=== PATIENT | male | born 1975 | race African-American/Black ===

== ENCOUNTER 2017-07-15 00:25 | Emergency (ER) | payer OTHER ==
[2017-07-15 00:31] VITALS: BP 171/94; PULSE 89; RESP 20; TEMP 97.9
--- NOTE | 2017-07-15 00:42 | ED ---
General Adult HPI - General Chief complaint: Extremity Injury, Lower Stated complaint: toe pain Time Seen by Provider: 07/15/17 00:34 Source: patient, RN notes reviewed Mode of arrival: ambulatory Limitations: no limitations - History of Present Illness Initial comments: Chief complaint history of present illness a 42-year-old male here with a complaint of pain to his right second toe. Patient reports that he had a jump over a railing help stop his [id number] from falling over in a wheelchair. He states he heard what sounded like a bone breaking. He has pain now to the proximal phalanx of his right second toe. No open wound noted. No other complaints. - Related Data Home Medications Medication Instructions Recorded Confirmed Insulin Glargine [Lantus] 60 units SQ HS 06/05/14 07/15/17 Insulin Glulisine [Apidra] 3 units SQ DIRECTED 06/05/14 07/15/17 Lisinopril [Zestril] 5 mg PO DAILY 06/05/14 07/15/17 amLODIPine BESYLATE [Norvasc] 5 mg PO DAILY 06/05/14 07/15/17 Gabapentin [Neurontin] 800 mg PO TID 07/22/14 07/15/17 Promethazine [Phenergan] 25 mg PO Q8HR 07/29/14 07/15/17 ALPRAZolam [Xanax] 0.5 mg PO TID PRN 01/12/15 07/15/17 DULoxetine HCL [Cymbalta] 30 mg PO DAILY 01/12/15 07/15/17 Previous Rx's Medication Instructions Recorded Ibuprofen [Motrin] 600 mg PO Q6HR PRN #20 tab 07/15/17 Allergies Allergy/AdvReac Type Severity Reaction Status Date / Time No Known Allergies Allergy Verified 07/15/17 00:31 Review of Systems ROS Statement: Those systems with pertinent positive or pertinent negative responses have been documented in the HPI. review of systems patient has no other complaints other than pain and swelling to his right second toe is noted in the chief complaint. Past medical problems significant for insulin-dependent diabetes mellitus, hypertension and CAD diabetic gastroparesis. Patient's surgeries include a pilonidal abscess 10 years ago. Family history noncontributory no known ALLERGIES. He does smoke and is encouraged to stop denies alcohol use. ROS Other: All systems not noted in ROS Statement are negative. Past Medical History Past Medical History: Diabetes Mellitus, Hypertension Additional Past Medical History / Comment(s): Diabetic gastroparesis,mid and lower herniated disc, mid and lower bulging disc, arthritis to mid and lower back.- History of Any Multi-Drug Resistant Organisms: None Reported Additional Past Surgical History / Comment(s): 2006 approx.cyst polynoidal removal. Past Anesthesia/Blood Transfusion Reactions: No Reported Reaction Additional Past Anesthesia/Blood Transfusion Reaction / Comment(s): no anesthesia difficulties. Never recieved blood product. Past Psychological History: Anxiety, Depression Smoking Status: Current every day smoker Past Alcohol Use History: Rare Past Drug Use History: Marijuana - Past Family History Father Family Medical History: Diabetes Mellitus, Hypertension Additional Family Medical History / Comment(s): father is still living Mother Family Medical History: Diabetes Mellitus Additional Family Medical History / Comment(s): mother is still living. Mothers immediate family has very strong cardiac hx. General Exam - General Exam Comments Initial Comments: physical examination finds temperature 97.9 pulse 89 respiratory rate 20 pulse ox 97% room air blood pressure 171/94. pertinent to the patient's chief complaint; The patient is here because of pain to his right foot specifically right second toe. Mildly black and blue mildly swollen decreased range of motion pain with motion. No open wounds noted. Limitations: no limitations Course Vital Signs 07/15/17 00:30 Temperature 97.9 F Pulse Rate 89 Respiratory 20 Rate Blood Pressure 171/94 O2 Sat by Pulse 97 Oximetry Medical Decision Making - Medical Decision Making X-ray of the foot was done 3 views. On the lateral view he can see an avulsion fracture off the proximal part of the middle phalanx. This is seen only one view.Dr. Casanova the patient will have the toe chon taped to his neighbor. Disposition Clinical Impression: Fracture of second toe, right, closed Disposition: HOME SELF-CARE Condition: Stable Instructions: Toe Fracture (ED) Additional Instructions: Ice elevate use ibuprofen for pain. Prescriptions: Ibuprofen [Motrin] 600 mg PO Q6HR PRN #20 tab PRN Reason: Pain Referrals: Eliazar Rubio MD [Primary Care Provider] - 1-2 days Time of Disposition: 01:08
[2017-07-15] MEDS ORDERED: HYDROcodone/APAP 5-325MG 1 EACH TAB PO STA (01:07)
--- NOTE | 2017-07-15 01:35 | XR ---
EXAM: XR Right Foot Complete, 3 or More Views CLINICAL HISTORY: Reason: pain right second toe TECHNIQUE: Frontal, lateral and oblique views of the right foot. COMPARISON: No relevant prior studies available. FINDINGS: Bones/joints: Unremarkable. No acute fracture. No dislocation. Soft tissues: Unremarkable. No radiopaque foreign body. IMPRESSION: Normal right foot x-rays.
== END 2017-07-15 01:25 | disposition home or self-care (01) ==
LOC: EC 00:25
DX: S92.511A Displaced fracture of proximal phalanx of right lesser toe(s), initial encounter for closed fracture (principal); I10 Essential (primary) hypertension; F41.9 Anxiety disorder, unspecified; E11.43 Type 2 diabetes mellitus with diabetic autonomic (poly)neuropathy; K31.84 Gastroparesis; F32.9 Major depressive disorder, single episode, unspecified; F17.200 Nicotine dependence, unspecified, uncomplicated; Z79.4 Long term (current) use of insulin; Z79.899 Other long term (current) drug therapy; X50.0XXA Overexertion from strenuous movement or load, initial encounter; Y93.89 Activity, other specified
CPT/HCPCS: 99283

== ENCOUNTER 2020-06-18 12:28 | Inpatient (IN) | payer OTHER ==
[2020-06-18 16:24] LABS: Basophils % (A) 0 %; Eosinophils # (A) 0.1 k/uL (0-0.7); Eosinophils % (A) 1 %; HCT 40.8 % (39.0-53.0); HGB 12.9 gm/dL (13.0-17.5); Lymphocytes # (A) 1.4 k/uL (1.0-4.8); Lymphocytes % (A) 14 %; MCH 28.8 pg (25.0-35.0); MCHC 31.7 g/dL (31.0-37.0); MCV 90.9 fL (80.0-100.0); Mean Platelet Volume 7.3; Monocytes # (A) 0.5 k/uL (0-1.0); Monocytes % (A) 5 %; Neutrophils % (A) 79 %; Platelet Count 141 k/uL (150-450); RBC 4.48 m/uL (4.30-5.90); RDW 13.4 % (11.5-15.5); WBC 10.2 k/uL (3.8-10.6)
[2020-06-18 16:29] LABS: African American GFR (CKD) >90 (>60 ml/min/1.73 sqM); Anion Gap 5 mmol/L; Blood Urea Nitrogen 17 mg/dL (9-20); Calcium 8.5 mg/dL (8.4-10.2); Carbon Dioxide 26 mmol/L (22-30); Chloride 105 mmol/L (98-107); Glucose 140 mg/dL (74-99); Non-African American GFR(CKD) >90 (>60 ml/min/1.73 sqM); Potassium 3.9 mmol/L (3.5-5.1); Sodium 136 mmol/L (137-145)
[2020-06-18 16:33] LABS: INR 0.9 (<1.2); Partial Thromboplastin Time 29.2 sec (22.0-30.0); Prothrombin Time 9.5 sec (9.0-12.0)
[2020-06-18] MEDS: HEPARIN SOD,PORK IN 0.45% NACL 25,000 UNIT in 0.45% NACL 1 250ML.BAG IV SCH (16:43)
[2020-06-18] MEDS: SODIUM CHLORIDE 0.9% 1,000 ML IV SCH (16:45)
[2020-06-18] MEDS ORDERED: MD COMMUNICATION TO PHARMACY 1 EACH MISC PO ONE ×4 (16:49→17:20)
[2020-06-18 16:51] LABS: Glucose,Whole Blood 137 mg/dL (75-99)
[2020-06-18] MEDS: INSULIN ASPART (NovoLOG) 100 UNIT/ML VIAL SQ SCH ×2 (17:51→20:39)
[2020-06-18 17:59] LABS: ALT 73 U/L (4-49); AST 57 U/L (17-59); African American GFR (CKD) >90 (>60 ml/min/1.73 sqM); Albumin 3.3 g/dL (3.5-5.0); Alkaline Phosphatase 68 U/L (38-126); Anion Gap 5 mmol/L; Blood Urea Nitrogen 17 mg/dL (9-20); Calcium 8.5 mg/dL (8.4-10.2); Carbon Dioxide 25 mmol/L (22-30); Chloride 106 mmol/L (98-107); Glucose 141 mg/dL (74-99); Magnesium 1.9 mg/dL (1.6-2.3); Non-African American GFR(CKD) >90 (>60 ml/min/1.73 sqM); Potassium 3.9 mmol/L (3.5-5.1); Sodium 136 mmol/L (137-145); Total Bilirubin 1.1 mg/dL (0.2-1.3); Total Protein 5.8 g/dL (6.3-8.2)
--- NOTE | 2020-06-18 18:15 | P.GSCN ---
History of Present Illness Consult date: 06/18/20 Reason for Consult: Triple-vessel coronary artery disease, non-STEMI this admission, evaluation for myocardial revascularization surgery. Requesting physician: Elisha Dooley History of present illness: This is a 45-year-old gentleman who is followed by Dr. Zechariah Kramer on an outpatient basis. He has a past medical history significant for insulin- dependent diabetes mellitus, gastroparesis, hypertension, hyperlipidemia, peripheral neuropathy, depression, anxiety, occasional marijuana use, current every day smoker, and family history of early onset coronary artery disease with his brother having 2 stents placed at age 45. The patient was admitted to [facility] and arrived via EMS after his girlfriend found him with altered mental status and unresponsive at home. According to the patient's girlfriend EMS did do a random blood sugar which was greater than 1100. The patient was subsequently transferred to [facility] and due to the patient's altered mental status and diabetic ketoacidosis he was intubated with mechanical ventilator support and was extubated according to the patient and his girlfriend on , 06/17/2020. The patient reports that he did have some episodes of emesis the night before which is not uncommon for him as he says he has episodes of emesis 2-3 times a week due to his gastroparesis. Laboratory results from [facility] showed a WBC count of 23.2, hemoglobin 11.9, hematocrit 40.6, platelets 274, BUN 66, creatinine 3.8, glucose 1153, proBNP 5060, TSH 0.536, free T4 1 0.08, and abnormal troponins as high as 12.150. The patient denies any complaints of fever, chills, dizziness, shortness of breath, chest pain, recent trauma, headache or peripheral edema. Due to the patient's altered mental status the computed tomography scan of his head without contrast was completed which demonstrated no acute intracranial hemorrhage/mass effect, or midline shift. A 12-lead EKG was also completed showed borderline interventricular conduction delay, nonspecific repolarization abnormality, diffuse leads ST elevation and borderline prolonged QT interval. Due to the patient's elevated troponins he was ruled in for a non-ST elevated myocardial infarction and Dr. CARINA Dooley was consulted from cardiology associates. He underwent a cardiac catheterization today which demonstrated severe triple- vessel coronary artery disease. He was transferred to [facility] for further evaluation and workup for myocardial revascularization surgery and Dr. Noe Crabtree from cardiothoracic surgery was consulted. Review of Systems A 14 point review of systems was completed and was negative except as mentioned in the HPI. Past Medical History Past Medical History: Diabetes Mellitus, Hyperlipidemia, Hypertension Additional Past Medical History / Comment(s): Diabetic gastroparesis,mid and lower herniated disc, mid and lower bulging disc, arthritis to mid and lower back., diabetic neuropathy hands and feet History of Any Multi-Drug Resistant Organisms: None Reported Additional Past Surgical History / Comment(s): 2006 approx.cyst polynoidal removal. Past Anesthesia/Blood Transfusion Reactions: No Reported Reaction Additional Past Anesthesia/Blood Transfusion Reaction / Comm: no anesthesia difficulties. Never recieved blood product. Past Psychological History: Anxiety, Depression Smoking Status: Current every day smoker (Smokes 2-1/2 packs of cigarettes per day) Past Alcohol Use History: Rare Past Drug Use History: Marijuana Additional Drug Use History / Comment(s): states he occasionally smokes marijuana - Past Family History Father Family Medical History: Diabetes Mellitus, Hypertension Mother Family Medical History: Diabetes Mellitus, Renal Disease Additional Family Medical History / Comment(s): mother is still living. Mental health disorders. Mothers immediate family has very strong cardiac hx. Brother(s) Family Medical History: Myocardial Infarction (MD) Additional Family Medical History / Comment(s): His brother had to heart stents placed at age 45. Medications and Allergies Home Medications Medication Instructions Recorded Confirmed Type amLODIPine BESYLATE [Norvasc] 5 mg PO DAILY 06/05/14 06/18/20 History Amitriptyline HCl [Elavil] 10 mg PO HS 06/18/20 06/18/20 History Atorvastatin Calcium [Lipitor] 40 mg PO HS 06/18/20 06/18/20 History Cariprazine HCl [Vraylar] 1.5 mg PO DAILY 06/18/20 06/18/20 History INSULIN LISPRO (HumaLOG) [humaLOG] 20 units SQ AC-TID 06/18/20 06/18/20 History Insulin Glargine,Hum.rec.anlog 60 unit SQ HS 06/18/20 06/18/20 History [Basaglar Kwikpen U-100] Losartan Potassium [Cozaar] 25 mg PO DAILY 06/18/20 06/18/20 History Omeprazole 20 mg PO DAILY 06/18/20 06/18/20 History Ondansetron [Zofran] 4 mg PO BID 06/18/20 06/18/20 History Allergies Allergy/AdvReac Type Severity Reaction Status Date / Time No Known Allergies Allergy Verified 07/15/17 00:31 Surgical - Exam Vital Signs Temp Resp BP Pulse Ox 99.0 F 18 131/84 92 L 06/18/20 15:23 06/18/20 15:23 06/18/20 15:23 06/18/20 15:23 - General well developed, well nourished, no distress, no pain - Eyes PERRL, normal ocular movement - ENT normal pinna, normal nares, normal mucosa, no hearing loss, no congestion, poor alf - Neck Neck is supple, no JVD. no masses, no bruits, trachea midline, no venous distension - Respiratory Lungs sounds essentially clear to his bilateral upper lobes, few scattered crackles to his bilateral bases. Respirations are symmetrical and nonlabored. - Cardiovascular Regular rhythm and rate. S1 and S2 present, negative for S3, gallop or murmur. Peripheral pulses palpable. No peripheral edema. - Abdomen Abdomen is soft, nontender and nondistended. Active bowel sounds present in all 4 abdominal quadrants. No guarding or rigidity. No organomegaly appreciated. - Genitourinary Deferred - Rectum Deferred - Integumentary Multiple tattoos no rash, no growths, no abnormal pigmentation - Neurologic Cranial nerves II through XII intact - Musculoskeletal Moves all 4 extremities appropriately. Equal strength bilaterally. - Psychiatric oriented to time, oriented to person, oriented to place, speech is normal, memory intact Results - Labs 06/18/20 16:08 06/18/20 15:54 Abnormal Lab Results - Last 24 Hours (Table) 06/18/20 06/18/20 Range/Units 15:54 16:08 Hgb 12.9 L (13.0-17.5) gm/dL Plt Count 141 L (150-450) k/uL Neutrophils # 8.0 H (1.3-7.7) k/uL Sodium 136 L (137-145) mmol/L Creatinine 0.57 L (0.66-1.25) mg/dL Glucose 140 H (74-99) mg/dL Diabetes panel 06/18/20 Range/Units 15:54 Sodium 136 L (137-145) mmol/L Potassium 3.9 (3.5-5.1) mmol/L Chloride 105 (98-107) mmol/L Carbon Dioxide 26 (22-30) mmol/L BUN 17 (9-20) mg/dL Creatinine 0.57 L (0.66-1.25) mg/dL Glucose 140 H (74-99) mg/dL Calcium 8.5 (8.4-10.2) mg/dL Calcium panel 06/18/20 Range/Units 15:54 Calcium 8.5 (8.4-10.2) mg/dL Pituitary panel 06/18/20 Range/Units 15:54 Sodium 136 L (137-145) mmol/L Potassium 3.9 (3.5-5.1) mmol/L Chloride 105 (98-107) mmol/L Carbon Dioxide 26 (22-30) mmol/L BUN 17 (9-20) mg/dL Creatinine 0.57 L (0.66-1.25) mg/dL Glucose 140 H (74-99) mg/dL Calcium 8.5 (8.4-10.2) mg/dL Adrenal panel 06/18/20 Range/Units 15:54 Sodium 136 L (137-145) mmol/L Potassium 3.9 (3.5-5.1) mmol/L Chloride 105 (98-107) mmol/L Carbon Dioxide 26 (22-30) mmol/L BUN 17 (9-20) mg/dL Creatinine 0.57 L (0.66-1.25) mg/dL Glucose 140 H (74-99) mg/dL Calcium 8.5 (8.4-10.2) mg/dL - Imaging Additional studies: Cardiac catheterization films reviewed by Dr. Noe Crabtree. Assessment and Plan Assessment: 1. Multi vessel coronary artery disease 2. Non-ST elevated myocardial infarction this admission, with troponins as high as 12.150 3. Diabetic ketoacidosis, resolving blood sugar today 137 4. Uncontrolled insulin-dependent diabetes mellitus, admission blood sugar was 1153 5. Acute kidney injury, resolving BUN and creatinine today 17/0.58 6. Leukocytosis, resolving WBC count 10.2 today 7. Gastroparesis 8. Hypertension 9. Hyperlipidemia 10. Peripheral neuropathy 11. Chronic tobacco dependence 12. Occasional marijuana use 13. History of depression 14. History of anxiety Plan: The patient was seen and examined at his bedside on the cardiac stepdown unit. His chart and diagnostics were reviewed. The patient was seen and examined by Dr. Noe Crabtree. His cardiac catheterization films were reviewed with the patient, treatment options discussed with the patient including by [place] revascularization surgery. The usual perioperative course of open heart surgery with discussed in detail with the patient and his girlfriend at his bedside. Risks and benefits were reviewed, and all questions were answered by Dr. Noe Crabtree. Preoperative testing and preoperative teaching was initiated. Knowing the risks and benefits of myocardial revascularization surgery the patient wishes to proceed and will be scheduled for off-pump myocardial revasculariza tion surgery on 06/22/2020 to be performed by Dr. Noe Crabtree. Once his preoperative testing has been obtained a STS risk or will be calculated in discussed with the patient. A 5 m walk test will be completed with the patient. The importance of smoking cessation was discussed with the patient. 2-D echocardiogram results pending. Recommend continuing aspirin, statin and beta dixon. Cardiology management recommendations per Dr. CARINA Dooley. Medical management/diabetic management recommendations per primary care service. More recommendations to follow based on his preoperative testing and clinical course. Thank you Dr. Dooley for this consult and we will look for to working with you in the care of this patient. Time with Patient: Greater than 30
--- NOTE | 2020-06-18 18:36 | ECHOF ---
Referral Reason: MEASUREMENTS -------- HEIGHT: 182.9 cm WEIGHT: 70.3 kg BP: IVSd: 0.8 cm (0.6 - 1.1) LVIDd: 5.2 cm (3.9 - 5.3) LVPWd: 1.0 cm (0.6 - 1.1) IVSs: 0.9 cm LVIDs: 4.8 cm LVPWs: 1.1 cm LAESV Index (A-L): 29.32 ml/m IVSd: 3.3 cm (0.6 - 1.1) LVIDd: 0.0 cm (3.9 - 5.3) EDV(Teich): 0 ml Ao Diam: 3.2 cm (2.0 - 3.7) AV Cusp: 2.2 cm (1.5 - 2.6) LA Diam: 2.3 cm (2.7 - 3.8) MV EXCURSION: 17.874 mm (> 18.000) MV EF SLOPE: 239 mm/s (70 - 150) EPSS: 3.2 cm MV E Reyes: 0.63 m/s MV DecT: 259 ms MV A Reyes: 0.58 m/s MV E/A Ratio: 1.09 RAP: 5.00 mmHg RVSP: 8.57 mmHg TAPSE: 19.60 mm FINDINGS -------- Sinus rhythm. This was a technically good study. The left ventricular size is normal. Left ventricular wall thickness is normal. Overall left vent ricular systolic function is severely impaired with, an EF between 25 - 30 %. Normal LAP Grade 1 Di astolic Dysfunction Mid anterior LV wall motion is hypokinetic. Mid lateral LV wall motion is hy pokinetic. Mid anteroseptal LV wall motion is hypokinetic. Apical anterior LV wall motion is hy pokinetic. Apical lateral LV wall motion is hypokinetic. Apical inferior LV wall motion is hypo kinetic. Apical septum LV wall motion is hypokinetic. The right ventricle is normal in size. LA is midly dilated 29-33ml/m2. The right atrial size is normal. Interatrial and interventricular septum intact. The aortic valve is trileaflet, and appears structurally normal. No aortic stenosis or regurgitation. The mitral valve is normal. Mild mitral regurgitation is present. The tricuspid valve appears structurally normal. Mild tricuspid regurgitation present. Right vent ricular systolic pressure is normal at < 35 mmHg. There is no pulmonic regurgitation present. The aortic root size is normal. Normal inferior vena cava with normal inspiratory collapse consistent with estimated right atrial pre ssure of 5 mmHg. There is no pericardial effusion. CONCLUSIONS -------- 1. Left ventricular wall thickness is normal. 2. Overall left ventricular systolic function is severely impaired with, an EF between 25 - 30 %. 3. Normal LAP Grade 1 Diastolic Dysfunction 4. Mid anterior LV wall motion is hypokinetic. 5. Mid lateral LV wall motion is hypokinetic. 6. Mid anteroseptal LV wall motion is hypokinetic. 7. Apical anterior LV wall motion is hypokinetic. 8. Apical lateral LV wall motion is hypokinetic. 9. Apical inferior LV wall motion is hypokinetic. 10. Apical septum LV wall motion is hypokinetic. 11. LA is midly dilated 29-33ml/m2. 12. The aortic valve is trileaflet, and appears structurally normal. No aortic stenosis or regurgitat ion. 13. Mild mitral regurgitation is present. 14. Mild tricuspid regurgitation present. 15. There is no pericardial effusion. [employer]: Sofia Bryant RDCS
[2020-06-18 18:37] LABS: Appearance,Urine Clear (Clear); Bilirubin,Urine Negative (Negative); Blood,Urine Moderate (Negative); Color,Urine Light Yellow; Glucose,Urine (UA) Negative (Negative); Ketones,Urine Trace (Negative); Leukocyte Esterase,Urine Negative (Negative); Mucus,Urine Rare /hpf; Nitrite,Urine Negative (Negative); Protein,Urine Trace (Negative); RBC,Urine 40 /hpf (0-5); Specific Gravity,Urine 1.017 (1.001-1.035); Urobilinogen,Urine <2.0 mg/dL (<2.0); WBC,Urine 1 /hpf (0-5)
[2020-06-18 20:11] LABS: Glucose,Whole Blood 76 mg/dL (75-99)
--- NOTE | 2020-06-18 20:41 | US ---
EXAMINATION TYPE: US carotid duplex BILAT DATE OF EXAM: 06/18/2020 COMPARISON: NONE CLINICAL HISTORY: Pre-Op Cardiac Surgery,Ankle Brachial Index (YOSVANY) . pre open heart, no stroke histo ry EXAM MEASUREMENTS: RIGHT: Peak Systolic Velocity (PSV) cm/sec ----- Right CCA: 44.8 ----- Right ICA: 62.8 ----- Right ECA: 58.6 ICA/CCA ratio: 1.4 RIGHT: End Diastole cm/sec ----- Right CCA: 11.5 ----- Right ICA: 25.8 ----- Right ECA: 10.9 LEFT: Peak Systolic Velocity (PSV) cm/sec ----- Left CCA: 54.6 ----- Left ICA: 53.5 ----- Left ECA: 60.0 ICA/CCA ratio: 1.0 LEFT: End Diastole cm/sec ----- Left CCA: 15.7 ----- Left ICA: 26.7 ----- Left ECA: 8.0 VERTEBRALS (direction of flow): Right Vertebral: Antegrade Left Vertebral: Antegrade Rhythm: Normal Mild heterogeneous plaque seen at right bulb/bif, otherwise mild homogeneous plaque with no significa nt stenosis seen, IMPRESSION: There is antegrade flow in the vertebral arteries. The images and measurements suggest less than 25% stenosis in the right internal carotid artery and close to 0% stenosis in the left internal carotid a rtery. Criteria for Assigning % of Stenosis / Diameter reduction (Estimation based on the indirect measurements of the internal carotid artery velocities (ICA PSV). 1. Normal (no stenosis)=ICA PSV < 125 cm/s: ratio < 2.0: ICA EDV<40 cm/s. 2. Less than 50% stenosis=ICA PSV < 125 cm/s: ratio < 2.0: ICA EDV<40 cm/s. 3. 50 to 69% stenosis=ICA PSV of 125 to 230 cm/s: ration 2.0 ? 4.0: ICA EDV 40-100 cm/s. 4. Greater than 70% stenosis to near occlusion= ICA PSV > 230 cm/s: ratio > 4.0: ICA EDV > 100 cm/s. 5. Near occlusion= ICA PSV velocities may be low or undetectable: variable ratio and ICA EDV. 6. Total occlusion=unable to detect flow.
[2020-06-18] MEDS: METOPROLOL TARTRATE 25 MG TAB PO SCH (20:57)
[2020-06-18] MEDS ORDERED: INSULIN DETEMIR (LEVEMIR) 100 UNIT/ML SYR SQ SCH (21:00)
[2020-06-19] MEDS: MUPIROCIN 2% OINT 22 GM TUBE NASAL SCH ×3 (00:02→20:48)
[2020-06-19] MEDS: HEPARIN SODIUM,PORCINE 5,000 UNIT/ML 1 ML VIAL IV PRN (00:34)
[2020-06-19 01:08] LABS: Hepatitis A Antibody IgM Non-Reactive (Non-Reactive); Hepatitis B Core IgM Non-Reactive (Non-Reactive); Hepatitis B Surface Antigen Non-Reactive (Non-Reactive); Hepatitis C IgG Antibody Non-Reactive (Non-Reactive)
[2020-06-19 04:24] LABS: Glucose,Whole Blood 25 mg/dL (75-99)
[2020-06-19 04:29] LABS: Glucose,Whole Blood 22 mg/dL (75-99)
[2020-06-19] MEDS ORDERED: DEXTROSE 50% SYRINGE 50 ML IVP ONE (04:32)
[2020-06-19 04:41] LABS: Glucose,Whole Blood 60 mg/dL (75-99)
[2020-06-19 04:57] LABS: Hemoglobin A1C 10.5 % (4.0-6.0)
[2020-06-19 04:59] LABS: Glucose,Whole Blood 67 mg/dL (75-99)
[2020-06-19 05:14] LABS: Glucose,Whole Blood 82 mg/dL (75-99)
[2020-06-19] MEDS: SODIUM CHLORIDE 0.9% 1,000 ML IV SCH (05:14)
[2020-06-19 06:25] LABS: Glucose,Whole Blood 156 mg/dL (75-99)
[2020-06-19 07:04] LABS: Basophils % (A) 0 %; Eosinophils # (A) 0.1 k/uL (0-0.7); Eosinophils % (A) 1 %; HCT 40.3 % (39.0-53.0); HGB 12.8 gm/dL (13.0-17.5); Lymphocytes % (A) 11 %; MCH 28.8 pg (25.0-35.0); MCHC 31.7 g/dL (31.0-37.0); MCV 90.8 fL (80.0-100.0); Mean Platelet Volume 7.2; Monocytes # (A) 0.4 k/uL (0-1.0); Monocytes % (A) 4 %; Neutrophils # (A) 7.4 k/uL (1.3-7.7); Neutrophils % (A) 83 %; Platelet Count 108 k/uL (150-450); RBC 4.44 m/uL (4.30-5.90); RDW 13.4 % (11.5-15.5)
[2020-06-19] MEDS: METOPROLOL TARTRATE 25 MG TAB PO SCH ×2 (08:06→20:48)
[2020-06-19] MEDS ORDERED: LOSARTAN 25 MG TAB PO SCH (09:00)
[2020-06-19] MEDS: INSULIN ASPART (NovoLOG) 100 UNIT/ML VIAL SQ SCH ×4 (09:17→20:39)
--- NOTE | 2020-06-19 09:22 | XR ---
EXAMINATION TYPE: XR chest 2V DATE OF EXAM: 06/19/2020 COMPARISON: NONE HISTORY: Preopen cardiac surgery. TECHNIQUE: Frontal and lateral views of the chest are obtained. FINDINGS: Overlying EKG leads are present. There is no focal air space opacity, pleural effusion, or pneumothorax seen. The cardiac silhouette size is within normal limits. The osseous structures ar e intact. IMPRESSION: No acute cardiopulmonary process.
[2020-06-19 11:51] LABS: Glucose,Whole Blood 174 mg/dL (75-99)
[2020-06-19] MEDS: ASPIRIN 81 MG PO SCH (12:31)
[2020-06-19] MEDS: ATORVASTATIN 40 MG TAB PO SCH (12:31)
[2020-06-19] MEDS: PANTOPRAZOLE 40 MG TABLET PO SCH (12:32)
--- NOTE | 2020-06-19 12:54 | P.PN ---
Subjective Progress Note Date: 06/19/20 Principal diagnosis: This is a 45-year-old gentleman who is followed by Dr. Zechariah Kramer on an outpatient basis. He has a past medical history significant for insulin-depende nt diabetes mellitus, gastroparesis, hypertension, hyperlipidemia, peripheral neuropathy, depression, anxiety, occasional marijuana use, current every day smoker, and family history of early onset coronary artery disease with his brother having 2 stents placed at age 45. The patient was admitted to [facility] and arrived via EMS after his girlfriend found him with altered mental status and unresponsive at home. According to the patient's girlfriend EMS did do a random blood sugar which was greater than 1100. The patient was subsequently transferred to [facility] and due to the patient's altered mental status and diabetic ketoacidosis he was intubated with mechanical ventilator support and was extubated according to the patient and his girlfriend on , 06/17/2020. The patient reports that he did have some episodes of emesis the night before which is not uncommon for him as he says he has episodes of emesis 2-3 times a week due to his gastroparesis. Laboratory results from [facility] showed a WBC count of 23.2, hemoglobin 11.9, hematocrit 40.6, platelets 274, BUN 66, creatinine 3.8, glucose 1153, proBNP 5060, TSH 0.536, free T4 1 0.08, and abnormal troponins as high as 12.150. The patient denies any complaints of fever, chills, dizziness, shortness of breath, chest pain, recent trauma, headache or peripheral edema. Due to the patient's altered mental status the computed tomography scan of his head without contrast was completed which demonstrated no acute intracranial hemorrhage/mass effect, or midline shift. A 12-lead EKG was also completed showed borderline interventricular conduction delay, nonspecific repolarization abnormality, diffuse leads ST elevation and borderline prolonged QT interval. Due to the patient's elevated troponins he was ruled in for a non-ST elevated myocardial infarction and Dr. CARINA Dooley was consulted from cardiology associates. He underwent a cardiac catheterization today which demonstrated severe triple- vessel coronary artery disease. He was transferred to [facility] for further evaluation and workup for myocardial revascularization surgery and Dr. Noe Crabtree from cardiothoracic surgery was consulted. The patient was seen in follow-up today on 06/19/2020 at his bedside on the cardiac stepdown unit. He is awake, alert and oriented 3 and is in no acute apparent distress. The patient denies any complaints of chest pain or shortness of breath, and he reports he is feeling much better today. A 2-D echocardiogram was completed yesterday 06/18/2020 which demonstrated an overall left ventricular systolic function to be severely impaired with an ejection fraction between 25 and 30%, mild mitral valve regurgitation, and mild tricuspid valve regurgitation. Oxygen saturation are 96% on room air and he is achieving 2250 mL on his incentive spirometry with encouragement. The patient was ambulating in his room this morning with minimal assistance from nursing staff and is currently sitting up to the bedside chair. Preoperative teaching for myocardial revascularization surgery was reinforced with the patient and his questions were answered to the best of my ability. Objective - Vital Signs Vital signs: Vital Signs Temp 96.9 F L 06/19/20 04:00 Pulse 64 06/19/20 04:00 Resp 18 06/19/20 04:00 BP 129/78 06/19/20 04:00 Pulse Ox 96 06/19/20 04:00 Intake & Output 06/18/20 06/19/20 06/19/20 18:59 06:59 18:59 Intake Total 66.882 Output Total 250 1600 200 Balance -250 -1533.118 -200 Weight 70.7 kg 70.4 kg Intake: Intake, IV Titration 66.882 Amount Heparin Sod,Pork in 0.45% 66.882 NaCl 25,000 unit In 0.45 % NaCl 1 250ml.bag @ 12 UNITS/KG/HR 8.484 mls/hr IV .Q24H [facility] Rx#: [id number] Output: Urine 250 1600 200 Other: Voiding Method Indwelling Catheter Indwelling Catheter - Constitutional General appearance: Present: cooperative, no acute distress, thin - EENT Eyes: Present: PERRLA, poor dentition, normal appearance. Absent: scleral icterus ENT: Present: hearing grossly normal - Neck Details: Neck is supple, no JVD. - Respiratory Details: Lung sounds are essentially clear to his bilateral upper lobes, few scattered crackles to his bilateral bases. Respirations are symmetrical and nonlabored. Oxygen saturation is 96% on room air. Achieving 2250 mL on his incentive spirometry. - Cardiovascular Details: Regular rhythm and rate. S1 and S2 present, negative for S3, gallop or murmur. Remote telemetry is showing normal sinus rhythm heart rate 87 BPM. No edema present. - Gastrointestinal Gastrointestinal Comment(s): Abdomen is soft, nontender and nondistended. Active bowel sounds present in all 4 abdominal quadrants. No guarding or rigidity. No organomegaly appreciated. - Genitourinary Genitourinary Comment(s): Mcmillan catheter for accurate I&O. Draining clear [place] urine. - Integumentary Integumentary Comment(s): Skin is warm and dry. No clubbing or cyanosis is present. No rash or abnormal pigmentation is present. Multiple tattoos. - Neurologic Neurologic: Present: CNII-XII intact - Musculoskeletal Musculoskeletal: Present: gait normal, generalized weakness, strength equal bilaterally - Psychiatric Psychiatric: Present: A&O x's 3, appropriate affect, intact judgment & insight - Allied health notes Allied health notes reviewed: nursing - Labs CBC & Chem 7: 06/19/20 06:42 06/18/20 15:54 Labs: Abnormal Lab Results - Last 24 Hours (Table) 06/18/20 06/18/20 06/18/20 Range/Units 15:54 15:54 16:08 Hgb 12.9 L (13.0-17.5) gm/dL Plt Count 141 L (150-450) k/uL Neutrophils # 8.0 H (1.3-7.7) k/uL APTT (22.0-30.0) sec Sodium 136 L 136 L (137-145) mmol/L Creatinine 0.57 L 0.58 L (0.66-1.25) mg/dL Glucose 140 H 141 H (74-99) mg/dL POC Glucose (mg/dL) (75-99) mg/dL Hemoglobin A1c (4.0-6.0) % ALT 73 H (4-49) U/L Troponin I (0.000-0.034) ng/mL Total Protein 5.8 L (6.3-8.2) g/dL Albumin 3.3 L (3.5-5.0) g/dL Urine Protein (Negative) Urine Ketones (Negative) Urine Blood (Negative) Urine RBC (0-5) /hpf Urine Mucus (None) /hpf 06/18/20 06/18/20 06/18/20 Range/Units 16:08 16:49 17:59 Hgb (13.0-17.5) gm/dL Plt Count (150-450) k/uL Neutrophils # (1.3-7.7) k/uL APTT (22.0-30.0) sec Sodium (137-145) mmol/L Creatinine (0.66-1.25) mg/dL Glucose (74-99) mg/dL POC Glucose (mg/dL) 137 H (75-99) mg/dL Hemoglobin A1c 10.5 H (4.0-6.0) % ALT (4-49) U/L Troponin I (0.000-0.034) ng/mL Total Protein (6.3-8.2) g/dL Albumin (3.5-5.0) g/dL Urine Protein Trace H (Negative) Urine Ketones Trace H (Negative) Urine Blood Moderate H (Negative) Urine RBC 40 H (0-5) /hpf Urine Mucus Rare H (None) /hpf 06/18/20 06/19/20 06/19/20 Range/Units 23:00 04:18 04:28 Hgb (13.0-17.5) gm/dL Plt Count (150-450) k/uL Neutrophils # (1.3-7.7) k/uL APTT 30.9 H (22.0-30.0) sec Sodium (137-145) mmol/L Creatinine (0.66-1.25) mg/dL Glucose (74-99) mg/dL POC Glucose (mg/dL) 25 L 22 L (75-99) mg/dL Hemoglobin A1c (4.0-6.0) % ALT (4-49) U/L Troponin I (0.000-0.034) ng/mL Total Protein (6.3-8.2) g/dL Albumin (3.5-5.0) g/dL Urine Protein (Negative) Urine Ketones (Negative) Urine Blood (Negative) Urine RBC (0-5) /hpf Urine Mucus (None) /hpf 06/19/20 06/19/20 06/19/20 Range/Units 04:40 04:58 06:24 Hgb (13.0-17.5) gm/dL Plt Count (150-450) k/uL Neutrophils # (1.3-7.7) k/uL APTT (22.0-30.0) sec Sodium (137-145) mmol/L Creatinine (0.66-1.25) mg/dL Glucose (74-99) mg/dL POC Glucose (mg/dL) 60 L 67 L 156 H (75-99) mg/dL Hemoglobin A1c (4.0-6.0) % ALT (4-49) U/L Troponin I (0.000-0.034) ng/mL Total Protein (6.3-8.2) g/dL Albumin (3.5-5.0) g/dL Urine Protein (Negative) Urine Ketones (Negative) Urine Blood (Negative) Urine RBC (0-5) /hpf Urine Mucus (None) /hpf 06/19/20 06/19/20 06/19/20 Range/Units 06:42 06:42 06:42 Hgb 12.8 L (13.0-17.5) gm/dL Plt Count 108 L (150-450) k/uL Neutrophils # (1.3-7.7) k/uL APTT 57.8 H (22.0-30.0) sec Sodium (137-145) mmol/L Creatinine (0.66-1.25) mg/dL Glucose (74-99) mg/dL POC Glucose (mg/dL) (75-99) mg/dL Hemoglobin A1c (4.0-6.0) % ALT (4-49) U/L Troponin I 0.729 H* (0.000-0.034) ng/mL Total Protein (6.3-8.2) g/dL Albumin (3.5-5.0) g/dL Urine Protein (Negative) Urine Ketones (Negative) Urine Blood (Negative) Urine RBC (0-5) /hpf Urine Mucus (None) /hpf 06/19/20 Range/Units 11:49 Hgb (13.0-17.5) gm/dL Plt Count (150-450) k/uL Neutrophils # (1.3-7.7) k/uL APTT (22.0-30.0) sec Sodium (137-145) mmol/L Creatinine (0.66-1.25) mg/dL Glucose (74-99) mg/dL POC Glucose (mg/dL) 174 H (75-99) mg/dL Hemoglobin A1c (4.0-6.0) % ALT (4-49) U/L Troponin I (0.000-0.034) ng/mL Total Protein (6.3-8.2) g/dL Albumin (3.5-5.0) g/dL Urine Protein (Negative) Urine Ketones (Negative) Urine Blood (Negative) Urine RBC (0-5) /hpf Urine Mucus (None) /hpf Microbiology - Last 24 Hours (Table) 06/18/20 19:00 Nasal Screen MRSA/MSSA - Preliminary Nasal Swab - Imaging and Cardiology Chest x-ray: report reviewed, image reviewed Assessment and Plan Assessment: 1. Multi vessel coronary artery disease 2. Non-ST elevated myocardial infarction this admission, with troponins as high as 12.150 3. Diabetic ketoacidosis, resolving blood sugar today 137 4. Uncontrolled insulin-dependent diabetes mellitus, admission blood sugar was 1153 5. Acute kidney injury, resolving BUN and creatinine today 17/0.58 6. Leukocytosis, resolving WBC count 10.2 today 7. Gastroparesis 8. Hypertension 9. Hyperlipidemia 10. Peripheral neuropathy 11. Chronic tobacco dependence 12. Occasional marijuana use 13. History of depression 14. History of anxiety Plan: 1. Continue optimize medically with aspirin, statin, ARB and beta dixon. 2. Continue to obtain preoperative testing results and continue preoperative teaching. 3. Importance of smoking cessation was encouraged with the patient and discussed. 4. A 5 m walk test was completed this morning with time 1: 3.91 seconds, time 2: 4.23 seconds, time 3: 3.33 seconds. 5. The patient is tentatively scheduled for myocardial revascularization surgery on 06/22/2020 to be performed by Dr. Noe Crabtree with left internal mammary artery, right internal mammary artery, and endoscopic radial artery harvest. 6. Once his preoperative testing has been all obtained a STS risk for will be calculated in discussed with the patient by Dr. Crabtree. 7. More recommendations to follow based on patient's clinical course. Time with Patient: Greater than 30
--- NOTE | 2020-06-19 14:31 | P.CNPUL ---
History of Present Illness Consult date: 06/19/20 Requesting physician: Noe Crabtree Reason for consult: other (Postop ventilator/critical care management) Chief complaint: Coronary artery disease, non-ST segment elevation myocardial infarction History of present illness: This a very pleasant 45-year-old gentleman who follows with Dr. Fam as his primary care provider. He has a history of diabetes mellitus, gastroparesis, diabetic peripheral neuropathy, hypertension, hyperlipidemia, marijuana use, chronic tobacco dependence. He was recently admitted to [facility] after being found to have altered mental status with unresponsiveness at home. At that time his blood glucose was greater than 1100. He was treated for diabetic ketoacidosis. He had developed impending respiratory failure requiring intubation mechanical ventilatory support subsequently extubated on 06/17/2020. He was found to be a non STEMI and had undergone cardiac catheterization which revealed significant triple-vessel coronary artery disease. He was transferred here for revascularization. The plan is for surgery on 06/22/2020. He is seen today in consultation on the selective care unit. He is currently sitting up in bed. Awake and alert in no acute distress. Alert and oriented 3. No chest pain or palpitations. No worsening shortness of breath, cough or congestion. Chest x-ray reveals no acute pulmonary process. He is working well with his incentive spirometer pulling approximately 2500 ML's. FEV1 value pending. White count 9.0. Hemoglobin 12.8. Troponin 0.7-9. He remains on heparin drip. Review of Systems REVIEW OF SYSTEMS: CONSTITUTIONAL: Denies any recent significant weight loss or weight gain. EYES: Denies change in vision. EARS, NOSE, MOUTH, THROAT: Denies headaches, denies sore throat. CARDIOVASCULAR: Denies chest pain, palpitations or syncopal episodes. RESPIRATORY: Denies shortness of breath, cough, congestion or hemoptysis. GASTROINTESTINAL: Denies change in appetite, denies abdominal pain GENITOURINARY: Denies hematuria, denies infections. MUSKULOSKELETAL: Denies pain, denies swelling. INTEGUMENTARY: Denies rash, denies eczema. NEUROLOGICAL: Currently no altered mental status, no recent seizure activity. PSYCHIATRIC: Denies anxiety, denies depression. HEMATOLOGIC/LYMPHATIC: Denies anemia, denies enlarged lymph nodes. Past Medical History Past Medical History: Diabetes Mellitus, Hyperlipidemia, Hypertension Additional Past Medical History / Comment(s): Diabetic gastroparesis,mid and l ower herniated disc, mid and lower bulging disc, arthritis to mid and lower back., diabetic neuropathy hands and feet History of Any Multi-Drug Resistant Organisms: None Reported Additional Past Surgical History / Comment(s): 2006 approx.cyst polynoidal removal. Past Anesthesia/Blood Transfusion Reactions: No Reported Reaction Additional Past Anesthesia/Blood Transfusion Reaction / Comment(s): no anesthesia difficulties. Never recieved blood product. Past Psychological History: Anxiety, Depression Smoking Status: Current every day smoker (Smokes 2-1/2 packs of cigarettes per day) Past Alcohol Use History: Rare Past Drug Use History: Marijuana Additional Drug Use History / Comment(s): states he occasionally smokes marijuana - Past Family History Father Family Medical History: Diabetes Mellitus, Hypertension Additional Family Medical History / Comment(s): father is still living Mother Family Medical History: Diabetes Mellitus, Renal Disease Additional Family Medical History / Comment(s): mother is still living. Mental health disorders. Mothers immediate family has very strong cardiac hx. Brother(s) Family Medical History: Myocardial Infarction ([place]) Additional Family Medical History / Comment(s): His brother had to heart stents placed at age 45. Medications and Allergies Home Medications Medication Instructions Recorded Confirmed Type amLODIPine BESYLATE [Norvasc] 5 mg PO DAILY 06/05/14 06/18/20 History Amitriptyline HCl [Elavil] 10 mg PO HS 06/18/20 06/18/20 History Atorvastatin Calcium [Lipitor] 40 mg PO HS 06/18/20 06/18/20 History Cariprazine HCl [Vraylar] 1.5 mg PO DAILY 06/18/20 06/18/20 History INSULIN LISPRO (HumaLOG) [humaLOG] 20 units SQ AC-TID 06/18/20 06/18/20 History Insulin Glargine,Hum.rec.anlog 60 unit SQ HS 06/18/20 06/18/20 History [Basaglar Kwikpen U-100] Losartan Potassium [Cozaar] 25 mg PO DAILY 06/18/20 06/18/20 History Omeprazole 20 mg PO DAILY 06/18/20 06/18/20 History Ondansetron [Zofran] 4 mg PO BID 06/18/20 06/18/20 History Allergies Allergy/AdvReac Type Severity Reaction Status Date / Time No Known Allergies Allergy Verified 07/15/17 00:31 Physical Exam Vitals: Vital Signs Temp Pulse Resp BP Pulse Ox 06/19/20 12:00 82 18 136/85 100 06/19/20 08:00 98.2 F 87 18 102/73 06/19/20 04:00 96.9 F L 64 18 129/78 96 06/18/20 23:55 96.9 F L 80 18 111/70 100 06/18/20 20:00 98.2 F 81 18 121/82 98 06/18/20 16:00 99.0 F 91 18 131/84 92 L 06/18/20 15:23 99.0 F 18 131/84 92 L Intake and Output 06/18/20 06/19/20 06/19/20 22:59 06:59 14:59 Intake Total 66.882 236 Output Total 7502 979 6978 Balance -1450 -333.118 -764 Intake: Intake, IV Titration 66.882 Amount Heparin Sod,Pork in 0.45% 66.882 NaCl 25,000 unit In 0.45 % NaCl 1 250ml.bag @ 12 UNITS/KG/HR 8.484 mls/hr IV .Q24H [facility] Rx#: [id number] Oral 236 Output: Urine 7987 087 7688 Uretheral ([place]) 200 Other: Voiding Method Indwelling Catheter Indwelling Catheter Indwelling Catheter Weight 70.7 kg 70.4 kg 70.4 kg GENERAL EXAM: Alert, pleasant 45-year-old gentleman, on room air, thin comfortable in no apparent distress. HEAD: Normocephalic. EYES: Normal reaction of pupils, equal size. NOSE: Clear with pink turbinates. THROAT: No erythema or exudates. NECK: No masses, no JVD. CHEST: No chest wall deformity. LUNGS: Equal air entry with no crackles, wheeze, rhonchi or dullness. Diminished. CVS: S1 and S2 normal with no audible murmur, regular rhythm. ABDOMEN: No hepatosplenomegaly, normal bowel sounds, no guarding or rigidity. SPINE: No scoliosis or deformity SKIN: No rashes CENTRAL NERVOUS SYSTEM: No focal deficits, tone is normal in all 4 extremities. EXTREMITIES: There is no peripheral edema. No clubbing, no cyanosis. Peripheral pulses are intact. Results - Laboratory Findings CBC and BMP: 06/19/20 06:42 06/18/20 15:54 PT/INR, D-dimer PT 9.5 sec (9.0-12.0) 06/18/20 16:08 INR 0.9 (<1.2) 06/18/20 16:08 Abnormal lab findings: Abnormal Labs 06/18/20 06/18/20 06/18/20 15:54 15:54 16:08 Hgb 12.9 L Plt Count 141 L Neutrophils # 8.0 H APTT Sodium 136 L 136 L Creatinine 0.57 L 0.58 L Glucose 140 H 141 H POC Glucose (mg/dL) Hemoglobin A1c ALT 73 H Troponin I Total Protein 5.8 L Albumin 3.3 L Urine Protein Urine Ketones Urine Blood Urine RBC Urine Mucus 06/18/20 06/18/20 06/18/20 16:08 16:49 17:59 Hgb Plt Count Neutrophils # APTT Sodium Creatinine Glucose POC Glucose (mg/dL) 137 H Hemoglobin A1c 10.5 H ALT Troponin I Total Protein Albumin Urine Protein Trace H Urine Ketones Trace H Urine Blood Moderate H Urine RBC 40 H Urine Mucus Rare H 06/18/20 06/19/20 06/19/20 23:00 04:18 04:28 Hgb Plt Count Neutrophils # APTT 30.9 H Sodium Creatinine Glucose POC Glucose (mg/dL) 25 L 22 L Hemoglobin A1c ALT Troponin I Total Protein Albumin Urine Protein Urine Ketones Urine Blood Urine RBC Urine Mucus 06/19/20 06/19/20 06/19/20 04:40 04:58 06:24 Hgb Plt Count Neutrophils # APTT Sodium Creatinine Glucose POC Glucose (mg/dL) 60 L 67 L 156 H Hemoglobin A1c ALT Troponin I Total Protein Albumin Urine Protein Urine Ketones Urine Blood Urine RBC Urine Mucus 06/19/20 06/19/20 06/19/20 06:42 06:42 06:42 Hgb 12.8 L Plt Count 108 L Neutrophils # APTT 57.8 H Sodium Creatinine Glucose POC Glucose (mg/dL) Hemoglobin A1c ALT Troponin I 0.729 H* Total Protein Albumin Urine Protein Urine Ketones Urine Blood Urine RBC Urine Mucus 06/19/20 11:49 Hgb Plt Count Neutrophils # APTT Sodium Creatinine Glucose POC Glucose (mg/dL) 174 H Hemoglobin A1c ALT Troponin I Total Protein Albumin Urine Protein Urine Ketones Urine Blood Urine RBC Urine Mucus - Diagnostic Findings Chest x-ray: image reviewed Assessment and Plan Assessment: Non-ST segment elevation myocardial infarction in a patient found to have severe triple-vessel disease. Coronary revascularization pending for 06/22/2020. Ischemic cardiomyopathy with impaired ejection fraction between 25 and 30% Recent admission for altered mental status, DKA and respiratory failure requiring intubation mechanical ventilatory support, extubated on 06/17/2020 at [facility] Chronic and ongoing tobacco dependence Insulin-dependent diabetes mellitus History of gastroparesis History of peripheral neuropathy Hypertension Hyperlipidemia Anxiety/depression Occasional marijuana use Family history of coronary artery disease Plan: The patient was seen and evaluated by Dr. Ramesh Chest x-ray and labs reviewed Continued on heparin drip Obtain FEV1 value Educated regarding the importance of complete smoking cessation Educated regarding the importance of the use of the incentive spirometer We will continue to follow and make further recommendations based on his clinical status I, the cosigning physician, performed a history & physical examination of the patient. Lungs sounds are clear. Maintaining good O2 saturations in the 90s on room air. I discussed the assessment and plan of care with my nurse practitioner, Courtney Manuel. I attest to the above consultation as dictated by her. Time with Patient: Greater than 30
--- NOTE | 2020-06-19 15:13 | HP ---
HISTORY AND PHYSICAL CHIEF COMPLAINT: Myocardial infarction. HISTORY OF PRESENT ILLNESS: This 45-year-old -[place] male was admitted to [facility] with DKA. He was semicomatose when he was brought in. He was found to have elevated troponins. As his blood sugars were brought down and his acid base balance corrected and his gap closed, he was taken for cardiac cath and found to have triple-vessel coronary artery disease. At that point he was transferred to [facility] for definitive cardiac procedure. REVIEW OF SYSTEMS: He is not having any chest pain, shortness of breath, neurologic problems, etc. Past medical history, family history, and personal and social histories are all detailed in his documents from [facility]. PHYSICAL EXAMINATION: Blood pressure is 131/74 with a pulse of 90, respirations 30, and he is afebrile. In general he appeared to be slender, well developed, well nourished, no acute distress. Skin color is normal. He had multiple tattoos. Head, ears, eyes, nose, mouth, and throat were normal. Neck veins are not distended. Carotids are normal. Chest is clear. Cardiac exam is normal sinus rhythm and there are no murmurs or extra sounds. The abdomen is flat, soft and nontender. Extremities normal. Neurologically he is intact. He is admitted to the hospital with diagnoses: 1. Acute myocardial infarction. 2. Coronary artery disease. 3. Uncontrolled insulin-dependent diabetes mellitus. PLAN: Proceed with the cardiac procedure as outlined by Cardiology. MMODL / IJN: [id number] /
--- NOTE | 2020-06-19 15:19 | PN ---
PROGRESS NOTE DATE OF SERVICE: 06/19/2020 CHIEF COMPLAINT: Coronary artery disease and diabetes mellitus. HISTORY OF PRESENT ILLNESS: This gentleman is stable. He is having no arrhythmias, chest pain, shortness of breath, etc. PHYSICAL EXAMINATION: He is awake and alert. Chest is clear. Cardiac exam is normal. Abdomen is soft, nontender. IMPRESSION: 1. Acute myocardial infarction. 2. Triple-vessel coronary artery disease. 3. Poorly-controlled, insulin-dependent diabetes mellitus. PLAN: No change in program. He is being prepared for procedure on Sunday. MMODL / IJN: [id number] /
--- NOTE | 2020-06-19 15:25 | PN ---
PROGRESS NOTE Mr. Ridley is a 45-year-old male with known history of diabetes mellitus, who presented to [facility] with a change in mental status and unresponsiveness requiring mechanical ventilation. He had severe diabetic ketoacidosis. He subsequently was found to have troponin elevation, ST-segment changes. After extubation he underwent cardiac catheterization by Dr. Mily Dooley yesterday and was found to have severe triple-vessel coronary artery disease. He was transferred to [facility] for further evaluation for revascularization. He was evaluated by Dr. Crabtree and scheduled to undergo coronary bypass grafting on Sunday. He is doing well this morning. His breathing is stable. He denies any chest pain. No dizziness. No palpitation. He denies any nausea. He has been ambulating. He is feeling stronger. He continued on aspirin once a day, Lopressor 25 mg twice a day and losartan 25 mg daily. PHYSICAL EXAMINATION: Blood pressure running in the 120s with a heart rate in the 80s. LUNGS: Clear. HEART: Regular rate and rhythm. S1, S2. No S3. No rub appreciated. ABDOMEN: Soft and nontender. EXTREMITIES: No edema. Right radial pulse intact. LAB DATA: Revealed a BUN and creatinine of 17 and 0.58, potassium 3.9, hemoglobin of 12.9. His echocardiogram revealed severe cardiomyopathy. The patient continues to be on IV heparin. IMPRESSION: 1. Non ST-segment elevation myocardial infarction with severe ischemic cardiomyopathy. 2. Severe triple-vessel coronary disease. 3. Diabetes mellitus. 4. Hyperlipidemia. 5. History of smoking. 6. Acute kidney failure, resolved. 7. Diabetic ketoacidosis, improved. RECOMMENDATION: I will add to his regimen spironolactone 25 mg daily, continue his medical regimen. Continue IV heparin. Increase his level of activity. If he remains stable, we will proceed with surgical intervention as planned on Sunday. We will follow his renal function. MMODL / IJN: [id number] /
[2020-06-19] MEDS: SPIRONOLACTONE 25 MG TAB PO SCH (16:52)
[2020-06-19 17:03] LABS: Glucose,Whole Blood 120 mg/dL (75-99)
[2020-06-19] MEDS: HEPARIN SOD,PORK IN 0.45% NACL 25,000 UNIT in 0.45% NACL 1 250ML.BAG IV SCH (17:07)
[2020-06-19 20:09] LABS: Glucose,Whole Blood 118 mg/dL (75-99)
[2020-06-19] MEDS ORDERED: INSULIN DETEMIR (LEVEMIR) 100 UNIT/ML SYR SQ SCH (21:00)
[2020-06-20 02:28] LABS: Glucose,Whole Blood 33 mg/dL (75-99)
[2020-06-20 02:48] LABS: Glucose,Whole Blood 31 mg/dL (75-99)
[2020-06-20] MEDS ORDERED: DEXTROSE 50% SYRINGE 50 ML IVP ONE (02:49)
[2020-06-20 03:02] LABS: Glucose,Whole Blood 94 mg/dL (75-99)
[2020-06-20 05:54] LABS: Glucose,Whole Blood 74 mg/dL (75-99)
[2020-06-20] MEDS: INSULIN ASPART (NovoLOG) 100 UNIT/ML VIAL SQ SCH ×4 (06:00→20:46)
[2020-06-20] MEDS: PANTOPRAZOLE 40 MG TABLET PO SCH (06:10)
[2020-06-20 06:44] LABS: Basophils % (A) 0 %; Eosinophils # (A) 0.1 k/uL (0-0.7); Eosinophils % (A) 1 %; HCT 40.1 % (39.0-53.0); HGB 12.5 gm/dL (13.0-17.5); Lymphocytes # (A) 1.9 k/uL (1.0-4.8); Lymphocytes % (A) 24 %; MCH 28.1 pg (25.0-35.0); MCHC 31.1 g/dL (31.0-37.0); MCV 90.6 fL (80.0-100.0); Monocytes # (A) 0.5 k/uL (0-1.0); Monocytes % (A) 6 %; Neutrophils # (A) 4.9 k/uL (1.3-7.7); Neutrophils % (A) 64 %; Platelet Count 113 k/uL (150-450); RBC 4.43 m/uL (4.30-5.90); RDW 13.3 % (11.5-15.5); WBC 7.7 k/uL (3.8-10.6)
[2020-06-20 06:59] LABS: ALT 56 U/L (4-49); AST 39 U/L (17-59); African American GFR (CKD) >90 (>60 ml/min/1.73 sqM); Alkaline Phosphatase 67 U/L (38-126); Anion Gap 2 mmol/L; Blood Urea Nitrogen 19 mg/dL (9-20); Calcium 8.6 mg/dL (8.4-10.2); Carbon Dioxide 26 mmol/L (22-30); Chloride 109 mmol/L (98-107); Glucose 73 mg/dL (74-99); Non-African American GFR(CKD) >90 (>60 ml/min/1.73 sqM); Potassium 3.5 mmol/L (3.5-5.1); Sodium 137 mmol/L (137-145); Total Bilirubin 0.7 mg/dL (0.2-1.3); Total Protein 5.4 g/dL (6.3-8.2)
[2020-06-20] MEDS: HEPARIN SODIUM,PORCINE 5,000 UNIT/ML 1 ML VIAL IV PRN (07:21)
[2020-06-20] MEDS: SPIRONOLACTONE 25 MG TAB PO SCH (09:15)
[2020-06-20] MEDS: MUPIROCIN 2% OINT 22 GM TUBE NASAL SCH ×2 (09:15→20:46)
[2020-06-20] MEDS: ATORVASTATIN 40 MG TAB PO SCH ×2 (09:15→20:45)
[2020-06-20] MEDS: ASPIRIN 81 MG PO SCH (09:15)
[2020-06-20] MEDS: METOPROLOL TARTRATE 25 MG TAB PO SCH ×2 (09:15→20:45)
--- NOTE | 2020-06-20 11:35 | PN ---
PROGRESS NOTE Mr. Elder 45-year-old male with a history of diabetes, who presented with diabetic ketoacidosis and respiratory failure requiring mechanical ventilation. Subsequently, had troponin elevation, severe cardiomyopathy, underwent cardiac catheterization was found to have severe triple-vessel coronary artery disease. He is scheduled to undergo coronary bypass grafting. He is feeling better today. His breathing is stable. He denies any chest pain. He denies any dizziness. He denies any nausea or vomiting. He has been ambulating in the room without any difficulty. Continues to be on IV heparin, Lipitor 40 mg daily, metoprolol tartrate 25 mg twice a day, spironolactone 25 mg daily in addition to insulin. PHYSICAL EXAMINATION: Blood pressure 106/60 with a heart rate in the 80s. LUNGS: Clear. HEART exam S1, S2. No S3. No rub. ABDOMEN: Soft, nontender. EXTREMITIES: No edema. LAB DATA: BUN and creatinine 19 and 0.68, potassium 3.5, hemoglobin 12.5. IMPRESSION: 1. Severe triple-vessel coronary artery disease. 2. Severe nonischemic cardiomyopathy. 3. Diabetes mellitus. 4. Recent diabetic ketoacidosis. 5. History of chronic tobacco use. RECOMMENDATION: We will continue on the present therapy. I will add low-dose GLENN inhibitor. Continue to increase his level of activity. We will continue IV heparin. Continue incentive spirometry and he will undergo surgical intervention in the next few days. MMODL / IJN: [id number] /
[2020-06-20 11:57] LABS: Glucose,Whole Blood 74 mg/dL (75-99)
--- NOTE | 2020-06-20 13:01 | P.PN ---
Subjective Progress Note Date: 06/20/20 Principal diagnosis: Coronary artery disease, non-ST segment elevation myocardial infarction This a very pleasant 45-year-old gentleman who follows with Dr. Fam as his primary care provider. He has a history of diabetes mellitus, gastroparesis, diabetic peripheral neuropathy, hypertension, hyperlipidemia, marijuana use, chronic tobacco dependence. He was recently admitted to [facility] after being found to have altered mental status with unresponsiveness at home. At that time his blood glucose was greater than 1100. He was treated for diabetic ketoacidosis. He had developed impending respiratory failure requiring intubation mechanical ventilatory support subsequently extubated on 06/17/2020. He was found to be a non STEMI and had undergone cardiac catheterization which revealed significant triple-vessel coronary artery disease. He was transferred here for revascularization. The plan is for surgery on 06/22/2020. He is seen today in consultation on the selective care unit. He is currently sitting up in bed. Awake and alert in no acute distress. Alert and oriented 3. No chest pain or palpitations. No worsening shortness of breath, cough or congestion. Chest x-ray reveals no acute pulmonary process. He is working well with his incentive spirometer pulling approximately 2500 ML's. FEV1 value pending. White count 9.0. Hemoglobin 12.8. Troponin 0.7-9. He remains on heparin drip. The patient is seen today 06/20/2020 in follow-up on the selective care unit. He is currently sitting up in bed. Awake and alert in no acute distress. No shortness of breath, cough or congestion. No chest pain or palpitations. Maintaining good O2 saturation up to 100% on room air. Afebrile. Hemodynamically stable. White count 7.7. Hemoglobin 12.5. Sodium 137. Potassium 3.5. Creatinine 0.68. He remains on heparin drip. Practicing well with the incentive spirometer. Objective - Vital Signs Vital signs: Vital Signs Temp 98.4 F 06/20/20 11:23 Pulse 71 06/20/20 11:23 Resp 16 06/20/20 11:23 BP 112/73 06/20/20 11:23 Pulse Ox 100 06/20/20 11:23 Intake & Output 06/19/20 06/20/20 06/20/20 18:59 06:59 18:59 Intake Total 419.118 300 402.825 Output Total 1000 750 200 Balance -580.882 -450 202.825 Weight 70.4 kg 70 kg Intake: Intake, IV Titration 183.118 162.825 Amount Heparin Sod,Pork in 0.45% 183.118 162.825 NaCl 25,000 unit In 0.45 % NaCl 1 250ml.bag @ 12 UNITS/KG/HR 8.484 mls/hr IV .Q24H [facility] Rx#: [id number] Oral 236 300 240 Output: Urine 1000 750 200 Uretheral ([place]illan) 200 Other: Voiding Method Urinal Toilet Toilet Urinal Urinal - Exam GENERAL EXAM: Alert, pleasant 45-year-old gentleman, on room air, thin comfortable in no apparent distress. HEAD: Normocephalic. EYES: Normal reaction of pupils, equal size. NOSE: Clear with pink turbinates. THROAT: No erythema or exudates. NECK: No masses, no JVD. CHEST: No chest wall deformity. LUNGS: Equal air entry with no crackles, wheeze, rhonchi or dullness. Diminished. CVS: S1 and S2 normal with no audible murmur, regular rhythm. ABDOMEN: No hepatosplenomegaly, normal bowel sounds, no guarding or rigidity. SPINE: No scoliosis or deformity SKIN: No rashes CENTRAL NERVOUS SYSTEM: No focal deficits, tone is normal in all 4 extremities. EXTREMITIES: There is no peripheral edema. No clubbing, no cyanosis. Peripheral pulses are intact. - Labs CBC & Chem 7: 06/20/20 06:12 06/20/20 06:12 Labs: Abnormal Lab Results - Last 24 Hours (Table) 06/19/20 06/19/20 06/20/20 Range/Units 17:02 20:08 02:26 Hgb (13.0-17.5) gm/dL Plt Count (150-450) k/uL APTT (22.0-30.0) sec Chloride (98-107) mmol/L Glucose (74-99) mg/dL POC Glucose (mg/dL) 120 H 118 H 33 L (75-99) mg/dL ALT (4-49) U/L Total Protein (6.3-8.2) g/dL Albumin (3.5-5.0) g/dL 0806/20/20 06/20/20 Range/Units 02:47 05:53 06:12 Hgb 12.5 L (13.0-17.5) gm/dL Plt Count 113 L (150-450) k/uL APTT (22.0-30.0) sec Chloride (98-107) mmol/L Glucose (74-99) mg/dL POC Glucose (mg/dL) 31 L 74 L (75-99) mg/dL ALT (4-49) U/L Total Protein (6.3-8.2) g/dL Albumin (3.5-5.0) g/dL 06/20/20 06/20/20 06/20/20 Range/Units 06:12 06:12 11:55 Hgb (13.0-17.5) gm/dL Plt Count (150-450) k/uL APTT 31.9 H (22.0-30.0) sec Chloride 109 H (98-107) mmol/L Glucose 73 L (74-99) mg/dL POC Glucose (mg/dL) 74 L (75-99) mg/dL ALT 56 H (4-49) U/L Total Protein 5.4 L (6.3-8.2) g/dL Albumin 3.0 L (3.5-5.0) g/dL Microbiology - Last 24 Hours (Table) 06/18/20 19:00 Nasal Screen MRSA/MSSA - Final Nasal Swab Assessment and Plan Assessment: Non-ST segment elevation myocardial infarction in a patient found to have severe triple-vessel disease. Coronary revascularization pending for 06/22/2020. Ischemic cardiomyopathy with impaired ejection fraction between 25 and 30% Recent admission for altered mental status, DKA and respiratory failure requiring intubation mechanical ventilatory support, extubated on 06/17/2020 at [facility] Chronic and ongoing tobacco dependence Insulin-dependent diabetes mellitus History of gastroparesis History of peripheral neuropathy Hypertension Hyperlipidemia Anxiety/depression Occasional marijuana use Family history of coronary artery disease Plan: The patient was seen and evaluated by Dr. Ramesh Currently stable from the pulmonary standpoint Continued on heparin drip Obtain FEV1 value Educated regarding the importance of complete smoking cessation We will continue to follow and make further recommendations based on his clinical status I, the cosigning physician, performed a history & physical examination of the patient. Lungs sounds are clear. Maintaining good O2 saturations in the 90s on room air. I discussed the assessment and plan of care with my nurse practitioner, Courtney Manuel. I attest to the above note as dictated by her.
--- NOTE | 2020-06-20 13:17 | P.PN ---
Subjective Progress Note Date: 06/20/20 Principal diagnosis: This is a 45-year-old gentleman who is followed by Dr. Zechariah Kramer on an outpatient basis. He has a past medical history significant for insulin-depende nt diabetes mellitus, gastroparesis, hypertension, hyperlipidemia, peripheral neuropathy, depression, anxiety, occasional marijuana use, current every day smoker, and family history of early onset coronary artery disease with his brother having 2 stents placed at age 45. The patient was admitted to [facility] and arrived via EMS after his girlfriend found him with altered mental status and unresponsive at home. According to the patient's girlfriend EMS did do a random blood sugar which was greater than 1100. The patient was subsequently transferred to [facility] and due to the patient's altered mental status and diabetic ketoacidosis he was intubated with mechanical ventilator support and was extubated according to the patient and his girlfriend on , 06/17/2020. The patient reports that he did have some episodes of emesis the night before which is not uncommon for him as he says he has episodes of emesis 2-3 times a week due to his gastroparesis. Laboratory results from [facility] showed a WBC count of 23.2, hemoglobin 11.9, hematocrit 40.6, platelets 274, BUN 66, creatinine 3.8, glucose 1153, proBNP 5060, TSH 0.536, free T4 1 0.08, and abnormal troponins as high as 12.150. The patient denies any complaints of fever, chills, dizziness, shortness of breath, chest pain, recent trauma, headache or peripheral edema. Due to the patient's altered mental status the computed tomography scan of his head without contrast was completed which demonstrated no acute intracranial hemorrhage/mass effect, or midline shift. A 12-lead EKG was also completed showed borderline interventricular conduction delay, nonspecific repolarization abnormality, diffuse leads ST elevation and borderline prolonged QT interval. Due to the patient's elevated troponins he was ruled in for a non-ST elevated myocardial infarction and Dr. CARINA Dooley was consulted from cardiology associates. He underwent a cardiac catheterization today which demonstrated severe triple- vessel coronary artery disease. He was transferred to [facility] for further evaluation and workup for myocardial revascularization surgery and Dr. Noe Crabtree from cardiothoracic surgery was consulted. The patient was seen in follow-up today on 06/20/2020 at his bedside on the cardiac stepdown unit. He is awake, alert and oriented 3 and is in no acute apparent distress. The patient denies any complaints of chest pain or shortness of breath, and he reports he continues to feel much better on a daily basis. Oxygen saturation are 100% on room air and he is achieving 3000 mL on his incentive spirometry with encouragement. A bedside FEV1 was completed with the patient yesterday by respiratory therapist which showed a 53% of predicted value. Continue to discuss the importance of smoking cessation with the patient. The patient reports that he did some ambulating in his room yesterday with minimal assistance from his girlfriend. Preoperative teaching was reinforced for myocardial revascularization surgery and questions were answered to the best of my ability. Mcmillan catheter was removed yesterday, the patient denies any problems with urination. Objective - Vital Signs Vital signs: Vital Signs Temp 98.5 F 06/20/20 08:00 Pulse 81 06/20/20 08:00 Resp 16 06/20/20 08:00 BP 106/65 06/20/20 08:00 Pulse Ox 100 06/20/20 08:00 Intake & Output 06/19/20 06/20/20 06/20/20 18:59 06:59 18:59 Intake Total 419.118 300 402.825 Output Total 1000 750 200 Balance -580.882 -450 202.825 Weight 70.4 kg 70 kg Intake: Intake, IV Titration 183.118 162.825 Amount Heparin Sod,Pork in 0.45% 183.118 162.825 NaCl 25,000 unit In 0.45 % NaCl 1 250ml.bag @ 12 UNITS/KG/HR 8.484 mls/hr IV .Q24H [facility] Rx#: [id number] Oral 236 300 240 Output: Urine 1000 750 200 Uretheral ([place]ill[place]) 200 Other: Voiding Method Urinal Toilet Toilet Urinal Urinal - Constitutional General appearance: Present: cooperative, no acute distress, thin - EENT Eyes: Present: PERRLA, poor dentition, normal appearance. Absent: scleral icterus ENT: Present: hearing grossly normal - Neck Details: Neck is supple, no JVD. - Respiratory Details: Lung sounds are essentially clear throughout, few scattered crackles to his bilateral bases. Respirations are symmetrical and nonlabored. Oxygen saturation is 100% on room air. Achieving 3000 L on his incentive spirometry. Bedside FEV1 was completed yesterday by respiratory therapist which showed a predicted value of 53%. - Cardiovascular Details: Regular rhythm and rate. S1 and S2 present, negative for S3, gallop or murmur. No edema present. - Gastrointestinal Gastrointestinal Comment(s): abdomen is soft, nontender nondistended. Active bowel sounds present all 4 abdominal quadrants. No guarding or rigidity. No organomegaly appreciated. Tolerating oral intake. - Genitourinary Genitourinary Comment(s): Continues to void. - Integumentary Integumentary Comment(s): Skin is warm and dry. No clubbing or cyanosis is present. No rash or abnormal pigmentation is present. Multiple tattoos. - Neurologic Neurologic: Present: CNII-XII intact - Musculoskeletal Musculoskeletal: Present: gait normal, strength equal bilaterally - Psychiatric Psychiatric: Present: A&O x's 3, appropriate affect, intact judgment & insight - Allied health notes Allied health notes reviewed: nursing - Labs CBC & Chem 7: 06/20/20 06:12 06/20/20 06:12 Labs: Abnormal Lab Results - Last 24 Hours (Table) 06/19/20 06/19/20 06/19/20 Range/Units 11:49 17:02 20:08 Hgb (13.0-17.5) gm/dL Plt Count (150-450) k/uL APTT (22.0-30.0) sec Chloride (98-107) mmol/L Glucose (74-99) mg/dL POC Glucose (mg/dL) 174 H 120 H 118 H (75-99) mg/dL ALT (4-49) U/L Total Protein (6.3-8.2) g/dL Albumin (3.5-5.0) g/dL 06/20/20 06/20/20 06/20/20 Range/Units 02:26 02:47 05:53 Hgb (13.0-17.5) gm/dL Plt Count (150-450) k/uL APTT (22.0-30.0) sec Chloride (98-107) mmol/L Glucose (74-99) mg/dL POC Glucose (mg/dL) 33 L 31 L 74 L (75-99) mg/dL ALT (4-49) U/L Total Protein (6.3-8.2) g/dL Albumin (3.5-5.0) g/dL 06/20/20 06/20/20 06/20/20 Range/Units 06:12 06:12 06:12 Hgb 12.5 L (13.0-17.5) gm/dL Plt Count 113 L (150-450) k/uL APTT 31.9 H (22.0-30.0) sec Chloride 109 H (98-107) mmol/L Glucose 73 L (74-99) mg/dL POC Glucose (mg/dL) (75-99) mg/dL ALT 56 H (4-49) U/L Total Protein 5.4 L (6.3-8.2) g/dL Albumin 3.0 L (3.5-5.0) g/dL Microbiology - Last 24 Hours (Table) 06/18/20 19:00 Nasal Screen MRSA/MSSA - Final Nasal Swab Assessment and Plan Assessment: 1. Multi vessel coronary artery disease 2. Non-ST elevated myocardial infarction this admission, with troponins as high as 12.150 3. Diabetic ketoacidosis, resolving blood sugar today 137 4. Uncontrolled insulin-dependent diabetes mellitus, admission blood sugar was 1153 5. Acute kidney injury, resolving BUN and creatinine today 17/0.58 6. Leukocytosis, resolving WBC count 10.2 today 7. Gastroparesis 8. Hypertension 9. Hyperlipidemia 10. Peripheral neuropathy 11. Chronic tobacco dependence 12. Occasional marijuana use 13. History of depression 14. History of anxiety Plan: 1. Continue optimize medically with aspirin, statin, and beta dixon. 2. Continue preoperative teaching. 3. Importance of smoking cessation was encouraged with the patient and discussed. 4. STS risk score was calculated in discussed with the patient by Dr. Noe Crabtree. 5. The patient is tentatively scheduled for myocardial revascularization surgery on 06/22/2020 to be performed by Dr. Noe Crabtree with left internal ma mmary artery, right internal mammary artery, and endoscopic right radial artery harvest. 6. Continue to encourage use of his incentive spirometry 10 times every hour while awake. 7. Diabetes and other comorbidities management per primary care service. 8. More recommendations to follow based on patient's clinical course. Time with Patient: Greater than 30
[2020-06-20 13:22] LABS: Glucose,Whole Blood 97 mg/dL (75-99)
[2020-06-20] MEDS: HEPARIN SOD,PORK IN 0.45% NACL 25,000 UNIT in 0.45% NACL 1 250ML.BAG IV SCH (15:00)
[2020-06-20 17:17] LABS: Glucose,Whole Blood 272 mg/dL (75-99)
[2020-06-20 20:18] LABS: Glucose,Whole Blood 333 mg/dL (75-99)
[2020-06-20] MEDS: AMITRIPTYLINE HCL 10 MG TAB PO SCH (20:38)
[2020-06-20] MEDS: ONDANSETRON 4 MG TAB PO SCH (20:45)
[2020-06-20] MEDS: INSULIN DETEMIR (LEVEMIR) 100 UNIT/ML SYR SQ SCH (20:46)
[2020-06-21 01:55] LABS: Glucose,Whole Blood 155 mg/dL (75-99)
[2020-06-21 06:08] LABS: Glucose,Whole Blood 45 mg/dL (75-99)
[2020-06-21 06:08] LABS: Glucose,Whole Blood 48 mg/dL (75-99)
[2020-06-21 06:27] LABS: Glucose,Whole Blood 42 mg/dL (75-99)
[2020-06-21] MEDS ORDERED: DEXTROSE 50% SYRINGE 50 ML IVP ONE (06:27)
[2020-06-21] MEDS: INSULIN ASPART (NovoLOG) 100 UNIT/ML VIAL SQ SCH ×4 (06:32→21:13)
[2020-06-21] MEDS: PANTOPRAZOLE 40 MG TABLET PO SCH (06:40)
[2020-06-21 06:45] LABS: Glucose,Whole Blood 123 mg/dL (75-99)
[2020-06-21 06:55] LABS: African American GFR (CKD) >90 (>60 ml/min/1.73 sqM); Anion Gap 2 mmol/L; Blood Urea Nitrogen 17 mg/dL (9-20); Calcium 8.6 mg/dL (8.4-10.2); Carbon Dioxide 27 mmol/L (22-30); Chloride 107 mmol/L (98-107); Non-African American GFR(CKD) >90 (>60 ml/min/1.73 sqM); Potassium 3.5 mmol/L (3.5-5.1); Sodium 136 mmol/L (137-145)
[2020-06-21 07:05] LABS: Glucose 37 mg/dL (74-99)
[2020-06-21 07:07] LABS: HCT 36.6 % (39.0-53.0); HGB 11.9 gm/dL (13.0-17.5); MCH 29.2 pg (25.0-35.0); MCHC 32.6 g/dL (31.0-37.0); MCV 89.3 fL (80.0-100.0); Mean Platelet Volume 8.3; RDW 13.3 % (11.5-15.5); WBC 6.2 k/uL (3.8-10.6)
[2020-06-21 07:09] LABS: Platelet Count 172 k/uL (150-450)
[2020-06-21 08:01] LABS: Eosinophils # (M) 0.19 k/uL (0-0.7); Lymphocytes # (M) 2.11 k/uL (1.0-4.8); Monocytes # (M) 0.74 k/uL (0-1.0); Neutrophils # (M) 3.16 k/uL (1.3-7.7); Neutrophils % (M) 51 %; Nucleated Red Blood Cells 0 /100 WBC (0-0); Total Cells Counted 100
[2020-06-21 08:03] LABS: Anisocytosis (M) Present; Poikilocytosis (M) Present
--- NOTE | 2020-06-21 08:13 | P.PN ---
<Glenna Daniel - Last Filed: 06/21/20 08:07> Subjective Progress Note Date: 06/21/20 This is a pleasant 45-year-old gentleman with a history of diabetes who presented with diabetic ketoacidosis and respiratory failure requiring mechanical ventilation. Subsequently had troponin elevation, found to have severe cardiomyopathy and underwent cardiac catheterization. He was found have severe triple vessel coronary artery disease. He is scheduled to undergo coronary artery bypass grafting tomorrow. Overall he is feeling well today. His breathing is stable. He denies any chest discomfort but has been coughing that he attributes to his years of smoking 3 packs per day. He denies any dizziness, nausea or vomiting. He has been up ambulating in the hallways without difficulties. He was initiated on GLENN inhibitor yesterday but his cough is not different. Labs today showed a hemoglobin 11.9, sodium 136, potassium 3.5, BUN 17 and creatinine 0.67. This recent blood pressure 99/64 at 3:40 am. He is afebrile. Objective - Vital Signs Vital signs: Vital Signs Temp 98.5 F 06/21/20 03:40 Pulse 74 06/21/20 03:40 Resp 18 06/21/20 03:40 BP 99/64 06/21/20 03:40 Pulse Ox 97 06/21/20 03:40 Intake & Output 06/20/20 06/21/20 06/21/20 18:59 06:59 18:59 Intake Total 610.000 Output Total 400 740 Balance 210.000 -740 Weight 71 kg Intake: Intake, IV Titration 250.000 Amount Heparin Sod,Pork in 0.45% 250.000 NaCl 25,000 unit In 0.45 % NaCl 1 250ml.bag @ 12 UNITS/KG/HR 8.484 mls/hr IV .Q24H [facility] Rx#: [id number] Oral 360 Output: Urine 400 740 Other: Voiding Method Toilet Toilet Urinal Urinal # Voids 1 - Exam PHYSICAL EXAMINATION: HEENT: Head is atraumatic, normocephalic. Pupils equal, round. Neck is supple. There is no elevated jugular venous pressure. HEART EXAMINATION: Heart sounds regular, S1 and S2 normal. No murmur or gallop heard. CHEST EXAMINATION: Lungs are clear to auscultation and precussion. No chest wall tenderness is noted on palpation or with deep breathing. ABDOMEN: Soft, nontender. Bowel sounds are heard. No organomegaly noted. EXTREMITIES: 2+ peripheral pulses with no evidence of peripheral edema and no calf tenderness noted. NEUROLOGIC patient is awake, alert and oriented x3. . - Labs CBC & Chem 7: 06/21/20 05:55 06/21/20 05:55 Labs: Abnormal Lab Results - Last 24 Hours (Table) 06/20/20 06/20/20 06/20/20 Range/Units 11:55 14:13 17:16 RBC (4.30-5.90) m/uL Hgb (13.0-17.5) gm/dL Hct (39.0-53.0) % APTT 66.3 H (22.0-30.0) sec Sodium (137-145) mmol/L Glucose (74-99) mg/dL POC Glucose (mg/dL) 74 L 272 H (75-99) mg/dL Crossmatch 06/20/20 06/20/20 06/21/20 Range/Units 20:17 21:05 01:54 RBC (4.30-5.90) m/uL Hgb (13.0-17.5) gm/dL Hct (39.0-53.0) % APTT 45.3 H (22.0-30.0) sec Sodium (137-145) mmol/L Glucose (74-99) mg/dL POC Glucose (mg/dL) 333 H 155 H (75-99) mg/dL Crossmatch 06/21/20 06/21/20 06/21/20 Range/Units 05:55 05:55 05:55 RBC 4.10 L (4.30-5.90) m/uL Hgb 11.9 L (13.0-17.5) gm/dL Hct 36.6 L (39.0-53.0) % APTT (22.0-30.0) sec Sodium 136 L (137-145) mmol/L Glucose 37 L* (74-99) mg/dL POC Glucose (mg/dL) (75-99) mg/dL Crossmatch See Detail 06/21/20 06/21/20 06/21/20 Range/Units 05:55 06:06 06:07 RBC (4.30-5.90) m/uL Hgb (13.0-17.5) gm/dL Hct (39.0-53.0) % APTT 50.7 H (22.0-30.0) sec Sodium (137-145) mmol/L Glucose (74-99) mg/dL POC Glucose (mg/dL) 48 L 45 L (75-99) mg/dL Crossmatch 06/21/20 06/21/20 Range/Units 06:26 06:43 RBC (4.30-5.90) m/uL Hgb (13.0-17.5) gm/dL Hct (39.0-53.0) % APTT (22.0-30.0) sec Sodium (137-145) mmol/L Glucose (74-99) mg/dL POC Glucose (mg/dL) 42 L 123 H (75-99) mg/dL Crossmatch Assessment and Plan Assessment: #1 severe triple vessel coronary artery disease #2 severe nonischemic cardiomyopathy #3 diabetes mellitus #4 recent DKA #5 history of chronic tobacco use Plan: From cardiology's perspective we will continue current medications. We will continue to follow the patient perioperatively and provide further recommendations accordingly. [employer] note has been reviewed, I agree with a documented findings and plan of care. Patient was seen and examined. <Leroy Joel - Last Filed: 06/21/20 15:33> Objective - Vital Signs Vital signs: Vital Signs Temp 98.3 F 06/21/20 12:00 Pulse 86 06/21/20 12:00 Resp 16 06/21/20 12:00 BP 139/88 06/21/20 12:00 Pulse Ox 100 06/21/20 12:00 Intake & Output 06/20/20 06/21/20 06/21/20 18:59 06:59 18:59 Intake Total 610.000 Output Total 400 740 Balance 210.000 -740 Weight 71 kg Intake: Intake, IV Titration 250.000 Amount Heparin Sod,Pork in 0.45% 250.000 NaCl 25,000 unit In 0.45 % NaCl 1 250ml.bag @ 12 UNITS/KG/HR 8.484 mls/hr IV .Q24H [facility] Rx#: [id number] Oral 360 Output: Urine 400 740 Other: Voiding Method Toilet Toilet Toilet Urinal Urinal Urinal # Voids 1 - Labs CBC & Chem 7: 06/21/20 05:55 06/21/20 05:55 Labs: Abnormal Lab Results - Last 24 Hours (Table) 06/20/20 06/20/20 06/20/20 Range/Units 17:16 20:17 21:05 RBC (4.30-5.90) m/uL Hgb (13.0-17.5) gm/dL Hct (39.0-53.0) % APTT 45.3 H (22.0-30.0) sec Sodium (137-145) mmol/L Glucose (74-99) mg/dL POC Glucose (mg/dL) 272 H 333 H (75-99) mg/dL Crossmatch 06/21/20 06/21/20 06/21/20 Range/Units 01:54 05:55 05:55 RBC 4.10 L (4.30-5.90) m/uL Hgb 11.9 L (13.0-17.5) gm/dL Hct 36.6 L (39.0-53.0) % APTT (22.0-30.0) sec Sodium (137-145) mmol/L Glucose (74-99) mg/dL POC Glucose (mg/dL) 155 H (75-99) mg/dL Crossmatch See Detail 06/21/20 06/21/20 06/21/20 Range/Units 05:55 05:55 06:06 RBC (4.30-5.90) m/uL Hgb (13.0-17.5) gm/dL Hct (39.0-53.0) % APTT 50.7 H (22.0-30.0) sec Sodium 136 L (137-145) mmol/L Glucose 37 L* (74-99) mg/dL POC Glucose (mg/dL) 48 L (75-99) mg/dL Crossmatch 06/21/20 06/21/20 06/21/20 Range/Units 06:07 06:26 06:43 RBC (4.30-5.90) m/uL Hgb (13.0-17.5) gm/dL Hct (39.0-53.0) % APTT (22.0-30.0) sec Sodium (137-145) mmol/L Glucose (74-99) mg/dL POC Glucose (mg/dL) 45 L 42 L 123 H (75-99) mg/dL Crossmatch 06/21/20 Range/Units 12:18 RBC (4.30-5.90) m/uL Hgb (13.0-17.5) gm/dL Hct (39.0-53.0) % APTT (22.0-30.0) sec Sodium (137-145) mmol/L Glucose (74-99) mg/dL POC Glucose (mg/dL) 284 H (75-99) mg/dL Crossmatch Assessment and Plan Plan: Patient scheduled for CABG tomorrow morning. He did have episodes of gastroparesis with vomiting earlier today. No anginal type symptoms. Continue supportive care and monitor after CABG.
[2020-06-21] MEDS: METOPROLOL TARTRATE 25 MG TAB PO SCH ×2 (08:50→21:12)
[2020-06-21] MEDS: SPIRONOLACTONE 25 MG TAB PO SCH (08:50)
[2020-06-21] MEDS: ONDANSETRON 4 MG TAB PO SCH ×2 (08:50→21:12)
[2020-06-21] MEDS: ASPIRIN 81 MG PO SCH (08:50)
[2020-06-21] MEDS: MUPIROCIN 2% OINT 22 GM TUBE NASAL SCH ×2 (08:51→21:13)
[2020-06-21] MEDS: ATORVASTATIN 40 MG TAB PO SCH ×2 (08:51→21:13)
[2020-06-21] MEDS: Cariprazine Hcl [Vraylar] 1.5 MG PO SCH (08:55)
[2020-06-21] MEDS ORDERED: NON FORMULARY DRUG (Omeprazole [Omeprazole] 20 MG) PO SCH (09:00)
[2020-06-21] MEDS ORDERED: LOSARTAN 25 MG TAB PO SCH (09:00)
[2020-06-21] MEDS ORDERED: amLODIPine 5 MG TAB PO SCH (09:00)
--- NOTE | 2020-06-21 11:06 | P.PN ---
Subjective Progress Note Date: 06/21/20 Principal diagnosis: Multivessel coronary artery disease, NSTEMI this admission, ischemic cardiomyopathy with EF 25-30%, acute hypoxic respiratory failure requiring mechanical ventilation, diabetic ketoacidosis, acute kidney injury, leukocytosis, gastroparesis. Previous medical history of hypertension, hyperlipidemia, uncontrolled type 2 diabetes mellitus with hyperglycemia and Hgb A1c 10.5% , chronic ongoing tobacco dependance, moderate COPD with preoperative FEV1 53% of predicted, peripheral neumopathy, occsional marijuana use, depression/anxiety, and family history of premature coronary artery disease. The patient is currently sitting up in bed in no acute distress. Denies any chest pain or shortness of breath. Has been ambulatory without difficulty. Preoperative teaching continues, no new questions at this time. Objective - Vital Signs Vital signs: Vital Signs Temp 98.2 F 06/21/20 08:00 Pulse 69 06/21/20 08:00 Resp 16 06/21/20 08:00 BP 153/67 06/21/20 08:00 Pulse Ox 100 06/21/20 08:00 Intake & Output 06/20/20 06/21/20 06/21/20 18:59 06:59 18:59 Intake Total 610.000 Output Total 400 740 Balance 210.000 -740 Weight 71 kg Intake: Intake, IV Titration 250.000 Amount Heparin Sod,Pork in 0.45% 250.000 NaCl 25,000 unit In 0.45 % NaCl 1 250ml.bag @ 12 UNITS/KG/HR 8.484 mls/hr IV .Q24H MORE Rx#: [id number] Oral 360 Output: Urine 400 740 Other: Voiding Method Toilet Toilet Urinal Urinal # Voids 1 - Constitutional General appearance: Present: cooperative, no acute distress - Respiratory Details: Lung sounds clear but diminshed bilaterally. Respirations even, non-labored. Currently on room air with oxygen saturation 100%. Able to achieve 3500 mL on his incentive spirometry. - Cardiovascular Details: S1/S2 present. Regular rate and rhythm, normal sinus rhythm on telemetry. Palpable peripheral pulses bilaterally. No edema present. No calf pain or tenderness noted. - Gastrointestinal Gastrointestinal Comment(s): Abdomen soft, non-tender, non-distended. Active bowel sounds present x 4 quadrants. Tolerating diet - Genitourinary Genitourinary Comment(s): Continues to void - Integumentary Integumentary Comment(s): Skin is warm and dry with evidence of good perfusion - Neurologic Neurologic: Present: CNII-XII intact - Musculoskeletal Musculoskeletal: Present: gait normal, strength equal bilaterally - Psychiatric Psychiatric: Present: A&O x's 3, appropriate affect, intact judgment & insight - Allied health notes Allied health notes reviewed: nursing - Labs CBC & Chem 7: 06/21/20 05:55 06/21/20 05:55 Labs: Abnormal Lab Results - Last 24 Hours (Table) 06/20/20 06/20/20 06/20/20 Range/Units 11:55 14:13 17:16 RBC (4.30-5.90) m/uL Hgb (13.0-17.5) gm/dL Hct (39.0-53.0) % APTT 66.3 H (22.0-30.0) sec Sodium (137-145) mmol/L Glucose (74-99) mg/dL POC Glucose (mg/dL) 74 L 272 H (75-99) mg/dL Crossmatch 06/20/20 06/20/20 06/21/20 Range/Units 20:17 21:05 01:54 RBC (4.30-5.90) m/uL Hgb (13.0-17.5) gm/dL Hct (39.0-53.0) % APTT 45.3 H (22.0-30.0) sec Sodium (137-145) mmol/L Glucose (74-99) mg/dL POC Glucose (mg/dL) 333 H 155 H (75-99) mg/dL Crossmatch 06/21/20 06/21/20 06/21/20 Range/Units 05:55 05:55 05:55 RBC 4.10 L (4.30-5.90) m/uL Hgb 11.9 L (13.0-17.5) gm/dL Hct 36.6 L (39.0-53.0) % APTT (22.0-30.0) sec Sodium 136 L (137-145) mmol/L Glucose 37 L* (74-99) mg/dL POC Glucose (mg/dL) (75-99) mg/dL Crossmatch See Detail 0806/21/20 06/21/20 Range/Units 05:55 06:06 06:07 RBC (4.30-5.90) m/uL Hgb (13.0-17.5) gm/dL Hct (39.0-53.0) % APTT 50.7 H (22.0-30.0) sec Sodium (137-145) mmol/L Glucose (74-99) mg/dL POC Glucose (mg/dL) 48 L 45 L (75-99) mg/dL Crossmatch 06/21/20 06/21/20 Range/Units 06:26 06:43 RBC (4.30-5.90) m/uL Hgb (13.0-17.5) gm/dL Hct (39.0-53.0) % APTT (22.0-30.0) sec Sodium (137-145) mmol/L Glucose (74-99) mg/dL POC Glucose (mg/dL) 42 L 123 H (75-99) mg/dL Crossmatch Assessment and Plan Assessment: 1. Multivessel coronary artery disease, NSTEMI this admission 2. Ischemic cardiomyopathy with EF 25-30% 3. Acute hypoxic respiratory failure requiring mechanical ventilation 4. Diabetic ketoacidosis 5. Acute kidney injury 6. Leukocytosis 7. Gastroparesis 8. Hypertension 9. Hyperlipidemia 10. Uncontrolled type 2 diabetes mellitus with hyperglycemia and Hgb A1c 10.5% 11. Chronic ongoing tobacco dependance 12. Moderate COPD with preoperative FEV1 53% of predicted 13. Peripheral neuropathy 14. Occsional marijuana use 15. Depression/anxiety 14. Family history of premature coronary artery disease Plan: 1. Continue to optimize medically with aspirin, statin, and beta dixon. 2. Continue preoperative teaching. Plan is for myocardial revascularization, extracorporeal membrane oxygenation on stand-by, with left internal mammary artery, right internal mammary artery, and endoscopic right radial artery h arvest by Dr. Crabtree tomorrow. NPO after midnight 3. Importance of smoking cessation was encouraged. Encourage incentive spirometry use 4. Increase activity. Ambulate as tolerated. 5. Medical management of other comorbid conditions by primary care 6. More recommendations to follow based on patient's clinical course. Time with Patient: Greater than 30
[2020-06-21 12:29] LABS: Glucose,Whole Blood 284 mg/dL (75-99)
--- NOTE | 2020-06-21 13:31 | PN ---
PROGRESS NOTE DATE OF SERVICE: 06/20/2020 CHIEF COMPLAINT: Coronary artery disease and diabetes. HISTORY OF PRESENT ILLNESS: This gentleman's blood sugars have been dropping during the night down into the 30s. His insulin will be cutback. Other than that, he is doing well. PHYSICAL EXAMINATION: Vital signs are normal. Chest is clear. Cardiac exam is normal. Abdomen is soft, nontender. IMPRESSION: 1. Coronary artery disease. 2. Uncontrolled insulin-dependent diabetes mellitus. PLAN: Decrease Lantus and await his scheduled procedure on Sunday. MMODL / IJN: [id number] /
--- NOTE | 2020-06-21 14:07 | PN ---
PROGRESS NOTE PULMONARY/CRITICAL CARE PROGRESS NOTE: DATE OF SERVICE: 06/21/2020 This is a 45-year-old male who has a history of non ST-segment elevation myocardial infarction. He is going to have bypass grafting on June 22, 2020. Currently, he is resting comfortably in bed. He is not having any chest pain or chest discomfort. Denies any shortness of breath. There is no fever or chills. No nausea, vomiting, diarrhea, or abdominal pain. In addition, he has a history of ischemic cardiomyopathy with an ejection fraction between 25-30%, recent admission to the hospital for mental status changes, secondary to DKA, chronic and ongoing tobacco dependence, insulin- dependent diabetes mellitus, gastroparesis, peripheral neuropathy, hypertension, hyperlipidemia, anxiety/depression, occasional marijuana use, and a family history of CAD. Currently, the patient is doing well. PHYSICAL EXAMINATION: VITAL SIGNS: Current vital signs are reviewed. Temperature 98.3, heart rate 86, respiratory rate 16, blood pressure 139/88, mean 105, room air saturation is 100%. Appears in no acute distress HEENT: Examination is grossly unremarkable. NECK: Supple. Full range of motion. No adenopathy. Neck veins are flat. CARDIOVASCULAR: Examination reveals regular rhythm and rate. S1, S2 normal. No murmur. LUNGS: Clear. Breath sounds equal. No wheezes, rhonchi, or crackles. ABDOMEN: Soft. Bowel sounds are heard. EXTREMITIES: Intact. No cyanosis, clubbing, or edema. SKIN: Without rash. NEUROLOGIC: Examination is brief but nonfocal. LABS: Reviewed. White count 6.2, hemoglobin 11.9, hematocrit 36.6, platelet count 172,000, PTT is 50.7. Sodium 136, potassium 3.5, chloride 107, CO2 27, anion gap is 2. BUN and creatinine were 17 and 0.67. IMAGING: His most recent chest x-ray was done a couple days ago. It shows no acute disease. MEDICATIONS: Current medications are reviewed. Everything seems appropriate. ASSESSMENT: 1. Non ST-segment elevation myocardial infarction, in a patient who was found to have severe triple-vessel coronary disease, with current plans for anticipated bypass grafting on June 22. 2. Ischemic cardiomyopathy with an impaired ejection fraction of between 25-30%. 3. Recent admission for mental status changes, DKA, respiratory failure, requiring intubation and mechanical ventilation at [facility]. The patient was extubated on June 17. 4. Chronic and ongoing tobacco dependence. 5. Insulin-dependent diabetes mellitus. 6. History of gastroparesis. 7. History of peripheral neuropathy. 8. Essential hypertension. 9. Hyperlipidemia. 10.Anxiety/depression. 11.Occasional marijuana use. 12.Family history of coronary artery disease. PLAN: Currently, the patient is stable. The patient is preparing for surgery. We will continue to follow. We talked about the fact that we will try to get the patient extubated as soon as possible. Also, post extubation we will encourage deep breathing, coughing, clearing of secretions and of course, hourly use of the incentive spirometer. Additional recommendations and suggestions are forthcoming. MMODL / IJN: [id number] /
[2020-06-21] MEDS: HEPARIN SOD,PORK IN 0.45% NACL 25,000 UNIT in 0.45% NACL 1 250ML.BAG IV SCH (16:46)
[2020-06-21 17:09] LABS: Glucose,Whole Blood 313 mg/dL (75-99)
[2020-06-21 20:31] LABS: Glucose,Whole Blood 297 mg/dL (75-99)
[2020-06-21] MEDS: INSULIN DETEMIR (LEVEMIR) 100 UNIT/ML SYR SQ SCH (20:48)
[2020-06-21] MEDS: AMITRIPTYLINE HCL 10 MG TAB PO SCH (20:52)
[2020-06-22 01:58] LABS: Glucose,Whole Blood 278 mg/dL (75-99)
[2020-06-22] MEDS ORDERED: MANNITOL 25% 12.5 GM/50 ML VIAL IV ONE ×2 (05:00)
[2020-06-22] MEDS ORDERED: ALBUMIN HUMAN 25% 50 ML in EMPTY BAG 1 BAG IVPB ONE (05:00)
[2020-06-22] MEDS ORDERED: ceFAZolin 2,000 MG in SODIUM CHLORIDE 0.9% 30 ML IVPB ONE (05:00)
[2020-06-22] MEDS ORDERED: CARDIOPLEGIC SOLN (K+ 16 MEQ/L 1,000 ML with SOD BICARB SYR 8.4% (1 MEQ/ML) 20 ML, LIDO... PERFUSION NR ×3 (05:00)
[2020-06-22] MEDS ORDERED: PHENYLEPHRINE 40 MG in SODIUM CHLORIDE 0.9% 250 ML IV ONE (05:00)
[2020-06-22] MEDS ORDERED: CHLORHEXIDINE GLUCONATE 15 ML CUP MUCOUS MEM ONE (05:00)
[2020-06-22] MEDS ORDERED: PROTAMINE SULFATE 10 MG/ML 25 ML VIAL IV ONE ×2 (05:00→07:46)
[2020-06-22] MEDS ORDERED: DILTIAZEM 125 MG in SODIUM CHLORIDE 0.9% 100 ML IV SCH ×2 (05:00→15:00)
[2020-06-22] MEDS ORDERED: HEPARIN SODIUM 1,000 UN/ML (10ML VL) IV ONE (05:00)
[2020-06-22] MEDS ORDERED: NITROGLYCERIN-D5W PMX 50 MG in DEXTROSE/WATER 1 250ML.BAG IV SCH ×2 (05:00→14:14)
[2020-06-22] MEDS ORDERED: METOPROLOL TARTRATE 12.5 MG TAB PO ONE (05:00)
[2020-06-22] MEDS ORDERED: NOREPINEPHRINE 4 MG in SODIUM CHLORIDE 0.9% 250 ML IV SCH (05:00)
[2020-06-22] MEDS ORDERED: TRANEXAMIC ACID 2,000 MG in SODIUM CHLORIDE 0.9% 80 ML IV ONE (05:00)
[2020-06-22] MEDS ORDERED: ATORVASTATIN 10 MG TAB PO ONE (05:00)
[2020-06-22] MEDS ORDERED: HEPARIN SODIUM,PORCINE 5,000 UNIT in SODIUM CHLORIDE 0.9% 500 ML 500 ML IV ONE (05:00)
[2020-06-22] MEDS ORDERED: SODIUM BICARB 8.4% 50 ML SYR (1 MEQ/ML) IV ONE (05:00)
[2020-06-22] MEDS ORDERED: INSULIN REGULAR 100 UNIT in SODIUM CHLORIDE 0.9% 100 ML IV SCH (05:00)
[2020-06-22] MEDS ORDERED: ALBUMIN HUMAN 5% 500 ML in EMPTY BAG 1 BAG IVPB ONE ×6 (05:00)
[2020-06-22] MEDS ORDERED: NITROGLYCERIN-D5W PMX 25 MG/250 ML BTL IV ONE (05:00)
[2020-06-22] MEDS ORDERED: PROTAMINE SULFATE 250 MG in EMPTY BAG 1 BAG IV ONE (05:00)
[2020-06-22] MEDS ORDERED: ceFAZolin 1,000 MG in SODIUM CHLORIDE 0.9% IRRIGATIO 1,000 ML IRRIGATION ONE (05:00)
[2020-06-22] MEDS ORDERED: PAPAVERINE 360 MG in SODIUM CHLORIDE 0.9% 90 ML IV ONE (05:00)
[2020-06-22] MEDS ORDERED: MAGNESIUM SULFATE SYG 4.06 MEQ/ML SYRINGE IV ONE (05:00)
[2020-06-22] MEDS ORDERED: ceFAZolin 2 GM in SODIUM CHLORIDE 0.9% 30 ML IVPB ONE (05:00)
[2020-06-22] MEDS ORDERED: CALCIUM CHLORIDE 100 MG/ML 10 ML SYRINGE IVP ONE (05:00)
[2020-06-22] MEDS ORDERED: CLEVIDIPINE BUTYRATE 25 MG in EMPTY BAG 1 BAG IV SCH (05:00)
[2020-06-22] MEDS ORDERED: ASPIRIN 325 MG TAB PO ONE (05:00)
[2020-06-22] MEDS ORDERED: PHENYLEPHRINE 10 MG/ML VIAL IV ONE (05:00)
[2020-06-22] MEDS ORDERED: METOPROLOL TARTRATE 12.5 MG TAB PO STA (05:24)
[2020-06-22 05:55] LABS: Glucose,Whole Blood 407 mg/dL (75-99)
[2020-06-22] MEDS ORDERED: HEPARIN SODIUM,PORCINE 10,000 UNIT/ML 1 ML VIAL ONE (07:46)
[2020-06-22] MEDS ORDERED: fentaNYL (PF) 50 MCG/ML 2 ML AMP ONE (07:46)
[2020-06-22] MEDS ORDERED: POTASSIUM CHLORIDE OPEN HEART 20 MEQ/50 ML BAG IVPB ONE (07:46)
[2020-06-22] MEDS ORDERED: MIDAZOLAM 2 MG/2 ML VIAL ONE (07:46)
[2020-06-22] MEDS ORDERED: SODIUM CHLORIDE 0.9% 100 ML BAG ONE (07:46)
[2020-06-22] MEDS ORDERED: PROPOFOL 10 MG/ML 20 ML VIAL IV ONE (07:46)
[2020-06-22] MEDS ORDERED: fentaNYL (PF) 50 MCG/ML 50 ML VIAL ONE (07:46)
[2020-06-22] MEDS ORDERED: ceFAZolin 1,000 MG VIAL ONE (07:46)
[2020-06-22] MEDS ORDERED: NITROGLYCERIN-D5W PMX 50 MG/250 ML BOTTLE IV ONE (07:46)
[2020-06-22] MEDS ORDERED: VECURONIUM 10 MG VIAL IV ONE (07:46)
[2020-06-22] MEDS ORDERED: SODIUM CHLORIDE 0.9% IRRIG 1,000 ML BTL IRRIGATION ONE (07:46)
[2020-06-22] MEDS ORDERED: CALCIUM CHLORIDE 100 MG/ML 10 ML SYRINGE ONE (07:46)
[2020-06-22] MEDS ORDERED: ALBUMIN HUMAN 5% (25gm) 500 ML VIAL IVPB ONE (07:46)
[2020-06-22] MEDS ORDERED: INSULIN REGULAR 100 UNIT/ML VIAL ONE (07:46)
[2020-06-22] MEDS ORDERED: SODIUM BICARB 8.4% 50 ML SYR (1 MEQ/ML) ONE (07:46)
[2020-06-22] MEDS ORDERED: ELECTROLYTE-R (PH 7.4) 1,000 ML IV.SOLN IV ONE (07:46)
[2020-06-22] MEDS ORDERED: GLYCOPYRROLATE 0.2 MG/ML 2 ML VIAL ONE (07:46)
[2020-06-22 08:37] LABS: ABG Base Excess -14.1 mmol/L; ABG Glucose Whole Blood 446 mg/dL (75-99); ABG HCO3 13 mmol/L (21-25); ABG Hematocrit 38 % (34.0-46.0); ABG Lactic Acid Whole Blood 1.7 mmol/L (0.5-1.6); ABG Oxygen Saturation 99.3 % (94-97); ABG PCO2 35 mmHg (35-45); ABG Sodium Whole Blood 133 mmol/L (135-146); ABG TCO2 14 mmol/L (19-24)
[2020-06-22 08:42] LABS: ABG Base Excess -14.9 mmol/L; ABG Glucose Whole Blood 451 mg/dL (75-99); ABG HCO3 14 mmol/L (21-25); ABG Hematocrit 39 % (34.0-46.0); ABG Ionized Calcium 5.1 mg/dL (4.5-5.3); ABG Lactic Acid Whole Blood 1.6 mmol/L (0.5-1.6); ABG Oxygen Saturation 99.3 % (94-97); ABG PCO2 40 mmHg (35-45); ABG Potassium Whole Blood 5.2 mmol/L (3.4-4.5); ABG Sodium Whole Blood 134 mmol/L (135-146); ABG TCO2 15 mmol/L (19-24)
[2020-06-22 09:15] LABS: ABG Base Excess -9.3 mmol/L; ABG Glucose Whole Blood 405 mg/dL (75-99); ABG HCO3 19 mmol/L (21-25); ABG Hematocrit 37 % (34.0-46.0); ABG Ionized Calcium 4.9 mg/dL (4.5-5.3); ABG Oxygen Saturation 98.6 % (94-97); ABG PCO2 49 mmHg (35-45); ABG PO2 177 mmHg (83-108); ABG Potassium Whole Blood 4.3 mmol/L (3.4-4.5); ABG Sodium Whole Blood 138 mmol/L (135-146); ABG TCO2 20 mmol/L (19-24)
[2020-06-22 10:01] LABS: ABG Base Excess -7.6 mmol/L; ABG Glucose Whole Blood 364 mg/dL (75-99); ABG HCO3 20 mmol/L (21-25); ABG Hematocrit 31 % (34.0-46.0); ABG Ionized Calcium 4.8 mg/dL (4.5-5.3); ABG Oxygen Saturation 98.4 % (94-97); ABG PCO2 48 mmHg (35-45); ABG PH 7.23 (7.35-7.45); ABG PO2 161 mmHg (83-108); ABG Potassium Whole Blood 3.9 mmol/L (3.4-4.5); ABG Sodium Whole Blood 139 mmol/L (135-146); ABG TCO2 21 mmol/L (19-24)
[2020-06-22 10:40] LABS: ABG Base Excess -3.5 mmol/L; ABG Glucose Whole Blood 332 mg/dL (75-99); ABG HCO3 21 mmol/L (21-25); ABG Hematocrit 29 % (34.0-46.0); ABG Ionized Calcium 4.5 mg/dL (4.5-5.3); ABG Oxygen Saturation 98.8 % (94-97); ABG PCO2 35 mmHg (35-45); ABG PH 7.39 (7.35-7.45); ABG PO2 142 mmHg (83-108); ABG Sodium Whole Blood 139 mmol/L (135-146); ABG TCO2 22 mmol/L (19-24)
[2020-06-22 11:10] LABS: ABG Base Excess -3.9 mmol/L; ABG Glucose Whole Blood 312 mg/dL (75-99); ABG HCO3 20 mmol/L (21-25); ABG Hematocrit 27 % (34.0-46.0); ABG Ionized Calcium 4.4 mg/dL (4.5-5.3); ABG Oxygen Saturation 99.2 % (94-97); ABG PCO2 32 mmHg (35-45); ABG PH 7.41 (7.35-7.45); ABG PO2 166 mmHg (83-108); ABG Potassium Whole Blood 4.1 mmol/L (3.4-4.5); ABG Sodium Whole Blood 141 mmol/L (135-146); ABG TCO2 21 mmol/L (19-24)
[2020-06-22 11:50] LABS: ABG Base Excess -3.3 mmol/L; ABG Glucose Whole Blood 285 mg/dL (75-99); ABG HCO3 21 mmol/L (21-25); ABG Hematocrit 25 % (34.0-46.0); ABG Ionized Calcium 4.8 mg/dL (4.5-5.3); ABG Oxygen Saturation 99.2 % (94-97); ABG PCO2 33 mmHg (35-45); ABG PH 7.41 (7.35-7.45); ABG PO2 163 mmHg (83-108); ABG Potassium Whole Blood 4.3 mmol/L (3.4-4.5); ABG Sodium Whole Blood 141 mmol/L (135-146); ABG TCO2 22 mmol/L (19-24)
[2020-06-22 12:24] LABS: ABG Base Excess -3.6 mmol/L; ABG Glucose Whole Blood 267 mg/dL (75-99); ABG HCO3 20 mmol/L (21-25); ABG Ionized Calcium 4.7 mg/dL (4.5-5.3); ABG Oxygen Saturation 99.1 % (94-97); ABG PCO2 31 mmHg (35-45); ABG PH 7.42 (7.35-7.45); ABG PO2 167 mmHg (83-108); ABG Sodium Whole Blood 141 mmol/L (135-146); ABG TCO2 21 mmol/L (19-24)
--- NOTE | 2020-06-22 12:32 | PN ---
PROGRESS NOTE DATE OF SERVICE: 06/21/2020 CHIEF COMPLAINT: NSTEMI and coronary artery disease with insulin-dependent diabetes mellitus. HISTORY OF PRESENT ILLNESS: This gentleman is doing well and is fairly stable. Blood sugars have not been dropping. He is going to the operating room tomorrow. PHYSICAL EXAMINATION: Chest is clear. Cardiac exam is normal. Abdomen is soft, nontender. IMPRESSION: 1. Coronary artery disease. 2. Poorly-controlled type 1 insulin-dependent diabetes mellitus. PLAN: The procedure is to be carried out tomorrow. MMODL / IJN: [id number] /
[2020-06-22 12:41] LABS: ABG PH 7.18 (7.35-7.45); ABG PO2 >420 mmHg (83-108)
[2020-06-22 12:42] LABS: ABG PH 7.19 (7.35-7.45)
[2020-06-22 12:42] LABS: ABG PH 7.14 (7.35-7.45); ABG PO2 >420 mmHg (83-108)
[2020-06-22 12:43] LABS: ABG Lactic Acid Whole Blood 2.2 mmol/L (0.5-1.6)
[2020-06-22 12:43] LABS: ABG Lactic Acid Whole Blood 2.1 mmol/L (0.5-1.6)
[2020-06-22 12:44] LABS: ABG Lactic Acid Whole Blood 2.3 mmol/L (0.5-1.6)
[2020-06-22 12:45] LABS: ABG Lactic Acid Whole Blood 2.8 mmol/L (0.5-1.6)
[2020-06-22 12:46] LABS: ABG Hematocrit 24 % (34.0-46.0); ABG Lactic Acid Whole Blood 3.2 mmol/L (0.5-1.6)
[2020-06-22 13:11] LABS: ABG Glucose Whole Blood 236 mg/dL (75-99); ABG HCO3 22 mmol/L (21-25); ABG Hematocrit 25 % (34.0-46.0); ABG Ionized Calcium 4.7 mg/dL (4.5-5.3); ABG PCO2 34 mmHg (35-45); ABG PH 7.43 (7.35-7.45); ABG PO2 164 mmHg (83-108); ABG Potassium Whole Blood 3.8 mmol/L (3.4-4.5); ABG Sodium Whole Blood 141 mmol/L (135-146); ABG TCO2 23 mmol/L (19-24)
[2020-06-22 13:50] LABS: ABG Base Excess -0.8 mmol/L; ABG Glucose Whole Blood 206 mg/dL (75-99); ABG HCO3 23 mmol/L (21-25); ABG Hematocrit 25 % (34.0-46.0); ABG Ionized Calcium 4.7 mg/dL (4.5-5.3); ABG Oxygen Saturation 99.5 % (94-97); ABG PCO2 36 mmHg (35-45); ABG PH 7.42 (7.35-7.45); ABG PO2 214 mmHg (83-108); ABG Sodium Whole Blood 142 mmol/L (135-146); ABG TCO2 25 mmol/L (19-24)
[2020-06-22 14:01] LABS: ABG Lactic Acid Whole Blood 2.7 mmol/L (0.5-1.6)
[2020-06-22 14:01] LABS: ABG Lactic Acid Whole Blood 2.4 mmol/L (0.5-1.6)
[2020-06-22] MEDS ORDERED: IPRATROPIUM-ALBUTEROL 3 ML NEB INHALATION PRN (14:14)
[2020-06-22] MEDS ORDERED: METOCLOPRAMIDE 5 MG/ML 2 ML VIAL IVP PRN (14:14)
[2020-06-22] MEDS ORDERED: hydrALAZINE HCL 20 MG/ML 1 ML VIAL IVP PRN (14:14)
[2020-06-22] MEDS ORDERED: ALBUMIN HUMAN 5% 250 ML in EMPTY BAG 1 BAG IVPB PRN (14:14)
[2020-06-22] MEDS ORDERED: AMIODARONE 300 MG in DEXTROSE 5% IN WATER 250 ML IV PRN ×2 (14:14)
[2020-06-22] MEDS ORDERED: BENZOCAINE/MENTHOL LOZENG 1 EACH LOZENGE MUCOUS MEM PRN (14:14)
[2020-06-22] MEDS ORDERED: DEXMEDETOMIDINE/0.9% NACL(PMX) 400 MCG in EMPTY BAG 1 BAG IV SCH (14:14)
[2020-06-22] MEDS ORDERED: DEXTROSE 5% IN WATER 100 ML with AMIODARONE 150 MG IV PRN (14:14)
[2020-06-22] MEDS ORDERED: Magnesium Replacement Protocol 1 EACH MISC MISCELLANE PRN (14:14)
[2020-06-22] MEDS ORDERED: ONDANSETRON 4 MG/2 ML VIAL IVP PRN (14:14)
[2020-06-22] MEDS ORDERED: Potassium Replacement Protocol 1 EACH MISC MISCELLANE PRN (14:14)
[2020-06-22] MEDS ORDERED: AMIODARONE 360 MG in DEXTROSE 5% IN WATER 200 ML IV PRN ×2 (14:14)
[2020-06-22] MEDS ORDERED: Phosphorus Replacement Protoco 1 EACH MISC MISCELLANE PRN (14:14)
[2020-06-22] MEDS: INSULIN REGULAR 100 UNIT in SODIUM CHLORIDE 0.9% 100 ML IV SCH (14:30)
[2020-06-22 14:31] LABS: Glucose,Whole Blood 203 mg/dL (75-99)
[2020-06-22 14:46] LABS: Basophils % (A) 0 %; Eosinophils % (A) 0 %; HCT 25.2 % (39.0-53.0); Lymphocytes # (A) 2.1 k/uL (1.0-4.8); Lymphocytes % (A) 19 %; MCH 29.1 pg (25.0-35.0); MCHC 32.8 g/dL (31.0-37.0); MCV 88.7 fL (80.0-100.0); Mean Platelet Volume 7.8; Monocytes # (A) 0.5 k/uL (0-1.0); Monocytes % (A) 4 %; Neutrophils % (A) 75 %; Platelet Count 143 k/uL (150-450); RBC 2.84 m/uL (4.30-5.90); RDW 13.2 % (11.5-15.5); WBC 10.6 k/uL (3.8-10.6)
[2020-06-22 14:52] LABS: HGB 8.2 gm/dL (13.0-17.5)
[2020-06-22 14:55] LABS: ABG Base Excess 2.6 mmol/L; ABG HCO3 27 mmol/L (21-25); ABG Oxygen Saturation 99.6 % (94-97); ABG PCO2 43 mmHg (35-45); ABG PH 7.41 (7.35-7.45); ABG PO2 >400 mmHg (83-108); ABG TCO2 29 mmol/L (19-24); Allen Test Performed? Yes
[2020-06-22 14:55] LABS: INR 1.3 (<1.2); Partial Thromboplastin Time 26.3 sec (22.0-30.0); Prothrombin Time 13.5 sec (9.0-12.0)
[2020-06-22] MEDS ORDERED: CALCIUM GLUCONATE 2 GM in SODIUM CHLORIDE 0.9% 100 ML IVPB PRN (15:00)
[2020-06-22 15:03] LABS: ALT 53 U/L (4-49); AST 38 U/L (17-59); African American GFR (CKD) >90 (>60 ml/min/1.73 sqM); Albumin 3.2 g/dL (3.5-5.0); Alkaline Phosphatase 31 U/L (38-126); Anion Gap 8 mmol/L; Blood Urea Nitrogen 35 mg/dL (9-20); Calcium 8.2 mg/dL (8.4-10.2); Carbon Dioxide 26 mmol/L (22-30); Chloride 105 mmol/L (98-107); Glucose 173 mg/dL (74-99); Magnesium 1.7 mg/dL (1.6-2.3); Non-African American GFR(CKD) >90 (>60 ml/min/1.73 sqM); Sodium 139 mmol/L (137-145); Total Bilirubin 0.8 mg/dL (0.2-1.3); Total Protein 4.8 g/dL (6.3-8.2)
--- NOTE | 2020-06-22 15:08 | XR ---
EXAMINATION TYPE: XR chest 1V portable DATE OF EXAM: 06/22/2020 CLINICAL HISTORY: Postopen cardiac surgery. TECHNIQUE: Single AP portable supine view of the chest is obtained. COMPARISON: Chest x-ray from 3 days earlier FINDINGS: New endotracheal tube terminates at mid to inferior clavicular margin, approximately 5 to 6 cm above li. New orogastric tube projects below diaphragm. The right internal jugular [place]-Rex catheter terminates in the right pulmonary artery. New overlying sternal wires and mediastinal clips . New bilateral chest tubes and mediastinal drainage catheter. Cardiac silhouette size is more prominent but not suspiciously enlarged. Background chronic parenchym al change with new bilateral mid lung linear atelectasis. Subcutaneous emphysema in the right thorax noted. No pneumothorax identified bilaterally. IMPRESSION: 1. New tubes and lines are satisfactory in position. 2. Bilateral chest tubes without visualized pneumothorax. New central vascular congestion and mid melina g linear atelectatic change. New right-sided subcutaneous emphysema noted.
[2020-06-22 15:21] LABS: Glucose,Whole Blood 161 mg/dL (75-99)
[2020-06-22 15:38] LABS: Glucose,Whole Blood 138 mg/dL (75-99)
[2020-06-22] MEDS: Cariprazine Hcl [Vraylar] 1.5 MG PO SCH (15:45)
[2020-06-22] MEDS: CLEVIDIPINE BUTYRATE 25 MG in EMPTY BAG 1 BAG IV SCH ×2 (15:45→16:32)
[2020-06-22] MEDS: SODIUM CHLORIDE 0.9% 1,000 ML IV SCH (15:47)
[2020-06-22] MEDS ORDERED: IPRATROPIUM-ALBUTEROL 3 ML NEB INHALATION SCH (16:00)
[2020-06-22 16:31] LABS: Glucose,Whole Blood 96 mg/dL (75-99)
[2020-06-22 17:07] LABS: Glucose,Whole Blood 62 mg/dL (75-99)
[2020-06-22 17:27] LABS: Glucose,Whole Blood 57 mg/dL (75-99)
[2020-06-22] MEDS ORDERED: DEXTROSE 50% SYRINGE 50 ML IVP ONE (17:29)
[2020-06-22] MEDS: MAGNESIUM SULFATE-D5W PMX 1 GM in DEXTROSE/WATER 1 100ML.BAG IVPB SCH ×2 (17:32→19:52)
[2020-06-22] MEDS: ACETAMINOPHEN IV (For NPO) 1,000 MG in EMPTY BAG 1 BAG IVPB SCH (17:32)
[2020-06-22 17:34] LABS: Basophils % (A) 0 %; Eosinophils % (A) 0 %; HCT 27.1 % (39.0-53.0); HGB 8.9 gm/dL (13.0-17.5); Lymphocytes # (A) 1.6 k/uL (1.0-4.8); Lymphocytes % (A) 23 %; MCH 28.8 pg (25.0-35.0); MCHC 32.9 g/dL (31.0-37.0); MCV 87.5 fL (80.0-100.0); Monocytes # (A) 0.6 k/uL (0-1.0); Monocytes % (A) 9 %; Neutrophils # (A) 4.7 k/uL (1.3-7.7); Neutrophils % (A) 66 %; Platelet Count 174 k/uL (150-450); RDW 13.3 % (11.5-15.5); WBC 7.1 k/uL (3.8-10.6)
[2020-06-22 17:42] LABS: Glucose,Whole Blood 51 mg/dL (75-99)
[2020-06-22 18:07] LABS: Glucose,Whole Blood 101 mg/dL (75-99)
[2020-06-22 18:35] LABS: Glucose,Whole Blood 94 mg/dL (75-99)
[2020-06-22 19:04] LABS: Glucose,Whole Blood 102 mg/dL (75-99)
[2020-06-22 19:04] LABS: ABG Base Excess 3.6 mmol/L; ABG HCO3 28 mmol/L (21-25); ABG Oxygen Saturation 98.9 % (94-97); ABG PCO2 40 mmHg (35-45); ABG PH 7.45 (7.35-7.45); ABG PO2 169 mmHg (83-108); ABG TCO2 29 mmol/L (19-24); Allen Test Performed? Yes
[2020-06-22 19:41] LABS: Glucose,Whole Blood 118 mg/dL (75-99)
[2020-06-22] MEDS: KETOROLAC 15 MG/ML 1 ML VIAL IVP SCH (19:52)
--- NOTE | 2020-06-22 19:54 | PN ---
PROGRESS NOTE DATE OF SERVICE: 06/22/2020 CHIEF COMPLAINT: N-STEMI and coronary artery disease. HISTORY OF PRESENT ILLNESS: This gentleman is stable and is going for his procedure today. PHYSICAL EXAMINATION: Chest is clear. Cardiac exam is normal. Abdomen is soft, nontender. IMPRESSION: 1. Acute [id number] myocardial infarction. 2. Coronary artery disease. 3. Insulin-dependent diabetes mellitus, uncontrolled. PLAN: Vascular procedure today. MMODL / IJN: [id number] /
[2020-06-22] MEDS: IPRATROPIUM-ALBUTEROL 3 ML NEB INHALATION SCH ×2 (19:55→23:33)
[2020-06-22 20:06] LABS: Glucose,Whole Blood 137 mg/dL (75-99)
[2020-06-22 20:19] LABS: Basophils % (A) 0 %; Eosinophils % (A) 1 %; HCT 27.1 % (39.0-53.0); HGB 8.8 gm/dL (13.0-17.5); Lymphocytes # (A) 0.6 k/uL (1.0-4.8); Lymphocytes % (A) 8 %; MCH 28.9 pg (25.0-35.0); MCHC 32.5 g/dL (31.0-37.0); Mean Platelet Volume 7.6; Monocytes # (A) 0.6 k/uL (0-1.0); Monocytes % (A) 9 %; Neutrophils % (A) 82 %; Platelet Count 186 k/uL (150-450); RBC 3.05 m/uL (4.30-5.90); RDW 13.2 % (11.5-15.5); WBC 7.3 k/uL (3.8-10.6)
[2020-06-22 20:34] LABS: Glucose,Whole Blood 148 mg/dL (75-99)
[2020-06-22 20:35] LABS: African American GFR (CKD) >90 (>60 ml/min/1.73 sqM); Anion Gap 7 mmol/L; Blood Urea Nitrogen 27 mg/dL (9-20); Calcium 8.3 mg/dL (8.4-10.2); Carbon Dioxide 25 mmol/L (22-30); Chloride 106 mmol/L (98-107); Glucose 118 mg/dL (74-99); Non-African American GFR(CKD) >90 (>60 ml/min/1.73 sqM); Potassium 3.9 mmol/L (3.5-5.1); Sodium 138 mmol/L (137-145)
[2020-06-22] MEDS: POTASSIUM CHLORIDE 10 MEQ in WATER FOR INJECTION 1 100ML.BAG IVPB SCH ×2 (20:52→22:26)
[2020-06-22] MEDS: METOPROLOL TARTRATE 12.5 MG TAB PO SCH (20:53)
[2020-06-22 20:59] LABS: Glucose,Whole Blood 144 mg/dL (75-99)
[2020-06-22 21:45] LABS: Glucose,Whole Blood 123 mg/dL (75-99)
[2020-06-22 22:12] LABS: Glucose,Whole Blood 108 mg/dL (75-99)
--- NOTE | 2020-06-22 22:17 | PN ---
PROGRESS NOTE FOLLOW-UP NOTE: Jean is a 45-year-old gentleman with history of multivessel coronary artery disease who underwent bypass surgery today. At the time of my evaluation, patient just returned from surgery. He is intubated on vent and sedated. I do not have the surgical report on him at this time. PHYSICAL EXAMINATION: Patient is afebrile. Heart rate is 98 beats per minute. Blood pressure is 99/63. Oxygen saturation is 100% on room air. Chest exam reveals diminished air entry at the bases. Heart exam reveals first and second heart sounds. No gallop. No murmur. ABDOMEN: Soft. Examination of extremities did not reveal any edema. Peripheral pulses are felt. Patient is currently on aspirin, Lipitor, Plavix. ASSESSMENT: Multivessel coronary artery disease, status post coronary artery bypass grafting. PLAN: Patient will continue current medications. MMODL / IJN: [id number] /
[2020-06-22] MEDS: AMITRIPTYLINE HCL 10 MG TAB PO SCH (22:27)
[2020-06-22 22:33] LABS: Glucose,Whole Blood 93 mg/dL (75-99)
[2020-06-22] MEDS: HEPARIN SODIUM,PORCINE 5,000 UNIT/ML 1 ML VIAL SQ SCH (22:35)
[2020-06-22 23:01] LABS: Glucose,Whole Blood 78 mg/dL (75-99)
[2020-06-22 23:32] LABS: Glucose,Whole Blood 75 mg/dL (75-99)
[2020-06-23] LABS: Glucose,Whole Blood 75 mg/dL (75-99)
[2020-06-23] MEDS: KETOROLAC 15 MG/ML 1 ML VIAL IVP SCH ×4 (00:18→18:30)
[2020-06-23] MEDS: ACETAMINOPHEN IV (For NPO) 1,000 MG in EMPTY BAG 1 BAG IVPB SCH (00:19)
[2020-06-23 00:34] LABS: Glucose,Whole Blood 92 mg/dL (75-99)
[2020-06-23 01:06] LABS: Glucose,Whole Blood 107 mg/dL (75-99)
[2020-06-23] MEDS ORDERED: HYDROcodone/APAP 5-325MG 1 EACH TAB PO PRN ×2 (01:21)
[2020-06-23 01:34] LABS: Glucose,Whole Blood 132 mg/dL (75-99)
[2020-06-23 02:04] LABS: Glucose,Whole Blood 140 mg/dL (75-99)
[2020-06-23 02:33] LABS: Glucose,Whole Blood 126 mg/dL (75-99)
[2020-06-23 03:04] LABS: Glucose,Whole Blood 118 mg/dL (75-99)
[2020-06-23 03:38] LABS: Glucose,Whole Blood 97 mg/dL (75-99)
[2020-06-23 04:05] LABS: Glucose,Whole Blood 81 mg/dL (75-99)
[2020-06-23 04:15] LABS: Basophils % (A) 0 %; Eosinophils # (A) 0.1 k/uL (0-0.7); Eosinophils % (A) 1 %; HCT 27.1 % (39.0-53.0); HGB 9.1 gm/dL (13.0-17.5); Lymphocytes # (A) 0.5 k/uL (1.0-4.8); Lymphocytes % (A) 7 %; MCH 29.7 pg (25.0-35.0); MCHC 33.5 g/dL (31.0-37.0); MCV 88.4 fL (80.0-100.0); Mean Platelet Volume 8.1; Monocytes # (A) 0.7 k/uL (0-1.0); Monocytes % (A) 9 %; Neutrophils # (A) 6.3 k/uL (1.3-7.7); Neutrophils % (A) 82 %; Platelet Count 199 k/uL (150-450); RBC 3.07 m/uL (4.30-5.90); RDW 13.2 % (11.5-15.5); WBC 7.7 k/uL (3.8-10.6)
[2020-06-23 04:20] LABS: Ionized Calcium 4.9 mg/dL (4.5-5.3)
[2020-06-23 04:26] LABS: Sodium 135 mmol/L (137-145)
[2020-06-23 04:29] LABS: ALT 52 U/L (4-49); AST 52 U/L (17-59); African American GFR (CKD) >90 (>60 ml/min/1.73 sqM); Albumin 2.8 g/dL (3.5-5.0); Alkaline Phosphatase 34 U/L (38-126); Anion Gap 4 mmol/L; Blood Urea Nitrogen 23 mg/dL (9-20); Carbon Dioxide 27 mmol/L (22-30); Chloride 104 mmol/L (98-107); Glucose 73 mg/dL (74-99); Non-African American GFR(CKD) >90 (>60 ml/min/1.73 sqM); Potassium 3.9 mmol/L (3.5-5.1); Total Bilirubin 0.6 mg/dL (0.2-1.3); Total Protein 4.5 g/dL (6.3-8.2)
[2020-06-23 04:30] LABS: Glucose,Whole Blood 77 mg/dL (75-99)
[2020-06-23 05:05] LABS: Glucose,Whole Blood 73 mg/dL (75-99)
[2020-06-23 05:36] LABS: Glucose,Whole Blood 76 mg/dL (75-99)
[2020-06-23] MEDS ORDERED: POTASSIUM BICARBONATE/CIT AC 20 MEQ TABLET.EFF NG-TUBE SCH ×2 (06:00→07:00)
[2020-06-23 06:09] LABS: Glucose,Whole Blood 104 mg/dL (75-99)
[2020-06-23] MEDS ORDERED: POTASSIUM BICARBONATE/CIT AC 20 MEQ TABLET.EFF PO ONE (06:30)
[2020-06-23 06:32] LABS: Glucose,Whole Blood 118 mg/dL (75-99)
--- NOTE | 2020-06-23 06:53 | XR ---
EXAMINATION TYPE: XR chest 1V portable DATE OF EXAM: 06/23/2020 CLINICAL HISTORY: Postopen cardiac surgery progress study. TECHNIQUE: Single AP portable upright view of the chest is obtained. COMPARISON: Chest x-ray from one day earlier FINDINGS: Interval extubation with removal of endotracheal and orogastric tubes. Redemonstration of right internal jugular [place]-Rex catheter terminating in the right lower lobe pulmonary artery slight distal advancement of the tip in the interval. Persistent bilateral chest tubes and mediastinal drai nage catheter. Overlying Sternal wires and mediastinal clips redemonstrated. Cardiac silhouette size remains within normal limits. Improved central vascular congestion. Persisten t lateral left mid lung linear atelectasis. Developing patchy left basilar atelectasis and/or infiltr ate. No pneumothorax noted bilaterally. Improved right lateral subcutaneous emphysema noted. IMPRESSION: Interval extubation. Improving right-sided subcutaneous emphysema. Persistent bilateral c hest tubes without pneumothorax. Stable lateral left mid lung linear atelectasis. Developing left bas ilar acute atelectasis and/or infiltrate noted. Improved central vascular congestion is present.
[2020-06-23 07:08] LABS: Glucose,Whole Blood 153 mg/dL (75-99)
[2020-06-23] MEDS: IPRATROPIUM-ALBUTEROL 3 ML NEB INHALATION SCH ×4 (07:09→20:13)
[2020-06-23 07:36] LABS: Glucose,Whole Blood 144 mg/dL (75-99)
[2020-06-23 08:04] LABS: Glucose,Whole Blood 173 mg/dL (75-99)
[2020-06-23] MEDS: INSULIN REGULAR 100 UNIT in SODIUM CHLORIDE 0.9% 100 ML IV SCH ×2 (08:04→21:17)
[2020-06-23] MEDS: HEPARIN SODIUM,PORCINE 5,000 UNIT/ML 1 ML VIAL SQ SCH ×2 (08:18→16:30)
[2020-06-23] MEDS: ATORVASTATIN 40 MG TAB PO SCH (08:19)
[2020-06-23] MEDS: ASPIRIN 325 MG TAB PO SCH (08:19)
[2020-06-23] MEDS: CLOPIDOGREL 75 MG TAB PO SCH (08:20)
[2020-06-23] MEDS: Cariprazine Hcl [Vraylar] 1.5 MG PO SCH (08:20)
[2020-06-23] MEDS: METOPROLOL TARTRATE 12.5 MG TAB PO SCH ×2 (08:21→20:42)
[2020-06-23] MEDS: SODIUM CHLORIDE 0.9% 1,000 ML IV SCH (08:22)
[2020-06-23 08:37] LABS: Glucose,Whole Blood 180 mg/dL (75-99)
[2020-06-23] MEDS ORDERED: MAGNESIUM HYDROXIDE 2,400 MG/10 ML CUP PO PRN (09:00)
[2020-06-23] MEDS ORDERED: bisacodyL 10 MG SUPP RECTAL PRN (09:00)
[2020-06-23] MEDS ORDERED: METOPROLOL TARTRATE 12.5 MG TAB PO SCH (09:00)
[2020-06-23] MEDS ORDERED: PANTOPRAZOLE 40 MG/10 ML VIAL IVP SCH (09:00)
[2020-06-23 09:12] LABS: Glucose,Whole Blood 160 mg/dL (75-99)
--- NOTE | 2020-06-23 09:32 | P.PN ---
Subjective Progress Note Date: 06/23/20 Principal diagnosis: Coronary artery disease, non-ST segment elevation myocardial infarction This a very pleasant 45-year-old gentleman who follows with Dr. Fam as his primary care provider. He has a history of diabetes mellitus, gastroparesis, diabetic peripheral neuropathy, hypertension, hyperlipidemia, marijuana use, chronic tobacco dependence. He was recently admitted to [facility] after being found to have altered mental status with unresponsiveness at home. At that time his blood glucose was greater than 1100. He was treated for diabetic ketoacidosis. He had developed impending respiratory failure requiring intubation mechanical ventilatory support subsequently extubated on 06/17/2020. He was found to be a non STEMI and had undergone cardiac catheterization which revealed significant triple-vessel coronary artery disease. He was transferred here for revascularization. The plan is for surgery on 06/22/2020. He is seen today in consultation on the selective care unit. He is currently sitting up in bed. Awake and alert in no acute distress. Alert and oriented 3. No chest pain or palpitations. No worsening shortness of breath, cough or congestion. Chest x-ray reveals no acute pulmonary process. He is working well with his incentive spirometer pulling approximately 2500 ML's. FEV1 value pending. White count 9.0. Hemoglobin 12.8. Troponin 0.7-9. He remains on heparin drip. The patient is seen today 06/20/2020 in follow-up on the selective care unit. He is currently sitting up in bed. Awake and alert in no acute distress. No shortness of breath, cough or congestion. No chest pain or palpitations. Maintaining good O2 saturation up to 100% on room air. Afebrile. Hemodynamically stable. White count 7.7. Hemoglobin 12.5. Sodium 137. Potassium 3.5. Creatinine 0.68. He remains on heparin drip. Practicing well with the incentive spirometer. The patient is seen today 06/23/2020 in follow-up in the intensive care unit. He is now postoperative day #1 of a four-vessel coronary artery bypass surgery off pump by Dr. Crabtree. He was successfully extubated. He is currently awake and alert in no acute distress. He is maintaining O2 saturation in the 90s on 2 L/m per nasal cannula. At the 0.9 normal saline at 50 MLS per hour. Cardizem drip at 5 mg per hour. Insulin drip at 12 units per hour. Nitroglycerin drip is now off. Chest x-ray reveals improving right-sided subcutaneous emphysema. Persistent bilateral chest tubes without pneumothorax. Stable lateral left midlung linear atelectasis. Developing left basilar acute atelectasis/infiltrates noted. Improvement and central vascular congestion present. White count 7.7. Hemoglobin 9.1. Platelets 199. Sodium 135. Potassium 3.9. Creatinine 0.78. He is doing quite well. He's been up ambulating. He's been up in a chair. Plan is for [place]-Rex catheter be removed today. Objective - Vital Signs Vital signs: Vital Signs Temp 98.6 F 06/23/20 04:00 Pulse 87 06/23/20 07:19 Resp 14 06/23/20 07:00 BP 100/42 06/23/20 07:00 Pulse Ox 100 06/23/20 07:00 Intake & Output 06/22/20 06/23/20 06/23/20 18:59 06:59 18:59 Intake Total 561.346 9006.770 362.404 Output Total 1770 1420 70 Balance -1192.804 372.770 292.404 Weight 75.6 kg Intake: IV 533 1350.5 315.5 ACETAMINOPHEN IV (For NPO 100 100 ) 1,000 mg In Empty Bag 1 bag @ 400 mls/hr IVPB Q6HR MORE Rx#:[id number] Albumin Human 5% 250 ml 250 In Empty Bag 1 bag @ 250 mls/hr IVPB Q1HR PRN Rx#: [id number] CO/CI 80 Diltiazem 125 mg In 55 5 Sodium Chloride 0.9% 100 ml @ 5 MG/HR 5 mls/hr IV .Q24H MORE Rx#:[id number] Magnesium Sulfate-D5w Pmx 100 100 1 gm In Dextrose/Water 1 100ml.bag @ 100 mls/hr IVPB Q1H MORE Rx#: [id number] Nitroglycerin-D5w Pmx 50 16.5 1.5 mg In Dextrose/Water 1 250ml.bag @ 5 MCG/MIN 1.5 mls/hr IV .Q24H MORE Rx#: [id number] Potassium Chloride 10 meq 200 In Water For Injection 1 100ml.bag @ 100 mls/hr IVPB Q1H MORE Rx#: [id number] Pressure bags 99 9 Sodium Chloride 0.9% 1, 250 600 50 000 ml @ 50 mls/hr IV . Q20H MORE Rx#:[id number] ceFAZolin 2 gm In Sodium 50 100 Chloride 0.9% 50 ml @ 100 mls/hr IVPB Q8HR MORE Rx# :[id number] Intake, IV Titration 44.196 42.270 46.904 Amount Clevidipine Butyrate 25 4.333 mg In Empty Bag 1 bag @ 1 MG/HR 2 mls/hr IV .Q24H MORE Rx#:[id number] Insulin Regular 100 unit 27.321 42.270 46.904 In Sodium Chloride 0.9% 100 ml @ Per Protocol IV .Q0M MORE Rx#:[id number] propofoL 1,000 mg In 12.542 Empty Bag 1 bag @ Titrate IV .Q0M MORE Rx#: [id number] Oral 400 Output: Chest Tube Drainage 220 70 Chest Tube Bilateral 100 40 Chest Tube Mediastinal 120 30 Drainage 580 30 Bilateral Lateral Chest 368 10 Medial Chest 212 20 Urine 1350 770 40 Estimated Blood Loss 200 Other: Voiding Method Indwelling Catheter Indwelling Catheter ABP, PAP, CO, CI - Last Documented Arterial Blood Pressure 110/53 Pulmonary Artery Pressure 19/5 Cardiac Output 7.5 Cardiac Index 5 - Exam GENERAL EXAM: Alert, pleasant 45-year-old gentleman, on 2 L nasal cannula, thin comfortable in no apparent distress. HEAD: Normocephalic. EYES: Normal reaction of pupils, equal size. NOSE: Clear with pink turbinates. THROAT: No erythema or exudates. NECK: No masses, no JVD. CHEST: Heart hugger in place. Sternal dressing dry and intact. Sternum stable. LUNGS: Equal air entry with crackles in the bilateral posterior bases. Diminished. CVS: S1 and S2 normal with no audible murmur, regular rhythm. ABDOMEN: No hepatosplenomegaly, normal bowel sounds, no guarding or rigidity. SPINE: No scoliosis or deformity SKIN: No rashes CENTRAL NERVOUS SYSTEM: No focal deficits, tone is normal in all 4 extremities. EXTREMITIES: Right upper extremity ARLEEN in place. There is trace peripheral edema. No clubbing, no cyanosis. Peripheral pulses are intact. - Labs CBC & Chem 7: 06/23/20 04:00 06/23/20 04:00 Labs: Abnormal Lab Results - Last 24 Hours (Table) 06/21/20 06/22/20 06/22/20 Range/Units 05:55 08:40 08:41 RBC (4.30-5.90) m/uL Hgb (13.0-17.5) gm/dL Hct (39.0-53.0) % Plt Count (150-450) k/uL Neutrophils # (1.3-7.7) k/uL Lymphocytes # (1.0-4.8) k/uL PT (9.0-12.0) sec INR (<1.2) ABG pH 7.18 L* (7.35-7.45) ABG pCO2 34 L (35-45) mmHg ABG pO2 164 H >420 H (83-108) mmHg ABG HCO3 13 L (21-25) mmol/L ABG Total CO2 14 L (19-24) mmol/L ABG O2 Saturation 99.0 H 99.3 H (94-97) % ABG Hematocrit 25 L (34.0-46.0) % ABG Sodium 133 L (135-146) mmol/L ABG Potassium 5.0 H (3.4-4.5) mmol/L ABG Ionized Calcium (4.5-5.3) mg/dL ABG Glucose 236 H 446 H (75-99) mg/dL ABG Lactic Acid 2.7 H* 1.7 H (0.5-1.6) mmol/L Hemoglobin 8.0 L 12.5 L (13.0-17.5) gm/dL Sodium (137-145) mmol/L BUN (9-20) mg/dL Glucose (74-99) mg/dL POC Glucose (mg/dL) (75-99) mg/dL Calcium (8.4-10.2) mg/dL ALT (4-49) U/L Alkaline Phosphatase (38-126) U/L Total Protein (6.3-8.2) g/dL Albumin (3.5-5.0) g/dL Arterial Blood Potassium 5.0 H (3.4-4.5) mmol/L Arterial Blood Glucose 236 H 446 H (75-99) mg/dL Crossmatch See Detail 06/22/20 06/22/2006/22/20 Range/Units 08:46 09:19 10:05 RBC (4.30-5.90) m/uL Hgb (13.0-17.5) gm/dL Hct (39.0-53.0) % Plt Count (150-450) k/uL Neutrophils # (1.3-7.7) k/uL Lymphocytes # (1.0-4.8) k/uL PT (9.0-12.0) sec INR (<1.2) ABG pH 7.14 L* 7.19 L* 7.23 L (7.35-7.45) ABG pCO2 49 H 48 H (35-45) mmHg ABG pO2 >420 H 177 H 161 H (83-108) mmHg ABG HCO3 14 L 19 L 20 L (21-25) mmol/L ABG Total CO2 15 L (19-24) mmol/L ABG O2 Saturation 99.3 H 98.6 H 98.4 H (94-97) % ABG Hematocrit 31 L (34.0-46.0) % ABG Sodium 134 L (135-146) mmol/L ABG Potassium 5.2 H (3.4-4.5) mmol/L ABG Ionized Calcium (4.5-5.3) mg/dL ABG Glucose 451 H 405 H 364 H (75-99) mg/dL ABG Lactic Acid 2.1 H 2.2 H* (0.5-1.6) mmol/L Hemoglobin 12.6 L 12.0 L 10.2 L (13.0-17.5) gm/dL Sodium (137-145) mmol/L BUN (9-20) mg/dL Glucose (74-99) mg/dL POC Glucose (mg/dL) (75-99) mg/dL Calcium (8.4-10.2) mg/dL ALT (4-49) U/L Alkaline Phosphatase (38-126) U/L Total Protein (6.3-8.2) g/dL Albumin (3.5-5.0) g/dL Arterial Blood Potassium 5.2 H (3.4-4.5) mmol/L Arterial Blood Glucose 451 H 405 H 364 H (75-99) mg/dL Crossmatch 06/22/20 06/22/2020 Range/Units 10:44 11:14 11:54 RBC (4.30-5.90) m/uL Hgb (13.0-17.5) gm/dL Hct (39.0-53.0) % Plt Count (150-450) k/uL Neutrophils # (1.3-7.7) k/uL Lymphocytes # (1.0-4.8) k/uL PT (9.0-12.0) sec INR (<1.2) ABG pH (7.35-7.45) ABG pCO2 32 L 33 L (35-45) mmHg ABG pO2 142 H 166 H 163 H (83-108) mmHg ABG HCO3 20 L (21-25) mmol/L ABG Total CO2 (19-24) mmol/L ABG O2 Saturation 98.8 H 99.2 H 99.2 H (94-97) % ABG Hematocrit 29 L 27 L 25 L (34.0-46.0) % ABG Sodium (135-146) mmol/L ABG Potassium (3.4-4.5) mmol/L ABG Ionized Calcium 4.4 L (4.5-5.3) mg/dL ABG Glucose 332 H 312 H 285 H (75-99) mg/dL ABG Lactic Acid 2.0 H 2.3 H* 2.8 H* (0.5-1.6) mmol/L Hemoglobin 9.6 L 8.9 L 8.0 L (13.0-17.5) gm/dL Sodium (137-145) mmol/L BUN (9-20) mg/dL Glucose (74-99) mg/dL POC Glucose (mg/dL) (75-99) mg/dL Calcium (8.4-10.2) mg/dL ALT (4-49) U/L Alkaline Phosphatase (38-126) U/L Total Protein (6.3-8.2) g/dL Albumin (3.5-5.0) g/dL Arterial Blood Potassium (3.4-4.5) mmol/L Arterial Blood Glucose 332 H 312 H 285 H (75-99) mg/dL Crossmatch 06/22/20 06/22/20 06/22/20 Range/Units 12:27 13:54 14:28 RBC (4.30-5.90) m/uL Hgb (13.0-17.5) gm/dL Hct (39.0-53.0) % Plt Count (150-450) k/uL Neutrophils # (1.3-7.7) k/uL Lymphocytes # (1.0-4.8) k/uL PT (9.0-12.0) sec INR (<1.2) ABG pH (7.35-7.45) ABG pCO2 31 L (35-45) mmHg ABG pO2 167 H 214 H (83-108) mmHg ABG HCO3 20 L (21-25) mmol/L ABG Total CO2 25 H (19-24) mmol/L ABG O2 Saturation 99.1 H 99.5 H (94-97) % ABG Hematocrit 24 L 25 L (34.0-46.0) % ABG Sodium (135-146) mmol/L ABG Potassium (3.4-4.5) mmol/L ABG Ionized Calcium (4.5-5.3) mg/dL ABG Glucose 267 H 206 H (75-99) mg/dL ABG Lactic Acid 3.2 H* 2.4 H* (0.5-1.6) mmol/L Hemoglobin 7.9 L 8.1 L (13.0-17.5) gm/dL Sodium (137-145) mmol/L BUN (9-20) mg/dL Glucose (74-99) mg/dL POC Glucose (mg/dL) 203 H (75-99) mg/dL Calcium (8.4-10.2) mg/dL ALT (4-49) U/L Alkaline Phosphatase (38-126) U/L Total Protein (6.3-8.2) g/dL Albumin (3.5-5.0) g/dL Arterial Blood Potassium (3.4-4.5) mmol/L Arterial Blood Glucose 267 H 206 H (75-99) mg/dL Crossmatch 06/22/20 06/22/20 06/22/20 Range/Units 14:30 14:30 14:30 RBC 2.84 L (4.30-5.90) m/uL Hgb 8.2 L D (13.0-17.5) gm/dL Hct 25.2 L (39.0-53.0) % Plt Count 143 L (150-450) k/uL Neutrophils # 8.0 H (1.3-7.7) k/uL Lymphocytes # (1.0-4.8) k/uL PT 13.5 H (9.0-12.0) sec INR 1.3 H (<1.2) ABG pH (7.35-7.45) ABG pCO2 (35-45) mmHg ABG pO2 (83-108) mmHg ABG HCO3 (21-25) mmol/L ABG Total CO2 (19-24) mmol/L ABG O2 Saturation (94-97) % ABG Hematocrit (34.0-46.0) % ABG Sodium (135-146) mmol/L ABG Potassium (3.4-4.5) mmol/L ABG Ionized Calcium (4.5-5.3) mg/dL ABG Glucose (75-99) mg/dL ABG Lactic Acid (0.5-1.6) mmol/L Hemoglobin (13.0-17.5) gm/dL Sodium (137-145) mmol/L BUN 35 H (9-20) mg/dL Glucose 173 H (74-99) mg/dL POC Glucose (mg/dL) (75-99) mg/dL Calcium 8.2 L (8.4-10.2) mg/dL ALT 53 H (4-49) U/L Alkaline Phosphatase 31 L (38-126) U/L Total Protein 4.8 L (6.3-8.2) g/dL Albumin 3.2 L (3.5-5.0) g/dL Arterial Blood Potassium (3.4-4.5) mmol/L Arterial Blood Glucose (75-99) mg/dL Crossmatch 06/22/20 06/22/20 06/22/20 Range/Units 14:53 15:11 15:36 RBC (4.30-5.90) m/uL Hgb (13.0-17.5) gm/dL Hct (39.0-53.0) % Plt Count (150-450) k/uL Neutrophils # (1.3-7.7) k/uL Lymphocytes # (1.0-4.8) k/uL PT (9.0-12.0) sec INR (<1.2) ABG pH (7.35-7.45) ABG pCO2 (35-45) mmHg ABG pO2 >400 H (83-108) mmHg ABG HCO3 27 H (21-25) mmol/L ABG Total CO2 29 H (19-24) mmol/L ABG O2 Saturation 99.6 H (94-97) % ABG Hematocrit (34.0-46.0) % ABG Sodium (135-146) mmol/L ABG Potassium (3.4-4.5) mmol/L ABG Ionized Calcium (4.5-5.3) mg/dL ABG Glucose (75-99) mg/dL ABG Lactic Acid (0.5-1.6) mmol/L Hemoglobin (13.0-17.5) gm/dL Sodium (137-145) mmol/L BUN (9-20) mg/dL Glucose (74-99) mg/dL POC Glucose (mg/dL) 161 H 138 H (75-99) mg/dL Calcium (8.4-10.2) mg/dL ALT (4-49) U/L Alkaline Phosphatase (38-126) U/L Total Protein (6.3-8.2) g/dL Albumin (3.5-5.0) g/dL Arterial Blood Potassium (3.4-4.5) mmol/L Arterial Blood Glucose (75-99) mg/dL Crossmatch 06/22/20 06/22/20 06/22/20 Range/Units 17:05 17:24 17:26 RBC 3.10 L (4.30-5.90) m/uL Hgb 8.9 L (13.0-17.5) gm/dL Hct 27.1 L (39.0-53.0) % Plt Count (150-450) k/uL Neutrophils # (1.3-7.7) k/uL Lymphocytes # (1.0-4.8) k/uL PT (9.0-12.0) sec INR (<1.2) ABG pH (7.35-7.45) ABG pCO2 (35-45) mmHg ABG pO2 (83-108) mmHg ABG HCO3 (21-25) mmol/L ABG Total CO2 (19-24) mmol/L ABG O2 Saturation (94-97) % ABG Hematocrit (34.0-46.0) % ABG Sodium (135-146) mmol/L ABG Potassium (3.4-4.5) mmol/L ABG Ionized Calcium (4.5-5.3) mg/dL ABG Glucose (75-99) mg/dL ABG Lactic Acid (0.5-1.6) mmol/L Hemoglobin (13.0-17.5) gm/dL Sodium (137-145) mmol/L BUN (9-20) mg/dL Glucose (74-99) mg/dL POC Glucose (mg/dL) 62 L 57 L (75-99) mg/dL Calcium (8.4-10.2) mg/dL ALT (4-49) U/L Alkaline Phosphatase (38-126) U/L Total Protein (6.3-8.2) g/dL Albumin (3.5-5.0) g/dL Arterial Blood Potassium (3.4-4.5) mmol/L Arterial Blood Glucose (75-99) mg/dL Crossmatch 06/22/20 06/22/20 06/22/20 Range/Units 17:39 17:54 19:01 RBC (4.30-5.90) m/uL Hgb (13.0-17.5) gm/dL Hct (39.0-53.0) % Plt Count (150-450) k/uL Neutrophils # (1.3-7.7) k/uL Lymphocytes # (1.0-4.8) k/uL PT (9.0-12.0) sec INR (<1.2) ABG pH (7.35-7.45) ABG pCO2 (35-45) mmHg ABG pO2 169 H (83-108) mmHg ABG HCO3 28 H (21-25) mmol/L ABG Total CO2 29 H (19-24) mmol/L ABG O2 Saturation 98.9 H (94-97) % ABG Hematocrit (34.0-46.0) % ABG Sodium (135-146) mmol/L ABG Potassium (3.4-4.5) mmol/L ABG Ionized Calcium (4.5-5.3) mg/dL ABG Glucose (75-99) mg/dL ABG Lactic Acid (0.5-1.6) mmol/L Hemoglobin (13.0-17.5) gm/dL Sodium (137-145) mmol/L BUN (9-20) mg/dL Glucose (74-99) mg/dL POC Glucose (mg/dL) 51 L 101 H (75-99) mg/dL Calcium (8.4-10.2) mg/dL ALT (4-49) U/L Alkaline Phosphatase (38-126) U/L Total Protein (6.3-8.2) g/dL Albumin (3.5-5.0) g/dL Arterial Blood Potassium (3.4-4.5) mmol/L Arterial Blood Glucose (75-99) mg/dL Crossmatch 06/22/20 06/22/20 06/22/20 Range/Units 19:03 19:39 20:00 RBC 3.05 L (4.30-5.90) m/uL Hgb 8.8 L (13.0-17.5) gm/dL Hct 27.1 L (39.0-53.0) % Plt Count (150-450) k/uL Neutrophils # (1.3-7.7) k/uL Lymphocytes # 0.6 L (1.0-4.8) k/uL PT (9.0-12.0) sec INR (<1.2) ABG pH (7.35-7.45) ABG pCO2 (35-45) mmHg ABG pO2 (83-108) mmHg ABG HCO3 (21-25) mmol/L ABG Total CO2 (19-24) mmol/L ABG O2 Saturation (94-97) % ABG Hematocrit (34.0-46.0) % ABG Sodium (135-146) mmol/L ABG Potassium (3.4-4.5) mmol/L ABG Ionized Calcium (4.5-5.3) mg/dL ABG Glucose (75-99) mg/dL ABG Lactic Acid (0.5-1.6) mmol/L Hemoglobin (13.0-17.5) gm/dL Sodium (137-145) mmol/L BUN (9-20) mg/dL Glucose (74-99) mg/dL POC Glucose (mg/dL) 102 H 118 H (75-99) mg/dL Calcium (8.4-10.2) mg/dL ALT (4-49) U/L Alkaline Phosphatase (38-126) U/L Total Protein (6.3-8.2) g/dL Albumin (3.5-5.0) g/dL Arterial Blood Potassium (3.4-4.5) mmol/L Arterial Blood Glucose (75-99) mg/dL Crossmatch 06/22/20 06/22/20 06/22/20 Range/Units 20:00 20:04 20:33 RBC (4.30-5.90) m/uL Hgb (13.0-17.5) gm/dL Hct (39.0-53.0) % Plt Count (150-450) k/uL Neutrophils # (1.3-7.7) k/uL Lymphocytes # (1.0-4.8) k/uL PT (9.0-12.0) sec INR (<1.2) ABG pH (7.35-7.45) ABG pCO2 (35-45) mmHg ABG pO2 (83-108) mmHg ABG HCO3 (21-25) mmol/L ABG Total CO2 (19-24) mmol/L ABG O2 Saturation (94-97) % ABG Hematocrit (34.0-46.0) % ABG Sodium (135-146) mmol/L ABG Potassium (3.4-4.5) mmol/L ABG Ionized Calcium (4.5-5.3) mg/dL ABG Glucose (75-99) mg/dL ABG Lactic Acid (0.5-1.6) mmol/L Hemoglobin (13.0-17.5) gm/dL Sodium (137-145) mmol/L BUN 27 H (9-20) mg/dL Glucose 118 H (74-99) mg/dL POC Glucose (mg/dL) 137 H 148 H (75-99) mg/dL Calcium 8.3 L (8.4-10.2) mg/dL ALT (4-49) U/L Alkaline Phosphatase (38-126) U/L Total Protein (6.3-8.2) g/dL Albumin (3.5-5.0) g/dL Arterial Blood Potassium (3.4-4.5) mmol/L Arterial Blood Glucose (75-99) mg/dL Crossmatch 06/22/20 06/22/20 06/22/20 Range/Units 20:58 21:43 22:10 RBC (4.30-5.90) m/uL Hgb (13.0-17.5) gm/dL Hct (39.0-53.0) % Plt Count (150-450) k/uL Neutrophils # (1.3-7.7) k/uL Lymphocytes # (1.0-4.8) k/uL PT (9.0-12.0) sec INR (<1.2) ABG pH (7.35-7.45) ABG pCO2 (35-45) mmHg ABG pO2 (83-108) mmHg ABG HCO3 (21-25) mmol/L ABG Total CO2 (19-24) mmol/L ABG O2 Saturation (94-97) % ABG Hematocrit (34.0-46.0) % ABG Sodium (135-146) mmol/L ABG Potassium (3.4-4.5) mmol/L ABG Ionized Calcium (4.5-5.3) mg/dL ABG Glucose (75-99) mg/dL ABG Lactic Acid (0.5-1.6) mmol/L Hemoglobin (13.0-17.5) gm/dL Sodium (137-145) mmol/L BUN (9-20) mg/dL Glucose (74-99) mg/dL POC Glucose (mg/dL) 144 H 123 H 108 H (75-99) mg/dL Calcium (8.4-10.2) mg/dL ALT (4-49) U/L Alkaline Phosphatase (38-126) U/L Total Protein (6.3-8.2) g/dL Albumin (3.5-5.0) g/dL Arterial Blood Potassium (3.4-4.5) mmol/L Arterial Blood Glucose (75-99) mg/dL Crossmatch 06/23/20 06/23/20 06/23/20 Range/Units 01:04 01:32 02:02 RBC (4.30-5.90) m/uL Hgb (13.0-17.5) gm/dL Hct (39.0-53.0) % Plt Count (150-450) k/uL Neutrophils # (1.3-7.7) k/uL Lymphocytes # (1.0-4.8) k/uL PT (9.0-12.0) sec INR (<1.2) ABG pH (7.35-7.45) ABG pCO2 (35-45) mmHg ABG pO2 (83-108) mmHg ABG HCO3 (21-25) mmol/L ABG Total CO2 (19-24) mmol/L ABG O2 Saturation (94-97) % ABG Hematocrit (34.0-46.0) % ABG Sodium (135-146) mmol/L ABG Potassium (3.4-4.5) mmol/L ABG Ionized Calcium (4.5-5.3) mg/dL ABG Glucose (75-99) mg/dL ABG Lactic Acid (0.5-1.6) mmol/L Hemoglobin (13.0-17.5) gm/dL Sodium (137-145) mmol/L BUN (9-20) mg/dL Glucose (74-99) mg/dL POC Glucose (mg/dL) 107 H 132 H 140 H (75-99) mg/dL Calcium (8.4-10.2) mg/dL ALT (4-49) U/L Alkaline Phosphatase (38-126) U/L Total Protein (6.3-8.2) g/dL Albumin (3.5-5.0) g/dL Arterial Blood Potassium (3.4-4.5) mmol/L Arterial Blood Glucose (75-99) mg/dL Crossmatch 06/23/20 06/23/20 06/23/20 Range/Units 02:32 03:03 04:00 RBC 3.07 L (4.30-5.90) m/uL Hgb 9.1 L (13.0-17.5) gm/dL Hct 27.1 L (39.0-53.0) % Plt Count (150-450) k/uL Neutrophils # (1.3-7.7) k/uL Lymphocytes # 0.5 L (1.0-4.8) k/uL PT (9.0-12.0) sec INR (<1.2) ABG pH (7.35-7.45) ABG pCO2 (35-45) mmHg ABG pO2 (83-108) mmHg ABG HCO3 (21-25) mmol/L ABG Total CO2 (19-24) mmol/L ABG O2 Saturation (94-97) % ABG Hematocrit (34.0-46.0) % ABG Sodium (135-146) mmol/L ABG Potassium (3.4-4.5) mmol/L ABG Ionized Calcium (4.5-5.3) mg/dL ABG Glucose (75-99) mg/dL ABG Lactic Acid (0.5-1.6) mmol/L Hemoglobin (13.0-17.5) gm/dL Sodium (137-145) mmol/L BUN (9-20) mg/dL Glucose (74-99) mg/dL POC Glucose (mg/dL) 126 H 118 H (75-99) mg/dL Calcium (8.4-10.2) mg/dL ALT (4-49) U/L Alkaline Phosphatase (38-126) U/L Total Protein (6.3-8.2) g/dL Albumin (3.5-5.0) g/dL Arterial Blood Potassium (3.4-4.5) mmol/L Arterial Blood Glucose (75-99) mg/dL Crossmatch 06/23/20 06/23/20 06/23/20 Range/Units 04:00 05:04 06:07 RBC (4.30-5.90) m/uL Hgb (13.0-17.5) gm/dL Hct (39.0-53.0) % Plt Count (150-450) k/uL Neutrophils # (1.3-7.7) k/uL Lymphocytes # (1.0-4.8) k/uL PT (9.0-12.0) sec INR (<1.2) ABG pH (7.35-7.45) ABG pCO2 (35-45) mmHg ABG pO2 (83-108) mmHg ABG HCO3 (21-25) mmol/L ABG Total CO2 (19-24) mmol/L ABG O2 Saturation (94-97) % ABG Hematocrit (34.0-46.0) % ABG Sodium (135-146) mmol/L ABG Potassium (3.4-4.5) mmol/L ABG Ionized Calcium (4.5-5.3) mg/dL ABG Glucose (75-99) mg/dL ABG Lactic Acid (0.5-1.6) mmol/L Hemoglobin (13.0-17.5) gm/dL Sodium 135 L (137-145) mmol/L BUN 23 H (9-20) mg/dL Glucose 73 L (74-99) mg/dL POC Glucose (mg/dL) 73 L 104 H (75-99) mg/dL Calcium 8.0 L (8.4-10.2) mg/dL ALT 52 H (4-49) U/L Alkaline Phosphatase 34 L (38-126) U/L Total Protein 4.5 L (6.3-8.2) g/dL Albumin 2.8 L (3.5-5.0) g/dL Arterial Blood Potassium (3.4-4.5) mmol/L Arterial Blood Glucose (75-99) mg/dL Crossmatch 06/23/20 06/23/20 06/23/20 Range/Units 06:31 07:07 07:35 RBC (4.30-5.90) m/uL Hgb (13.0-17.5) gm/dL Hct (39.0-53.0) % Plt Count (150-450) k/uL Neutrophils # (1.3-7.7) k/uL Lymphocytes # (1.0-4.8) k/uL PT (9.0-12.0) sec INR (<1.2) ABG pH (7.35-7.45) ABG pCO2 (35-45) mmHg ABG pO2 (83-108) mmHg ABG HCO3 (21-25) mmol/L ABG Total CO2 (19-24) mmol/L ABG O2 Saturation (94-97) % ABG Hematocrit (34.0-46.0) % ABG Sodium (135-146) mmol/L ABG Potassium (3.4-4.5) mmol/L ABG Ionized Calcium (4.5-5.3) mg/dL ABG Glucose (75-99) mg/dL ABG Lactic Acid (0.5-1.6) mmol/L Hemoglobin (13.0-17.5) gm/dL Sodium (137-145) mmol/L BUN (9-20) mg/dL Glucose (74-99) mg/dL POC Glucose (mg/dL) 118 H 153 H 144 H (75-99) mg/dL Calcium (8.4-10.2) mg/dL ALT (4-49) U/L Alkaline Phosphatase (38-126) U/L Total Protein (6.3-8.2) g/dL Albumin (3.5-5.0) g/dL Arterial Blood Potassium (3.4-4.5) mmol/L Arterial Blood Glucose (75-99) mg/dL Crossmatch 06/23/20 06/23/20 06/23/20 Range/Units 08:02 08:35 09:11 RBC (4.30-5.90) m/uL Hgb (13.0-17.5) gm/dL Hct (39.0-53.0) % Plt Count (150-450) k/uL Neutrophils # (1.3-7.7) k/uL Lymphocytes # (1.0-4.8) k/uL PT (9.0-12.0) sec INR (<1.2) ABG pH (7.35-7.45) ABG pCO2 (35-45) mmHg ABG pO2 (83-108) mmHg ABG HCO3 (21-25) mmol/L ABG Total CO2 (19-24) mmol/L ABG O2 Saturation (94-97) % ABG Hematocrit (34.0-46.0) % ABG Sodium (135-146) mmol/L ABG Potassium (3.4-4.5) mmol/L ABG Ionized Calcium (4.5-5.3) mg/dL ABG Glucose (75-99) mg/dL ABG Lactic Acid (0.5-1.6) mmol/L Hemoglobin (13.0-17.5) gm/dL Sodium (137-145) mmol/L BUN (9-20) mg/dL Glucose (74-99) mg/dL POC Glucose (mg/dL) 173 H 180 H 160 H (75-99) mg/dL Calcium (8.4-10.2) mg/dL ALT (4-49) U/L Alkaline Phosphatase (38-126) U/L Total Protein (6.3-8.2) g/dL Albumin (3.5-5.0) g/dL Arterial Blood Potassium (3.4-4.5) mmol/L Arterial Blood Glucose (75-99) mg/dL Crossmatch Assessment and Plan Assessment: Non-ST segment elevation myocardial infarction in a patient found to have severe triple-vessel disease. Status post myocardial revascularization with a REILLY to the diagonal to LAD, ZAFAR to RCA, left radial artery to OM with patch angioplasty. Postoperative day #1. Mechanical ventilation required postoperatively, expected outcome of surgery, successfully extubated. Ischemic cardiomyopathy with impaired ejection fraction between 25 and 30% Recent admission for altered mental status, DKA and respiratory failure requiring intubation mechanical ventilatory support, extubated on 06/17/2020 at [facility] Chronic and ongoing tobacco dependence Insulin-dependent diabetes mellitus History of gastroparesis History of peripheral neuropathy Hypertension Hyperlipidemia Anxiety/depression Occasional marijuana use Family history of coronary artery disease Plan: The patient was seen and evaluated by Dr. Jason Postoperative day #1, successfully extubated Chest x-ray and labs reviewed Currently stable from the pulmonary standpoint Encourage increased use the incentive spirometer and cough and deep breathing exercises Increase activity as tolerated Educated regarding the importance of complete smoking cessation We will continue to follow and make further recommendations based on his clinical status I, the cosigning physician, performed a history & physical examination of the patient. Lungs sounds with crackles in the bilateral posterior bases. Maintaining good O2 saturations in the 90s on 2 L/m per nasal cannula. I discussed the assessment and plan of care with my nurse practitioner, Courtney Manuel. I attest to the above note as dictated by her.
[2020-06-23 09:37] LABS: Glucose,Whole Blood 127 mg/dL (75-99)
--- NOTE | 2020-06-23 10:10 | P.PN ---
Subjective Progress Note Date: 06/23/20 Principal diagnosis: Coronary artery disease status post CABG HISTORY OF PRESENTING ILLNESS This is a pleasant 45-year-old gentleman with a history of diabetes who presented with diabetic ketoacidosis and respiratory failure requiring mechanical ventilation. Subsequently had troponin elevation, found to have severe cardiomyopathy and underwent cardiac catheterization. He was found have severe triple vessel coronary artery disease. 06/23/2020 Patient underwent bypass yesterday and has been doing well. He admits to incision pain however denies any angina-type symptoms. He has been able to tolerate a clear diet this morning. Nitroglycerin drip was discontinued. He is on an insulin drip and a Cardizem drip. He does have a [place] catheter in place. His hemoglobin this morning is 9.1 and white blood cell count is 7.7. Cardiac index is 5. REVIEW OF SYSTEMS At the time of my exam: CONSTITUTIONAL: Denies fever or chills. CARDIOVASCULAR: + Reproducible chest pain from the sternotomy, some mild shortness breath RESPIRATORY: Denies cough. GASTROINTESTINAL: Denies abdominal pain, diarrhea, constipation, nausea or vomiting. MUSCULOSKELETAL: Denies myalgias. NEUROLOGIC: Denies numbness, tingling or weakness. ENDOCRINE: Denies fatigue, weight change, polydipsia or polyurina. GENITOURINARY: Denies burning, hematuria or urgency with micturation. HEMATOLOGIC: Denies history of anemia or bleeding. PHYSICAL EXAMINATION Blood pressure 100/42 heart rate 90 afebrile and maintaining oxygen saturation on nasal cannula. CONSTITUTIONAL: No apparent distress. HEENT: Head is normocephalic. Pupils are equal, round. Sclerae anicteric. Mucous membranes of the mouth are moist. No JVD. No carotid bruit. CHEST EXAMINATION: Lungs are clear to auscultation. No chest wall tenderness is noted on palpation or with deep breathing. HEART EXAMINATION: Regular rate and rhythm. S1, S2 heard. No murmurs, gallops or rub. ABDOMEN: Soft, nontender. Positive bowel sounds. EXTREMITIES: 2+ peripheral pulses, no lower extremity edema and no calf tenderness. NEUROLOGIC EXAMINATION: Patient is awake, alert and oriented x3. ASSESSMENT 1. Non-STEMI with triple-vessel disease, status post CABG on 06/22/2020 with REILLY to diagonal to LAD, ZAFAR to RCA and right radial artery to OM. 2. Ischemic cardiomyopathy with ejection fraction 25-30%. 3. Diabetes mellitus with recent DKA 4. Tobacco abuse 5. History of gastroparesis 6. Essential hypertension 7. hyperlipidemia PLAN Patient appears to be recovering well from his bypass. Continue with aspirin daily, Lipitor 40 mg daily, Plavix 75 mg daily given recent non-STEMI, Lopressor 12.5 mg twice a day. Patient was previously on lisinopril and he did have a cough which was felt to be his chronic cough from tobacco abuse. Blood pressure still borderline however would like to add losartan when he stabilizes given his cardiomyopathy. Objective - Vital Signs Vital signs: Vital Signs Temp 98.6 F 06/23/20 04:00 Pulse 87 06/23/20 07:19 Resp 14 06/23/20 07:00 BP 100/42 06/23/20 07:00 Pulse Ox 100 06/23/20 07:00 Intake & Output 06/22/20 06/23/20 06/23/20 18:59 06:59 18:59 Intake Total 440.693 7143.770 367.824 Output Total 1770 1420 70 Balance -1192.804 372.770 297.824 Weight 75.6 kg Intake: IV 533 1350.5 315.5 ACETAMINOPHEN IV (For NPO 100 100 ) 1,000 mg In Empty Bag 1 bag @ 400 mls/hr IVPB Q6HR MORE Rx#:[id number] Albumin Human 5% 250 ml 250 In Empty Bag 1 bag @ 250 mls/hr IVPB Q1HR PRN Rx#: [id number] CO/CI 80 Diltiazem 125 mg In 55 5 Sodium Chloride 0.9% 100 ml @ 5 MG/HR 5 mls/hr IV .Q24H MORE Rx#:[id number] Magnesium Sulfate-D5w Pmx 100 100 1 gm In Dextrose/Water 1 100ml.bag @ 100 mls/hr IVPB Q1H MORE Rx#: [id number] Nitroglycerin-D5w Pmx 50 16.5 1.5 mg In Dextrose/Water 1 250ml.bag @ 5 MCG/MIN 1.5 mls/hr IV .Q24H MORE Rx#: [id number] Potassium Chloride 10 meq 200 In Water For Injection 1 100ml.bag @ 100 mls/hr IVPB Q1H MORE Rx#: [id number] Pressure bags 99 9 Sodium Chloride 0.9% 1, 250 600 50 000 ml @ 50 mls/hr IV . Q20H MORE Rx#:[id number] ceFAZolin 2 gm In Sodium 50 100 Chloride 0.9% 50 ml @ 100 mls/hr IVPB Q8HR MORE Rx# :[id number] Intake, IV Titration 44.196 42.270 52.324 Amount Clevidipine Butyrate 25 4.333 mg In Empty Bag 1 bag @ 1 MG/HR 2 mls/hr IV .Q24H MORE Rx#:[id number] Insulin Regular 100 unit 27.321 42.270 52.324 In Sodium Chloride 0.9% 100 ml @ Per Protocol IV .Q0M MORE Rx#:[id number] propofoL 1,000 mg In 12.542 Empty Bag 1 bag @ Titrate IV .Q0M MORE Rx#: [id number] Oral 400 Output: Chest Tube Drainage 220 70 Chest Tube Bilateral 100 40 Chest Tube Mediastinal 120 30 Drainage 580 30 Bilateral Lateral Chest 368 10 Medial Chest 212 20 Urine 1350 770 40 Estimated Blood Loss 200 Other: Voiding Method Indwelling Catheter Indwelling Catheter ABP, PAP, CO, CI - Last Documented Arterial Blood Pressure 110/53 Pulmonary Artery Pressure 19/5 Cardiac Output 7.5 Cardiac Index 5 - Labs CBC & Chem 7: 06/23/20 04:00 06/23/20 04:00 Labs: Abnormal Lab Results - Last 24 Hours (Table) 06/21/20 06/22/20 06/22/20 Range/Units 05:55 08:40 08:41 RBC (4.30-5.90) m/uL Hgb (13.0-17.5) gm/dL Hct (39.0-53.0) % Plt Count (150-450) k/uL Neutrophils # (1.3-7.7) k/uL Lymphocytes # (1.0-4.8) k/uL PT (9.0-12.0) sec INR (<1.2) ABG pH 7.18 L* (7.35-7.45) ABG pCO2 34 L (35-45) mmHg ABG pO2 164 H >420 H (83-108) mmHg ABG HCO3 13 L (21-25) mmol/L ABG Total CO2 14 L (19-24) mmol/L ABG O2 Saturation 99.0 H 99.3 H (94-97) % ABG Hematocrit 25 L (34.0-46.0) % ABG Sodium 133 L (135-146) mmol/L ABG Potassium 5.0 H (3.4-4.5) mmol/L ABG Ionized Calcium (4.5-5.3) mg/dL ABG Glucose 236 H 446 H (75-99) mg/dL ABG Lactic Acid 2.7 H* 1.7 H (0.5-1.6) mmol/L Hemoglobin 8.0 L 12.5 L (13.0-17.5) gm/dL Sodium (137-145) mmol/L BUN (9-20) mg/dL Glucose (74-99) mg/dL POC Glucose (mg/dL) (75-99) mg/dL Calcium (8.4-10.2) mg/dL ALT (4-49) U/L Alkaline Phosphatase (38-126) U/L Total Protein (6.3-8.2) g/dL Albumin (3.5-5.0) g/dL Arterial Blood Potassium 5.0 H (3.4-4.5) mmol/L Arterial Blood Glucose 236 H 446 H (75-99) mg/dL Crossmatch See Detail 06/22/20 06/22/20 06/22/20 Range/Units 08:46 09:19 10:05 RBC (4.30-5.90) m/uL Hgb (13.0-17.5) gm/dL Hct (39.0-53.0) % Plt Count (150-450) k/uL Neutrophils # (1.3-7.7) k/uL Lymphocytes # (1.0-4.8) k/uL PT (9.0-12.0) sec INR (<1.2) ABG pH 7.14 L* 7.19 L* 7.23 L (7.35-7.45) ABG pCO2 49 H 48 H (35-45) mmHg ABG pO2 >420 H 177 H 161 H (83-108) mmHg ABG HCO3 14 L 19 L 20 L (21-25) mmol/L ABG Total CO2 15 L (19-24) mmol/L ABG O2 Saturation 99.3 H 98.6 H 98.4 H (94-97) % ABG Hematocrit 31 L (34.0-46.0) % ABG Sodium 134 L (135-146) mmol/L ABG Potassium 5.2 H (3.4-4.5) mmol/L ABG Ionized Calcium (4.5-5.3) mg/dL ABG Glucose 451 H 405 H 364 H (75-99) mg/dL ABG Lactic Acid 2.1 H 2.2 H* (0.5-1.6) mmol/L Hemoglobin 12.6 L 12.0 L 10.2 L (13.0-17.5) gm/dL Sodium (137-145) mmol/L BUN (9-20) mg/dL Glucose (74-99) mg/dL POC Glucose (mg/dL) (75-99) mg/dL Calcium (8.4-10.2) mg/dL ALT (4-49) U/L Alkaline Phosphatase (38-126) U/L Total Protein (6.3-8.2) g/dL Albumin (3.5-5.0) g/dL Arterial Blood Potassium 5.2 H (3.4-4.5) mmol/L Arterial Blood Glucose 451 H 405 H 364 H (75-99) mg/dL Crossmatch 06/22/20 06/22/20 06/22/20 Range/Units 10:44 11:14 11:54 RBC (4.30-5.90) m/uL Hgb (13.0-17.5) gm/dL Hct (39.0-53.0) % Plt Count (150-450) k/uL Neutrophils # (1.3-7.7) k/uL Lymphocytes # (1.0-4.8) k/uL PT (9.0-12.0) sec INR (<1.2) ABG pH (7.35-7.45) ABG pCO2 32 L 33 L (35-45) mmHg ABG pO2 142 H 166 H 163 H (83-108) mmHg ABG HCO3 20 L (21-25) mmol/L ABG Total CO2 (19-24) mmol/L ABG O2 Saturation 98.8 H 99.2 H 99.2 H (94-97) % ABG Hematocrit 29 L 27 L 25 L (34.0-46.0) % ABG Sodium (135-146) mmol/L ABG Potassium (3.4-4.5) mmol/L ABG Ionized Calcium 4.4 L (4.5-5.3) mg/dL ABG Glucose 332 H 312 H 285 H (75-99) mg/dL ABG Lactic Acid 2.0 H 2.3 H* 2.8 H* (0.5-1.6) mmol/L Hemoglobin 9.6 L 8.9 L 8.0 L (13.0-17.5) gm/dL Sodium (137-145) mmol/L BUN (9-20) mg/dL Glucose (74-99) mg/dL POC Glucose (mg/dL) (75-99) mg/dL Calcium (8.4-10.2) mg/dL ALT (4-49) U/L Alkaline Phosphatase (38-126) U/L Total Protein (6.3-8.2) g/dL Albumin (3.5-5.0) g/dL Arterial Blood Potassium (3.4-4.5) mmol/L Arterial Blood Glucose 332 H 312 H 285 H (75-99) mg/dL Crossmatch 06/22/20 06/22/20 06/22/20 Range/Units 12:27 13:54 14:28 RBC (4.30-5.90) m/uL Hgb (13.0-17.5) gm/dL Hct (39.0-53.0) % Plt Count (150-450) k/uL Neutrophils # (1.3-7.7) k/uL Lymphocytes # (1.0-4.8) k/uL PT (9.0-12.0) sec INR (<1.2) ABG pH (7.35-7.45) ABG pCO2 31 L (35-45) mmHg ABG pO2 167 H 214 H (83-108) mmHg ABG HCO3 20 L (21-25) mmol/L ABG Total CO2 25 H (19-24) mmol/L ABG O2 Saturation 99.1 H 99.5 H (94-97) % ABG Hematocrit 24 L 25 L (34.0-46.0) % ABG Sodium (135-146) mmol/L ABG Potassium (3.4-4.5) mmol/L ABG Ionized Calcium (4.5-5.3) mg/dL ABG Glucose 267 H 206 H (75-99) mg/dL ABG Lactic Acid 3.2 H* 2.4 H* (0.5-1.6) mmol/L Hemoglobin 7.9 L 8.1 L (13.0-17.5) gm/dL Sodium (137-145) mmol/L BUN (9-20) mg/dL Glucose (74-99) mg/dL POC Glucose (mg/dL) 203 H (75-99) mg/dL Calcium (8.4-10.2) mg/dL ALT (4-49) U/L Alkaline Phosphatase (38-126) U/L Total Protein (6.3-8.2) g/dL Albumin (3.5-5.0) g/dL Arterial Blood Potassium (3.4-4.5) mmol/L Arterial Blood Glucose 267 H 206 H (75-99) mg/dL Crossmatch 06/22/20 06/22/20 06/22/20 Range/Units 14:30 14:30 14:30 RBC 2.84 L (4.30-5.90) m/uL Hgb 8.2 L D (13.0-17.5) gm/dL Hct 25.2 L (39.0-53.0) % Plt Count 143 L (150-450) k/uL Neutrophils # 8.0 H (1.3-7.7) k/uL Lymphocytes # (1.0-4.8) k/uL PT 13.5 H (9.0-12.0) sec INR 1.3 H (<1.2) ABG pH (7.35-7.45) ABG pCO2 (35-45) mmHg ABG pO2 (83-108) mmHg ABG HCO3 (21-25) mmol/L ABG Total CO2 (19-24) mmol/L ABG O2 Saturation (94-97) % ABG Hematocrit (34.0-46.0) % ABG Sodium (135-146) mmol/L ABG Potassium (3.4-4.5) mmol/L ABG Ionized Calcium (4.5-5.3) mg/dL ABG Glucose (75-99) mg/dL ABG Lactic Acid (0.5-1.6) mmol/L Hemoglobin (13.0-17.5) gm/dL Sodium (137-145) mmol/L BUN 35 H (9-20) mg/dL Glucose 173 H (74-99) mg/dL POC Glucose (mg/dL) (75-99) mg/dL Calcium 8.2 L (8.4-10.2) mg/dL ALT 53 H (4-49) U/L Alkaline Phosphatase 31 L (38-126) U/L Total Protein 4.8 L (6.3-8.2) g/dL Albumin 3.2 L (3.5-5.0) g/dL Arterial Blood Potassium (3.4-4.5) mmol/L Arterial Blood Glucose (75-99) mg/dL Crossmatch 06/22/20 06/22/20 06/22/20 Range/Units 14:53 15:11 15:36 RBC (4.30-5.90) m/uL Hgb (13.0-17.5) gm/dL Hct (39.0-53.0) % Plt Count (150-450) k/uL Neutrophils # (1.3-7.7) k/uL Lymphocytes # (1.0-4.8) k/uL PT (9.0-12.0) sec INR (<1.2) ABG pH (7.35-7.45) ABG pCO2 (35-45) mmHg ABG pO2 >400 H (83-108) mmHg ABG HCO3 27 H (21-25) mmol/L ABG Total CO2 29 H (19-24) mmol/L ABG O2 Saturation 99.6 H (94-97) % ABG Hematocrit (34.0-46.0) % ABG Sodium (135-146) mmol/L ABG Potassium (3.4-4.5) mmol/L ABG Ionized Calcium (4.5-5.3) mg/dL ABG Glucose (75-99) mg/dL ABG Lactic Acid (0.5-1.6) mmol/L Hemoglobin (13.0-17.5) gm/dL Sodium (137-145) mmol/L BUN (9-20) mg/dL Glucose (74-99) mg/dL POC Glucose (mg/dL) 161 H 138 H (75-99) mg/dL Calcium (8.4-10.2) mg/dL ALT (4-49) U/L Alkaline Phosphatase (38-126) U/L Total Protein (6.3-8.2) g/dL Albumin (3.5-5.0) g/dL Arterial Blood Potassium (3.4-4.5) mmol/L Arterial Blood Glucose (75-99) mg/dL Crossmatch 06/22/20 06/22/20 06/22/20 Range/Units 17:05 17:24 17:26 RBC 3.10 L (4.30-5.90) m/uL Hgb 8.9 L (13.0-17.5) gm/dL Hct 27.1 L (39.0-53.0) % Plt Count (150-450) k/uL Neutrophils # (1.3-7.7) k/uL Lymphocytes # (1.0-4.8) k/uL PT (9.0-12.0) sec INR (<1.2) ABG pH (7.35-7.45) ABG pCO2 (35-45) mmHg ABG pO2 (83-108) mmHg ABG HCO3 (21-25) mmol/L ABG Total CO2 (19-24) mmol/L ABG O2 Saturation (94-97) % ABG Hematocrit (34.0-46.0) % ABG Sodium (135-146) mmol/L ABG Potassium (3.4-4.5) mmol/L ABG Ionized Calcium (4.5-5.3) mg/dL ABG Glucose (75-99) mg/dL ABG Lactic Acid (0.5-1.6) mmol/L Hemoglobin (13.0-17.5) gm/dL Sodium (137-145) mmol/L BUN (9-20) mg/dL Glucose (74-99) mg/dL POC Glucose (mg/dL) 62 L 57 L (75-99) mg/dL Calcium (8.4-10.2) mg/dL ALT (4-49) U/L Alkaline Phosphatase (38-126) U/L Total Protein (6.3-8.2) g/dL Albumin (3.5-5.0) g/dL Arterial Blood Potassium (3.4-4.5) mmol/L Arterial Blood Glucose (75-99) mg/dL Crossmatch 06/22/20 06/22/20 06/22/20 Range/Units 17:39 17:54 19:01 RBC (4.30-5.90) m/uL Hgb (13.0-17.5) gm/dL Hct (39.0-53.0) % Plt Count (150-450) k/uL Neutrophils # (1.3-7.7) k/uL Lymphocytes # (1.0-4.8) k/uL PT (9.0-12.0) sec INR (<1.2) ABG pH (7.35-7.45) ABG pCO2 (35-45) mmHg ABG pO2 169 H (83-108) mmHg ABG HCO3 28 H (21-25) mmol/L ABG Total CO2 29 H (19-24) mmol/L ABG O2 Saturation 98.9 H (94-97) % ABG Hematocrit (34.0-46.0) % ABG Sodium (135-146) mmol/L ABG Potassium (3.4-4.5) mmol/L ABG Ionized Calcium (4.5-5.3) mg/dL ABG Glucose (75-99) mg/dL ABG Lactic Acid (0.5-1.6) mmol/L Hemoglobin (13.0-17.5) gm/dL Sodium (137-145) mmol/L BUN (9-20) mg/dL Glucose (74-99) mg/dL POC Glucose (mg/dL) 51 L 101 H (75-99) mg/dL Calcium (8.4-10.2) mg/dL ALT (4-49) U/L Alkaline Phosphatase (38-126) U/L Total Protein (6.3-8.2) g/dL Albumin (3.5-5.0) g/dL Arterial Blood Potassium (3.4-4.5) mmol/L Arterial Blood Glucose (75-99) mg/dL Crossmatch 06/22/20 06/22/20 06/22/20 Range/Units 19:03 19:39 20:00 RBC 3.05 L (4.30-5.90) m/uL Hgb 8.8 L (13.0-17.5) gm/dL Hct 27.1 L (39.0-53.0) % Plt Count (150-450) k/uL Neutrophils # (1.3-7.7) k/uL Lymphocytes # 0.6 L (1.0-4.8) k/uL PT (9.0-12.0) sec INR (<1.2) ABG pH (7.35-7.45) ABG pCO2 (35-45) mmHg ABG pO2 (83-108) mmHg ABG HCO3 (21-25) mmol/L ABG Total CO2 (19-24) mmol/L ABG O2 Saturation (94-97) % ABG Hematocrit (34.0-46.0) % ABG Sodium (135-146) mmol/L ABG Potassium (3.4-4.5) mmol/L ABG Ionized Calcium (4.5-5.3) mg/dL ABG Glucose (75-99) mg/dL ABG Lactic Acid (0.5-1.6) mmol/L Hemoglobin (13.0-17.5) gm/dL Sodium (137-145) mmol/L BUN (9-20) mg/dL Glucose (74-99) mg/dL POC Glucose (mg/dL) 102 H 118 H (75-99) mg/dL Calcium (8.4-10.2) mg/dL ALT (4-49) U/L Alkaline Phosphatase (38-126) U/L Total Protein (6.3-8.2) g/dL Albumin (3.5-5.0) g/dL Arterial Blood Potassium (3.4-4.5) mmol/L Arterial Blood Glucose (75-99) mg/dL Crossmatch 06/22/20 06/22/20 06/22/20 Range/Units 20:00 20:04 20:33 RBC (4.30-5.90) m/uL Hgb (13.0-17.5) gm/dL Hct (39.0-53.0) % Plt Count (150-450) k/uL Neutrophils # (1.3-7.7) k/uL Lymphocytes # (1.0-4.8) k/uL PT (9.0-12.0) sec INR (<1.2) ABG pH (7.35-7.45) ABG pCO2 (35-45) mmHg ABG pO2 (83-108) mmHg ABG HCO3 (21-25) mmol/L ABG Total CO2 (19-24) mmol/L ABG O2 Saturation (94-97) % ABG Hematocrit (34.0-46.0) % ABG Sodium (135-146) mmol/L ABG Potassium (3.4-4.5) mmol/L ABG Ionized Calcium (4.5-5.3) mg/dL ABG Glucose (75-99) mg/dL ABG Lactic Acid (0.5-1.6) mmol/L Hemoglobin (13.0-17.5) gm/dL Sodium (137-145) mmol/L BUN 27 H (9-20) mg/dL Glucose 118 H (74-99) mg/dL POC Glucose (mg/dL) 137 H 148 H (75-99) mg/dL Calcium 8.3 L (8.4-10.2) mg/dL ALT (4-49) U/L Alkaline Phosphatase (38-126) U/L Total Protein (6.3-8.2) g/dL Albumin (3.5-5.0) g/dL Arterial Blood Potassium (3.4-4.5) mmol/L Arterial Blood Glucose (75-99) mg/dL Crossmatch 06/22/20 06/22/20 06/22/20 Range/Units 20:58 21:43 22:10 RBC (4.30-5.90) m/uL Hgb (13.0-17.5) gm/dL Hct (39.0-53.0) % Plt Count (150-450) k/uL Neutrophils # (1.3-7.7) k/uL Lymphocytes # (1.0-4.8) k/uL PT (9.0-12.0) sec INR (<1.2) ABG pH (7.35-7.45) ABG pCO2 (35-45) mmHg ABG pO2 (83-108) mmHg ABG HCO3 (21-25) mmol/L ABG Total CO2 (19-24) mmol/L ABG O2 Saturation (94-97) % ABG Hematocrit (34.0-46.0) % ABG Sodium (135-146) mmol/L ABG Potassium (3.4-4.5) mmol/L ABG Ionized Calcium (4.5-5.3) mg/dL ABG Glucose (75-99) mg/dL ABG Lactic Acid (0.5-1.6) mmol/L Hemoglobin (13.0-17.5) gm/dL Sodium (137-145) mmol/L BUN (9-20) mg/dL Glucose (74-99) mg/dL POC Glucose (mg/dL) 144 H 123 H 108 H (75-99) mg/dL Calcium (8.4-10.2) mg/dL ALT (4-49) U/L Alkaline Phosphatase (38-126) U/L Total Protein (6.3-8.2) g/dL Albumin (3.5-5.0) g/dL Arterial Blood Potassium (3.4-4.5) mmol/L Arterial Blood Glucose (75-99) mg/dL Crossmatch 06/23/20 06/23/20 06/23/20 Range/Units 01:04 01:32 02:02 RBC (4.30-5.90) m/uL Hgb (13.0-17.5) gm/dL Hct (39.0-53.0) % Plt Count (150-450) k/uL Neutrophils # (1.3-7.7) k/uL Lymphocytes # (1.0-4.8) k/uL PT (9.0-12.0) sec INR (<1.2) ABG pH (7.35-7.45) ABG pCO2 (35-45) mmHg ABG pO2 (83-108) mmHg ABG HCO3 (21-25) mmol/L ABG Total CO2 (19-24) mmol/L ABG O2 Saturation (94-97) % ABG Hematocrit (34.0-46.0) % ABG Sodium (135-146) mmol/L ABG Potassium (3.4-4.5) mmol/L ABG Ionized Calcium (4.5-5.3) mg/dL ABG Glucose (75-99) mg/dL ABG Lactic Acid (0.5-1.6) mmol/L Hemoglobin (13.0-17.5) gm/dL Sodium (137-145) mmol/L BUN (9-20) mg/dL Glucose (74-99) mg/dL POC Glucose (mg/dL) 107 H 132 H 140 H (75-99) mg/dL Calcium (8.4-10.2) mg/dL ALT (4-49) U/L Alkaline Phosphatase (38-126) U/L Total Protein (6.3-8.2) g/dL Albumin (3.5-5.0) g/dL Arterial Blood Potassium (3.4-4.5) mmol/L Arterial Blood Glucose (75-99) mg/dL Crossmatch 06/23/20 06/23/20 06/23/20 Range/Units 02:32 03:03 04:00 RBC 3.07 L (4.30-5.90) m/uL Hgb 9.1 L (13.0-17.5) gm/dL Hct 27.1 L (39.0-53.0) % Plt Count (150-450) k/uL Neutrophils # (1.3-7.7) k/uL Lymphocytes # 0.5 L (1.0-4.8) k/uL PT (9.0-12.0) sec INR (<1.2) ABG pH (7.35-7.45) ABG pCO2 (35-45) mmHg ABG pO2 (83-108) mmHg ABG HCO3 (21-25) mmol/L ABG Total CO2 (19-24) mmol/L ABG O2 Saturation (94-97) % ABG Hematocrit (34.0-46.0) % ABG Sodium (135-146) mmol/L ABG Potassium (3.4-4.5) mmol/L ABG Ionized Calcium (4.5-5.3) mg/dL ABG Glucose (75-99) mg/dL ABG Lactic Acid (0.5-1.6) mmol/L Hemoglobin (13.0-17.5) gm/dL Sodium (137-145) mmol/L BUN (9-20) mg/dL Glucose (74-99) mg/dL POC Glucose (mg/dL) 126 H 118 H (75-99) mg/dL Calcium (8.4-10.2) mg/dL ALT (4-49) U/L Alkaline Phosphatase (38-126) U/L Total Protein (6.3-8.2) g/dL Albumin (3.5-5.0) g/dL Arterial Blood Potassium (3.4-4.5) mmol/L Arterial Blood Glucose (75-99) mg/dL Crossmatch 06/23/20 06/23/20 06/23/20 Range/Units 04:00 05:04 06:07 RBC (4.30-5.90) m/uL Hgb (13.0-17.5) gm/dL Hct (39.0-53.0) % Plt Count (150-450) k/uL Neutrophils # (1.3-7.7) k/uL Lymphocytes # (1.0-4.8) k/uL PT (9.0-12.0) sec INR (<1.2) ABG pH (7.35-7.45) ABG pCO2 (35-45) mmHg ABG pO2 (83-108) mmHg ABG HCO3 (21-25) mmol/L ABG Total CO2 (19-24) mmol/L ABG O2 Saturation (94-97) % ABG Hematocrit (34.0-46.0) % ABG Sodium (135-146) mmol/L ABG Potassium (3.4-4.5) mmol/L ABG Ionized Calcium (4.5-5.3) mg/dL ABG Glucose (75-99) mg/dL ABG Lactic Acid (0.5-1.6) mmol/L Hemoglobin (13.0-17.5) gm/dL Sodium 135 L (137-145) mmol/L BUN 23 H (9-20) mg/dL Glucose 73 L (74-99) mg/dL POC Glucose (mg/dL) 73 L 104 H (75-99) mg/dL Calcium 8.0 L (8.4-10.2) mg/dL ALT 52 H (4-49) U/L Alkaline Phosphatase 34 L (38-126) U/L Total Protein 4.5 L (6.3-8.2) g/dL Albumin 2.8 L (3.5-5.0) g/dL Arterial Blood Potassium (3.4-4.5) mmol/L Arterial Blood Glucose (75-99) mg/dL Crossmatch 06/23/20 06/23/20 06/23/20 Range/Units 06:31 07:07 07:35 RBC (4.30-5.90) m/uL Hgb (13.0-17.5) gm/dL Hct (39.0-53.0) % Plt Count (150-450) k/uL Neutrophils # (1.3-7.7) k/uL Lymphocytes # (1.0-4.8) k/uL PT (9.0-12.0) sec INR (<1.2) ABG pH (7.35-7.45) ABG pCO2 (35-45) mmHg ABG pO2 (83-108) mmHg ABG HCO3 (21-25) mmol/L ABG Total CO2 (19-24) mmol/L ABG O2 Saturation (94-97) % ABG Hematocrit (34.0-46.0) % ABG Sodium (135-146) mmol/L ABG Potassium (3.4-4.5) mmol/L ABG Ionized Calcium (4.5-5.3) mg/dL ABG Glucose (75-99) mg/dL ABG Lactic Acid (0.5-1.6) mmol/L Hemoglobin (13.0-17.5) gm/dL Sodium (137-145) mmol/L BUN (9-20) mg/dL Glucose (74-99) mg/dL POC Glucose (mg/dL) 118 H 153 H 144 H (75-99) mg/dL Calcium (8.4-10.2) mg/dL ALT (4-49) U/L Alkaline Phosphatase (38-126) U/L Total Protein (6.3-8.2) g/dL Albumin (3.5-5.0) g/dL Arterial Blood Potassium (3.4-4.5) mmol/L Arterial Blood Glucose (75-99) mg/dL Crossmatch 06/23/20 06/23/20 06/23/20 Range/Units 08:02 08:35 09:11 RBC (4.30-5.90) m/uL Hgb (13.0-17.5) gm/dL Hct (39.0-53.0) % Plt Count (150-450) k/uL Neutrophils # (1.3-7.7) k/uL Lymphocytes # (1.0-4.8) k/uL PT (9.0-12.0) sec INR (<1.2) ABG pH (7.35-7.45) ABG pCO2 (35-45) mmHg ABG pO2 (83-108) mmHg ABG HCO3 (21-25) mmol/L ABG Total CO2 (19-24) mmol/L ABG O2 Saturation (94-97) % ABG Hematocrit (34.0-46.0) % ABG Sodium (135-146) mmol/L ABG Potassium (3.4-4.5) mmol/L ABG Ionized Calcium (4.5-5.3) mg/dL ABG Glucose (75-99) mg/dL ABG Lactic Acid (0.5-1.6) mmol/L Hemoglobin (13.0-17.5) gm/dL Sodium (137-145) mmol/L BUN (9-20) mg/dL Glucose (74-99) mg/dL POC Glucose (mg/dL) 173 H 180 H 160 H (75-99) mg/dL Calcium (8.4-10.2) mg/dL ALT (4-49) U/L Alkaline Phosphatase (38-126) U/L Total Protein (6.3-8.2) g/dL Albumin (3.5-5.0) g/dL Arterial Blood Potassium (3.4-4.5) mmol/L Arterial Blood Glucose (75-99) mg/dL Crossmatch 06/23/20 Range/Units 09:35 RBC (4.30-5.90) m/uL Hgb (13.0-17.5) gm/dL Hct (39.0-53.0) % Plt Count (150-450) k/uL Neutrophils # (1.3-7.7) k/uL Lymphocytes # (1.0-4.8) k/uL PT (9.0-12.0) sec INR (<1.2) ABG pH (7.35-7.45) ABG pCO2 (35-45) mmHg ABG pO2 (83-108) mmHg ABG HCO3 (21-25) mmol/L ABG Total CO2 (19-24) mmol/L ABG O2 Saturation (94-97) % ABG Hematocrit (34.0-46.0) % ABG Sodium (135-146) mmol/L ABG Potassium (3.4-4.5) mmol/L ABG Ionized Calcium (4.5-5.3) mg/dL ABG Glucose (75-99) mg/dL ABG Lactic Acid (0.5-1.6) mmol/L Hemoglobin (13.0-17.5) gm/dL Sodium (137-145) mmol/L BUN (9-20) mg/dL Glucose (74-99) mg/dL POC Glucose (mg/dL) 127 H (75-99) mg/dL Calcium (8.4-10.2) mg/dL ALT (4-49) U/L Alkaline Phosphatase (38-126) U/L Total Protein (6.3-8.2) g/dL Albumin (3.5-5.0) g/dL Arterial Blood Potassium (3.4-4.5) mmol/L Arterial Blood Glucose (75-99) mg/dL Crossmatch
[2020-06-23 10:16] LABS: Glucose,Whole Blood 87 mg/dL (75-99)
--- NOTE | 2020-06-23 10:30 | P.PN ---
Subjective Progress Note Date: 06/23/20 Principal diagnosis: Multivessel coronary artery disease, NSTEMI this admission, ischemic cardiomyopathy with EF 25-30%, acute hypoxic respiratory failure requiring mechanical ventilation, diabetic ketoacidosis, acute kidney injury, leukocytosis, gastroparesis. Previous medical history of hypertension, hyperlipidemia, uncontrolled type 2 diabetes mellitus with hyperglycemia and Hgb A1c 10.5% , chronic ongoing tobacco dependance, moderate COPD with preoperative FEV1 53% of predicted, peripheral neumopathy, occsional marijuana use, depression/anxiety, and family history of premature coronary artery disease. POD #1 urgent off-pump myocardial revascularization with left internal mammary artery to the left anterior descending artery and diagonal artery, right internal mammary artery to the right coronary artery, right radial artery to the obtuse marginal artery with patch angioplasty, endoscopic right radial artery harvest, intraoperative transesophageal echocardiogram by anesthesia. The patient is currently sitting up in a recliner in no acute distress. He was successfully extubated last night at 19:10. States pain is mostly controlled with current medication regimen, denies shortness of breath. Remains in normal sinus rhythm on IV Cardizem for radial artery support, hemodynamically stable. Right internal jugular Coleman/Cordis, left radial arterial line present. No new concerns. Objective - Vital Signs Vital signs: Vital Signs Temp 98.6 F 06/23/20 04:00 Pulse 87 06/23/20 07:19 Resp 14 06/23/20 07:00 BP 100/42 06/23/20 07:00 Pulse Ox 100 06/23/20 07:00 Intake & Output 06/22/20 06/23/20 06/23/20 18:59 06:59 18:59 Intake Total 947.082 6923.770 367.824 Output Total 1770 1420 70 Balance -1192.804 372.770 297.824 Weight 75.6 kg Intake: IV 533 1350.5 315.5 ACETAMINOPHEN IV (For NPO 100 100 ) 1,000 mg In Empty Bag 1 bag @ 400 mls/hr IVPB Q6HR MORE Rx#:[id number] Albumin Human 5% 250 ml 250 In Empty Bag 1 bag @ 250 mls/hr IVPB Q1HR PRN Rx#: [id number] CO/CI 80 Diltiazem 125 mg In 55 5 Sodium Chloride 0.9% 100 ml @ 5 MG/HR 5 mls/hr IV .Q24H MORE Rx#:[id number] Magnesium Sulfate-D5w Pmx 100 100 1 gm In Dextrose/Water 1 100ml.bag @ 100 mls/hr IVPB Q1H MORE Rx#: [id number] Nitroglycerin-D5w Pmx 50 16.5 1.5 mg In Dextrose/Water 1 250ml.bag @ 5 MCG/MIN 1.5 mls/hr IV .Q24H MORE Rx#: [id number] Potassium Chloride 10 meq 200 In Water For Injection 1 100ml.bag @ 100 mls/hr IVPB Q1H MORE Rx#: [id number] Pressure bags 99 9 Sodium Chloride 0.9% 1, 250 600 50 000 ml @ 50 mls/hr IV . Q20H MORE Rx#:[id number] ceFAZolin 2 gm In Sodium 50 100 Chloride 0.9% 50 ml @ 100 mls/hr IVPB Q8HR MORE Rx# :[id number] Intake, IV Titration 44.196 42.270 52.324 Amount Clevidipine Butyrate 25 4.333 mg In Empty Bag 1 bag @ 1 MG/HR 2 mls/hr IV .Q24H MORE Rx#:[id number] Insulin Regular 100 unit 27.321 42.270 52.324 In Sodium Chloride 0.9% 100 ml @ Per Protocol IV .Q0M MORE Rx#:[id number] propofoL 1,000 mg In 12.542 Empty Bag 1 bag @ Titrate IV .Q0M MORE Rx#: [id number] Oral 400 Output: Chest Tube Drainage 220 70 Chest Tube Bilateral 100 40 Chest Tube Mediastinal 120 30 Drainage 580 30 Bilateral Lateral Chest 368 10 Medial Chest 212 20 Urine 1350 770 40 Estimated Blood Loss 200 Other: Voiding Method Indwelling Catheter Indwelling Catheter ABP, PAP, CO, CI - Last Documented Arterial Blood Pressure 110/53 Pulmonary Artery Pressure 19/5 Cardiac Output 7.5 Cardiac Index 5 - Constitutional General appearance: Present: cooperative, no acute distress - Respiratory Details: Lung sounds clear but diminshed bilaterally. Respirations even, non-labored. Currently on 2 L nasal cannula with oxygen saturation 100%. Able to achieve 1000 mL on his incentive spirometry. Mediastinal chest tube present, connected to continuous wall suction, 150 mL thin serosanguineous drainage overnight, 370 mL since surgery. Right/left pleural chest tubes present and connected to continuous wall suction, 230 mL thin serosanguineous drainage overnight, 550 mL since surgery. No air leaks present. - Cardiovascular Details: S1, S2 present. Regular rate and rhythm, sinus rhythm on telemetry. Sternum stable. Palpable peripheral pulses bilaterally. Trace generalized edema present. No calf pain or tenderness noted. Right internal jugular Coleman/Cordis, left radial arterial line present. Last CO/CI 7.5/3.9 on no inotropes or pressors. Heart hugger in place with patient demonstrating appropriate use. Antiembolism stockings, SCDs present. - Gastrointestinal Gastrointestinal Comment(s): Abdomen soft, nontender, nondistended. Hypoactive bowel sounds present 4 quadrants. Tolerating clear liquids. Positive belching, negative flatus. - Genitourinary Genitourinary Comment(s): Mcmillan present draining clear, yellow urine. Output 40-60 mL/h overnight. - Integumentary Integumentary Comment(s): Skin is warm and dry with evidence of good perfusion. Anterior chest incision well approximated and covered with clean dry dressing. Right radial artery harvest site well approximated with ARLEEN drain present, minimal drainage. Patient able to wiggle all fingers on his right hand, denies numbness or tingling, good cap refill, able to workers compensation analyst objects appropriately. - Neurologic Neurologic: Present: CNII-XII intact - Musculoskeletal Musculoskeletal: Present: gait normal, strength equal bilaterally - Psychiatric Psychiatric: Present: A&O x's 3, appropriate affect, intact judgment & insight - Allied health notes Allied health notes reviewed: nursing - Labs CBC & Chem 7: 06/23/20 04:00 06/23/20 04:00 Labs: Abnormal Lab Results - Last 24 Hours (Table) 06/21/20 06/22/20 06/22/20 Range/Units 05:55 08:40 08:41 RBC (4.30-5.90) m/uL Hgb (13.0-17.5) gm/dL Hct (39.0-53.0) % Plt Count (150-450) k/uL Neutrophils # (1.3-7.7) k/uL Lymphocytes # (1.0-4.8) k/uL PT (9.0-12.0) sec INR (<1.2) ABG pH 7.18 L* (7.35-7.45) ABG pCO2 34 L (35-45) mmHg ABG pO2 164 H >420 H (83-108) mmHg ABG HCO3 13 L (21-25) mmol/L ABG Total CO2 14 L (19-24) mmol/L ABG O2 Saturation 99.0 H 99.3 H (94-97) % ABG Hematocrit 25 L (34.0-46.0) % ABG Sodium 133 L (135-146) mmol/L ABG Potassium 5.0 H (3.4-4.5) mmol/L ABG Ionized Calcium (4.5-5.3) mg/dL ABG Glucose 236 H 446 H (75-99) mg/dL ABG Lactic Acid 2.7 H* 1.7 H (0.5-1.6) mmol/L Hemoglobin 8.0 L 12.5 L (13.0-17.5) gm/dL Sodium (137-145) mmol/L BUN (9-20) mg/dL Glucose (74-99) mg/dL POC Glucose (mg/dL) (75-99) mg/dL Calcium (8.4-10.2) mg/dL ALT (4-49) U/L Alkaline Phosphatase (38-126) U/L Total Protein (6.3-8.2) g/dL Albumin (3.5-5.0) g/dL Arterial Blood Potassium 5.0 H (3.4-4.5) mmol/L Arterial Blood Glucose 236 H 446 H (75-99) mg/dL Crossmatch See Detail 06/22/20 06/22/20 06/22/20 Range/Units 08:46 09:19 10:05 RBC (4.30-5.90) m/uL Hgb (13.0-17.5) gm/dL Hct (39.0-53.0) % Plt Count (150-450) k/uL Neutrophils # (1.3-7.7) k/uL Lymphocytes # (1.0-4.8) k/uL PT (9.0-12.0) sec INR (<1.2) ABG pH 7.14 L* 7.19 L* 7.23 L (7.35-7.45) ABG pCO2 49 H 48 H (35-45) mmHg ABG pO2 >420 H 177 H 161 H (83-108) mmHg ABG HCO3 14 L 19 L 20 L (21-25) mmol/L ABG Total CO2 15 L (19-24) mmol/L ABG O2 Saturation 99.3 H 98.6 H 98.4 H (94-97) % ABG Hematocrit 31 L (34.0-46.0) % ABG Sodium 134 L (135-146) mmol/L ABG Potassium 5.2 H (3.4-4.5) mmol/L ABG Ionized Calcium (4.5-5.3) mg/dL ABG Glucose 451 H 405 H 364 H (75-99) mg/dL ABG Lactic Acid 2.1 H 2.2 H* (0.5-1.6) mmol/L Hemoglobin 12.6 L 12.0 L 10.2 L (13.0-17.5) gm/dL Sodium (137-145) mmol/L BUN (9-20) mg/dL Glucose (74-99) mg/dL POC Glucose (mg/dL) (75-99) mg/dL Calcium (8.4-10.2) mg/dL ALT (4-49) U/L Alkaline Phosphatase (38-126) U/L Total Protein (6.3-8.2) g/dL Albumin (3.5-5.0) g/dL Arterial Blood Potassium 5.2 H (3.4-4.5) mmol/L Arterial Blood Glucose 451 H 405 H 364 H (75-99) mg/dL Crossmatch 06/22/20 06/22/20 06/22/20 Range/Units 10:44 11:14 11:54 RBC (4.30-5.90) m/uL Hgb (13.0-17.5) gm/dL Hct (39.0-53.0) % Plt Count (150-450) k/uL Neutrophils # (1.3-7.7) k/uL Lymphocytes # (1.0-4.8) k/uL PT (9.0-12.0) sec INR (<1.2) ABG pH (7.35-7.45) ABG pCO2 32 L 33 L (35-45) mmHg ABG pO2 142 H 166 H 163 H (83-108) mmHg ABG HCO3 20 L (21-25) mmol/L ABG Total CO2 (19-24) mmol/L ABG O2 Saturation 98.8 H 99.2 H 99.2 H (94-97) % ABG Hematocrit 29 L 27 L 25 L (34.0-46.0) % ABG Sodium (135-146) mmol/L ABG Potassium (3.4-4.5) mmol/L ABG Ionized Calcium 4.4 L (4.5-5.3) mg/dL ABG Glucose 332 H 312 H 285 H (75-99) mg/dL ABG Lactic Acid 2.0 H 2.3 H* 2.8 H* (0.5-1.6) mmol/L Hemoglobin 9.6 L 8.9 L 8.0 L (13.0-17.5) gm/dL Sodium (137-145) mmol/L BUN (9-20) mg/dL Glucose (74-99) mg/dL POC Glucose (mg/dL) (75-99) mg/dL Calcium (8.4-10.2) mg/dL ALT (4-49) U/L Alkaline Phosphatase (38-126) U/L Total Protein (6.3-8.2) g/dL Albumin (3.5-5.0) g/dL Arterial Blood Potassium (3.4-4.5) mmol/L Arterial Blood Glucose 332 H 312 H 285 H (75-99) mg/dL Crossmatch 06/22/20 06/22/20 06/22/20 Range/Units 12:27 13:54 14:28 RBC (4.30-5.90) m/uL Hgb (13.0-17.5) gm/dL Hct (39.0-53.0) % Plt Count (150-450) k/uL Neutrophils # (1.3-7.7) k/uL Lymphocytes # (1.0-4.8) k/uL PT (9.0-12.0) sec INR (<1.2) ABG pH (7.35-7.45) ABG pCO2 31 L (35-45) mmHg ABG pO2 167 H 214 H (83-108) mmHg ABG HCO3 20 L (21-25) mmol/L ABG Total CO2 25 H (19-24) mmol/L ABG O2 Saturation 99.1 H 99.5 H (94-97) % ABG Hematocrit 24 L 25 L (34.0-46.0) % ABG Sodium (135-146) mmol/L ABG Potassium (3.4-4.5) mmol/L ABG Ionized Calcium (4.5-5.3) mg/dL ABG Glucose 267 H 206 H (75-99) mg/dL ABG Lactic Acid 3.2 H* 2.4 H* (0.5-1.6) mmol/L Hemoglobin 7.9 L 8.1 L (13.0-17.5) gm/dL Sodium (137-145) mmol/L BUN (9-20) mg/dL Glucose (74-99) mg/dL POC Glucose (mg/dL) 203 H (75-99) mg/dL Calcium (8.4-10.2) mg/dL ALT (4-49) U/L Alkaline Phosphatase (38-126) U/L Total Protein (6.3-8.2) g/dL Albumin (3.5-5.0) g/dL Arterial Blood Potassium (3.4-4.5) mmol/L Arterial Blood Glucose 267 H 206 H (75-99) mg/dL Crossmatch 06/22/20 06/22/20 06/22/20 Range/Units 14:30 14:30 14:30 RBC 2.84 L (4.30-5.90) m/uL Hgb 8.2 L D (13.0-17.5) gm/dL Hct 25.2 L (39.0-53.0) % Plt Count 143 L (150-450) k/uL Neutrophils # 8.0 H (1.3-7.7) k/uL Lymphocytes # (1.0-4.8) k/uL PT 13.5 H (9.0-12.0) sec INR 1.3 H (<1.2) ABG pH (7.35-7.45) ABG pCO2 (35-45) mmHg ABG pO2 (83-108) mmHg ABG HCO3 (21-25) mmol/L ABG Total CO2 (19-24) mmol/L ABG O2 Saturation (94-97) % ABG Hematocrit (34.0-46.0) % ABG Sodium (135-146) mmol/L ABG Potassium (3.4-4.5) mmol/L ABG Ionized Calcium (4.5-5.3) mg/dL ABG Glucose (75-99) mg/dL ABG Lactic Acid (0.5-1.6) mmol/L Hemoglobin (13.0-17.5) gm/dL Sodium (137-145) mmol/L BUN 35 H (9-20) mg/dL Glucose 173 H (74-99) mg/dL POC Glucose (mg/dL) (75-99) mg/dL Calcium 8.2 L (8.4-10.2) mg/dL ALT 53 H (4-49) U/L Alkaline Phosphatase 31 L (38-126) U/L Total Protein 4.8 L (6.3-8.2) g/dL Albumin 3.2 L (3.5-5.0) g/dL Arterial Blood Potassium (3.4-4.5) mmol/L Arterial Blood Glucose (75-99) mg/dL Crossmatch 06/22/20 06/22/20 06/22/20 Range/Units 14:53 15:11 15:36 RBC (4.30-5.90) m/uL Hgb (13.0-17.5) gm/dL Hct (39.0-53.0) % Plt Count (150-450) k/uL Neutrophils # (1.3-7.7) k/uL Lymphocytes # (1.0-4.8) k/uL PT (9.0-12.0) sec INR (<1.2) ABG pH (7.35-7.45) ABG pCO2 (35-45) mmHg ABG pO2 >400 H (83-108) mmHg ABG HCO3 27 H (21-25) mmol/L ABG Total CO2 29 H (19-24) mmol/L ABG O2 Saturation 99.6 H (94-97) % ABG Hematocrit (34.0-46.0) % ABG Sodium (135-146) mmol/L ABG Potassium (3.4-4.5) mmol/L ABG Ionized Calcium (4.5-5.3) mg/dL ABG Glucose (75-99) mg/dL ABG Lactic Acid (0.5-1.6) mmol/L Hemoglobin (13.0-17.5) gm/dL Sodium (137-145) mmol/L BUN (9-20) mg/dL Glucose (74-99) mg/dL POC Glucose (mg/dL) 161 H 138 H (75-99) mg/dL Calcium (8.4-10.2) mg/dL ALT (4-49) U/L Alkaline Phosphatase (38-126) U/L Total Protein (6.3-8.2) g/dL Albumin (3.5-5.0) g/dL Arterial Blood Potassium (3.4-4.5) mmol/L Arterial Blood Glucose (75-99) mg/dL Crossmatch 06/22/20 06/22/20 06/22/20 Range/Units 17:05 17:24 17:26 RBC 3.10 L (4.30-5.90) m/uL Hgb 8.9 L (13.0-17.5) gm/dL Hct 27.1 L (39.0-53.0) % Plt Count (150-450) k/uL Neutrophils # (1.3-7.7) k/uL Lymphocytes # (1.0-4.8) k/uL PT (9.0-12.0) sec INR (<1.2) ABG pH (7.35-7.45) ABG pCO2 (35-45) mmHg ABG pO2 (83-108) mmHg ABG HCO3 (21-25) mmol/L ABG Total CO2 (19-24) mmol/L ABG O2 Saturation (94-97) % ABG Hematocrit (34.0-46.0) % ABG Sodium (135-146) mmol/L ABG Potassium (3.4-4.5) mmol/L ABG Ionized Calcium (4.5-5.3) mg/dL ABG Glucose (75-99) mg/dL ABG Lactic Acid (0.5-1.6) mmol/L Hemoglobin (13.0-17.5) gm/dL Sodium (137-145) mmol/L BUN (9-20) mg/dL Glucose (74-99) mg/dL POC Glucose (mg/dL) 62 L 57 L (75-99) mg/dL Calcium (8.4-10.2) mg/dL ALT (4-49) U/L Alkaline Phosphatase (38-126) U/L Total Protein (6.3-8.2) g/dL Albumin (3.5-5.0) g/dL Arterial Blood Potassium (3.4-4.5) mmol/L Arterial Blood Glucose (75-99) mg/dL Crossmatch 06/22/20 06/22/20 06/22/20 Range/Units 17:39 17:54 19:01 RBC (4.30-5.90) m/uL Hgb (13.0-17.5) gm/dL Hct (39.0-53.0) % Plt Count (150-450) k/uL Neutrophils # (1.3-7.7) k/uL Lymphocytes # (1.0-4.8) k/uL PT (9.0-12.0) sec INR (<1.2) ABG pH (7.35-7.45) ABG pCO2 (35-45) mmHg ABG pO2 169 H (83-108) mmHg ABG HCO3 28 H (21-25) mmol/L ABG Total CO2 29 H (19-24) mmol/L ABG O2 Saturation 98.9 H (94-97) % ABG Hematocrit (34.0-46.0) % ABG Sodium (135-146) mmol/L ABG Potassium (3.4-4.5) mmol/L ABG Ionized Calcium (4.5-5.3) mg/dL ABG Glucose (75-99) mg/dL ABG Lactic Acid (0.5-1.6) mmol/L Hemoglobin (13.0-17.5) gm/dL Sodium (137-145) mmol/L BUN (9-20) mg/dL Glucose (74-99) mg/dL POC Glucose (mg/dL) 51 L 101 H (75-99) mg/dL Calcium (8.4-10.2) mg/dL ALT (4-49) U/L Alkaline Phosphatase (38-126) U/L Total Protein (6.3-8.2) g/dL Albumin (3.5-5.0) g/dL Arterial Blood Potassium (3.4-4.5) mmol/L Arterial Blood Glucose (75-99) mg/dL Crossmatch 06/22/20 06/22/20 06/22/20 Range/Units 19:03 19:39 20:00 RBC 3.05 L (4.30-5.90) m/uL Hgb 8.8 L (13.0-17.5) gm/dL Hct 27.1 L (39.0-53.0) % Plt Count (150-450) k/uL Neutrophils # (1.3-7.7) k/uL Lymphocytes # 0.6 L (1.0-4.8) k/uL PT (9.0-12.0) sec INR (<1.2) ABG pH (7.35-7.45) ABG pCO2 (35-45) mmHg ABG pO2 (83-108) mmHg ABG HCO3 (21-25) mmol/L ABG Total CO2 (19-24) mmol/L ABG O2 Saturation (94-97) % ABG Hematocrit (34.0-46.0) % ABG Sodium (135-146) mmol/L ABG Potassium (3.4-4.5) mmol/L ABG Ionized Calcium (4.5-5.3) mg/dL ABG Glucose (75-99) mg/dL ABG Lactic Acid (0.5-1.6) mmol/L Hemoglobin (13.0-17.5) gm/dL Sodium (137-145) mmol/L BUN (9-20) mg/dL Glucose (74-99) mg/dL POC Glucose (mg/dL) 102 H 118 H (75-99) mg/dL Calcium (8.4-10.2) mg/dL ALT (4-49) U/L Alkaline Phosphatase (38-126) U/L Total Protein (6.3-8.2) g/dL Albumin (3.5-5.0) g/dL Arterial Blood Potassium (3.4-4.5) mmol/L Arterial Blood Glucose (75-99) mg/dL Crossmatch 06/22/20 06/22/20 06/22/20 Range/Units 20:00 20:04 20:33 RBC (4.30-5.90) m/uL Hgb (13.0-17.5) gm/dL Hct (39.0-53.0) % Plt Count (150-450) k/uL Neutrophils # (1.3-7.7) k/uL Lymphocytes # (1.0-4.8) k/uL PT (9.0-12.0) sec INR (<1.2) ABG pH (7.35-7.45) ABG pCO2 (35-45) mmHg ABG pO2 (83-108) mmHg ABG HCO3 (21-25) mmol/L ABG Total CO2 (19-24) mmol/L ABG O2 Saturation (94-97) % ABG Hematocrit (34.0-46.0) % ABG Sodium (135-146) mmol/L ABG Potassium (3.4-4.5) mmol/L ABG Ionized Calcium (4.5-5.3) mg/dL ABG Glucose (75-99) mg/dL ABG Lactic Acid (0.5-1.6) mmol/L Hemoglobin (13.0-17.5) gm/dL Sodium (137-145) mmol/L BUN 27 H (9-20) mg/dL Glucose 118 H (74-99) mg/dL POC Glucose (mg/dL) 137 H 148 H (75-99) mg/dL Calcium 8.3 L (8.4-10.2) mg/dL ALT (4-49) U/L Alkaline Phosphatase (38-126) U/L Total Protein (6.3-8.2) g/dL Albumin (3.5-5.0) g/dL Arterial Blood Potassium (3.4-4.5) mmol/L Arterial Blood Glucose (75-99) mg/dL Crossmatch 06/22/20 06/22/20 06/22/20 Range/Units 20:58 21:43 22:10 RBC (4.30-5.90) m/uL Hgb (13.0-17.5) gm/dL Hct (39.0-53.0) % Plt Count (150-450) k/uL Neutrophils # (1.3-7.7) k/uL Lymphocytes # (1.0-4.8) k/uL PT (9.0-12.0) sec INR (<1.2) ABG pH (7.35-7.45) ABG pCO2 (35-45) mmHg ABG pO2 (83-108) mmHg ABG HCO3 (21-25) mmol/L ABG Total CO2 (19-24) mmol/L ABG O2 Saturation (94-97) % ABG Hematocrit (34.0-46.0) % ABG Sodium (135-146) mmol/L ABG Potassium (3.4-4.5) mmol/L ABG Ionized Calcium (4.5-5.3) mg/dL ABG Glucose (75-99) mg/dL ABG Lactic Acid (0.5-1.6) mmol/L Hemoglobin (13.0-17.5) gm/dL Sodium (137-145) mmol/L BUN (9-20) mg/dL Glucose (74-99) mg/dL POC Glucose (mg/dL) 144 H 123 H 108 H (75-99) mg/dL Calcium (8.4-10.2) mg/dL ALT (4-49) U/L Alkaline Phosphatase (38-126) U/L Total Protein (6.3-8.2) g/dL Albumin (3.5-5.0) g/dL Arterial Blood Potassium (3.4-4.5) mmol/L Arterial Blood Glucose (75-99) mg/dL Crossmatch 06/23/20 06/23/20 06/23/20 Range/Units 01:04 01:32 02:02 RBC (4.30-5.90) m/uL Hgb (13.0-17.5) gm/dL Hct (39.0-53.0) % Plt Count (150-450) k/uL Neutrophils # (1.3-7.7) k/uL Lymphocytes # (1.0-4.8) k/uL PT (9.0-12.0) sec INR (<1.2) ABG pH (7.35-7.45) ABG pCO2 (35-45) mmHg ABG pO2 (83-108) mmHg ABG HCO3 (21-25) mmol/L ABG Total CO2 (19-24) mmol/L ABG O2 Saturation (94-97) % ABG Hematocrit (34.0-46.0) % ABG Sodium (135-146) mmol/L ABG Potassium (3.4-4.5) mmol/L ABG Ionized Calcium (4.5-5.3) mg/dL ABG Glucose (75-99) mg/dL ABG Lactic Acid (0.5-1.6) mmol/L Hemoglobin (13.0-17.5) gm/dL Sodium (137-145) mmol/L BUN (9-20) mg/dL Glucose (74-99) mg/dL POC Glucose (mg/dL) 107 H 132 H 140 H (75-99) mg/dL Calcium (8.4-10.2) mg/dL ALT (4-49) U/L Alkaline Phosphatase (38-126) U/L Total Protein (6.3-8.2) g/dL Albumin (3.5-5.0) g/dL Arterial Blood Potassium (3.4-4.5) mmol/L Arterial Blood Glucose (75-99) mg/dL Crossmatch 06/23/20 06/23/20 06/23/20 Range/Units 02:32 03:03 04:00 RBC 3.07 L (4.30-5.90) m/uL Hgb 9.1 L (13.0-17.5) gm/dL Hct 27.1 L (39.0-53.0) % Plt Count (150-450) k/uL Neutrophils # (1.3-7.7) k/uL Lymphocytes # 0.5 L (1.0-4.8) k/uL PT (9.0-12.0) sec INR (<1.2) ABG pH (7.35-7.45) ABG pCO2 (35-45) mmHg ABG pO2 (83-108) mmHg ABG HCO3 (21-25) mmol/L ABG Total CO2 (19-24) mmol/L ABG O2 Saturation (94-97) % ABG Hematocrit (34.0-46.0) % ABG Sodium (135-146) mmol/L ABG Potassium (3.4-4.5) mmol/L ABG Ionized Calcium (4.5-5.3) mg/dL ABG Glucose (75-99) mg/dL ABG Lactic Acid (0.5-1.6) mmol/L Hemoglobin (13.0-17.5) gm/dL Sodium (137-145) mmol/L BUN (9-20) mg/dL Glucose (74-99) mg/dL POC Glucose (mg/dL) 126 H 118 H (75-99) mg/dL Calcium (8.4-10.2) mg/dL ALT (4-49) U/L Alkaline Phosphatase (38-126) U/L Total Protein (6.3-8.2) g/dL Albumin (3.5-5.0) g/dL Arterial Blood Potassium (3.4-4.5) mmol/L Arterial Blood Glucose (75-99) mg/dL Crossmatch 06/23/20 06/23/20 06/23/20 Range/Units 04:00 05:04 06:07 RBC (4.30-5.90) m/uL Hgb (13.0-17.5) gm/dL Hct (39.0-53.0) % Plt Count (150-450) k/uL Neutrophils # (1.3-7.7) k/uL Lymphocytes # (1.0-4.8) k/uL PT (9.0-12.0) sec INR (<1.2) ABG pH (7.35-7.45) ABG pCO2 (35-45) mmHg ABG pO2 (83-108) mmHg ABG HCO3 (21-25) mmol/L ABG Total CO2 (19-24) mmol/L ABG O2 Saturation (94-97) % ABG Hematocrit (34.0-46.0) % ABG Sodium (135-146) mmol/L ABG Potassium (3.4-4.5) mmol/L ABG Ionized Calcium (4.5-5.3) mg/dL ABG Glucose (75-99) mg/dL ABG Lactic Acid (0.5-1.6) mmol/L Hemoglobin (13.0-17.5) gm/dL Sodium 135 L (137-145) mmol/L BUN 23 H (9-20) mg/dL Glucose 73 L (74-99) mg/dL POC Glucose (mg/dL) 73 L 104 H (75-99) mg/dL Calcium 8.0 L (8.4-10.2) mg/dL ALT 52 H (4-49) U/L Alkaline Phosphatase 34 L (38-126) U/L Total Protein 4.5 L (6.3-8.2) g/dL Albumin 2.8 L (3.5-5.0) g/dL Arterial Blood Potassium (3.4-4.5) mmol/L Arterial Blood Glucose (75-99) mg/dL Crossmatch 06/23/20 06/23/20 06/23/20 Range/Units 06:31 07:07 07:35 RBC (4.30-5.90) m/uL Hgb (13.0-17.5) gm/dL Hct (39.0-53.0) % Plt Count (150-450) k/uL Neutrophils # (1.3-7.7) k/uL Lymphocytes # (1.0-4.8) k/uL PT (9.0-12.0) sec INR (<1.2) ABG pH (7.35-7.45) ABG pCO2 (35-45) mmHg ABG pO2 (83-108) mmHg ABG HCO3 (21-25) mmol/L ABG Total CO2 (19-24) mmol/L ABG O2 Saturation (94-97) % ABG Hematocrit (34.0-46.0) % ABG Sodium (135-146) mmol/L ABG Potassium (3.4-4.5) mmol/L ABG Ionized Calcium (4.5-5.3) mg/dL ABG Glucose (75-99) mg/dL ABG Lactic Acid (0.5-1.6) mmol/L Hemoglobin (13.0-17.5) gm/dL Sodium (137-145) mmol/L BUN (9-20) mg/dL Glucose (74-99) mg/dL POC Glucose (mg/dL) 118 H 153 H 144 H (75-99) mg/dL Calcium (8.4-10.2) mg/dL ALT (4-49) U/L Alkaline Phosphatase (38-126) U/L Total Protein (6.3-8.2) g/dL Albumin (3.5-5.0) g/dL Arterial Blood Potassium (3.4-4.5) mmol/L Arterial Blood Glucose (75-99) mg/dL Crossmatch 06/23/20 06/23/20 06/23/20 Range/Units 08:02 08:35 09:11 RBC (4.30-5.90) m/uL Hgb (13.0-17.5) gm/dL Hct (39.0-53.0) % Plt Count (150-450) k/uL Neutrophils # (1.3-7.7) k/uL Lymphocytes # (1.0-4.8) k/uL PT (9.0-12.0) sec INR (<1.2) ABG pH (7.35-7.45) ABG pCO2 (35-45) mmHg ABG pO2 (83-108) mmHg ABG HCO3 (21-25) mmol/L ABG Total CO2 (19-24) mmol/L ABG O2 Saturation (94-97) % ABG Hematocrit (34.0-46.0) % ABG Sodium (135-146) mmol/L ABG Potassium (3.4-4.5) mmol/L ABG Ionized Calcium (4.5-5.3) mg/dL ABG Glucose (75-99) mg/dL ABG Lactic Acid (0.5-1.6) mmol/L Hemoglobin (13.0-17.5) gm/dL Sodium (137-145) mmol/L BUN (9-20) mg/dL Glucose (74-99) mg/dL POC Glucose (mg/dL) 173 H 180 H 160 H (75-99) mg/dL Calcium (8.4-10.2) mg/dL ALT (4-49) U/L Alkaline Phosphatase (38-126) U/L Total Protein (6.3-8.2) g/dL Albumin (3.5-5.0) g/dL Arterial Blood Potassium (3.4-4.5) mmol/L Arterial Blood Glucose (75-99) mg/dL Crossmatch 06/23/20 Range/Units 09:35 RBC (4.30-5.90) m/uL Hgb (13.0-17.5) gm/dL Hct (39.0-53.0) % Plt Count (150-450) k/uL Neutrophils # (1.3-7.7) k/uL Lymphocytes # (1.0-4.8) k/uL PT (9.0-12.0) sec INR (<1.2) ABG pH (7.35-7.45) ABG pCO2 (35-45) mmHg ABG pO2 (83-108) mmHg ABG HCO3 (21-25) mmol/L ABG Total CO2 (19-24) mmol/L ABG O2 Saturation (94-97) % ABG Hematocrit (34.0-46.0) % ABG Sodium (135-146) mmol/L ABG Potassium (3.4-4.5) mmol/L ABG Ionized Calcium (4.5-5.3) mg/dL ABG Glucose (75-99) mg/dL ABG Lactic Acid (0.5-1.6) mmol/L Hemoglobin (13.0-17.5) gm/dL Sodium (137-145) mmol/L BUN (9-20) mg/dL Glucose (74-99) mg/dL POC Glucose (mg/dL) 127 H (75-99) mg/dL Calcium (8.4-10.2) mg/dL ALT (4-49) U/L Alkaline Phosphatase (38-126) U/L Total Protein (6.3-8.2) g/dL Albumin (3.5-5.0) g/dL Arterial Blood Potassium (3.4-4.5) mmol/L Arterial Blood Glucose (75-99) mg/dL Crossmatch - Imaging and Cardiology Chest x-ray: report reviewed, image reviewed Assessment and Plan Assessment: 1. Multivessel coronary artery disease, NSTEMI this admission, status post four-vessel CABG 2. Ischemic cardiomyopathy with EF 25-30% 3. Acute hypoxic respiratory failure requiring mechanical ventilation 4. Diabetic ketoacidosis 5. Acute kidney injury 6. Leukocytosis 7. Gastroparesis 8. Hypertension 9. Hyperlipidemia 10. Uncontrolled type 2 diabetes mellitus with hyperglycemia and Hgb A1c 10.5% 11. Chronic ongoing tobacco dependance 12. Moderate COPD with preoperative FEV1 53% of predicted 13. Peripheral neuropathy 14. Occsional marijuana use 15. Depression/anxiety 14. Family history of premature coronary artery disease Plan: 1. Continue to optimize medically with aspirin, statin, Plavix, and beta dixon. Will increase beta dixon therapy as tolerated. Will need afterload reduction when blood pressure able to tolerate 2. Continue Cardizem for radial artery spasm prophylaxis. Will transition to oral Cardizem. Do not discontinue without discussed with primary cardiac surgery. DC ARLEEN drain 3. Wean O2 as tolerated. Encourage incentive spirometry 10 times every hour while awake. Bronchodilators per pulmonology 4. Increase activity, ambulate as tolerated. PT/OT/cardiac rehab following 5. Will monitor daily labs and x-rays. Electrolyte replacement per protocol. No transfusion at this time. 6. Insulin management per primary care service. Patient should remain on insulin drip for at least 48 hours. Will need tight blood sugar control for proper healing 7. Pain control with current medication regimen 8. Discontinue Coleman. Connect Cordis to continuous CVP monitoring 9. Importance of smoking cessation was encouraged. 10. Will continue chest tubes for another 24 hours and monitor output 11. Will continue Mcmillan catheter for another 24 hours for strict accurate intake and output 12. GI/DVT prophylaxis 13. More recommendations to follow based on patient's clinical course. Time with Patient: Greater than 30
[2020-06-23 11:06] LABS: Glucose,Whole Blood 58 mg/dL (75-99)
[2020-06-23 11:29] LABS: Glucose,Whole Blood 53 mg/dL (75-99)
[2020-06-23 11:29] LABS: Glucose,Whole Blood 61 mg/dL (75-99)
[2020-06-23 11:49] LABS: Glucose,Whole Blood 106 mg/dL (75-99)
--- NOTE | 2020-06-23 12:12 | P.ARTDOP ---
Arterial Doppler Bilateral radial artery studies: Reason for study: Pre-CABG Date of study: 06/19/2020 Imaging shows the left to be less than 2 mm throughout from mid to distal. The right is 3.5 x 3.5 proximal, 2.7 x 2.3 mid, and 2.6 x 2.0 mm distally. We see no significant right to left or segmental gradients With radial compression, digital plethysmography shows no significant change on the right. Impression: Right radial is suitable for use as conduit. Left is too small.
--- NOTE | 2020-06-23 12:14 | P.ARTDOP ---
Arterial Doppler LOWER EXTREMITY ARTERIAL DOPPLER: DATE OF SERVICE: 06/19/2020 Reason for study: Pre-CABG. Doppler waveforms: Multiphasic throughout however digital waveforms are blunted. Pulse volume recording: []. Pressure gradients: None registered. Ankle-brachial indices: Greater than 1 bilaterally. Toe brachial indices: [] on the right, [] on the left Impression: Normal study involving major named vessels into the feet. Decrease in waveforms of the feet are more likely to be a dysplastic in origin. Distal disease less likely..
--- NOTE | 2020-06-23 12:20 | P.VSCSTY ---
Greater Saphenous Vein Mapping This is bilateral lower extremity greater saphenous vein mapping. Date of service: 06/18/2020 Vein quality and ultrasound appearance: We see no intraluminal thrombus. Some intimal thickening is seen bilaterally.. Vein size groin right : 6.5 x 7.0 groin left: 3.6 x 3.9 High thigh right: 2.2 x 3.0 high thigh left: 2.6 x 4.1 Mid thigh right: 1.8 x 3.2 mid thigh left: 2.5 x 2.8 Above-knee right: 2.2 x 3.1 above- knee left: 3.2 x 3.4 Below knee right: 2.0 x 2.6 below-knee left: 1.9 x 3.0 Mid calf right: 1.0 x 2.1 mid calf left: To small to measure Ankle right: 1.7 x 2.8 ankle left: 1.3 x 2.5 Impression: There may be usable vein in both eyes. Vein should be viewed critically at the time of surgery due to consideration of intimal thickening. Lower leg on the left is too small. Areas of the lower leg on the right are also too small. Clinical correlation with surgical anatomy recommended..
[2020-06-23 12:27] LABS: Glucose,Whole Blood 131 mg/dL (75-99)
[2020-06-23] MEDS: DILTIAZEM ORAL 30 MG TAB PO SCH ×2 (12:54→18:30)
[2020-06-23 13:01] LABS: Glucose,Whole Blood 122 mg/dL (75-99)
[2020-06-23 13:29] LABS: Glucose,Whole Blood 107 mg/dL (75-99)
[2020-06-23 14:00] LABS: Glucose,Whole Blood 162 mg/dL (75-99)
[2020-06-23 14:43] LABS: Glucose,Whole Blood 131 mg/dL (75-99)
[2020-06-23 15:06] LABS: Glucose,Whole Blood 101 mg/dL (75-99)
[2020-06-23] MEDS: CLEVIDIPINE BUTYRATE 25 MG in EMPTY BAG 1 BAG IV SCH (15:23)
[2020-06-23 15:32] LABS: Glucose,Whole Blood 93 mg/dL (75-99)
[2020-06-23 16:02] LABS: Glucose,Whole Blood 93 mg/dL (75-99)
[2020-06-23 16:58] LABS: Glucose,Whole Blood 114 mg/dL (75-99)
[2020-06-23 18:02] LABS: Glucose,Whole Blood 135 mg/dL (75-99)
[2020-06-23 19:40] LABS: Glucose,Whole Blood 226 mg/dL (75-99)
[2020-06-23 20:02] LABS: Glucose,Whole Blood 224 mg/dL (75-99)
[2020-06-23 20:37] LABS: Glucose,Whole Blood 214 mg/dL (75-99)
[2020-06-23] MEDS: SENNOSIDES-DOCUSATE SODIUM 1 EACH TAB PO SCH (20:42)
[2020-06-23] MEDS: AMITRIPTYLINE HCL 10 MG TAB PO SCH (20:42)
[2020-06-23 21:07] LABS: Glucose,Whole Blood 196 mg/dL (75-99)
[2020-06-23 21:43] LABS: Glucose,Whole Blood 168 mg/dL (75-99)
--- NOTE | 2020-06-23 22:07 | PN ---
PROGRESS NOTE DATE OF SERVICE: 06/23/2020 CHIEF COMPLAINT: Status post CABG. HISTORY OF PRESENT ILLNESS: This gentleman is doing fairly well. He is awake and alert and up in the chair. PHYSICAL EXAMINATION: He is oriented and is comfortable. On exam his vital signs are normal. Head ears, eyes and nose are normal. Breath sounds are heard bilaterally. Chest tubes are still in place. IMPRESSION: 1. Status post coronary artery bypass grafting. 2. Triple-vessel coronary artery disease. 3. Uncontrolled insulin-dependent diabetes mellitus. PLAN: Follow with Surgery and Pulmonology until patient is moved out of the unit. MMODL / IJN: [id number] /
[2020-06-23 22:17] LABS: Glucose,Whole Blood 153 mg/dL (75-99)
[2020-06-23 22:51] LABS: Glucose,Whole Blood 140 mg/dL (75-99)
[2020-06-23 23:07] LABS: Glucose,Whole Blood 138 mg/dL (75-99)
[2020-06-23 23:33] LABS: Glucose,Whole Blood 131 mg/dL (75-99)
[2020-06-24 00:17] LABS: Glucose,Whole Blood 119 mg/dL (75-99)
[2020-06-24] MEDS: DILTIAZEM ORAL 30 MG TAB PO SCH ×2 (00:21→06:39)
[2020-06-24] MEDS: KETOROLAC 15 MG/ML 1 ML VIAL IVP SCH ×4 (00:21→18:05)
[2020-06-24] MEDS: HEPARIN SODIUM,PORCINE 5,000 UNIT/ML 1 ML VIAL SQ SCH ×3 (00:21→18:05)
[2020-06-24] MEDS: SODIUM CHLORIDE 0.9% 1,000 ML IV SCH (00:22)
[2020-06-24 00:59] LABS: Glucose,Whole Blood 99 mg/dL (75-99)
[2020-06-24 01:32] LABS: Glucose,Whole Blood 96 mg/dL (75-99)
[2020-06-24 02:30] LABS: Glucose,Whole Blood 117 mg/dL (75-99)
[2020-06-24 03:08] LABS: Glucose,Whole Blood 133 mg/dL (75-99)
[2020-06-24 04:05] LABS: Glucose,Whole Blood 122 mg/dL (75-99)
[2020-06-24 04:54] LABS: Basophils % (A) 0 %; Eosinophils # (A) 0.2 k/uL (0-0.7); Eosinophils % (A) 2 %; HCT 29.6 % (39.0-53.0); HGB 9.6 gm/dL (13.0-17.5); Lymphocytes # (A) 1.1 k/uL (1.0-4.8); Lymphocytes % (A) 13 %; MCH 29.1 pg (25.0-35.0); MCHC 32.3 g/dL (31.0-37.0); Mean Platelet Volume 7.7; Monocytes # (A) 0.8 k/uL (0-1.0); Monocytes % (A) 9 %; Neutrophils # (A) 6.2 k/uL (1.3-7.7); Neutrophils % (A) 73 %; Platelet Count 252 k/uL (150-450); RBC 3.29 m/uL (4.30-5.90); RDW 13.4 % (11.5-15.5); WBC 8.5 k/uL (3.8-10.6)
[2020-06-24 04:55] LABS: Glucose,Whole Blood 105 mg/dL (75-99)
[2020-06-24 04:59] LABS: Ionized Calcium 4.9 mg/dL (4.5-5.3)
[2020-06-24 05:07] LABS: ALT 35 U/L (4-49); AST 36 U/L (17-59); African American GFR (CKD) >90 (>60 ml/min/1.73 sqM); Albumin 2.9 g/dL (3.5-5.0); Alkaline Phosphatase 42 U/L (38-126); Anion Gap 5 mmol/L; Blood Urea Nitrogen 22 mg/dL (9-20); Calcium 8.2 mg/dL (8.4-10.2); Carbon Dioxide 26 mmol/L (22-30); Chloride 101 mmol/L (98-107); Glucose 102 mg/dL (74-99); Non-African American GFR(CKD) >90 (>60 ml/min/1.73 sqM); Potassium 4.1 mmol/L (3.5-5.1); Sodium 132 mmol/L (137-145); Total Bilirubin 0.6 mg/dL (0.2-1.3); Total Protein 4.7 g/dL (6.3-8.2)
[2020-06-24 06:11] LABS: Glucose,Whole Blood 141 mg/dL (75-99)
[2020-06-24] MEDS ORDERED: ACETAMINOPHEN TAB 500 MG TAB PO PRN (06:22)
[2020-06-24 06:36] LABS: Glucose,Whole Blood 166 mg/dL (75-99)
[2020-06-24] MEDS: PANTOPRAZOLE 40 MG TABLET PO SCH (06:39)
[2020-06-24 07:03] LABS: Glucose,Whole Blood 163 mg/dL (75-99)
--- NOTE | 2020-06-24 07:29 | P.PN ---
Subjective Progress Note Date: 06/24/20 Principal diagnosis: Multivessel coronary artery disease, NSTEMI this admission, ischemic cardiomyopathy with EF 25-30%, acute hypoxic respiratory failure requiring mechanical ventilation, diabetic ketoacidosis, acute kidney injury, leukocytosis, gastroparesis. Previous medical history of hypertension, hyperlipidemia, uncontrolled type 2 diabetes mellitus with hyperglycemia and Hgb A1c 10.5% , chronic ongoing tobacco dependance, moderate COPD with preoperative FEV1 53% of predicted, peripheral neumopathy, occsional marijuana use, depression/anxiety, and family history of premature coronary artery disease. POD #2 urgent off-pump myocardial revascularization with left internal mammary artery to the left anterior descending artery and diagonal artery, right internal mammary artery to the right coronary artery, right radial artery to the obtuse marginal artery with patch angioplasty, endoscopic right radial artery harvest, intraoperative transesophageal echocardiogram by anesthesia. The patient is currently sitting up in a recliner in no acute distress. States pain is mostly controlled with current medication regimen, majority of his pain is with coughing and from his mediastinal chest tube, denies shortness of breath. Remains in normal sinus rhythm, hemodynamically stable. Right internal jugular Cordis, left radial arterial line present. No new concerns. Objective - Vital Signs Vital signs: Vital Signs Temp 98.1 F 06/24/20 04:00 Pulse 98 06/24/20 07:00 Resp 17 06/24/20 07:00 BP 140/81 06/24/20 07:00 Pulse Ox 95 06/24/20 07:00 Intake & Output 06/23/20 06/24/20 06/24/20 18:59 06:59 18:59 Intake Total 772.526 322.060 23 Output Total 580 515 45 Balance 192.526 -192.940 -22 Weight 75.6 kg 76.7 kg Intake: IV 702.5 291 23 Albumin Human 5% 250 ml 250 In Empty Bag 1 bag @ 250 mls/hr IVPB Q1HR PRN Rx#: [id number] CO/CI 20 Diltiazem 125 mg In 30 Sodium Chloride 0.9% 100 ml @ 5 MG/HR 5 mls/hr IV .Q24H MORE Rx#:[id number] Nitroglycerin-D5w Pmx 50 1.5 mg In Dextrose/Water 1 250ml.bag @ 5 MCG/MIN 1.5 mls/hr IV .Q24H MORE Rx#: [id number] Pressure bags 81 51 3 Sodium Chloride 0.9% 1, 270 240 20 000 ml @ 20 mls/hr IV . Q24H MORE Rx#:[id number] ceFAZolin 2 gm In Sodium 50 Chloride 0.9% 50 ml @ 100 mls/hr IVPB Q8HR MORE Rx# :[id number] Intake, IV Titration 70.026 31.060 Amount Insulin Regular 100 unit 70.026 31.060 In Sodium Chloride 0.9% 100 ml @ Per Protocol IV .Q0M MORE Rx#:[id number] Output: Chest Tube Drainage 130 80 Chest Tube Bilateral 60 40 Chest Tube Mediastinal 70 40 Drainage 30 Bilateral Lateral Chest 10 Medial Chest 20 Urine 420 435 45 Other: Voiding Method Indwelling Catheter Indwelling Catheter ABP, PAP, CO, CI - Last Documented Arterial Blood Pressure 148/72 Pulmonary Artery Pressure 19/5 Cardiac Output 5.1 Cardiac Index 2.7 - Constitutional General appearance: Present: cooperative, no acute distress - Respiratory Details: Lung sounds clear but diminshed bilaterally. Respirations even, non-labored. Currently on room air with oxygen saturation 97%. Able to achieve 1000 mL on his incentive spirometry. Mediastinal chest tube present, connected to continuous wall suction, 40 mL thin serosanguineous drainage overnight, 200 mL i n the last 24 hours. Right/left pleural chest tubes present and connected to continuous wall suction, 40 mL thin serosanguineous drainage overnight, 200 mL in the last 24 hours. No air leaks present. - Cardiovascular Details: S1, S2 present. Regular rate and rhythm, sinus rhythm on telemetry. Sternum stable. Palpable peripheral pulses bilaterally. Trace generalized edema present. No calf pain or tenderness noted. Right internal jugular Cordis, left radial arterial line present. Heart hugger in place with patient demonstrating appropriate use. Antiembolism stockings, SCDs present. - Gastrointestinal Gastrointestinal Comment(s): Abdomen soft, nontender, nondistended. Active bowel sounds present 4 quadrants. Tolerating full liquids. Positive flatus. - Genitourinary Genitourinary Comment(s): Mcmillan present draining clear, yellow urine. Output 30-60 mL/h overnight. - Integumentary Integumentary Comment(s): Skin is warm and dry with evidence of good perfusion. Anterior chest incision well approximated and covered with clean dry dressing. Right radial artery harvest site well approximated. Patient able to wiggle all fingers on his right hand, denies numbness or tingling, good cap refill, able to special delivery clerk objects appropriately. - Neurologic Neurologic: Present: CNII-XII intact - Musculoskeletal Musculoskeletal: Present: gait normal, strength equal bilaterally - Psychiatric Psychiatric: Present: A&O x's 3, appropriate affect, intact judgment & insight - Allied health notes Allied health notes reviewed: nursing - Labs CBC & Chem 7: 06/24/20 04:35 06/24/20 04:35 Labs: Abnormal Lab Results - Last 24 Hours (Table) 06/23/20 06/23/20 06/23/20 Range/Units 07:35 08:02 08:35 RBC (4.30-5.90) m/uL Hgb (13.0-17.5) gm/dL Hct (39.0-53.0) % Sodium (137-145) mmol/L BUN (9-20) mg/dL Glucose (74-99) mg/dL POC Glucose (mg/dL) 144 H 173 H 180 H (75-99) mg/dL Calcium (8.4-10.2) mg/dL Total Protein (6.3-8.2) g/dL Albumin (3.5-5.0) g/dL 06/23/20 06/23/20 06/23/20 Range/Units 09:11 09:35 11:05 RBC (4.30-5.90) m/uL Hgb (13.0-17.5) gm/dL Hct (39.0-53.0) % Sodium (137-145) mmol/L BUN (9-20) mg/dL Glucose (74-99) mg/dL POC Glucose (mg/dL) 160 H 127 H 58 L (75-99) mg/dL Calcium (8.4-10.2) mg/dL Total Protein (6.3-8.2) g/dL Albumin (3.5-5.0) g/dL 06/23/20 06/23/20 06/23/20 Range/Units 11:25 11:28 11:47 RBC (4.30-5.90) m/uL Hgb (13.0-17.5) gm/dL Hct (39.0-53.0) % Sodium (137-145) mmol/L BUN (9-20) mg/dL Glucose (74-99) mg/dL POC Glucose (mg/dL) 53 L 61 L 106 H (75-99) mg/dL Calcium (8.4-10.2) mg/dL Total Protein (6.3-8.2) g/dL Albumin (3.5-5.0) g/dL 06/23/20 06/23/20 06/23/20 Range/Units 12:26 12:58 13:28 RBC (4.30-5.90) m/uL Hgb (13.0-17.5) gm/dL Hct (39.0-53.0) % Sodium (137-145) mmol/L BUN (9-20) mg/dL Glucose (74-99) mg/dL POC Glucose (mg/dL) 131 H 122 H 107 H (75-99) mg/dL Calcium (8.4-10.2) mg/dL Total Protein (6.3-8.2) g/dL Albumin (3.5-5.0) g/dL 06/23/20 06/23/20 06/23/20 Range/Units 13:58 14:41 15:04 RBC (4.30-5.90) m/uL Hgb (13.0-17.5) gm/dL Hct (39.0-53.0) % Sodium (137-145) mmol/L BUN (9-20) mg/dL Glucose (74-99) mg/dL POC Glucose (mg/dL) 162 H 131 H 101 H (75-99) mg/dL Calcium (8.4-10.2) mg/dL Total Protein (6.3-8.2) g/dL Albumin (3.5-5.0) g/dL 06/23/20 06/23/20 06/23/20 Range/Units 16:56 18:00 19:37 RBC (4.30-5.90) m/uL Hgb (13.0-17.5) gm/dL Hct (39.0-53.0) % Sodium (137-145) mmol/L BUN (9-20) mg/dL Glucose (74-99) mg/dL POC Glucose (mg/dL) 114 H 135 H 226 H (75-99) mg/dL Calcium (8.4-10.2) mg/dL Total Protein (6.3-8.2) g/dL Albumin (3.5-5.0) g/dL 06/23/20 06/23/20 06/23/20 Range/Units 20:00 20:35 21:05 RBC (4.30-5.90) m/uL Hgb (13.0-17.5) gm/dL Hct (39.0-53.0) % Sodium (137-145) mmol/L BUN (9-20) mg/dL Glucose (74-99) mg/dL POC Glucose (mg/dL) 224 H 214 H 196 H (75-99) mg/dL Calcium (8.4-10.2) mg/dL Total Protein (6.3-8.2) g/dL Albumin (3.5-5.0) g/dL 06/23/20 06/23/20 06/23/20 Range/Units 21:41 22:15 22:49 RBC (4.30-5.90) m/uL Hgb (13.0-17.5) gm/dL Hct (39.0-53.0) % Sodium (137-145) mmol/L BUN (9-20) mg/dL Glucose (74-99) mg/dL POC Glucose (mg/dL) 168 H 153 H 140 H (75-99) mg/dL Calcium (8.4-10.2) mg/dL Total Protein (6.3-8.2) g/dL Albumin (3.5-5.0) g/dL 06/23/20 06/23/20 06/24/20 Range/Units 23:06 23:31 00:14 RBC (4.30-5.90) m/uL Hgb (13.0-17.5) gm/dL Hct (39.0-53.0) % Sodium (137-145) mmol/L BUN (9-20) mg/dL Glucose (74-99) mg/dL POC Glucose (mg/dL) 138 H 131 H 119 H (75-99) mg/dL Calcium (8.4-10.2) mg/dL Total Protein (6.3-8.2) g/dL Albumin (3.5-5.0) g/dL 06/24/20 06/24/20 06/24/20 Range/Units 02:28 03:06 04:03 RBC (4.30-5.90) m/uL Hgb (13.0-17.5) gm/dL Hct (39.0-53.0) % Sodium (137-145) mmol/L BUN (9-20) mg/dL Glucose (74-99) mg/dL POC Glucose (mg/dL) 117 H 133 H 122 H (75-99) mg/dL Calcium (8.4-10.2) mg/dL Total Protein (6.3-8.2) g/dL Albumin (3.5-5.0) g/dL 06/24/20 06/24/20 06/24/20 Range/Units 04:35 04:35 04:52 RBC 3.29 L (4.30-5.90) m/uL Hgb 9.6 L (13.0-17.5) gm/dL Hct 29.6 L (39.0-53.0) % Sodium 132 L (137-145) mmol/L BUN 22 H (9-20) mg/dL Glucose 102 H (74-99) mg/dL POC Glucose (mg/dL) 105 H (75-99) mg/dL Calcium 8.2 L (8.4-10.2) mg/dL Total Protein 4.7 L (6.3-8.2) g/dL Albumin 2.9 L (3.5-5.0) g/dL 06/24/20 06/24/20 06/24/20 Range/Units 06:09 06:34 07:01 RBC (4.30-5.90) m/uL Hgb (13.0-17.5) gm/dL Hct (39.0-53.0) % Sodium (137-145) mmol/L BUN (9-20) mg/dL Glucose (74-99) mg/dL POC Glucose (mg/dL) 141 H 166 H 163 H (75-99) mg/dL Calcium (8.4-10.2) mg/dL Total Protein (6.3-8.2) g/dL Albumin (3.5-5.0) g/dL - Imaging and Cardiology Chest x-ray: image reviewed Assessment and Plan Assessment: 1. Multivessel coronary artery disease, NSTEMI this admission, status post f our-vessel CABG 2. Ischemic cardiomyopathy with EF 25-30% 3. Acute hypoxic respiratory failure requiring mechanical ventilation 4. Diabetic ketoacidosis 5. Acute kidney injury 6. Leukocytosis 7. Gastroparesis 8. Hypertension 9. Hyperlipidemia 10. Uncontrolled type 2 diabetes mellitus with hyperglycemia and Hgb A1c 10.5% 11. Chronic ongoing tobacco dependance 12. Moderate COPD with preoperative FEV1 53% of predicted 13. Peripheral neuropathy 14. Occsional marijuana use 15. Depression/anxiety 14. Family history of premature coronary artery disease Plan: 1. Continue to optimize medically with aspirin, statin, Plavix, and beta dixon. Will increase beta dixon therapy as tolerated, increase to 50 mg twice daily today. Cozaar added for afterload reduction 2. Continue Cardizem for radial artery spasm prophylaxis. Do not discontinue without discussed with primary cardiac surgery. 3. Encourage incentive spirometry 10 times every hour while awake. Bronchodilators per pulmonology 4. Increase activity, ambulate as tolerated. PT/OT/cardiac rehab following 5. Will monitor daily labs and x-rays. Electrolyte replacement per protocol. No transfusion at this time. 6. Insulin management per primary care service. Will need tight blood sugar control for proper healing 7. Pain control with current medication regimen 8. Discontinue Cordis, arterial line 9. Importance of smoking cessation was encouraged. 10. Will discontinue all chest tubes 11. Discontinue Mcmillan catheter, may bladder scan and straight cathed for greater than 300 mL residual 12. GI/DVT prophylaxis 13. More recommendations to follow based on patient's clinical course. Time with Patient: Greater than 30
[2020-06-24] MEDS: IPRATROPIUM-ALBUTEROL 3 ML NEB INHALATION SCH ×4 (07:31→20:16)
[2020-06-24 07:54] LABS: Glucose,Whole Blood 131 mg/dL (75-99)
--- NOTE | 2020-06-24 08:24 | XR ---
EXAMINATION TYPE: XR chest 1V portable DATE OF EXAM: 06/24/2020 Comparison: 06/23/2020 Clinical History: 45-year-old male Post Operative Cardiac Surgery Findings: Median sternotomy wires are present with post-CABG clips in the mediastinum. Bilateral chest tubes re main in place without appreciable pneumothorax. Mediastinal drain. Right IJ sheath with removal of Sw an-Rex catheter. Patchy mid and lower lung opacities remaining, particularly in the retrocardiac reg ion. No sizable effusion. Impression: Patchy mid and lower lung areas of probable postoperative atelectasis especially in the retrocardiac region.
[2020-06-24] MEDS: ASPIRIN 325 MG TAB PO SCH (08:43)
[2020-06-24] MEDS: ATORVASTATIN 40 MG TAB PO SCH (08:44)
[2020-06-24] MEDS: Cariprazine Hcl [Vraylar] 1.5 MG PO SCH (08:44)
[2020-06-24] MEDS: CLOPIDOGREL 75 MG TAB PO SCH (08:44)
--- NOTE | 2020-06-24 08:44 | P.PN ---
Subjective Progress Note Date: 06/24/20 Principal diagnosis: Coronary artery disease, non-ST segment elevation myocardial infarction This a very pleasant 45-year-old gentleman who follows with Dr. Fam as his primary care provider. He has a history of diabetes mellitus, gastroparesis, diabetic peripheral neuropathy, hypertension, hyperlipidemia, marijuana use, chronic tobacco dependence. He was recently admitted to [facility] after being found to have altered mental status with unresponsiveness at home. At that time his blood glucose was greater than 1100. He was treated for diabetic ketoacidosis. He had developed impending respiratory failure requiring intubation mechanical ventilatory support subsequently extubated on 06/17/2020. He was found to be a non STEMI and had undergone cardiac catheterization which revealed significant triple-vessel coronary artery disease. He was transferred here for revascularization. The plan is for surgery on 06/22/2020. He is seen today in consultation on the selective care unit. He is currently sitting up in bed. Awake and alert in no acute distress. Alert and oriented 3. No chest pain or palpitations. No worsening shortness of breath, cough or congestion. Chest x-ray reveals no acute pulmonary process. He is working well with his incentive spirometer pulling approximately 2500 ML's. FEV1 value pending. White count 9.0. Hemoglobin 12.8. Troponin 0.7-9. He remains on heparin drip. The patient is seen today 06/20/2020 in follow-up on the selective care unit. He is currently sitting up in bed. Awake and alert in no acute distress. No shortness of breath, cough or congestion. No chest pain or palpitations. Maintaining good O2 saturation up to 100% on room air. Afebrile. Hemodynamically stable. White count 7.7. Hemoglobin 12.5. Sodium 137. Potassium 3.5. Creatinine 0.68. He remains on heparin drip. Practicing well with the incentive spirometer. The patient is seen today 06/23/2020 in follow-up in the intensive care unit. He is now postoperative day #1 of a four-vessel coronary artery bypass surgery off pump by Dr. Crabtree. He was successfully extubated. He is currently awake and alert in no acute distress. He is maintaining O2 saturation in the 90s on 2 L/m per nasal cannula. At the 0.9 normal saline at 50 MLS per hour. Cardizem drip at 5 mg per hour. Insulin drip at 12 units per hour. Nitroglycerin drip is now off. Chest x-ray reveals improving right-sided subcutaneous emphysema. Persistent bilateral chest tubes without pneumothorax. Stable lateral left midlung linear atelectasis. Developing left basilar acute atelectasis/infiltrates noted. Improvement and central vascular congestion present. White count 7.7. Hemoglobin 9.1. Platelets 199. Sodium 135. Potassium 3.9. Creatinine 0.78. He is doing quite well. He's been up ambulating. He's been up in a chair. Plan is for [place]ang-Rex catheter be removed today. The patient is seen today 06/24/2020 in follow-up in the intensive care unit. His postoperative day #2 of four-vessel coronary artery bypass grafting. He is currently sitting up in a chair at the bedside. Awake and alert in no acute distress. Denies any worsening shortness of breath, cough or congestion. He is maintaining good O2 saturations in the 90s on room air. Chest x-ray reveals some patchy atelectasis in the bases. He is working well with the incentive spirometer. Pulling approximately 1500 ML's this morning. He remains afebrile. Hemodynamically stable. White count 8.5. Hemoglobin 9.6. Sodium 132. Potassium 4.1. Creatinine 0.73. Glucose 131. He remains on bronchodilators. Pain is well controlled. Objective - Vital Signs Vital signs: Vital Signs Temp 98.1 F 06/24/20 04:00 Pulse 90 06/24/20 07:40 Resp 17 06/24/20 07:00 BP 140/81 06/24/20 07:00 Pulse Ox 95 06/24/20 07:00 Intake & Output 06/23/20 06/24/20 06/24/20 18:59 06:59 18:59 Intake Total 772.526 322.060 28.597 Output Total 580 515 45 Balance 192.526 -192.940 -16.403 Weight 75.6 kg 76.7 kg Intake: IV 702.5 291 23 Albumin Human 5% 250 ml 250 In Empty Bag 1 bag @ 250 mls/hr IVPB Q1HR PRN Rx#: [id number] CO/CI 20 Diltiazem 125 mg In 30 Sodium Chloride 0.9% 100 ml @ 5 MG/HR 5 mls/hr IV .Q24H MORE Rx#:[id number] Nitroglycerin-D5w Pmx 50 1.5 mg In Dextrose/Water 1 250ml.bag @ 5 MCG/MIN 1.5 mls/hr IV .Q24H MORE Rx#: [id number] Pressure bags 81 51 3 Sodium Chloride 0.9% 1, 270 240 20 000 ml @ 20 mls/hr IV . Q24H MORE Rx#:[id number] ceFAZolin 2 gm In Sodium 50 Chloride 0.9% 50 ml @ 100 mls/hr IVPB Q8HR MORE Rx# :[id number] Intake, IV Titration 70.026 31.060 5.597 Amount Insulin Regular 100 unit 70.026 31.060 5.597 In Sodium Chloride 0.9% 100 ml @ Per Protocol IV .Q0M MORE Rx#:[id number] Output: Chest Tube Drainage 130 80 Chest Tube Bilateral 60 40 Chest Tube Mediastinal 70 40 Drainage 30 Bilateral Lateral Chest 10 Medial Chest 20 Urine 420 435 45 Other: Voiding Method Indwelling Catheter Indwelling Catheter ABP, PAP, CO, CI - Last Documented Arterial Blood Pressure 148/72 Pulmonary Artery Pressure 19/5 Cardiac Output 5.1 Cardiac Index 2.7 - Exam GENERAL EXAM: Alert, pleasant 45-year-old gentleman, on room air, comfortable in no apparent distress. HEAD: Normocephalic. EYES: Normal reaction of pupils, equal size. NOSE: Clear with pink turbinates. THROAT: No erythema or exudates. NECK: No masses, no JVD. CHEST: Heart hugger in place. Sternal dressing dry and intact. Sternum stable. LUNGS: Equal air entry with crackles in the bilateral posterior bases. Diminished. CVS: S1 and S2 normal with no audible murmur, regular rhythm. ABDOMEN: No hepatosplenomegaly, normal bowel sounds, no guarding or rigidity. SPINE: No scoliosis or deformity SKIN: No rashes CENTRAL NERVOUS SYSTEM: No focal deficits, tone is normal in all 4 extremities. EXTREMITIES: There is trace peripheral edema. No clubbing, no cyanosis. Peripheral pulses are intact. - Labs CBC & Chem 7: 06/24/20 04:35 06/24/20 04:35 Labs: Abnormal Lab Results - Last 24 Hours (Table) 06/23/20 06/23/20 06/23/20 Range/Units 09:11 09:35 11:05 RBC (4.30-5.90) m/uL Hgb (13.0-17.5) gm/dL Hct (39.0-53.0) % Sodium (137-145) mmol/L BUN (9-20) mg/dL Glucose (74-99) mg/dL POC Glucose (mg/dL) 160 H 127 H 58 L (75-99) mg/dL Calcium (8.4-10.2) mg/dL Total Protein (6.3-8.2) g/dL Albumin (3.5-5.0) g/dL 06/23/20 06/23/20 06/23/20 Range/Units 11:25 11:28 11:47 RBC (4.30-5.90) m/uL Hgb (13.0-17.5) gm/dL Hct (39.0-53.0) % Sodium (137-145) mmol/L BUN (9-20) mg/dL Glucose (74-99) mg/dL POC Glucose (mg/dL) 53 L 61 L 106 H (75-99) mg/dL Calcium (8.4-10.2) mg/dL Total Protein (6.3-8.2) g/dL Albumin (3.5-5.0) g/dL 06/23/20 06/23/20 06/23/20 Range/Units 12:26 12:58 13:28 RBC (4.30-5.90) m/uL Hgb (13.0-17.5) gm/dL Hct (39.0-53.0) % Sodium (137-145) mmol/L BUN (9-20) mg/dL Glucose (74-99) mg/dL POC Glucose (mg/dL) 131 H 122 H 107 H (75-99) mg/dL Calcium (8.4-10.2) mg/dL Total Protein (6.3-8.2) g/dL Albumin (3.5-5.0) g/dL 06/23/20 06/23/20 06/23/20 Range/Units 13:58 14:41 15:04 RBC (4.30-5.90) m/uL Hgb (13.0-17.5) gm/dL Hct (39.0-53.0) % Sodium (137-145) mmol/L BUN (9-20) mg/dL Glucose (74-99) mg/dL POC Glucose (mg/dL) 162 H 131 H 101 H (75-99) mg/dL Calcium (8.4-10.2) mg/dL Total Protein (6.3-8.2) g/dL Albumin (3.5-5.0) g/dL 06/23/20 06/23/20 06/23/20 Range/Units 16:56 18:00 19:37 RBC (4.30-5.90) m/uL Hgb (13.0-17.5) gm/dL Hct (39.0-53.0) % Sodium (137-145) mmol/L BUN (9-20) mg/dL Glucose (74-99) mg/dL POC Glucose (mg/dL) 114 H 135 H 226 H (75-99) mg/dL Calcium (8.4-10.2) mg/dL Total Protein (6.3-8.2) g/dL Albumin (3.5-5.0) g/dL 06/23/20 06/23/20 06/23/20 Range/Units 20:00 20:35 21:05 RBC (4.30-5.90) m/uL Hgb (13.0-17.5) gm/dL Hct (39.0-53.0) % Sodium (137-145) mmol/L BUN (9-20) mg/dL Glucose (74-99) mg/dL POC Glucose (mg/dL) 224 H 214 H 196 H (75-99) mg/dL Calcium (8.4-10.2) mg/dL Total Protein (6.3-8.2) g/dL Albumin (3.5-5.0) g/dL 06/23/20 06/23/20 06/23/20 Range/Units 21:41 22:15 22:49 RBC (4.30-5.90) m/uL Hgb (13.0-17.5) gm/dL Hct (39.0-53.0) % Sodium (137-145) mmol/L BUN (9-20) mg/dL Glucose (74-99) mg/dL POC Glucose (mg/dL) 168 H 153 H 140 H (75-99) mg/dL Calcium (8.4-10.2) mg/dL Total Protein (6.3-8.2) g/dL Albumin (3.5-5.0) g/dL 06/23/20 06/23/20 06/24/20 Range/Units 23:06 23:31 00:14 RBC (4.30-5.90) m/uL Hgb (13.0-17.5) gm/dL Hct (39.0-53.0) % Sodium (137-145) mmol/L BUN (9-20) mg/dL Glucose (74-99) mg/dL POC Glucose (mg/dL) 138 H 131 H 119 H (75-99) mg/dL Calcium (8.4-10.2) mg/dL Total Protein (6.3-8.2) g/dL Albumin (3.5-5.0) g/dL 06/24/20 06/24/20 06/24/20 Range/Units 02:28 03:06 04:03 RBC (4.30-5.90) m/uL Hgb (13.0-17.5) gm/dL Hct (39.0-53.0) % Sodium (137-145) mmol/L BUN (9-20) mg/dL Glucose (74-99) mg/dL POC Glucose (mg/dL) 117 H 133 H 122 H (75-99) mg/dL Calcium (8.4-10.2) mg/dL Total Protein (6.3-8.2) g/dL Albumin (3.5-5.0) g/dL 06/24/20 06/24/20 06/24/20 Range/Units 04:35 04:35 04:52 RBC 3.29 L (4.30-5.90) m/uL Hgb 9.6 L (13.0-17.5) gm/dL Hct 29.6 L (39.0-53.0) % Sodium 132 L (137-145) mmol/L BUN 22 H (9-20) mg/dL Glucose 102 H (74-99) mg/dL POC Glucose (mg/dL) 105 H (75-99) mg/dL Calcium 8.2 L (8.4-10.2) mg/dL Total Protein 4.7 L (6.3-8.2) g/dL Albumin 2.9 L (3.5-5.0) g/dL 06/24/20 06/24/20 06/24/20 Range/Units 06:09 06:34 07:01 RBC (4.30-5.90) m/uL Hgb (13.0-17.5) gm/dL Hct (39.0-53.0) % Sodium (137-145) mmol/L BUN (9-20) mg/dL Glucose (74-99) mg/dL POC Glucose (mg/dL) 141 H 166 H 163 H (75-99) mg/dL Calcium (8.4-10.2) mg/dL Total Protein (6.3-8.2) g/dL Albumin (3.5-5.0) g/dL 06/24/20 Range/Units 07:52 RBC (4.30-5.90) m/uL Hgb (13.0-17.5) gm/dL Hct (39.0-53.0) % Sodium (137-145) mmol/L BUN (9-20) mg/dL Glucose (74-99) mg/dL POC Glucose (mg/dL) 131 H (75-99) mg/dL Calcium (8.4-10.2) mg/dL Total Protein (6.3-8.2) g/dL Albumin (3.5-5.0) g/dL Assessment and Plan Assessment: Non-ST segment elevation myocardial infarction in a patient found to have severe triple-vessel disease. Status post myocardial revascularization with a REILLY to the diagonal to LAD, ZAFAR to RCA, left radial artery to OM with patch angioplasty. Postoperative day #2. Mechanical ventilation required postoperatively, expected outcome of surgery, successfully extubated. Ischemic cardiomyopathy with impaired ejection fraction between 25 and 30% Recent admission for altered mental status, DKA and respiratory failure requiring intubation mechanical ventilatory support, extubated on 06/17/2020 at [facility] Chronic and ongoing tobacco dependence Insulin-dependent diabetes mellitus History of gastroparesis History of peripheral neuropathy Hypertension Hyperlipidemia Anxiety/depression Occasional marijuana use Family history of coronary artery disease Plan: The patient was seen and evaluated by Dr. Jason Chest x-ray and labs reviewed Currently stable from the pulmonary standpoint Encourage increased use the incentive spirometer and cough and deep breathing exercises Increase activity as tolerated Educated regarding the importance of complete smoking cessation We will continue to follow and make further recommendations based on his clinical status I, the cosigning physician, performed a history & physical examination of the patient. Lungs sounds with crackles in the bilateral posterior bases. Maintaining good O2 saturations in the 90s on room air. I discussed the assessment and plan of care with my nurse practitioner, Courtney Manuel. I attest to the above note as dictated by her.
--- NOTE | 2020-06-24 08:47 | P.PN ---
Subjective Progress Note Date: 06/24/20 Principal diagnosis: Coronary artery disease status post CABG This is a pleasant 45-year-old gentleman with a history of diabetes who presented with diabetic ketoacidosis and respiratory failure requiring mechanical ventilation. Subsequently had troponin elevation, found to have severe cardiomyopathy and underwent cardiac catheterization. He was found have severe triple vessel coronary artery disease. 06/23/2020 Patient underwent bypass yesterday and has been doing well. He admits to incision pain however denies any angina-type symptoms. He has been able to tolerate a clear diet this morning. Nitroglycerin drip was discontinued. He is on an insulin drip and a Cardizem drip. He does have a [place]-Rex catheter in place. His hemoglobin this morning is 9.1 and white blood cell count is 7.7. Cardiac index is 5. 06/24/2020 Patient notes he is feeling better day by day. Mild sternotomy pain however no chest pressure or angina-type pain. He denies any shortness of breath. Hemoglobin 9.6 this morning with a normal white blood cell count. Remains on an insulin drip. Chest tube remains in place. Telemetry shows normal sinus rhythm. REVIEW OF SYSTEMS At the time of my exam: CONSTITUTIONAL: Denies fever or chills. CARDIOVASCULAR: + Reproducible chest pain from the sternotomy, some mild shortness breath RESPIRATORY: Denies cough. GASTROINTESTINAL: Denies abdominal pain, diarrhea, constipation, nausea or vomiting. MUSCULOSKELETAL: Denies myalgias. NEUROLOGIC: Denies numbness, tingling or weakness. ENDOCRINE: Denies fatigue, weight change, polydipsia or polyurina. GENITOURINARY: Denies burning, hematuria or urgency with micturation. HEMATOLOGIC: Denies history of anemia or bleeding. PHYSICAL EXAMINATION Blood pressure 140/81 heart rate 98 afebrile and maintaining oxygen saturation on nasal cannula. CONSTITUTIONAL: No apparent distress. HEENT: Head is normocephalic. Pupils are equal, round. Sclerae anicteric. Mucous membranes of the mouth are moist. No JVD. No carotid bruit. CHEST EXAMINATION: Lungs are clear to auscultation. No chest wall tenderness is noted on palpation or with deep breathing. HEART EXAMINATION: Regular rate and rhythm. S1, S2 heard. No murmurs, gallops or rub. ABDOMEN: Soft, nontender. Positive bowel sounds. EXTREMITIES: 2+ peripheral pulses, no lower extremity edema and no calf tenderness. NEUROLOGIC EXAMINATION: Patient is awake, alert and oriented x3. ASSESSMENT 1. Non-STEMI with triple-vessel disease, status post CABG on 06/22/2020 with REILLY to diagonal to LAD, ZAFAR to RCA and right radial artery to OM. 2. Ischemic cardiomyopathy with ejection fraction 25-30%. 3. Diabetes mellitus with recent DKA 4. Tobacco abuse 5. History of gastroparesis 6. Essential hypertension 7. hyperlipidemia PLAN Continue supportive care. Patient on aspirin, Lipitor, Plavix (given recent NSTEMI) and Lopressor 12.5 mg twice a day. He did have a cough with lisinopril and losartan was added for his cardiomyopathy. Continue to monitor volume status and continue with supportive care. Objective - Vital Signs Vital signs: Vital Signs Temp 97.2 F L 06/24/20 08:00 Pulse 93 06/24/20 08:00 Resp 14 06/24/20 08:00 BP 139/83 06/24/20 08:00 Pulse Ox 98 06/24/20 08:00 Intake & Output 06/23/20 06/24/20 06/24/20 18:59 06:59 18:59 Intake Total 772.526 322.060 28.597 Output Total 580 515 45 Balance 192.526 -192.940 -16.403 Weight 75.6 kg 76.7 kg Intake: IV 702.5 291 23 Albumin Human 5% 250 ml 250 In Empty Bag 1 bag @ 250 mls/hr IVPB Q1HR PRN Rx#: [id number] CO/CI 20 Diltiazem 125 mg In 30 Sodium Chloride 0.9% 100 ml @ 5 MG/HR 5 mls/hr IV .Q24H MORE Rx#:[id number] Nitroglycerin-D5w Pmx 50 1.5 mg In Dextrose/Water 1 250ml.bag @ 5 MCG/MIN 1.5 mls/hr IV .Q24H MORE Rx#: [id number] Pressure bags 81 51 3 Sodium Chloride 0.9% 1, 270 240 20 000 ml @ 20 mls/hr IV . Q24H MORE Rx#:[id number] ceFAZolin 2 gm In Sodium 50 Chloride 0.9% 50 ml @ 100 mls/hr IVPB Q8HR MORE Rx# :[id number] Intake, IV Titration 70.026 31.060 5.597 Amount Insulin Regular 100 unit 70.026 31.060 5.597 In Sodium Chloride 0.9% 100 ml @ Per Protocol IV .Q0M [facility] Rx#:[id number] Output: Chest Tube Drainage 130 80 Chest Tube Bilateral 60 40 Chest Tube Mediastinal 70 40 Drainage 30 Bilateral Lateral Chest 10 Medial Chest 20 Urine 420 435 45 Other: Voiding Method Indwelling Catheter Indwelling Catheter ABP, PAP, CO, CI - Last Documented Arterial Blood Pressure 140/69 Pulmonary Artery Pressure 19/ Cardiac Output 5.1 Cardiac Index 2.7 - Labs CBC & Chem 7: 06/24/20 04:35 06/24/20 04:35 Labs: Abnormal Lab Results - Last 24 Hours (Table) 06/23/20 06/23/20 06/23/20 Range/Units 09:11 09:35 11:05 RBC (4.30-5.90) m/uL Hgb (13.0-17.5) gm/dL Hct (39.0-53.0) % Sodium (137-145) mmol/L BUN (9-20) mg/dL Glucose (74-99) mg/dL POC Glucose (mg/dL) 160 H 127 H 58 L (75-99) mg/dL Calcium (8.4-10.2) mg/dL Total Protein (6.3-8.2) g/dL Albumin (3.5-5.0) g/dL 06/23/20 06/23/20 06/23/20 Range/Units 11:25 11:28 11:47 RBC (4.30-5.90) m/uL Hgb (13.0-17.5) gm/dL Hct (39.0-53.0) % Sodium (137-145) mmol/L BUN (9-20) mg/dL Glucose (74-99) mg/dL POC Glucose (mg/dL) 53 L 61 L 106 H (75-99) mg/dL Calcium (8.4-10.2) mg/dL Total Protein (6.3-8.2) g/dL Albumin (3.5-5.0) g/dL 06/23/20 06/23/20 06/23/20 Range/Units 12:26 12:58 13:28 RBC (4.30-5.90) m/uL Hgb (13.0-17.5) gm/dL Hct (39.0-53.0) % Sodium (137-145) mmol/L BUN (9-20) mg/dL Glucose (74-99) mg/dL POC Glucose (mg/dL) 131 H 122 H 107 H (75-99) mg/dL Calcium (8.4-10.2) mg/dL Total Protein (6.3-8.2) g/dL Albumin (3.5-5.0) g/dL 06/23/20 06/23/20 06/23/20 Range/Units 13:58 14:41 15:04 RBC (4.30-5.90) m/uL Hgb (13.0-17.5) gm/dL Hct (39.0-53.0) % Sodium (137-145) mmol/L BUN (9-20) mg/dL Glucose (74-99) mg/dL POC Glucose (mg/dL) 162 H 131 H 101 H (75-99) mg/dL Calcium (8.4-10.2) mg/dL Total Protein (6.3-8.2) g/dL Albumin (3.5-5.0) g/dL 06/23/20 06/23/20 06/23/20 Range/Units 16:56 18:00 19:37 RBC (4.30-5.90) m/uL Hgb (13.0-17.5) gm/dL Hct (39.0-53.0) % Sodium (137-145) mmol/L BUN (9-20) mg/dL Glucose (74-99) mg/dL POC Glucose (mg/dL) 114 H 135 H 226 H (75-99) mg/dL Calcium (8.4-10.2) mg/dL Total Protein (6.3-8.2) g/dL Albumin (3.5-5.0) g/dL 06/23/20 06/23/20 06/23/20 Range/Units 20:00 20:35 21:05 RBC (4.30-5.90) m/uL Hgb (13.0-17.5) gm/dL Hct (39.0-53.0) % Sodium (137-145) mmol/L BUN (9-20) mg/dL Glucose (74-99) mg/dL POC Glucose (mg/dL) 224 H 214 H 196 H (75-99) mg/dL Calcium (8.4-10.2) mg/dL Total Protein (6.3-8.2) g/dL Albumin (3.5-5.0) g/dL 06/23/20 06/23/20 06/23/20 Range/Units 21:41 22:15 22:49 RBC (4.30-5.90) m/uL Hgb (13.0-17.5) gm/dL Hct (39.0-53.0) % Sodium (137-145) mmol/L BUN (9-20) mg/dL Glucose (74-99) mg/dL POC Glucose (mg/dL) 168 H 153 H 140 H (75-99) mg/dL Calcium (8.4-10.2) mg/dL Total Protein (6.3-8.2) g/dL Albumin (3.5-5.0) g/dL 06/23/20 06/23/20 06/24/20 Range/Units 23:06 23:31 00:14 RBC (4.30-5.90) m/uL Hgb (13.0-17.5) gm/dL Hct (39.0-53.0) % Sodium (137-145) mmol/L BUN (9-20) mg/dL Glucose (74-99) mg/dL POC Glucose (mg/dL) 138 H 131 H 119 H (75-99) mg/dL Calcium (8.4-10.2) mg/dL Total Protein (6.3-8.2) g/dL Albumin (3.5-5.0) g/dL 06/24/20 06/24/20 06/24/20 Range/Units 02:28 03:06 04:03 RBC (4.30-5.90) m/uL Hgb (13.0-17.5) gm/dL Hct (39.0-53.0) % Sodium (137-145) mmol/L BUN (9-20) mg/dL Glucose (74-99) mg/dL POC Glucose (mg/dL) 117 H 133 H 122 H (75-99) mg/dL Calcium (8.4-10.2) mg/dL Total Protein (6.3-8.2) g/dL Albumin (3.5-5.0) g/dL 06/24/20 06/24/20 06/24/20 Range/Units 04:35 04:35 04:52 RBC 3.29 L (4.30-5.90) m/uL Hgb 9.6 L (13.0-17.5) gm/dL Hct 29.6 L (39.0-53.0) % Sodium 132 L (137-145) mmol/L BUN 22 H (9-20) mg/dL Glucose 102 H (74-99) mg/dL POC Glucose (mg/dL) 105 H (75-99) mg/dL Calcium 8.2 L (8.4-10.2) mg/dL Total Protein 4.7 L (6.3-8.2) g/dL Albumin 2.9 L (3.5-5.0) g/dL 06/24/20 06/24/20 06/24/20 Range/Units 06:09 06:34 07:01 RBC (4.30-5.90) m/uL Hgb (13.0-17.5) gm/dL Hct (39.0-53.0) % Sodium (137-145) mmol/L BUN (9-20) mg/dL Glucose (74-99) mg/dL POC Glucose (mg/dL) 141 H 166 H 163 H (75-99) mg/dL Calcium (8.4-10.2) mg/dL Total Protein (6.3-8.2) g/dL Albumin (3.5-5.0) g/dL 06/24/20 Range/Units 07:52 RBC (4.30-5.90) m/uL Hgb (13.0-17.5) gm/dL Hct (39.0-53.0) % Sodium (137-145) mmol/L BUN (9-20) mg/dL Glucose (74-99) mg/dL POC Glucose (mg/dL) 131 H (75-99) mg/dL Calcium (8.4-10.2) mg/dL Total Protein (6.3-8.2) g/dL Albumin (3.5-5.0) g/dL
[2020-06-24] MEDS ORDERED: METOPROLOL TARTRATE 25 MG TAB PO SCH (09:00)
[2020-06-24 09:11] LABS: Glucose,Whole Blood 180 mg/dL (75-99)
[2020-06-24] MEDS ORDERED: METOPROLOL TARTRATE 25 MG TAB PO STA (09:20)
--- NOTE | 2020-06-24 09:34 | P.OP ---
Date of Procedure: 06/22/20 Preoperative Diagnosis: Coronary artery disease, status post AK/cardiac arrest Postoperative Diagnosis: Same Procedure(s) Performed: Off-pump CABG 4 with sequential REILLY to diagonal and LAD, right radial artery graft to obtuse marginal with patch angioplasty, right internal mammary artery graft to RCA, endovascular harvest of the right radial artery Anesthesia: IRAJ Surgeon: Noe Crabtree [employer] #1: Smooth Russell [employer] #2: Tristin Avery Estimated Blood Loss (ml): 200 IV fluids (ml): 2,000 Urine output (ml): 800 Pathology: none sent Condition: stable Disposition: ICU Indications for Procedure: 45-year-old male who suffered cardiac arrest at home was brought to [facility] and resuscitated. He pent some time on the ventilator, echocardiogram demonstrated ejection fraction of 20% with global hypokinesia. Cardiac catheterization was performed and demonstrated severe three-vessel coronary artery disease with heavy calcification of the coronary arteries. He was transferred to [facility] for consideration for bypass surgery. Preoperative testing ensued. Patient is a brittle diabetic and his glucoses were managed by medicine. Radial artery mapping demonstrated a small left radial but good right radial artery. Surgery was then planned. At this point the patient was ambulatory on his own and appeared ready for surgery. Operative Findings: Shortly after starting the operation, blood gas demonstrated severe acidosis with pH of 7.13 and bicarb of 13. Blood glucoses were over 400. There was diffuse and severe coronary artery disease with heavy calcification of the [place] coronary arteries. Good targets were available in the diagonal LAD and right coronary artery. Major marginal branch was diffusely diseased and calcified. It bifurcated fairly distally beyond which there were 2 small branches which were relatively disease-free. It was decided to bypass from the main portion of the major marginal through the heavy calcium at the bifurcation and into the larger of the 2 small distal branches. Description of Procedure: The patient was brought to the operating room, anesthetized and intubated. T probe was placed. The anterior torso and bilateral lower extremities and right upper extremity were sterilely prepped and draped. We began with harvest of the right radial artery. Was at this time that the blood gas revealed the severe acid doses secondary to diabetic ketoacidosis and aggressive treatment of this was instituted. The patient received several amps of bicarb as well as aggressive insulin drip. Within the first hour we had the acidosis resolved and by the time we left the OR her blood glucoses were around 200. Midline sternotomy was performed in the right hemisternum retracted upwards. The right internal mammary artery was harvested on a vascularized pedicle left intact on its origin from the subclavian and divided distally. It had a relatively high bifurcation. The right pleural space was drained with a 32- Omani chest tube. At this point the radial artery had been harvested and the arm incision had been closed. Endovascular harvest had been performed. The radial artery was being prepared on the back table. CORINNE retractor was taken down from the right side and the arm was tucked at the side. CORINNE retractor was replaced on the left side and the left internal mammary artery was exposed and harvested on a vascularized pedicle, left intact on its origin from the subclavian and divided distally. It was an excellent conduit. The left pleural space was drained with a 32-Omani chest tube. Sternal retractor was placed in the pericardium was opened in the midline. The heart was exposed with pericardial sutures. Patient was systemically heparinized and ACTs maintained greater than 250 during grafting. The right internal mammary artery was tunneled into the pericardial space and brought to the distal right coronary artery beyond the acute margin. Here the right coronary artery had a soft spot about half way down toward the takeoff of the PDA. It was opened here and blood flow control with a 1.5 mm flow through. It was a 2 mm vessel. End-to-side anastomosis between the right internal mammary artery and the right coronary artery was performed with running 8-0 Prolene suture. On completion anastomosis flow through was removed effectively probing the proximal distal portion anastomosis. Inflow was opened and the CORINNE was noted to lay well. The CORINNE pedicle was tacked surrounding epicardium with 60 silks. The REILLY was tunneled into the pericardial space on the left side. We set up for sequential graft of the REILLY to the diagonal and the LAD. The diagonal was stabilized. It was 1.5 mm vessel and was opened fairly proximally. Blood flow was controlled with a 1.5 mm flow through. Hmoi-ru-bbzh anastomosis between the REILLY and the diagonal was performed with running 8-0 Prolene suture. Completion the anastomosis we did not have good flow at the end of the REILLY. The anastomosis was taken down and redone. In doing so we enlarged the diagonal arteriotomy as well as the arteriotomy on the REILLY. Again the anastomosis was performed with running 8-0 Prolene suture. Completion anastomosis the flow through was removed effectively probing the proximal distal portion anastomosis. At this time the anastomosis was noted to be hemostatic. There was excellent pulsatile flow at the end of the REILLY. The graft lay well and was tacked surrounding epicardium with 6-0 silk. There was no evidence of kinking. We now stabilize the LAD in its midportion. Was opened and was a 2 mm vessel. Blood flow was controlled with a 2 mm flow through. End to side anastomosis between the REILLY and the LAD was performed with running Prolene suture. On completion anastomosis the flow through was removed effectively probing the proximal distal portion anastomosis. Suture was tied with good result and hemostasis. Inflow was opened and the graft was noted to lay well with no kinking. Both fluids filled well. CORINNE pedicle was tacked surrounding epicardium with 6-0 silk. We now exposed the lateral wall stabilize the major marginal branch exposing it. It was a heavily calcified vessel and had a large calcium burden at its bifurcation distally. We opened and a soft spot in the distal portion of the major marginal branch prior to the bifurcation but could not advance a probe distally. This point we cut through the calcified lesion into the larger of the 2 branches distally and found a soft area. We now performed a large patch angioplasty using the right radial artery over this area. Blood flow was controlled with a 1.5 mm flow through distally and a 2 mm low through proximally. On completion of the anastomosis the flow through was removed effectively probing the proximal distal portion of the anastomosis. Suture was tied with good result and hemostasis and good backbleeding was noted in the radial artery. Heart was lowered in anatomic position and the radial artery was brought beneath the REILLY on up to the ascending aorta. Blood pressure was controlled by anesthesia and a partial occlusion clamp placed on the ascending aorta. A 4 mm punch hole was created in the ascending aorta and proximal anastomosis of the radial artery off the aorta was performed with running 6-0 Prolene suture. On completion anastomosis was de-aired by backbleeding suture was tied with good result and hemostasis and the partial occlusion clamp was removed establishing inflow to the graft. Good pulsatile flow was noted. Good hemostasis was noted distally. This point heparin was reversed with protamine and good hemostasis obtained throughout. Chest was irrigated with antibiotic solution. Mediastinum was drained with 36- Omani chest tube. Pericardium was tacked closed anteriorly and the sternum closed with 8 sternal wires. Fascia was closed with 0 Ethibond. Subcutaneous and subcuticular layers were closed with layers of Vicryl suture. Dry sterile dressings were applied and patient was brought to ICU in stable hemodynamic condition on no inotropic support having received no blood products. His acidosis and glucose were controlled at this point.
[2020-06-24 10:29] LABS: Glucose,Whole Blood 233 mg/dL (75-99)
[2020-06-24 11:36] LABS: Glucose,Whole Blood 206 mg/dL (75-99)
[2020-06-24] MEDS ORDERED: LOSARTAN 25 MG TAB PO SCH (12:00)
[2020-06-24] MEDS: INSULIN ASPART (NovoLOG) 100 UNIT/ML VIAL SQ SCH ×5 (12:07→20:39)
[2020-06-24] MEDS: LOSARTAN 25 MG TAB PO SCH (12:09)
--- NOTE | 2020-06-24 14:53 | PN ---
PROGRESS NOTE DATE OF SERVICE: 06/24/2020 CHIEF COMPLAINT: Status post CABG. HISTORY OF PRESENT ILLNESS: This gentleman is doing well, he is sitting up and eating and has no complaints of headache, chest pain, shortness of breath, etc. PHYSICAL EXAMINATION: Vital signs are normal. He does have sinus tachycardia. Chest is clear and cardiac exam is unremarkable with sinus rhythm. Extremities: Normal. IMPRESSION: 1. Status post coronary artery bypass grafting. 2. Status post NSTEMI. 3. Insulin-dependent diabetes mellitus. PLAN: Continue to follow with Cardiac surgery and Cardiology. He is doing well and will probably leave the unit soon. MMODL / IJN: [id number] /
[2020-06-24 17:02] LABS: Glucose,Whole Blood 49 mg/dL (75-99)
[2020-06-24 17:03] LABS: Glucose,Whole Blood 46 mg/dL (75-99)
[2020-06-24 17:06] LABS: Glucose,Whole Blood 50 mg/dL (75-99)
[2020-06-24 17:22] LABS: Glucose,Whole Blood 41 mg/dL (75-99)
[2020-06-24] MEDS ORDERED: DEXTROSE 50% SYRINGE 50 ML IVP ONE (17:22)
[2020-06-24 17:38] LABS: Glucose,Whole Blood 112 mg/dL (75-99)
[2020-06-24] MEDS: DILTIAZEM CD 120 MG CAP.ER.24H PO SCH (18:06)
[2020-06-24 20:29] LABS: Glucose,Whole Blood 266 mg/dL (75-99)
[2020-06-24] MEDS: METOPROLOL TARTRATE 50 MG TAB PO SCH (20:40)
[2020-06-24] MEDS: SENNOSIDES-DOCUSATE SODIUM 1 EACH TAB PO SCH (20:40)
[2020-06-24] MEDS ORDERED: INSULIN DETEMIR (LEVEMIR) 100 UNIT/ML SYR SQ SCH (21:00)
[2020-06-24] MEDS: AMITRIPTYLINE HCL 10 MG TAB PO SCH (21:11)
[2020-06-25] MEDS: KETOROLAC 15 MG/ML 1 ML VIAL IVP SCH ×3 (00:05→11:03)
[2020-06-25] MEDS: HEPARIN SODIUM,PORCINE 5,000 UNIT/ML 1 ML VIAL SQ SCH ×3 (00:05→17:32)
[2020-06-25 00:13] LABS: Glucose,Whole Blood 300 mg/dL (75-99)
[2020-06-25] MEDS ORDERED: INSULIN ASPART (NovoLOG) 100 UNIT/ML VIAL SQ ONE ×2 (00:29→10:03)
[2020-06-25 02:07] LABS: Glucose,Whole Blood 151 mg/dL (75-99)
[2020-06-25 05:08] LABS: HCT 31.2 % (39.0-53.0); HGB 10.3 gm/dL (13.0-17.5); MCH 29.4 pg (25.0-35.0); MCV 89.1 fL (80.0-100.0); Mean Platelet Volume 7.5; Platelet Count 282 k/uL (150-450); RDW 13.4 % (11.5-15.5)
[2020-06-25 05:16] LABS: African American GFR (CKD) >90 (>60 ml/min/1.73 sqM); Anion Gap 3 mmol/L; Blood Urea Nitrogen 22 mg/dL (9-20); Calcium 8.3 mg/dL (8.4-10.2); Carbon Dioxide 26 mmol/L (22-30); Chloride 102 mmol/L (98-107); Non-African American GFR(CKD) >90 (>60 ml/min/1.73 sqM); Potassium 3.7 mmol/L (3.5-5.1); Sodium 131 mmol/L (137-145)
[2020-06-25 05:23] LABS: Glucose 34 mg/dL (74-99)
[2020-06-25 05:37] LABS: Glucose,Whole Blood 29 mg/dL (75-99)
[2020-06-25 05:52] LABS: Glucose,Whole Blood 46 mg/dL (75-99)
[2020-06-25 06:07] LABS: Glucose,Whole Blood 61 mg/dL (75-99)
[2020-06-25 06:25] LABS: Glucose,Whole Blood 75 mg/dL (75-99)
[2020-06-25] MEDS: PANTOPRAZOLE 40 MG TABLET PO SCH (06:28)
[2020-06-25 07:14] LABS: Glucose,Whole Blood 138 mg/dL (75-99)
[2020-06-25] MEDS: INSULIN ASPART (NovoLOG) 100 UNIT/ML VIAL SQ SCH ×7 (07:31→20:24)
--- NOTE | 2020-06-25 07:55 | XR ---
EXAMINATION TYPE: XR chest 2V DATE OF EXAM: 06/25/2020 COMPARISON: June 24, 2020 HISTORY: Chest pain TECHNIQUE: Frontal and lateral views of the chest are obtained. FINDINGS: Bilateral chest tubes have been removed without evidence for sizable pneumothorax. Persistent left ba silar atelectasis or infiltrate. Improved aeration left midlung zone and right medial lung base. No pleural effusion. The cardiac silhouette size is within normal limits. The osseous structures are grossly intact. IMPRESSION: 1. Bilateral chest tubes have been removed without evidence for sizable pneumothorax. Persistent lef t basilar atelectasis or infiltrate. Improved aeration left midlung zone and right medial lung base.
[2020-06-25] MEDS ORDERED: POTASSIUM BICARBONATE/CIT AC 20 MEQ TABLET.EFF NG-TUBE SCH (08:00)
--- NOTE | 2020-06-25 08:17 | P.PN ---
Subjective Progress Note Date: 06/25/20 Principal diagnosis: Coronary artery disease status post CABG This is a pleasant 45-year-old gentleman with a history of diabetes who presented with diabetic ketoacidosis and respiratory failure requiring mechanical ventilation. Subsequently had troponin elevation, found to have severe cardiomyopathy and underwent cardiac catheterization. He was found have severe triple vessel coronary artery disease. 06/23/2020 Patient underwent bypass yesterday and has been doing well. He admits to incision pain however denies any angina-type symptoms. He has been able to tolerate a clear diet this morning. Nitroglycerin drip was discontinued. He is on an insulin drip and a Cardizem drip. He does have a [employer] catheter in place. His hemoglobin this morning is 9.1 and white blood cell count is 7.7. Cardiac index is 5. 06/24/2020 Patient notes he is feeling better day by day. Mild sternotomy pain however no chest pressure or angina-type pain. He denies any shortness of breath. Hemoglobin 9.6 this morning with a normal white blood cell count. Remains on an insulin drip. Chest tube remains in place. Telemetry shows normal sinus rhythm. 06/25/2020 Patient seen and examined. He denies any chest pain or pressure. He admits to having a hypoglycemic episode this morning however this is improved. He had his chest tubes pulled and his art line pulled. Denies any shortness breath. REVIEW OF SYSTEMS At the time of my exam: CONSTITUTIONAL: Denies fever or chills. CARDIOVASCULAR: + Reproducible chest pain from the sternotomy, some mild shortness breath RESPIRATORY: Denies cough. GASTROINTESTINAL: Denies abdominal pain, diarrhea, constipation, nausea or v omiting. MUSCULOSKELETAL: Denies myalgias. NEUROLOGIC: Denies numbness, tingling or weakness. ENDOCRINE: Denies fatigue, weight change, polydipsia or polyurina. GENITOURINARY: Denies burning, hematuria or urgency with micturation. HEMATOLOGIC: Denies history of anemia or bleeding. PHYSICAL EXAMINATION Blood pressure 140/81 heart rate 98 afebrile and maintaining oxygen saturation on nasal cannula. CONSTITUTIONAL: No apparent distress. HEENT: Head is normocephalic. Pupils are equal, round. Sclerae anicteric. Mucous membranes of the mouth are moist. No JVD. No carotid bruit. CHEST EXAMINATION: Lungs are clear to auscultation. No chest wall tenderness is noted on palpation or with deep breathing. HEART EXAMINATION: Regular rate and rhythm. S1, S2 heard. No murmurs, gallops or rub. ABDOMEN: Soft, nontender. Positive bowel sounds. EXTREMITIES: 2+ peripheral pulses, no lower extremity edema and no calf tenderness. NEUROLOGIC EXAMINATION: Patient is awake, alert and oriented x3. ASSESSMENT 1. Non-STEMI with triple-vessel disease, status post CABG on 06/22/2020 with REILLY to diagonal to LAD, ZAFAR to RCA and right radial artery to OM. 2. Ischemic cardiomyopathy with ejection fraction 25-30%. 3. Diabetes mellitus with recent DKA 4. Tobacco abuse 5. History of gastroparesis 6. Essential hypertension 7. hyperlipidemia PLAN Continue supportive care. Patient on aspirin, Lipitor, Plavix (given recent NSTEMI) and Lopressor 12.5 mg twice a day. He did have a cough with lisinopril and losartan was added for his cardiomyopathy. Patient appears euvolemic however his sodium has been decreasing concerning for beginnings of fluid accumulation. We will continue to monitor and may add low-dose dose Lasix if signs of volume overload. Objective - Vital Signs Vital signs: Vital Signs Temp 98.4 F 06/25/20 04:00 Pulse 87 06/25/20 04:00 Resp 14 06/25/20 04:00 BP 115/78 06/25/20 04:00 Pulse Ox 96 06/25/20 04:00 Intake & Output 06/24/20 06/25/20 06/25/20 18:59 06:59 18:59 Intake Total 122.617 200 Output Total 60 650 Balance 62.617 -450 Weight 77.5 kg Intake: IV 115 Pressure bags 15 Sodium Chloride 0.9% 1, 100 000 ml @ 20 mls/hr IV . Q24H MORE Rx#:[id number] Intake, IV Titration 7.617 Amount Insulin Regular 100 unit 7.617 In Sodium Chloride 0.9% 100 ml @ Per Protocol IV .Q0M MORE Rx#:[id number] Oral 200 Output: Chest Tube Drainage 15 Chest Tube Bilateral 15 Urine 45 650 Other: Voiding Method Indwelling Catheter ABP, PAP, CO, CI - Last Documented Arterial Blood Pressure 121/66 Pulmonary Artery Pressure 19/5 Cardiac Output 5.1 Cardiac Index 2.7 - Labs CBC & Chem 7: 06/25/20 04:43 06/25/20 04:43 Labs: Abnormal Lab Results - Last 24 Hours (Table) 06/24/20 06/24/20 06/24/20 Range/Units 09:09 10:28 11:34 RBC (4.30-5.90) m/uL Hgb (13.0-17.5) gm/dL Hct (39.0-53.0) % Sodium (137-145) mmol/L BUN (9-20) mg/dL Glucose (74-99) mg/dL POC Glucose (mg/dL) 180 H 233 H 206 H (75-99) mg/dL Calcium (8.4-10.2) mg/dL 06/24/20 06/24/20 06/24/20 Range/Units 17:00 17:02 17:04 RBC (4.30-5.90) m/uL Hgb (13.0-17.5) gm/dL Hct (39.0-53.0) % Sodium (137-145) mmol/L BUN (9-20) mg/dL Glucose (74-99) mg/dL POC Glucose (mg/dL) 49 L 46 L 50 L (75-99) mg/dL Calcium (8.4-10.2) mg/dL 06/24/20 06/24/20 06/24/20 Range/Units 17:20 17:37 20:28 RBC (4.30-5.90) m/uL Hgb (13.0-17.5) gm/dL Hct (39.0-53.0) % Sodium (137-145) mmol/L BUN (9-20) mg/dL Glucose (74-99) mg/dL POC Glucose (mg/dL) 41 L 112 H 266 H (75-99) mg/dL Calcium (8.4-10.2) mg/dL 06/25/20 06/25/20 06/25/20 Range/Units 00:12 02:05 04:43 RBC 3.50 L (4.30-5.90) m/uL Hgb 10.3 L (13.0-17.5) gm/dL Hct 31.2 L (39.0-53.0) % Sodium (137-145) mmol/L BUN (9-20) mg/dL Glucose (74-99) mg/dL POC Glucose (mg/dL) 300 H 151 H (75-99) mg/dL Calcium (8.4-10.2) mg/dL 06/25/20 06/25/20 06/25/20 Range/Units 04:43 05:35 05:51 RBC (4.30-5.90) m/uL Hgb (13.0-17.5) gm/dL Hct (39.0-53.0) % Sodium 131 L (137-145) mmol/L BUN 22 H (9-20) mg/dL Glucose 34 L* (74-99) mg/dL POC Glucose (mg/dL) 29 L 46 L (75-99) mg/dL Calcium 8.3 L (8.4-10.2) mg/dL 06/25/20 06/25/20 Range/Units 06:06 07:08 RBC (4.30-5.90) m/uL Hgb (13.0-17.5) gm/dL Hct (39.0-53.0) % Sodium (137-145) mmol/L BUN (9-20) mg/dL Glucose (74-99) mg/dL POC Glucose (mg/dL) 61 L 138 H (75-99) mg/dL Calcium (8.4-10.2) mg/dL
[2020-06-25] MEDS: IPRATROPIUM-ALBUTEROL 3 ML NEB INHALATION SCH ×4 (08:25→19:53)
[2020-06-25] MEDS: METOPROLOL TARTRATE 50 MG TAB PO SCH (08:35)
[2020-06-25] MEDS: ATORVASTATIN 40 MG TAB PO SCH (08:35)
[2020-06-25] MEDS: CLOPIDOGREL 75 MG TAB PO SCH (08:35)
[2020-06-25] MEDS: ASPIRIN 325 MG TAB PO SCH (08:35)
[2020-06-25] MEDS: Cariprazine Hcl [Vraylar] 1.5 MG PO SCH (08:37)
[2020-06-25] MEDS: DILTIAZEM CD 120 MG CAP.ER.24H PO SCH (08:38)
--- NOTE | 2020-06-25 08:46 | P.PN ---
Subjective Progress Note Date: 06/25/20 Principal diagnosis: Coronary artery disease, non-ST segment elevation myocardial infarction This a very pleasant 45-year-old gentleman who follows with Dr. Fam as his primary care provider. He has a history of diabetes mellitus, gastroparesis, diabetic peripheral neuropathy, hypertension, hyperlipidemia, marijuana use, chronic tobacco dependence. He was recently admitted to [facility] after being found to have altered mental status with unresponsiveness at home. At that time his blood glucose was greater than 1100. He was treated for diabetic ketoacidosis. He had developed impending respiratory failure requiring intubation mechanical ventilatory support subsequently extubated on 06/17/2020. He was found to be a non STEMI and had undergone cardiac catheterization which revealed significant triple-vessel coronary artery disease. He was transferred here for revascularization. The plan is for surgery on 06/22/2020. He is seen today in consultation on the selective care unit. He is currently sitting up in bed. Awake and alert in no acute distress. Alert and oriented 3. No chest pain or palpitations. No worsening shortness of breath, cough or congestion. Chest x-ray reveals no acute pulmonary process. He is working well with his incentive spirometer pulling approximately 2500 ML's. FEV1 value pending. White count 9.0. Hemoglobin 12.8. Troponin 0.7-9. He remains on heparin drip. The patient is seen today 06/20/2020 in follow-up on the selective care unit. He is currently sitting up in bed. Awake and alert in no acute distress. No shortness of breath, cough or congestion. No chest pain or palpitations. Maintaining good O2 saturation up to 100% on room air. Afebrile. Hemodynamically stable. White count 7.7. Hemoglobin 12.5. Sodium 137. Potassium 3.5. Creatinine 0.68. He remains on heparin drip. Practicing well with the incentive spirometer. The patient is seen today 06/23/2020 in follow-up in the intensive care unit. He is now postoperative day #1 of a four-vessel coronary artery bypass surgery off pump by Dr. Crabtree. He was successfully extubated. He is currently awake and alert in no acute distress. He is maintaining O2 saturation in the 90s on 2 L/m per nasal cannula. At the 0.9 normal saline at 50 MLS per hour. Cardizem drip at 5 mg per hour. Insulin drip at 12 units per hour. Nitroglycerin drip is now off. Chest x-ray reveals improving right-sided subcutaneous emphysema. Persistent bilateral chest tubes without pneumothorax. Stable lateral left midlung linear atelectasis. Developing left basilar acute atelectasis/infiltrates noted. Improvement and central vascular congestion present. White count 7.7. Hemoglobin 9.1. Platelets 199. Sodium 135. Potassium 3.9. Creatinine 0.78. He is doing quite well. He's been up ambulating. He's been up in a chair. Plan is for Crockett-Rex catheter be removed today. The patient is seen today 06/24/2020 in follow-up in the intensive care unit. His postoperative day #2 of four-vessel coronary artery bypass grafting. He is currently sitting up in a chair at the bedside. Awake and alert in no acute distress. Denies any worsening shortness of breath, cough or congestion. He is maintaining good O2 saturations in the 90s on room air. Chest x-ray reveals some patchy atelectasis in the bases. He is working well with the incentive spirometer. Pulling approximately 1500 ML's this morning. He remains afebrile. Hemodynamically stable. White count 8.5. Hemoglobin 9.6. Sodium 132. Potassium 4.1. Creatinine 0.73. Glucose 131. He remains on bronchodilators. Pain is well controlled. The patient is seen today 06/25/2020 in follow-up in the intensive care unit. Postoperative day #3. He is awake and alert in no acute distress. He's been up in the shower. No shortness of breath, cough or congestion. He is working well with the incentive spirometer pulling approximately 1500 ML's. Chest x-ray shows no significant pleural effusions. He is on room air. He did have some issues with hypoglycemia last night. His insulin dose is being adjusted per medicine. White count 9.0. Hemoglobin 10.3. Sodium 131. Potassium 3.7. Creatinine 0.66. Glucose 138. Follow-up echocardiogram pending. Plan is for possible discharge today. Objective - Vital Signs Vital signs: Vital Signs Temp 98.4 F 06/25/20 04:00 Pulse 96 06/25/20 08:38 Resp 14 06/25/20 04:00 BP 115/78 06/25/20 04:00 Pulse Ox 96 06/25/20 04:00 Intake & Output 06/24/20 06/25/20 06/25/20 18:59 06:59 18:59 Intake Total 122.617 200 Output Total 60 650 Balance 62.617 -450 Weight 77.5 kg Intake: IV 115 Pressure bags 15 Sodium Chloride 0.9% 1, 100 000 ml @ 20 mls/hr IV . Q24H MORE Rx#:[id number] Intake, IV Titration 7.617 Amount Insulin Regular 100 unit 7.617 In Sodium Chloride 0.9% 100 ml @ Per Protocol IV .Q0M MORE Rx#:[id number] Oral 200 Output: Chest Tube Drainage 15 Chest Tube Bilateral 15 Urine 45 650 Other: Voiding Method Indwelling Catheter ABP, PAP, CO, CI - Last Documented Arterial Blood Pressure 121/66 Pulmonary Artery Pressure 19/5 Cardiac Output 5.1 Cardiac Index 2.7 - Exam GENERAL EXAM: Alert, pleasant 45-year-old gentleman, on room air, comfortable in no apparent distress. HEAD: Normocephalic. EYES: Normal reaction of pupils, equal size. NOSE: Clear with pink turbinates. THROAT: No erythema or exudates. NECK: No masses, no JVD. CHEST: Heart hugger in place. Sternal dressing dry and intact. Sternum stable. LUNGS: Equal air entry with faint crackles in the bilateral posterior bases. Diminished. CVS: S1 and S2 normal with no audible murmur, regular rhythm. ABDOMEN: No hepatosplenomegaly, normal bowel sounds, no guarding or rigidity. SPINE: No scoliosis or deformity SKIN: No rashes CENTRAL NERVOUS SYSTEM: No focal deficits, tone is normal in all 4 extremities. EXTREMITIES: There is trace peripheral edema. No clubbing, no cyanosis. Peripheral pulses are intact. - Labs CBC & Chem 7: 06/25/20 04:43 06/25/20 04:43 Labs: Abnormal Lab Results - Last 24 Hours (Table) 06/24/20 06/24/20 06/24/20 Range/Units 09:09 10:28 11:34 RBC (4.30-5.90) m/uL Hgb (13.0-17.5) gm/dL Hct (39.0-53.0) % Sodium (137-145) mmol/L BUN (9-20) mg/dL Glucose (74-99) mg/dL POC Glucose (mg/dL) 180 H 233 H 206 H (75-99) mg/dL Calcium (8.4-10.2) mg/dL 06/24/20 06/24/20 06/24/20 Range/Units 17:00 17:02 17:04 RBC (4.30-5.90) m/uL Hgb (13.0-17.5) gm/dL Hct (39.0-53.0) % Sodium (137-145) mmol/L BUN (9-20) mg/dL Glucose (74-99) mg/dL POC Glucose (mg/dL) 49 L 46 L 50 L (75-99) mg/dL Calcium (8.4-10.2) mg/dL 06/24/20 06/24/20 06/24/20 Range/Units 17:20 17:37 20:28 RBC (4.30-5.90) m/uL Hgb (13.0-17.5) gm/dL Hct (39.0-53.0) % Sodium (137-145) mmol/L BUN (9-20) mg/dL Glucose (74-99) mg/dL POC Glucose (mg/dL) 41 L 112 H 266 H (75-99) mg/dL Calcium (8.4-10.2) mg/dL 06/25/20 06/25/20 06/25/20 Range/Units 00:12 02:05 04:43 RBC 3.50 L (4.30-5.90) m/uL Hgb 10.3 L (13.0-17.5) gm/dL Hct 31.2 L (39.0-53.0) % Sodium (137-145) mmol/L BUN (9-20) mg/dL Glucose (74-99) mg/dL POC Glucose (mg/dL) 300 H 151 H (75-99) mg/dL Calcium (8.4-10.2) mg/dL 06/25/20 06/25/20 06/25/20 Range/Units 04:43 05:35 05:51 RBC (4.30-5.90) m/uL Hgb (13.0-17.5) gm/dL Hct (39.0-53.0) % Sodium 131 L (137-145) mmol/L BUN 22 H (9-20) mg/dL Glucose 34 L* (74-99) mg/dL POC Glucose (mg/dL) 29 L 46 L (75-99) mg/dL Calcium 8.3 L (8.4-10.2) mg/dL 06/25/20 06/25/20 Range/Units 06:06 07:08 RBC (4.30-5.90) m/uL Hgb (13.0-17.5) gm/dL Hct (39.0-53.0) % Sodium (137-145) mmol/L BUN (9-20) mg/dL Glucose (74-99) mg/dL POC Glucose (mg/dL) 61 L 138 H (75-99) mg/dL Calcium (8.4-10.2) mg/dL Assessment and Plan Assessment: Non-ST segment elevation myocardial infarction in a patient found to have severe triple-vessel disease. Status post myocardial revascularization with a REILLY to the diagonal to LAD, ZAFAR to RCA, left radial artery to OM with patch angioplasty. Postoperative day #3. Mechanical ventilation required postoperatively, expected outcome of surgery, successfully extubated. Ischemic cardiomyopathy with impaired ejection fraction between 25 and 30% Recent admission for altered mental status, DKA and respiratory failure requiring intubation mechanical ventilatory support, extubated on 06/17/2020 at [facility] Chronic and ongoing tobacco dependence Insulin-dependent diabetes mellitus History of gastroparesis History of peripheral neuropathy Hypertension Hyperlipidemia Anxiety/depression Occasional marijuana use Family history of coronary artery disease Plan: The patient was seen and evaluated by Dr. Jason Chest x-ray and labs reviewed Currently stable from the pulmonary standpoint Encourage increased use the incentive spirometer and cough and deep breathing exercises Increase activity as tolerated Educated regarding the importance of complete smoking cessation Follow-up echocardiogram pending, possible LifeVest prior to discharge He will follow-up in our office in 1-2 weeks' time. Repeat a chest x-ray then. I, the cosigning physician, performed a history & physical examination of the patient. Lungs sounds with faint crackles in the bilateral posterior bases. Maintaining good O2 saturations in the 90s on room air. I discussed the assessment and plan of care with my nurse practitioner, Courtney Manuel. I attest to the above note as dictated by her.
[2020-06-25] MEDS ORDERED: METOPROLOL TARTRATE 25 MG TAB PO STA (08:52)
--- NOTE | 2020-06-25 09:05 | P.PN ---
Subjective Progress Note Date: 06/25/20 Principal diagnosis: Multivessel coronary artery disease, non-ST elevated myocardial infarction this admission, ischemic cardiomyopathy with EF 25-30%, preoperative acute hypoxic r espiratory failure requiring mechanical ventilation, diabetic ketoacidosis, acute kidney injury, leukocytosis, gastroparesis. Past medical history significant for hypertension, hyperlipidemia, uncontrolled type 2 diabetes mellitus with hyperglycemia and a preoperative Hgb A1c of 10.5% , chronic jonny oing tobacco dependance, moderate COPD with preoperative FEV1 53% of predicted, peripheral neumopathy, occsional marijuana use, depression/anxiety, and family history of premature coronary artery disease. POD #3 urgent off-pump myocardial revascularization with left internal mammary artery to the left anterior descending coronary artery and diagonal coronary artery, right internal mammary artery to the right coronary artery, right radial artery to the obtuse marginal coronary artery with patch angioplasty, endoscopic right radial artery harvest, intraoperative transesophageal echocardiogram by anesthesia. Patient is seen in follow-up today on 06/25/2020 at his bedside in the intensive care unit. He is currently sitting up to the bedside chair, he is awake, alert and oriented 3 and is in no acute distress. Denies any complaints of shortness of breath or pain at this time. Remained hemodynamically stable and is currently on no inotropic or pressor support. Bedside telemetry showing sinus tachycardia heart rate 101 BPM. The patient reports that he has been ambulating in the intensive care unit hallway with minimal assistance from nursing staff. His bedside nurse from maintenance technician 3rd shift reports that the patient's blood sugar was 300 mg/dL around midnight last night with orders received for treatment from primary care service, this morning's lab work show a blood sugar of 34 mg/dL which was treated accordingly and currently his blood sugar is 138 mg/dL. Objective - Vital Signs Vital signs: Vital Signs Temp 98.4 F 06/25/20 04:00 Pulse 100 06/25/20 08:27 Resp 14 06/25/20 04:00 BP 115/78 06/25/20 04:00 Pulse Ox 96 06/25/20 04:00 Intake & Output 06/24/20 06/25/20 06/25/20 18:59 06:59 18:59 Intake Total 122.617 200 Output Total 60 650 Balance 62.617 -450 Weight 77.5 kg Intake: IV 115 Pressure bags 15 Sodium Chloride 0.9% 1, 100 000 ml @ 20 mls/hr IV . Q24H MORE Rx#:[id number] Intake, IV Titration 7.617 Amount Insulin Regular 100 unit 7.617 In Sodium Chloride 0.9% 100 ml @ Per Protocol IV .Q0M MORE Rx#:[id number] Oral 200 Output: Chest Tube Drainage 15 Chest Tube Bilateral 15 Urine 45 650 Other: Voiding Method Indwelling Catheter ABP, PAP, CO, CI - Last Documented Arterial Blood Pressure 121/66 Pulmonary Artery Pressure 19/5 Cardiac Output 5.1 Cardiac Index 2.7 - Constitutional General appearance: Present: cooperative, no acute distress, thin - EENT Eyes: Present: PERRLA, poor dentition, normal appearance. Absent: scleral icterus ENT: Present: hearing grossly normal - Neck Details: Neck is supple, no JVD. - Respiratory Details: Lung sounds are essentially clear throughout, diminished to his bilateral bases. Respirations are symmetrical and nonlabored. No wheezes, rhonchi or crackles. Oxygen saturation are 96% on room air. Achieving 1500 mL on his incentive spirometry. - Cardiovascular Details: Regular rhythm and tachycardic rate. S1 and S2 present, negative for S3, gallop or murmur. No edema present. Sternum is stable. Heart hugger is in place and he is demonstrating appropriate use. Knee-high MAURICE hose and sequential compression devices in place was bilateral lower extremities. - Gastrointestinal Gastrointestinal Comment(s): Abdomen is soft, nontender and nondistended. Active bowel sounds present in all 4 abdominal quadrants. No guarding or rigidity. No organomegaly appreciated. Tolerating oral intake. - Genitourinary Genitourinary Comment(s): Voiding clear [place] urine. 350 mL output in the last 8 hours. - Integumentary Integumentary Comment(s): Skin is warm and dry. No clubbing or cyanosis is present. Midline sternal incision is clean, dry and approximated. No drainage or redness is present. Exofin dressing is clean, dry and in place. Right arm radial artery harvest sites clean, dry and approximated. No drainage or redness is present. Ulnar pulse palpable to his right arm. Right hand warm to touch, with good capillary refill. - Neurologic Neurologic: Present: CNII-XII intact - Musculoskeletal Musculoskeletal: Present: gait normal, generalized weakness, strength equal bilaterally - Psychiatric Psychiatric: Present: A&O x's 3, appropriate affect, intact judgment & insight - Allied health notes Allied health notes reviewed: nursing - Labs CBC & Chem 7: 06/25/20 04:43 06/25/20 04:43 Labs: Abnormal Lab Results - Last 24 Hours (Table) 06/24/20 06/24/20 06/24/20 Range/Units 09:09 10:28 11:34 RBC (4.30-5.90) m/uL Hgb (13.0-17.5) gm/dL Hct (39.0-53.0) % Sodium (137-145) mmol/L BUN (9-20) mg/dL Glucose (74-99) mg/dL POC Glucose (mg/dL) 180 H 233 H 206 H (75-99) mg/dL Calcium (8.4-10.2) mg/dL 06/24/20 06/24/20 06/24/20 Range/Units 17:00 17:02 17:04 RBC (4.30-5.90) m/uL Hgb (13.0-17.5) gm/dL Hct (39.0-53.0) % Sodium (137-145) mmol/L BUN (9-20) mg/dL Glucose (74-99) mg/dL POC Glucose (mg/dL) 49 L 46 L 50 L (75-99) mg/dL Calcium (8.4-10.2) mg/dL 06/24/20 06/24/20 06/24/20 Range/Units 17:20 17:37 20:28 RBC (4.30-5.90) m/uL Hgb (13.0-17.5) gm/dL Hct (39.0-53.0) % Sodium (137-145) mmol/L BUN (9-20) mg/dL Glucose (74-99) mg/dL POC Glucose (mg/dL) 41 L 112 H 266 H (75-99) mg/dL Calcium (8.4-10.2) mg/dL 06/25/20 06/25/20 06/25/20 Range/Units 00:12 02:05 04:43 RBC 3.50 L (4.30-5.90) m/uL Hgb 10.3 L (13.0-17.5) gm/dL Hct 31.2 L (39.0-53.0) % Sodium (137-145) mmol/L BUN (9-20) mg/dL Glucose (74-99) mg/dL POC Glucose (mg/dL) 300 H 151 H (75-99) mg/dL Calcium (8.4-10.2) mg/dL 06/25/20 06/25/20 06/25/20 Range/Units 04:43 05:35 05:51 RBC (4.30-5.90) m/uL Hgb (13.0-17.5) gm/dL Hct (39.0-53.0) % Sodium 131 L (137-145) mmol/L BUN 22 H (9-20) mg/dL Glucose 34 L* (74-99) mg/dL POC Glucose (mg/dL) 29 L 46 L (75-99) mg/dL Calcium 8.3 L (8.4-10.2) mg/dL 06/25/20 06/25/20 Range/Units 06:06 07:08 RBC (4.30-5.90) m/uL Hgb (13.0-17.5) gm/dL Hct (39.0-53.0) % Sodium (137-145) mmol/L BUN (9-20) mg/dL Glucose (74-99) mg/dL POC Glucose (mg/dL) 61 L 138 H (75-99) mg/dL Calcium (8.4-10.2) mg/dL - Imaging and Cardiology Chest x-ray: report reviewed, image reviewed Assessment and Plan Assessment: 1. Multivessel coronary artery disease, non-ST elevated myocardial infarction this admission, status post four-vessel CABG 2. Ischemic cardiomyopathy with EF 25-30% 3. Preoperative acute hypoxic respiratory failure requiring mechanical ventilation 4. Diabetic ketoacidosis 5. Acute kidney injury 6. Leukocytosis 7. Gastroparesis 8. Hypertension 9. Hyperlipidemia 10. Uncontrolled type 2 diabetes mellitus with hyperglycemia and a preoperative Hgb A1c of 10.5% 11. Chronic ongoing tobacco dependance 12. Moderate COPD with preoperative FEV1 53% of predicted 13. Peripheral neuropathy 14. Occsional marijuana use 15. Depression/anxiety 14. Family history of premature coronary artery disease Plan: 1. Continue to optimize medically with aspirin, statin, Plavix, and beta dixon. Will increase beta dixon therapy as tolerated, increase to 75 mg twice daily today. 2. Continue Cardizem for radial artery spasm prophylaxis. Do not discontinue without discussing with cardiothoracic surgery service please. 3. Encourage incentive spirometry 10 times every hour while awake. Bronchodilators per pulmonology 4. Increase activity, ambulate as tolerated. PT/OT/cardiac rehab following 5. Will monitor daily labs and x-rays. Electrolyte replacement per protocol. No transfusion at this time. 6. Insulin management per primary care service. Will need tight blood sugar control for proper healing. 7. Pain control with current medication regimen. 8. Continue Cozaar 12.5 mg by mouth daily at noon for afterload reduction. 9. Importance of smoking cessation was discussed with the patient and was encouraged. 10. GI/DVT prophylaxis. 11. Anticipate discharge home in the next 24 hours. 12. 2-D echocardiogram results pending. 13. More recommendations to follow based on patient's clinical course. Time with Patient: Greater than 30
[2020-06-25 09:58] LABS: Glucose,Whole Blood 225 mg/dL (75-99)
[2020-06-25 11:16] VITALS: BMI 21.9
[2020-06-25 11:44] LABS: Glucose,Whole Blood 197 mg/dL (75-99)
--- NOTE | 2020-06-25 11:58 | ECHOF ---
Referral Reason:assess LV post surgery MEASUREMENTS -------- HEIGHT: 182.9 cm WEIGHT: 76.7 kg BP: FINDINGS -------- Sinus rhythm. Echo done 06/12/20: CABG X4: Limited study for LV Function. Overall left ventricular systolic function is mild-moderately impaired with, an EF between 40 - 45 %. Apical inferior LV wall motion is hypokinetic. Anterseptal Hypokinesis CONCLUSIONS -------- 1. Overall left ventricular systolic function is mild-moderately impaired with, an EF between 40 - 45 %. 2. Apical inferior LV wall motion is hypokinetic. 3. Anterseptal Hypokinesis SIZE PAINTER: Mary Kay Thorne RDCS
[2020-06-25] MEDS: LOSARTAN 25 MG TAB PO SCH (12:09)
[2020-06-25 13:46] LABS: Glucose,Whole Blood 180 mg/dL (75-99)
[2020-06-25] MEDS ORDERED: traMADol 50 MG TAB PO PRN (15:11)
[2020-06-25 17:16] LABS: Glucose,Whole Blood 50 mg/dL (75-99)
[2020-06-25 17:35] LABS: Glucose,Whole Blood 61 mg/dL (75-99)
[2020-06-25 17:55] LABS: Glucose,Whole Blood 64 mg/dL (75-99)
[2020-06-25 18:15] LABS: Glucose,Whole Blood 98 mg/dL (75-99)
--- NOTE | 2020-06-25 18:21 | PN ---
PROGRESS NOTE CHIEF COMPLAINT: Status post CABG. HISTORY OF PRESENT ILLNESS: This gentleman is doing well and is supposed to be going home today. Sugars are still dropping, and we will send him home on a lower dose of insulin. He will go home on Basaglar 20 units once a day and add Humalog 6 units before meals. He will follow up in the office next week. PHYSICAL EXAMINATION: His vital signs are normal. Chest is clear. He is afebrile. Cardiac exam is normal. Abdomen is soft. His incisions look clean. IMPRESSION: 1. Status post coronary artery bypass grafting. 2. Status post [id number] myocardial infarction. 3. Poorly controlled, insulin-dependent type 1 diabetes mellitus. PLAN: Probably home today. MMODL / IJN: [id number] /
[2020-06-25 20:07] LABS: Glucose,Whole Blood 284 mg/dL (75-99)
[2020-06-25] MEDS: SENNOSIDES-DOCUSATE SODIUM 1 EACH TAB PO SCH (20:23)
[2020-06-25] MEDS: AMITRIPTYLINE HCL 10 MG TAB PO SCH (20:23)
[2020-06-25] MEDS: METOPROLOL TARTRATE 25 MG TAB PO SCH (20:24)
[2020-06-25] MEDS ORDERED: INSULIN DETEMIR (LEVEMIR) 100 UNIT/ML SYR SQ SCH (21:00)
[2020-06-26] MEDS: HEPARIN SODIUM,PORCINE 5,000 UNIT/ML 1 ML VIAL SQ SCH ×2 (00:04→08:39)
[2020-06-26 01:55] LABS: Glucose,Whole Blood 129 mg/dL (75-99)
[2020-06-26 05:37] LABS: Basophils % (A) 0 %; Eosinophils # (A) 0.2 k/uL (0-0.7); Eosinophils % (A) 2 %; HCT 36.9 % (39.0-53.0); HGB 11.9 gm/dL (13.0-17.5); Lymphocytes # (A) 2.1 k/uL (1.0-4.8); Lymphocytes % (A) 23 %; MCH 29.4 pg (25.0-35.0); MCHC 32.4 g/dL (31.0-37.0); MCV 90.7 fL (80.0-100.0); Mean Platelet Volume 7.2; Monocytes # (A) 0.6 k/uL (0-1.0); Monocytes % (A) 7 %; Neutrophils # (A) 6.1 k/uL (1.3-7.7); Neutrophils % (A) 66 %; Platelet Count 404 k/uL (150-450); RBC 4.07 m/uL (4.30-5.90); RDW 13.7 % (11.5-15.5); WBC 9.3 k/uL (3.8-10.6)
[2020-06-26 05:53] LABS: African American GFR (CKD) >90 (>60 ml/min/1.73 sqM); Anion Gap 6 mmol/L; Blood Urea Nitrogen 16 mg/dL (9-20); Calcium 8.8 mg/dL (8.4-10.2); Carbon Dioxide 27 mmol/L (22-30); Chloride 100 mmol/L (98-107); Glucose 69 mg/dL (74-99); Non-African American GFR(CKD) >90 (>60 ml/min/1.73 sqM); Potassium 3.8 mmol/L (3.5-5.1); Sodium 133 mmol/L (137-145)
[2020-06-26 06:54] LABS: Glucose,Whole Blood 63 mg/dL (75-99)
[2020-06-26] MEDS: INSULIN ASPART (NovoLOG) 100 UNIT/ML VIAL SQ SCH (06:59)
[2020-06-26] MEDS: PANTOPRAZOLE 40 MG TABLET PO SCH (07:02)
[2020-06-26 07:12] LABS: Glucose,Whole Blood 57 mg/dL (75-99)
--- NOTE | 2020-06-26 07:22 | XR ---
EXAMINATION TYPE: XR chest 1V portable DATE OF EXAM: 06/26/2020 COMPARISON: 06/25/2020 HISTORY: Chest pain TECHNIQUE: Single frontal view of the chest is obtained. FINDINGS: Left lower lobe infiltrate and/or atelectasis persists. Small pleural effusion noted. The cardiac silhouette size is within normal limits. The osseous structures are intact. IMPRESSION: 1. Left lower lobe infiltrate and/or atelectasis persists. Small pleural effusion noted.
[2020-06-26 07:30] LABS: Glucose,Whole Blood 64 mg/dL (75-99)
[2020-06-26] MEDS: IPRATROPIUM-ALBUTEROL 3 ML NEB INHALATION SCH ×2 (07:45→11:32)
[2020-06-26] MEDS ORDERED: INSULIN ASPART (NovoLOG) 100 UNIT/ML VIAL SQ SCH ×2 (08:00→12:30)
[2020-06-26 08:06] LABS: Glucose,Whole Blood 90 mg/dL (75-99)
[2020-06-26] MEDS: ASPIRIN 325 MG TAB PO SCH (08:39)
[2020-06-26] MEDS: CLOPIDOGREL 75 MG TAB PO SCH (08:39)
[2020-06-26] MEDS: METOPROLOL TARTRATE 25 MG TAB PO SCH (08:39)
[2020-06-26] MEDS: Cariprazine Hcl [Vraylar] 1.5 MG PO SCH (08:40)
[2020-06-26] MEDS: ATORVASTATIN 40 MG TAB PO SCH (08:40)
[2020-06-26] MEDS: DILTIAZEM CD 120 MG CAP.ER.24H PO SCH (08:40)
[2020-06-26] MEDS ORDERED: INSULIN ASPART (NovoLOG) 100 UNIT/ML VIAL SQ ONE (09:00)
[2020-06-26 09:36] LABS: Glucose,Whole Blood 168 mg/dL (75-99)
[2020-06-26 10:39] LABS: Glucose,Whole Blood 124 mg/dL (75-99)
--- NOTE | 2020-06-26 10:41 | P.DS ---
Providers Date of admission: 06/18/20 15:08 Expected date of discharge: 06/26/20 Attending physician: Noe Crabtree Consults: 06/18/20 16:14 Consult Physician Routine Consulting Provider: Noe Crabtree Consult Reason/Comments: CABG Do you want consulting provider notified?: Yes Placement Type Exists?: Yes 06/19/20 11:16 Consult Physician Routine Consulting Provider: Jt Ramesh Consult Reason/Comments: Pulmonary critical care management Do you want consulting provider notified?: Already Contacted 06/19/20 12:44 Consult Physician Routine Consulting Provider: Ruben Albright Consult Reason/Comments: CABG Do you want consulting provider notified?: Yes 06/21/20 08:00 Consult to Anesthesia Routine Consulting Provider: Anesthesia,Services Consult Reason/Comments: Cardiac Surgery Pre-Op Placement Type Exists?: Yes 06/22/20 14:14 Consult Physician Routine Consulting Provider: Zechariah Fam Consult Reason/Comments: med mgmt Do you want consulting provider notified?: Already Contacted Primary care physician: Zechariah Fam Hospital Course: FINAL DIAGNOSIS: 1. Multivessel coronary artery disease, non-ST elevated myocardial infarction this admission, status post four-vessel CABG 2. Ischemic cardiomyopathy with EF 25-30% 3. Preoperative acute hypoxic respiratory failure requiring mechanical ventilation 4. Diabetic ketoacidosis 5. Acute kidney injury 6. Leukocytosis 7. Gastroparesis 8. Hypertension 9. Hyperlipidemia 10. Uncontrolled type 2 diabetes mellitus with hyperglycemia and a preoperative Hgb A1c of 10.5% 11. Chronic ongoing tobacco dependance 12. Moderate COPD with preoperative FEV1 53% of predicted 13. Peripheral neuropathy 14. Occsional marijuana use 15. Depression/anxiety 14. Family history of premature coronary artery diseas PRINCIPAL PROCEDURE: 1. Urgent off-pump myocardial revascularization with left internal mammary artery to the left anterior descending coronary artery and diagonal coronary artery, right internal mammary artery to the right coronary artery, right radial artery to the obtuse marginal coronary artery with patch angioplasty. 2. Endoscopic right radial artery harvest. 3. Intraoperative transesophageal echocardiogram by anesthesia. HISTORY OF PRESENT ILLNESS: This is a 45-year-old gentleman who is followed by Dr. Zechariah Fam on an outpatient basis. He has a past medical history significant for uncontrolled insulin-dependent diabetes mellitus, gastroparesis, hypertension, hyperlipidemia, peripheral neuropathy, depression, anxiety, occasional marijuana use, current every day smoker, and family history of early onset coronary artery disease with his brother having 2 stents placed at age 45. The patient was admitted to [facility] and arrived via EMS after his girlfriend found him with altered mental status and unresponsive at home. Upon EMS arrival in the patient's blood sugar was found to be greater than 1100. Once the patient arrived to [facility] he was intubated and placed on mechanical ventilator support due to his altered mental status and diabetic ketoacidosis. He was extubated on , 06/17/2020 and due to his presenting symptoms and elevated troponins he underwent a heart catheterization which demonstrated severe multivessel coronary artery disease. For further treatment and evaluation he was sent here to [facility] to be evaluated by Dr. Noe Crabtree from cardiothoracic surgery. A preoperative 2-D echocardiogram was also completed which demonstrated him to have an overall left ventricular systolic function to be severely impaired with an ejection fraction between 25 and 30%, mild mitral valve regurgitation and mild mitral valve regurgitation. Dr. Crabtree met with the patient, discussed the findings on the cardiac catheterization films and his 2-D echocardiogram reports. Treatment options were discussed with the patient by Dr. Crabtree, including myocardial revascularization surgery, risks and benefits of surgery including the STS risk score. Knowing the risks and benefits of myocardial revascularization surgery the patient wished to proceed with the surgical option. HOSPITAL COURSE: The patient was admitted to the hospital on 06/24/2020, he was taken to the preoperative area, prepped in the usual fashion and subsequently taken to the operating room where Dr. Noe Crabtree performed an urgent off-pump myocardial revascularization surgery with left internal mammary artery to left anterior descending coronary artery and diagonal coronary artery, right internal mammary artery to the right coronary artery and right radial artery to the obtuse marginal coronary artery with patch angioplasty. He also underwent endoscopic right radial artery harvest and intraoperative trans esophageal echocardiogram which was performed by anesthesia. Upon completion of the surgery the patient was transferred to the cardiovascular intensive care unit where he was recovered, monitored hemodynamically and where he progressed cardiac rehabilitation phase 1. He was extubated, all lines, tubes and supportive drips were discontinued when appropriate and transfer orders were placed to the third floor cardiac stepdown unit. Due to lack of bed availability on the cardiac stepdown unit the patient was kept in the intensive care unit as a step down patient until discharge. His oxygen was titrated down, he continued to work with physical, occupational therapy and cardiac rehabilitation, he was tolerating an oral diet, his pain was well-controlled and he was ready to be discharged home with [facility] on postoperative day #4. He has received written and verbal instructions regarding his discharge medications, activity restrictions, signs and symptoms requiring physician notification and his follow-up appointments. The patient has also been instructed to record and check his blood sugars before meals, 1 hour after meals and before bedtime. A postoperative 2-D echocardiogram was also completed which showed him to have an overall left ventricular systolic function to be mild to moderately impaired with an ejection fraction between 40 and 45%, apical inferior LV wall motion is hypokinetic and anteroseptal hypokinesis. COMPLICATIONS: There were no postoperative complications. CONSULTATIONS: 1. Dr. Zechariah Fam for medical management/diabetes management. 2. Dr. CARINA Dooley for cardiology management. 3. Dr. Ramesh for pulmonary/critical care management. DISCHARGE INSTRUCTIONS: 1. No driving for 4 weeks, or until physician gives their ok. 2. The patient should sleep in their own bed, no medical bed needed. 3. Stairs are not an issue. If the bedroom is upstairs, it is advised that the patient go up at night and down in the morning for the first week. Go slowly, using handrail and take 1 step at a time. 4. MAURICE hose are to be worn for 30 days or until physician discontinues. 5. Heart hugger is to be worn 100% of the time until physician discontinues.(except when showering) 6. No lifting, pushing, or pulling more than 10 pounds for 12 weeks. The physician will advise of any restriction changes. 7. The patient is expected to continue the prescribed walking program. 8. Continue pain control per as needed orders. 9. Continue with incentive spirometry and splinting/heart hugger until otherwise directed by the physician. 10. Must shower daily using liquid antibacterial soap and a separate white washcloth for each individual incision. 11. Routine sternal incision care. No powders, lotions, ointments on incisions. No dressings are necessary on incisions unless they are draining. Dermabond tape is to remain on sternal incision until surgeon follow-up. 12. Please call surgeon/[employer] for temp greater than 101 F or purulent drainage from incisions. 13. All prescriptions given by surgeon for 30 days. Refills need to be filled through slackman/primary care physician. 14. A Red armband has been placed on the patient. It should be worn for 30 days post surgery and will be removed by the cardiac surgeons. If an ER visit is necessary, please make sure the number on the Red armband is called. 15. You have been referred to and are expected to begin Cardiac Rehab in approximately 4-6 weeks. 16. The patient has been instructed to check his blood sugar before meals meals and bedtime and also one hour after he eats and record his blood sugars. Please bring blood sugar recordings to his follow-up appointments with his primary care physician. 17. The importance of smoking cessation was discussed with the patient. HOME HEALTH SERVICES TO PROVIDE: RN SKILLED HOME CARE SERVICES FOR POST-OP SURGICAL PATIENTS WITH THE FOLLOWING: Coronary Artery Bypass Surgery (CABG), Mitral Valve Replacement/Repair ( MVR), Aortic Valve Replacement/Repair (AVR) RN TO CONTINUE EDUCATION FROM ``ROAD TO A HEALTH HEART PATIENT EDUCATION MANUAL (GIVEN TO PATIENT IN THE HOSPITAL) MEDICATION RECONCILIATION WITH EDUCATION NEEDED ON FIRST HOME VISIT EMPHASIZE IMPORTANCE OF WEARING BREAST SUPPORT/HEART HUGGER ENCOURAGE USE OF INCENTIVE SPIROMETER 10 X EVERY HOUR WHILE AWAKE ENCOURAGE UTILIZATION OF LOWER EXTREMITY COMPRESSION STOCKINGS/MAURICE HOSE and ELEVATE LEGS ABOVE LEVEL OF HEART WHILE AT REST. ENCOURAGE AMBULATION 3-5x/day INCREASING TOLERATES, WHILE AVOIDING EXTREMES IN TEMPERATURE FREQUENCY: RN TO OPEN THE PATIENT WITHIN 24 HOURS OF DISCHARGE FROM THE HOSPITAL WITH TELEHEALTH [place]STALLED [place] [facility] TO VISIT 2-3 X A WEEK FOR 4 WEEKS ESTABLISHED BY PATIENT NEEDS. LABORATORY: CBC, CMP TO BE DRAWN ON THE THIRD DAY HOME, (RAN STAT) FAX RESULTS TO [phone]. TELEHEALTH PARAMETERS: WEIGHT: NOTIFY MD OF WEIGHT GAIN OF 2 LBS IN 24 HOURS OR 5 LBS IN ONE WEEK HR: NOTIFY MD OF HR <55 BPM OR HR>100 BPM BP: NOTIFY MD IF BP <90/55 OR BP>140/100 O2 SAT: NOTIFY MD IF PO2<93% ON ROOM AIR SEND TELEHEALTH REPORT TO SMALL PARTS SHAPER OPERATOR AND CARDIOVASCULAR SURGEON THE FIRST WEEK OF CARE AND THEN BI-WEEKLY. PLEASE ADDITIONALLY COMMUNICATE ANY ABNORMALS AND NEW FINDINGS TO THE SURGEONS OFFICE. For any questions or concerns please call plugger worker Sofia @ or Don @ [employer] can be reached at [phone] regarding glucometer and supplies. Please contact them when discharged. Plan - Discharge Summary Discharge Rx Participant: Yes New Discharge Prescriptions: New Aspirin 325 mg PO DAILY #30 tab Diltiazem Cd [Cardizem CD] 120 mg PO DAILY #30 cap.er.24h Losartan [Cozaar] 12.5 mg PO DAILY@1200 #30 tab Atorvastatin [Lipitor] 40 mg PO DAILY #30 tab Metoprolol Tartrate [Lopressor] 75 mg PO BID #180 tab Clopidogrel [Plavix] 75 mg PO DAILY #30 tab Sennosides-Docusate Sodium [Senokot-S] 2 each PO HS #14 tab Acetaminophen Tab [Tylenol] 1,000 mg PO Q6HR PRN tab PRN Reason: Fever And/ Or Pain Insulin Glargine,Hum.rec.anlog [Basaglar Kwikpen U-100] 10 unit SQ HS #10 pen INSULIN LISPRO (HumaLOG) [humaLOG] 6 units SQ AC-TID #2 vial Continue Ondansetron [Zofran] 4 mg PO BID Omeprazole 20 mg PO DAILY Amitriptyline HCl [Elavil] 10 mg PO HS Cariprazine HCl [Vraylar] 1.5 mg PO DAILY Discontinued amLODIPine BESYLATE [Norvasc] 5 mg PO DAILY Losartan Potassium [Cozaar] 25 mg PO DAILY INSULIN LISPRO (HumaLOG) [humaLOG] 20 units SQ AC-TID Insulin Glargine,Hum.rec.anlog [Basaglar Kwikpen U-100] 60 unit SQ HS Atorvastatin Calcium [Lipitor] 40 mg PO HS Discharge Medication List Amitriptyline HCl [Elavil] 10 mg PO HS 06/18/20 [History] Cariprazine HCl [Vraylar] 1.5 mg PO DAILY 06/18/20 [History] Omeprazole 20 mg PO DAILY 06/18/20 [History] Ondansetron [Zofran] 4 mg PO BID 06/18/20 [History] Acetaminophen Tab [Tylenol] 1,000 mg PO Q6HR PRN tab 06/26/20 [Rx] Aspirin 325 mg PO DAILY #30 tab 06/26/20 [Rx] Atorvastatin [Lipitor] 40 mg PO DAILY #30 tab 06/26/20 [Rx] Clopidogrel [Plavix] 75 mg PO DAILY #30 tab 06/26/20 [Rx] Diltiazem Cd [Cardizem CD] 120 mg PO DAILY #30 cap.er.24h 06/26/20 [Rx] INSULIN LISPRO (HumaLOG) [humaLOG] 6 units SQ AC-TID #2 vial 06/26/20 [Rx] Insulin Glargine,Hum.rec.anlog [Basaglar Kwikpen U-100] 10 unit SQ HS #10 pen 06/26/20 [Rx] Losartan [Cozaar] 12.5 mg PO DAILY@1200 #30 tab 06/26/20 [Rx] Metoprolol Tartrate [Lopressor] 75 mg PO BID #180 tab 06/26/20 [Rx] Sennosides-Docusate Sodium [Senokot-S] 2 each PO HS #14 tab 06/26/20 [Rx] Follow up Appointment(s)/Referral(s): Jt Ramesh MD [STAFF PHYSICIAN] - 07/20/20 2:00 pm Zechariah Fam MD [Primary Care Provider] - 07/07/20 10:50 am (Also follow up with Dr. Fam on Sunday June 28, 2020 as discussed.) Sofia Billings NPC [Nurse Practitioner] - 06/30/20 12:30 pm Elisha Dooley MD [STAFF PHYSICIAN] - 2 Weeks (Office will call with appointment) [facility],Cardiac [NON-STAFF] - 4 Weeks (You will receive a phone call for Cardiac Rehab eval approximately 4-6 weeks after surgery) Noe Crabtree MD [STAFF PHYSICIAN] - 07/22/20 9:30 am [facility], [NON-STAFF] - 1-2 Days Richard Tapia MD [REFERRING] - 1 Week (Please call [phone] for an appointment. ) Ambulatory/Diagnostic Orders: Complete Blood Count w/diff [LAB.AMB] Time Frame: 06/29/20, Facility: [facility], Location: Laboratory [facility] Comprehensive Metabolic Panel [LAB.AMB] Time Frame: 06/29/20, Facility: [facility], Location: [facility] Patient Instructions/Handouts: *Surgery [facility] - After Heart Catheterization - Power Equipment Technology Instructor Instructions, Sternal Precautions (GEN), CABG (Coronary Artery Bypass Graft) (DC) Activity/Diet/Wound Care/Special Instructions: DISCHARGE INSTRUCTIONS: 1. No driving for 4 weeks, or until physician gives their ok. 2. The patient should sleep in their own bed, no medical bed needed. 3. Stairs are not an issue. If the bedroom is upstairs, it is advised that the patient go up at night and down in the morning for the first week. Go slowly, using handrail and take 1 step at a time. 4. MAURICE hose are to be worn for 30 days or until physician discontinues. 5. Heart hugger is to be worn 100% of the time until physician discontinues.(except when showering) 6. No lifting, pushing, or pulling more than 10 pounds for 12 weeks. The physician will advise of any restriction changes. 7. The patient is expected to continue the prescribed walking program. 8. Continue pain control per as needed orders. 9. Continue with incentive spirometry and splinting/heart hugger until otherwise directed by the physician. 10. Must shower daily using liquid antibacterial soap and a separate white washcloth for each individual incision. 11. Routine sternal incision care. No powders, lotions, ointments on incisions. No dressings are necessary on incisions unless they are draining. Dermabond tape is to remain on sternal incision until surgeon follow-up. 12. Please call surgeon/[employer] for temp greater than 101 F or purulent drainage from incisions. 13. All prescriptions given by surgeon for 30 days. Refills need to be filled through slackman/primary care physician. 14. A Red armband has been placed on the patient. It should be worn for 30 days post surgery and will be removed by the cardiac surgeons. If an ER visit is necessary, please make sure the number on the Red armband is called. 15. You have been referred to and are expected to begin Cardiac Rehab in approximately 4-6 weeks. 16. The patient has been instructed to check his blood sugar before meals meals and bedtime and also one hour after he eats and record his blood sugars. Please bring blood sugar recordings to his follow-up appointments with his primary care physician. HOME HEALTH SERVICES TO PROVIDE: RN SKILLED HOME CARE SERVICES FOR POST-OP SURGICAL PATIENTS WITH THE FOLLOWING: Coronary Artery Bypass Surgery (CABG), Mitral Valve Replacement/Repair ( MVR), Aortic Valve Replacement/Repair (AVR) RN TO CONTINUE EDUCATION FROM ``ROAD TO A HEALTH HEART PATIENT EDUCATION MANUAL (GIVEN TO PATIENT IN THE HOSPITAL) MEDICATION RECONCILIATION WITH EDUCATION NEEDED ON FIRST HOME VISIT EMPHASIZE IMPORTANCE OF WEARING BREAST SUPPORT/HEART HUGGER ENCOURAGE USE OF INCENTIVE SPIROMETER 10 X EVERY HOUR WHILE AWAKE ENCOURAGE UTILIZATION OF LOWER EXTREMITY COMPRESSION STOCKINGS/MUARICE HOSE and ELEVATE LEGS ABOVE LEVEL OF HEART WHILE AT REST. ENCOURAGE AMBULATION 3-5x/day INCREASING TOLERATES, WHILE AVOIDING EXTREMES IN TEMPERATURE FREQUENCY: RN TO OPEN THE PATIENT WITHIN 24 HOURS OF DISCHARGE FROM THE HOSPITAL WITH TELEHEALTH INSTALLED AT [facility], RN TO VISIT 2-3 X A WEEK FOR 4 WEEKS ESTABLISHED BY PATIENT NEEDS. LABORATORY: CBC, CMP TO BE DRAWN ON THE THIRD DAY HOME, (RAN STAT) FAX RESULTS TO [phone]. TELEHEALTH PARAMETERS: WEIGHT: NOTIFY MD OF WEIGHT GAIN OF 2 LBS IN 24 HOURS OR 5 LBS IN ONE WEEK HR: NOTIFY MD OF HR <55 BPM OR HR>100 BPM BP: NOTIFY MD IF BP <90/55 OR BP>140/100 O2 SAT: NOTIFY MD IF PO2<93% ON ROOM AIR SEND TELEHEALTH REPORT TO SMALL PARTS SHAPER OPERATOR AND CARDIOVASCULAR SURGEON THE FIRST WEEK OF CARE AND THEN BI-WEEKLY. PLEASE ADDITIONALLY COMMUNICATE ANY ABNORMALS AND NEW FINDINGS TO THE SURGEONS OFFICE. For any questions or concerns please call plugger worker Sofia @ or Rudolph @ [employer] can be reached at [phone] regarding glucometer and supplies. Please contact them when discharged. Discharge Disposition: HOME WITH HOME HEALTH SERVICES
--- NOTE | 2020-06-26 11:40 | P.PN ---
Subjective Progress Note Date: 06/26/20 Principal diagnosis: Coronary artery disease, non-ST segment elevation myocardial infarction This a very pleasant 45-year-old gentleman who follows with Dr. Fam as his primary care provider. He has a history of diabetes mellitus, gastroparesis, diabetic peripheral neuropathy, hypertension, hyperlipidemia, marijuana use, chronic tobacco dependence. He was recently admitted to [facility] after being found to have altered mental status with unresponsiveness at home. At that time his blood glucose was greater than 1100. He was treated for diabetic ketoacidosis. He had developed impending respiratory failure requiring intubation mechanical ventilatory support subsequently extubated on 06/17/2020. He was found to be a non STEMI and had undergone cardiac catheterization which revealed significant triple-vessel coronary artery disease. He was transferred here for revascularization. The plan is for surgery on 06/22/2020. He is seen today in consultation on the selective care unit. He is currently sitting up in bed. Awake and alert in no acute distress. Alert and oriented 3. No chest pain or palpitations. No worsening shortness of breath, cough or congestion. Chest x-ray reveals no acute pulmonary process. He is working well with his incentive spirometer pulling approximately 2500 ML's. FEV1 value pending. White count 9.0. Hemoglobin 12.8. Troponin 0.7-9. He remains on heparin drip. The patient is seen today 06/20/2020 in follow-up on the selective care unit. He is currently sitting up in bed. Awake and alert in no acute distress. No shortness of breath, cough or congestion. No chest pain or palpitations. Maintaining good O2 saturation up to 100% on room air. Afebrile. Hemodynamically stable. White count 7.7. Hemoglobin 12.5. Sodium 137. Potassium 3.5. Creatinine 0.68. He remains on heparin drip. Practicing well with the incentive spirometer. The patient is seen today 06/23/2020 in follow-up in the intensive care unit. He is now postoperative day #1 of a four-vessel coronary artery bypass surgery off pump by Dr. Crabtree. He was successfully extubated. He is currently awake and alert in no acute distress. He is maintaining O2 saturation in the 90s on 2 L/m per nasal cannula. At the 0.9 normal saline at 50 MLS per hour. Cardizem drip at 5 mg per hour. Insulin drip at 12 units per hour. Nitroglycerin drip is now off. Chest x-ray reveals improving right-sided subcutaneous emphysema. Persistent bilateral chest tubes without pneumothorax. Stable lateral left midlung linear atelectasis. Developing left basilar acute atelectasis/infiltrates noted. Improvement and central vascular congestion present. White count 7.7. Hemoglobin 9.1. Platelets 199. Sodium 135. Potassium 3.9. Creatinine 0.78. He is doing quite well. He's been up ambulating. He's been up in a chair. Plan is for Lane-Rex catheter be removed today. The patient is seen today 06/24/2020 in follow-up in the intensive care unit. His postoperative day #2 of four-vessel coronary artery bypass grafting. He is currently sitting up in a chair at the bedside. Awake and alert in no acute distress. Denies any worsening shortness of breath, cough or congestion. He is maintaining good O2 saturations in the 90s on room air. Chest x-ray reveals some patchy atelectasis in the bases. He is working well with the incentive spirometer. Pulling approximately 1500 ML's this morning. He remains afebrile. Hemodynamically stable. White count 8.5. Hemoglobin 9.6. Sodium 132. Potassium 4.1. Creatinine 0.73. Glucose 131. He remains on bronchodilators. Pain is well controlled. The patient is seen today 06/25/2020 in follow-up in the intensive care unit. Postoperative day #3. He is awake and alert in no acute distress. He's been up in the shower. No shortness of breath, cough or congestion. He is working well with the incentive spirometer pulling approximately 1500 ML's. Chest x-ray shows no significant pleural effusions. He is on room air. He did have some issues with hypoglycemia last night. His insulin dose is being adjusted per medicine. White count 9.0. Hemoglobin 10.3. Sodium 131. Potassium 3.7. Creatinine 0.66. Glucose 138. Follow-up echocardiogram pending. Plan is for possible discharge today. The patient is seen today 06/26/2020 in follow-up in the intensive care unit. Postoperative day #4. Currently sitting up in a chair. Awake and alert in no acute distress. He was having some ongoing issues with hyper/hypoglycemia. Current glucose 124. White count 9.3. Hemoglobin 11.9. Sodium 133. Potassium 3.8. Creatinine 0.62. He denies any shortness of breath, cough or congestion. Maintaining good O2 saturations in the 90s on room air. Chest x-ray shows persistent left lower lobe atelectasis. Small effusion. He continues to work well with the incentive spirometer. Follow-up echocardiogram revealed mild to moderately impaired left ventricular systolic function with ejection fraction 40-45%. Objective - Vital Signs Vital signs: Vital Signs Temp 98 F 06/26/20 08:00 Pulse 92 06/26/20 11:35 Resp 18 06/26/20 08:00 BP 140/87 06/26/20 08:00 Pulse Ox 100 06/26/20 08:00 Intake & Output 06/25/20 06/26/20 06/26/20 18:59 06:59 18:59 Intake Total 600 750 240 Output Total 325 800 400 Balance 275 -50 -160 Weight 77.5 kg 81.5 kg Intake: Oral 600 750 240 Output: Urine 325 800 400 Other: Voiding Method Indwelling Catheter Toilet Urinal # Voids 1 ABP, PAP, CO, CI - Last Documented Arterial Blood Pressure 121/66 Pulmonary Artery Pressure 19/5 Cardiac Output 5.1 Cardiac Index 2.7 - Exam GENERAL EXAM: Alert, pleasant 45-year-old gentleman, on room air, comfortable in no apparent distress. HEAD: Normocephalic. EYES: Normal reaction of pupils, equal size. NOSE: Clear with pink turbinates. THROAT: No erythema or exudates. NECK: No masses, no JVD. CHEST: Heart hugger in place. Sternal dressing dry and intact. Sternum stable. LUNGS: Equal air entry with faint crackles in the bilateral posterior bases. Diminished. CVS: S1 and S2 normal with no audible murmur, regular rhythm. ABDOMEN: No hepatosplenomegaly, normal bowel sounds, no guarding or rigidity. SPINE: No scoliosis or deformity SKIN: No rashes CENTRAL NERVOUS SYSTEM: No focal deficits, tone is normal in all 4 extremities. EXTREMITIES: There is trace peripheral edema. No clubbing, no cyanosis. Peripheral pulses are intact. - Labs CBC & Chem 7: 06/26/20 05:10 06/26/20 10:51 Labs: Abnormal Lab Results - Last 24 Hours (Table) 06/25/20 06/25/20 06/25/20 Range/Units 11:42 13:45 17:14 RBC (4.30-5.90) m/uL Hgb (13.0-17.5) gm/dL Hct (39.0-53.0) % Sodium (137-145) mmol/L Creatinine (0.66-1.25) mg/dL Glucose (74-99) mg/dL POC Glucose (mg/dL) 197 H 180 H 50 L (75-99) mg/dL 06/25/20 06/25/20 06/25/20 Range/Units 17:34 17:54 20:06 RBC (4.30-5.90) m/uL Hgb (13.0-17.5) gm/dL Hct (39.0-53.0) % Sodium (137-145) mmol/L Creatinine (0.66-1.25) mg/dL Glucose (74-99) mg/dL POC Glucose (mg/dL) 61 L 64 L 284 H (75-99) mg/dL 06/26/20 06/26/20 06/26/20 Range/Units 01:53 05:10 05:10 RBC 4.07 L (4.30-5.90) m/uL Hgb 11.9 L (13.0-17.5) gm/dL Hct 36.9 L (39.0-53.0) % Sodium 133 L (137-145) mmol/L Creatinine 0.62 L (0.66-1.25) mg/dL Glucose 69 L (74-99) mg/dL POC Glucose (mg/dL) 129 H (75-99) mg/dL 06/26/20 06/26/20 06/26/20 Range/Units 06:53 07:10 07:29 RBC (4.30-5.90) m/uL Hgb (13.0-17.5) gm/dL Hct (39.0-53.0) % Sodium (137-145) mmol/L Creatinine (0.66-1.25) mg/dL Glucose (74-99) mg/dL POC Glucose (mg/dL) 63 L 57 L 64 L (75-99) mg/dL 08/22/20 08/22/20 Range/Units 09:36 10:37 RBC (4.30-5.90) m/uL Hgb (13.0-17.5) gm/dL Hct (39.0-53.0) % Sodium (137-145) mmol/L Creatinine (0.66-1.25) mg/dL Glucose (74-99) mg/dL POC Glucose (mg/dL) 168 H 124 H (75-99) mg/dL Assessment and Plan Assessment: Non-ST segment elevation myocardial infarction in a patient found to have severe triple-vessel disease. Status post myocardial revascularization with a REILLY to the diagonal to LAD, ZAFAR to RCA, left radial artery to OM with patch angioplasty. Postoperative day #4. Mechanical ventilation required postoperatively, expected outcome of surgery, successfully extubated. Ischemic cardiomyopathy with impaired ejection fraction between 25 and 30%, postoperative limited echocardiogram revealed mild to moderately impaired left ventricular systolic function with ejection fraction 40-45%. Recent admission for altered mental status, DKA and respiratory failure requiring intubation mechanical ventilatory support, extubated on 06/17/2020 at [facility] Chronic and ongoing tobacco dependence Insulin-dependent diabetes mellitus History of gastroparesis History of peripheral neuropathy Hypertension Hyperlipidemia Anxiety/depression Occasional marijuana use Family history of coronary artery disease Plan: The patient was seen and evaluated by Dr. Jason Chest x-ray and labs reviewed Currently stable from the pulmonary standpoint Educated regarding the importance of complete smoking cessation He will follow-up in our office in 1-2 weeks' time. Repeat a chest x-ray then. I, the cosigning physician, performed a history & physical examination of the patient. Lungs sounds with faint crackles in the bilateral posterior bases. Maintaining good O2 saturations in the 90s on room air. I discussed the assessment and plan of care with my nurse practitioner, Courtney Manuel. I attest to the above note as dictated by her.
[2020-06-26 11:44] VITALS: PULSE 96
[2020-06-26 11:48] LABS: Glucose,Whole Blood 84 mg/dL (75-99)
[2020-06-26 12:11] VITALS: BP 103/69; RESP 16; TEMP 98.2
[2020-06-26 12:52] LABS: Glucose,Whole Blood 88 mg/dL (75-99)
[2020-06-26] MEDS: LOSARTAN 25 MG TAB PO SCH (12:59)
--- NOTE | 2020-06-26 15:01 | PN ---
PROGRESS NOTE CHIEF COMPLAINT: Status post NSTEMI and CABG. HISTORY OF PRESENT ILLNESS: This gentleman's blood sugars are still slightly erratic, but he has been cleared by Thoracic Surgery. He will go home on Basaglar 10 units once a day and Humalog 6 units before meals. He will come into the office in 2 days. PHYSICAL EXAMINATION: Chest is clear. Incision is dry and clean. Cardiac exam is normal. Abdomen is soft. IMPRESSION: 1. Status post coronary artery bypass graft. 2. Type 1 insulin-dependent diabetes mellitus. PLAN: Home today and follow up Sunday. MMODL / IJN: [id number] /
[2020-06-26] MEDS ORDERED: INSULIN DETEMIR (LEVEMIR) 100 UNIT/ML SYR SQ SCH (21:00)
== END 2020-06-26 14:20 | disposition home health service (06) | DRG 235 ==
LOC: 3SCARD 15:08 → 2SICU 06-22 07:24
PROVIDERS: ADMIT Thoracic Surgery (Cardiothoracic Vascular Surgery); ATTEND Thoracic Surgery (Cardiothoracic Vascular Surgery)
PROC: B44HZZZ Ultrasonography of Bilateral Lower Extremity Arteries (ICD-10-PCS; 2020-06-18)
PROC: B34KZZZ Ultrasonography of Bilateral Upper Extremity Arteries (ICD-10-PCS; 2020-06-19)
PROC: B44HZZZ Ultrasonography of Bilateral Lower Extremity Arteries (ICD-10-PCS; 2020-06-19)
PROC: 02100Z8 Bypass Coronary Artery, One Artery from Right Internal Mammary, Open Approach (ICD-10-PCS; principal; 2020-06-22 08:00)
PROC: 02110Z9 Bypass Coronary Artery, Two Arteries from Left Internal Mammary, Open Approach (ICD-10-PCS; principal; 2020-06-22 08:00)
PROC: 03BB4ZZ Excision of Right Radial Artery, Percutaneous Endoscopic Approach (ICD-10-PCS; principal; 2020-06-22 08:00)
PROC: 02100AW Bypass Coronary Artery, One Artery from Aorta with Autologous Arterial Tissue, Open Approach (ICD-10-PCS; principal; 2020-06-22 08:00)
PROC: 05HD33Z Insertion of Infusion Device into Right Cephalic Vein, Percutaneous Approach (ICD-10-PCS; 2020-06-23)
DX: I21.4 Non-ST elevation (NSTEMI) myocardial infarction (principal); E10.10 Type 1 diabetes mellitus with ketoacidosis without coma; N17.9 Acute kidney failure, unspecified; J98.11 Atelectasis; E10.649 Type 1 diabetes mellitus with hypoglycemia without coma; E10.42 Type 1 diabetes mellitus with diabetic polyneuropathy; J98.2 Interstitial emphysema; E10.43 Type 1 diabetes mellitus with diabetic autonomic (poly)neuropathy; M51.24 Other intervertebral disc displacement, thoracic region; J44.9 Chronic obstructive pulmonary disease, unspecified; Z86.74 Personal history of sudden cardiac arrest; E10.65 Type 1 diabetes mellitus with hyperglycemia; M46.94 Unspecified inflammatory spondylopathy, thoracic region; M46.96 Unspecified inflammatory spondylopathy, lumbar region; Z79.4 Long term (current) use of insulin; I25.10 Atherosclerotic heart disease of native coronary artery without angina pectoris; F17.210 Nicotine dependence, cigarettes, uncomplicated; I10 Essential (primary) hypertension; F41.9 Anxiety disorder, unspecified; F32.9 Major depressive disorder, single episode, unspecified; E78.5 Hyperlipidemia, unspecified; K31.84 Gastroparesis; I45.9 Conduction disorder, unspecified; M51.26 Other intervertebral disc displacement, lumbar region; D72.829 Elevated white blood cell count, unspecified; I25.5 Ischemic cardiomyopathy; R00.0 Tachycardia, unspecified; I08.1 Rheumatic disorders of both mitral and tricuspid valves; Z71.3 Dietary counseling and surveillance; Z71.6 Tobacco abuse counseling; Z98.890 Other specified postprocedural states; Z79.899 Other long term (current) drug therapy; Z83.3 Family history of diabetes mellitus; Z82.49 Family history of ischemic heart disease and other diseases of the circulatory system; Z84.1 Family history of disorders of kidney and ureter
CPT/HCPCS: 36410; 71045; 71046; 76937; 80048; 80053; 80074; 81001; 82330; 82805; 82947; 83036; 83735; 84132; 84484; 85025; 85027; 85520; 85610; 85730; 86850; 86891; 86900; 86901; 86920; 87070; 93306; 93308; 93880; 93922; 93923; 93930; 93970; 94002; 94150; 94640

== ENCOUNTER 2020-07-07 02:51 | Inpatient (IN) | payer OTHER ==
[2020-07-07] MEDS ORDERED: SODIUM CHLORIDE 0.9% 1,000 ML IV ONE ×2 (02:56→05:41)
[2020-07-07] MEDS ORDERED: SODIUM CHLORIDE 0.9% 1,000 ML IV SCH (03:00)
[2020-07-07] MEDS ORDERED: LORazepam 2 MG/ML INJ IV STA (03:25)
[2020-07-07] MEDS ORDERED: ONDANSETRON 4 MG/2 ML VIAL IVP STA (03:26)
[2020-07-07 03:31] LABS: Glucose,Whole Blood >600 mg/dL (75-99)
[2020-07-07 03:45] LABS: VBG PH 7.03 (7.31-7.41)
[2020-07-07] MEDS ORDERED: HYDROmorphone 1 MG/ML 1 ML SYRINGE IVP STA (03:49)
[2020-07-07 03:52] LABS: Basophils % (A) 0 %; Eosinophils # (A) 0.1 k/uL (0-0.7); Eosinophils % (A) 0 %; HCT 37.2 % (39.0-53.0); Hypochromasia Marked; Lymphocytes # (A) 1.3 k/uL (1.0-4.8); Lymphocytes % (A) 6 %; MCH 28.9 pg (25.0-35.0); MCHC 26.5 g/dL (31.0-37.0); Macrocytosis Marked; Monocytes % (A) 5 %; Neutrophils # (A) 20.1 k/uL (1.3-7.7); Neutrophils % (A) 89 %; Platelet Count 483 k/uL (150-450); RBC 3.41 m/uL (4.30-5.90); RDW 13.8 % (11.5-15.5); WBC 22.6 k/uL (3.8-10.6)
[2020-07-07 03:55] LABS: AST 28 U/L (17-59); African American GFR (CKD) 49 (>60 ml/min/1.73 sqM); Albumin 3.7 g/dL (3.5-5.0); Alkaline Phosphatase 87 U/L (38-126); Blood Urea Nitrogen 32 mg/dL (9-20); Calcium 8.8 mg/dL (8.4-10.2); Chloride 88 mmol/L (98-107); HGB 9.9 gm/dL (13.0-17.5); Non-African American GFR(CKD) 43 (>60 ml/min/1.73 sqM); Sodium 125 mmol/L (137-145); Total Bilirubin 0.7 mg/dL (0.2-1.3); Total Protein 5.9 g/dL (6.3-8.2)
[2020-07-07] MEDS ORDERED: Potassium Replacement Protocol 1 EACH MISC MISCELLANE PRN (03:59)
[2020-07-07] MEDS ORDERED: Magnesium Replacement Protocol 1 EACH MISC MISCELLANE PRN (03:59)
[2020-07-07] MEDS ORDERED: INSULIN REGULAR BOLUS (FROM DRIP BAG) IV ONE (03:59)
[2020-07-07 04:02] LABS: ALT 26 U/L (4-49); INR 1.2 (<1.2)
[2020-07-07 04:04] LABS: Partial Thromboplastin Time 20.8 sec (22.0-30.0)
[2020-07-07 04:05] LABS: Carbon Dioxide <5 mmol/L (22-30); Glucose 1104 mg/dL (74-99); Potassium 6.7 mmol/L (3.5-5.1)
[2020-07-07 04:11] LABS: Anisocytosis (M) Present; Crenated RBC Present
[2020-07-07 04:12] LABS: Poikilocytosis (M) Present; RBC Fragments Present; Toxic Vacuolation Present
[2020-07-07] MEDS: INSULIN REGULAR 100 UNIT in SODIUM CHLORIDE 0.9% 100 ML IV SCH ×2 (04:12→19:01)
[2020-07-07 04:13] LABS: Polychromasia Present
[2020-07-07] MEDS: SODIUM CHLORIDE 0.9% 1,000 ML IV SCH ×4 (04:17→19:02)
[2020-07-07] MEDS ORDERED: NALOXONE 0.4 MG/ML 1 ML VIAL IV PRN (04:30)
[2020-07-07] MEDS ORDERED: SODIUM CHLORIDE 0.9% 2,000 ML IV ONE (04:31)
--- NOTE | 2020-07-07 04:36 | ED ---
General Adult HPI - General Chief complaint: Chest Pain Stated complaint: Chest Pain Time Seen by Provider: 07/07/20 02:55 Source: patient, EMS Mode of arrival: EMS - History of Present Illness Initial comments: Jean is a 45-year-old insulin-dependent diabetic male with a history of known CAD status post CABG in June 23 of this year. Patient presents the ER today in acute distress stating that he can't breathe he's having pain in his chest. Patient doesn't know if he used his insulin or checked his sugars today. Further history is limited by the patient's agitation and encephalopathy. - Related Data Home Medications Medication Instructions Recorded Confirmed Amitriptyline HCl [Elavil] 10 mg PO HS 06/18/20 06/18/20 Cariprazine HCl [Vraylar] 1.5 mg PO DAILY 06/18/20 06/18/20 Omeprazole 20 mg PO DAILY 06/18/20 06/18/20 Ondansetron [Zofran] 4 mg PO BID 06/18/20 06/18/20 Previous Rx's Medication Instructions Recorded Acetaminophen Tab [Tylenol] 1,000 mg PO Q6HR PRN tab 06/26/20 Aspirin 325 mg PO DAILY #30 tab 06/26/20 Atorvastatin [Lipitor] 40 mg PO DAILY #30 tab 06/26/20 Clopidogrel [Plavix] 75 mg PO DAILY #30 tab 06/26/20 Diltiazem Cd [Cardizem CD] 120 mg PO DAILY #30 cap.er.24h 06/26/20 INSULIN LISPRO (HumaLOG) [humaLOG] 6 units SQ AC-TID #2 vial 06/26/20 Insulin Glargine,Hum.rec.anlog 10 unit SQ HS #10 pen 06/26/20 [Basaglar Kwikpen U-100] Losartan [Cozaar] 12.5 mg PO DAILY@1200 #30 tab 06/26/20 Metoprolol Tartrate [Lopressor] 75 mg PO BID #180 tab 06/26/20 Sennosides-Docusate Sodium 2 each PO HS #14 tab 06/26/20 [Senokot-S] Allergies Allergy/AdvReac Type Severity Reaction Status Date / Time No Known Allergies Allergy Verified 07/15/17 00:31 Review of Systems ROS Statement: Those systems with pertinent positive or pertinent negative responses have been documented in the HPI. ROS Other: All systems not noted in ROS Statement are negative. Past Medical History Past Medical History: Coronary Artery Disease (CAD), Diabetes Mellitus, Hyperlipidemia, Hypertension Additional Past Medical History / Comment(s): Diabetic gastroparesis,mid and lower herniated disc, mid and lower bulging disc, arthritis to mid and lower back., diabetic neuropathy hands and feet History of Any Multi-Drug Resistant Organisms: None Reported Past Surgical History: Coronary Bypass/CABG (Jun 23, 2020) Additional Past Surgical History / Comment(s): 2006 approx.cyst polynoidal removal., open heart 2019 Past Anesthesia/Blood Transfusion Reactions: No Reported Reaction Additional Past Anesthesia/Blood Transfusion Reaction / Comment(s): no anesthesia difficulties. Never recieved blood product. Past Psychological History: Anxiety, Depression Smoking Status: Current every day smoker Past Alcohol Use History: Rare Past Drug Use History: Marijuana - Past Family History Father Family Medical History: Diabetes Mellitus, Hypertension Additional Family Medical History / Comment(s): father is still living Mother Family Medical History: Diabetes Mellitus, Renal Disease Additional Family Medical History / Comment(s): mother is still living. Mental health disorders. Mothers immediate family has very strong cardiac hx. Brother(s) Family Medical History: Myocardial Infarction ([place]) Additional Family Medical History / Comment(s): His brother had to heart stents placed at age 45. General Exam - General Exam Comments Initial Comments: Physical Exam GENERAL: Ill appearing, acutely distressed Kussmaul respirations HENT: Normocephalic, Atraumatic. EYES: PERRL, EOMI PULMONARY: Kussmaul respirations, CTAB No crackles or rales CARDIOVASCULAR: Tachycardic, regular ABDOMEN: Scaphoid SKIN: Dry : Deferred NEUROLOGIC: Alert and oriented to person and place, unsure of date, combative MUSCULOSKELETAL: Normal extremities with adequate strength and full range of motion. No lower extremity swelling or edema. No calf tenderness. PSYCHIATRIC: Agitated Course Vital Signs 07/07/20 07/07/20 02:55 04:24 Temperature 97.6 F Pulse Rate 120 H 100 Respiratory 20 20 Rate Blood Pressure 127/67 109/53 O2 Sat by Pulse 98 95 Oximetry EKG Findings - EKG Comments: EKG Findings:: EKG is obtained due to tachycardia and complaint of chest pain EKG was obtained at 2:50 AM, rate is 121, rhythm is sinus tachycardia, rightward axis, GA prolonged at 168, QRS 126, QTC 462 ST depressions laterally no acute ST elevations. No evidence of acute infarction. Medical Decision Making - Medical Decision Making The patient was seen and evaluated immediately upon arrival the emergency department Patient's exam is consistent with DKA as he is having Kussmaul respirations he is profoundly dehydrated Poni care glucose greater than 600 DKA labs ordered Patient agitated and somewhat combative treated with Ativan given Zofran for nausea IV fluids infusing Labs with multiple significant abnormalities consistent with diabetic ketoacidosis with a pH of 7.03, bicarb of 4, glucose of 1100, potassium 6.7, calculated anion gap is 33, delta gap 21, delta ratio is 1-1 consistent with appear anion gap metabolic acidosis consistent with DKA. Additional IV fluids a second IV line were ordered IV insulin given in bolus and drip Patient care was discussed with his primary care physician Dr. Fam who requests in addition to labs that have been ordered a drug screen be ordered Patient care was discussed with ICU attending Dr. Ramesh who accepts the patient to the ICU and agrees with plan for fluid resuscitation, IV insulin, DKA protocol, consult to vascular surgery for follow-up - Lab Data Result diagrams: 07/07/20 03:13 07/07/20 03:13 Lab Results 07/07/20 07/07/20 07/07/20 Range/Units 03:13 03:13 03:13 WBC 22.6 H (3.8-10.6) k/uL RBC 3.41 L (4.30-5.90) m/uL Hgb 9.9 L D (13.0-17.5) gm/dL Hct 37.2 L (39.0-53.0) % MCV 109.0 H D (80.0-100.0) fL MCH 28.9 (25.0-35.0) pg MCHC 26.5 L (31.0-37.0) g/dL RDW 13.8 (11.5-15.5) % Plt Count 483 H (150-450) k/uL Neutrophils % 89 % Lymphocytes % 6 % Monocytes % 5 % Eosinophils % 0 % Basophils % 0 % Neutrophils # 20.1 H (1.3-7.7) k/uL Lymphocytes # 1.3 (1.0-4.8) k/uL Monocytes # 1.0 (0-1.0) k/uL Eosinophils # 0.1 (0-0.7) k/uL Basophils # 0.0 (0-0.2) k/uL Manual Slide Review Performed Toxic Vacuolation Present Polychromasia Present Hypochromasia Marked Poikilocytosis (manual Present Anisocytosis (manual) Present Macrocytosis Marked A Crenated Cell Present Fragmented RBCs Present PT 12.0 (9.0-12.0) sec INR 1.2 H (<1.2) APTT 20.8 L (22.0-30.0) sec VBG pH (7.31-7.41) VBG pCO2 (37-51) mmHg VBG HCO3 (24-28) mmol/L Sodium 125 L (137-145) mmol/L Potassium 6.7 H* (3.5-5.1) mmol/L Chloride 88 L (98-107) mmol/L Carbon Dioxide <5 L* (22-30) mmol/L Anion Gap mmol/L BUN 32 H (9-20) mg/dL Creatinine 1.89 H (0.66-1.25) mg/dL Est GFR (CKD-EPI)AfAm 49 (>60 ml/min/1.73 sqM) Est GFR (CKD-EPI)NonAf 43 (>60 ml/min/1.73 sqM) Glucose 1104 H* (74-99) mg/dL POC Glucose (mg/dL) (75-99) mg/dL POC Glu Rope Rider ID Calcium 8.8 (8.4-10.2) mg/dL Total Bilirubin 0.7 (0.2-1.3) mg/dL AST 28 (17-59) U/L ALT 26 (4-49) U/L Alkaline Phosphatase 87 (38-126) U/L Troponin I (0.000-0.034) ng/mL Total Protein 5.9 L (6.3-8.2) g/dL Albumin 3.7 (3.5-5.0) g/dL 07/07/20 07/07/20 07/07/20 Range/Units 03:13 03:13 03:28 WBC (3.8-10.6) k/uL RBC (4.30-5.90) m/uL Hgb (13.0-17.5) gm/dL Hct (39.0-53.0) % MCV (80.0-100.0) fL MCH (25.0-35.0) pg MCHC (31.0-37.0) g/dL RDW (11.5-15.5) % Plt Count (150-450) k/uL Neutrophils % % Lymphocytes % % Monocytes % % Eosinophils % % Basophils % % Neutrophils # (1.3-7.7) k/uL Lymphocytes # (1.0-4.8) k/uL Monocytes # (0-1.0) k/uL Eosinophils # (0-0.7) k/uL Basophils # (0-0.2) k/uL Manual Slide Review Toxic Vacuolation Polychromasia Hypochromasia Poikilocytosis (manual Anisocytosis (manual) Macrocytosis Crenated Cell Fragmented RBCs PT (9.0-12.0) sec INR (<1.2) APTT (22.0-30.0) sec VBG pH 7.03 L* (7.31-7.41) VBG pCO2 17 L* (37-51) mmHg VBG HCO3 4 L* (24-28) mmol/L Sodium (137-145) mmol/L Potassium (3.5-5.1) mmol/L Chloride (98-107) mmol/L Carbon Dioxide (22-30) mmol/L Anion Gap mmol/L BUN (9-20) mg/dL Creatinine (0.66-1.25) mg/dL Est GFR (CKD-EPI)AfAm (>60 ml/min/1.73 sqM) Est GFR (CKD-EPI)NonAf (>60 ml/min/1.73 sqM) Glucose (74-99) mg/dL POC Glucose (mg/dL) >600 H (75-99) mg/dL POC Glu Rope Rider ID [place] Calcium (8.4-10.2) mg/dL Total Bilirubin (0.2-1.3) mg/dL AST (17-59) U/L ALT (4-49) U/L Alkaline Phosphatase (38-126) U/L Troponin I 0.145 H* (0.000-0.034) ng/mL Total Protein (6.3-8.2) g/dL Albumin (3.5-5.0) g/dL Critical Care Time Critical Care Time: Yes Total Critical Care Time: 45 Critical Care Time: Critical Care Time 45 minutes Critical care time was exclusive of separately billable procedures and treating other patients and teaching time. Critical care was necessary to treat or prevent imminent or life-threatening deterioration. Given the critical condition in which the patient arrived, the patient was immediately assessed by myself and the nurse, and cardiac monitoring initiated due to the potential for rapid decompensation of the patient's clinical condition. During the course of the patients stay, I spent a considerable amount of time at the bedside performing serial re-evaluations of the patient's hemodynamic and clinical status because of the recognized potential threat to life or limb in this condition. I then had a chance to review not only all of t he available current laboratory and radiographic studies obtained today, but I also reviewed old records available to me at the time. Additionally, any ancillary information available including light industrial supervisor records were reviewed. Sequential vital signs were obtained. Disposition Clinical Impression: DKA (diabetic ketoacidoses) Disposition: ADMITTED IP TO THIS [facility] Condition: Critical Is patient prescribed a controlled substance at d/c from ED?: No
[2020-07-07 05:06] LABS: African American GFR (CKD) 44 (>60 ml/min/1.73 sqM); Blood Urea Nitrogen 32 mg/dL (9-20); Chloride 90 mmol/L (98-107); Non-African American GFR(CKD) 38 (>60 ml/min/1.73 sqM); Sodium 125 mmol/L (137-145)
[2020-07-07 05:20] LABS: Potassium 7.1 mmol/L (3.5-5.1)
[2020-07-07 05:21] LABS: Carbon Dioxide <5 mmol/L (22-30); Lactic Acid, Venous 11.4 mmol/L (0.7-2.0); Phosphorus 11.1 mg/dL (2.5-4.5)
[2020-07-07 05:36] LABS: Glucose,Whole Blood >600 mg/dL (75-99)
[2020-07-07] MEDS ORDERED: SODIUM BICARB 8.4% 50 ML SYR (1 MEQ/ML) IV STA (05:39)
[2020-07-07] MEDS: LACTULOSE 20 GM/30 ML CUP PO SCH ×2 (05:56→09:21)
[2020-07-07] MEDS ORDERED: DEXTROSE 5% IN WATER 1,000 ML with SODIUM BICARB (1 MEQ/ML) 150 ML IV SCH (06:00)
[2020-07-07] MEDS ORDERED: CALCIUM GLUCONATE 1 GM in SODIUM CHLORIDE 0.9% 100 ML IVPB ONE (06:00)
[2020-07-07 06:20] LABS: Glucose,Whole Blood >600 mg/dL (75-99)
[2020-07-07 06:49] LABS: Appearance,Urine Clear (Clear); Bilirubin,Urine Negative (Negative); Blood,Urine Trace (Negative); Color,Urine Light Yellow; Glucose,Urine (UA) 4+ (Negative); Hyaline Casts,Urine 6 /lpf (0-2); Leukocyte Esterase,Urine Negative (Negative); Mucus,Urine Rare /hpf; Nitrite,Urine Negative (Negative); Protein,Urine Negative (Negative); RBC,Urine <1 /hpf (0-5); Specific Gravity,Urine 1.019 (1.001-1.035); Urobilinogen,Urine <2.0 mg/dL (<2.0); WBC,Urine 1 /hpf (0-5)
[2020-07-07 07:02] LABS: Amphetamine Screen,Urine Not Detected (NotDetected); Barbiturate Screen,Urine Not Detected (NotDetected); Benzodiazepines Screen,Urine Not Detected (NotDetected); Cocaine Screen,Urine Not Detected (NotDetected); Methadone Screen, Urine Not Detected (NotDetected); Opiate Screen,Urine Detected (NotDetected); Oxycodone Screen, Urine Not Detected (NotDetected); Phencyclidine Screen,Urine Not Detected (NotDetected); Tricyclic Antidepressant,Urine Not Detected (NotDetected); Urn Cannabinoid Scrn Not Detected (NotDetected)
[2020-07-07 07:17] LABS: Ketones,Urine 2+ (Negative)
[2020-07-07 07:38] LABS: Glucose,Whole Blood >600 mg/dL (75-99)
--- NOTE | 2020-07-07 08:17 | XR ---
EXAMINATION TYPE: XR chest 1V portable DATE OF EXAM: 07/07/2020 COMPARISON: Prior chest x-ray 06/26/2020 HISTORY: Diabetic ketoacidosis TECHNIQUE: Single frontal view of the chest is obtained. FINDINGS: Patchy retrocardiac density is noted. There are overlying leads. Left hemidiaphragm again m ildly elevated. There is no pleural effusion or pneumothorax seen. The cardiac silhouette size is wi thin normal limits. Patient is post median sternotomy and rotated. The osseous structures are intact . IMPRESSION: Correlate for left lower lobe atelectasis versus pneumonia or chronic pleural reaction. Difficult to exclude effusion.
[2020-07-07 08:19] LABS: Glucose,Whole Blood >600 mg/dL (75-99)
[2020-07-07] MEDS ORDERED: D5-0.45% NACL WITH KCL 20MEQ/L 1,000 ML IV SCH (09:00)
[2020-07-07 09:15] LABS: Glucose,Whole Blood >600 mg/dL (75-99)
[2020-07-07 09:21] LABS: Potassium 4.6 mmol/L (3.5-5.1)
[2020-07-07 10:12] LABS: Glucose,Whole Blood 586 mg/dL (75-99)
[2020-07-07] MEDS ORDERED: METOPROLOL TARTRATE 50 MG TAB PO SCH (10:15)
[2020-07-07 10:16] VITALS: BMI 20.9
[2020-07-07] MEDS: PANTOPRAZOLE 40 MG TABLET PO SCH (10:31)
[2020-07-07] MEDS: ASPIRIN 325 MG TAB PO SCH (10:31)
[2020-07-07] MEDS: ATORVASTATIN 40 MG TAB PO SCH (10:31)
[2020-07-07] MEDS: CLOPIDOGREL 75 MG TAB PO SCH (10:31)
[2020-07-07 11:07] LABS: Glucose,Whole Blood 538 mg/dL (75-99)
[2020-07-07] MEDS: DILTIAZEM CD 120 MG CAP.ER.24H PO SCH (11:10)
[2020-07-07] MEDS: LOSARTAN 25 MG TAB PO SCH (11:11)
[2020-07-07 11:56] LABS: Calcium 8.4 mg/dL (8.4-10.2)
[2020-07-07 12:24] LABS: Glucose,Whole Blood 476 mg/dL (75-99)
[2020-07-07 13:12] LABS: Glucose,Whole Blood 362 mg/dL (75-99)
[2020-07-07 14:05] LABS: Glucose,Whole Blood 367 mg/dL (75-99)
--- NOTE | 2020-07-07 14:29 | P.CNPUL ---
History of Present Illness Consult date: 07/07/20 Requesting physician: Zechariah Fam Reason for consult: other (Critical care management) Chief complaint: Shortness of breath and chest pain History of present illness: This is a 45-year-old gentleman who follows with Dr. Fam as his primary care provider. He is a history of diabetes mellitus, gastroparesis, diabetic peripheral neuropathy, hypertension, hyperlipidemia, marijuana use, chronic tobacco dependence. He had recently been treated at [facility] with altered mental status and unresponsiveness. He had developed respiratory failure requiring intubation mechanical fall and patient subsequently extubated on 06/17/2020. At that time he was found to have a non-ST segment elevation myocardial infarction on have triple-vessel disease and ischemic cardiomyopathy with ejection fraction 25-30%. He was eventually transferred here for cardiac revascularization that was performed on 06/22/2020. He had undergone urgent off-pump myocardial revascularization with a REILLY to the LAD and diagonal artery, ZAFAR to the right coronary artery, right radial artery to the obtuse marginal artery with patch angioplasty. He subsequently recovered and was discharged home on 06/26/2020. He presented here earlier this morning with complaints of shortness of breath, chest pain. He was agitated and encephalopathic in the emergency room. He had been discharged home on Tylenol for pain control however his urine drug screen is positive for opiates. He had not been taking his insulin on a regular basis. His initial blood glucose was 1104. Venous blood gas revealed a pH of 7.03. PCO2 17. Bicarbonate 4. Sodium 125. Potassium 7.1. Creatinine 1.89. Urinalysis with 4+ glucose and 2+ ketones and lactic acid 11.4. He was transferred to the intensive care unit and initiated on the DKA protocol. He did receive a total of 5 L of fluid resuscitation. Current lab results reveal sodium 133. Potassium 4.0. Chloride 103. Bicarb 17. Anion gap 13. Creatinine 1.41. Glucose 487. Lactic acid down to 2.9. Troponin peak 3.42. He is currently on insulin drip at 0.1 units per kilogram per hour. 0.9 normal saline at 200 ML's per hour. Recently, he is awake and alert, feeling slightly better than earlier this morning. He is slow to respond. He is unsure as to why he was not taking insulin at home. Chest x- ray reveals left lower lobe atelectasis. He is currently maintaining O2 saturations in the 90s on room air. He's afebrile. Hemodynamically stable. Review of Systems REVIEW OF SYSTEMS: CONSTITUTIONAL: Denies any recent significant weight loss or weight gain. EYES: Denies change in vision. EARS, NOSE, MOUTH, THROAT: Denies headaches, denies sore throat. CARDIOVASCULAR: Positive for chest pain, no palpitations or syncopal episodes. RESPIRATORY: Positive for shortness of breath, no cough, congestion or hemoptysis. GASTROINTESTINAL: Denies change in appetite, denies abdominal pain GENITOURINARY: Denies hematuria, denies infections. MUSKULOSKELETAL: Denies pain, denies swelling. INTEGUMENTARY: Denies rash, denies eczema. NEUROLOGICAL: Denies recent memory loss, no recent seizure activity. PSYCHIATRIC: Denies anxiety, denies depression. HEMATOLOGIC/LYMPHATIC: Denies anemia, denies enlarged lymph nodes. Past Medical History Past Medical History: Coronary Artery Disease (CAD), Diabetes Mellitus, Hyperlipidemia, Hypertension Additional Past Medical History / Comment(s): Diabetic gastroparesis,mid and lower herniated disc, mid and lower bulging disc, arthritis to mid and lower back., diabetic neuropathy hands and feet History of Any Multi-Drug Resistant Organisms: None Reported Past Surgical History: Coronary Bypass/CABG (Jun 23, 2020) Additional Past Surgical History / Comment(s): 2006 approx.cyst polynoidal removal., open heart 2019 Past Anesthesia/Blood Transfusion Reactions: No Reported Reaction Additional Past Anesthesia/Blood Transfusion Reaction / Comment(s): no anesthesia difficulties. Never recieved blood product. Past Psychological History: Anxiety, Depression Smoking Status: Current every day smoker Past Alcohol Use History: Rare Past Drug Use History: Marijuana - Past Family History Father Family Medical History: Diabetes Mellitus, Hypertension Additional Family Medical History / Comment(s): father is still living Mother Family Medical History: Diabetes Mellitus, Renal Disease Additional Family Medical History / Comment(s): mother is still living. Mental health disorders. Mothers immediate family has very strong cardiac hx. Brother(s) Family Medical History: Myocardial Infarction ([place]) Additional Family Medical History / Comment(s): His brother had to heart stents placed at age 45. Medications and Allergies Home Medications Medication Instructions Recorded Confirmed Type Amitriptyline HCl [Elavil] 10 mg PO HS 06/18/20 07/07/20 History Cariprazine HCl [Vraylar] 1.5 mg PO DAILY 06/18/20 07/07/20 History Omeprazole 20 mg PO DAILY 06/18/20 07/07/20 History Ondansetron [Zofran] 4 mg PO BID 06/18/20 07/07/20 History Acetaminophen Tab [Tylenol] 1,000 mg PO Q6HR PRN tab 06/26/20 07/07/20 Rx Aspirin 325 mg PO DAILY #30 tab 06/26/20 07/07/20 Rx Atorvastatin [Lipitor] 40 mg PO DAILY #30 tab 06/26/20 07/07/20 Rx Clopidogrel [Plavix] 75 mg PO DAILY #30 tab 06/26/20 07/07/20 Rx Diltiazem Cd [Cardizem CD] 120 mg PO DAILY #30 cap.er.24h 06/26/20 07/07/20 Rx Insulin Glargine,Hum.rec.anlog 10 unit SQ HS #10 pen 06/26/20 07/07/20 Rx [Basaglar Kwikpen U-100] Losartan [Cozaar] 12.5 mg PO DAILY@1200 #30 tab 06/26/20 07/07/20 Rx INSULIN LISPRO (HumaLOG) [humaLOG] 15 units SQ AC-TID 07/07/20 07/07/20 History Metoprolol Tartrate [Lopressor] 25 mg PO BID 07/07/20 07/07/20 History Metoprolol Tartrate [Lopressor] 50 mg PO BID 07/07/20 07/07/20 History Sennosides-Docusate Sodium 2 tab PO HS 07/07/20 07/07/20 History [Senokot-S] Allergies Allergy/AdvReac Type Severity Reaction Status Date / Time No Known Allergies Allergy Verified 07/07/20 09:08 Physical Exam Vitals: Vital Signs Temp Pulse Resp BP Pulse Ox 07/07/20 14:00 93 9 L 114/82 97 07/07/20 13:30 93 19 120/84 97 07/07/20 13:00 96 19 111/78 98 07/07/20 12:30 96 17 109/77 99 07/07/20 12:00 97.9 F 97 17 117/79 98 07/07/20 11:30 98 19 103/75 98 07/07/20 11:00 98 18 109/72 96 07/07/20 10:30 98 16 111/77 97 07/07/20 10:00 100 21 103/75 94 L 07/07/20 09:30 98 18 110/76 96 07/07/20 09:00 96 17 101/74 97 07/07/20 08:30 101 H 14 117/75 97 07/07/20 08:00 97.7 F 106 H 16 106/72 96 07/07/20 07:30 107 H 15 108/75 97 07/07/20 07:00 96.8 F L 106 H 22 106/89 97 07/07/20 06:30 114 H 25 H 98 07/07/20 06:00 94.6 F L 115 H 23 110/64 100 07/07/20 05:30 112 H 26 H 114/83 100 07/07/20 04:24 100 20 109/53 95 07/07/20 02:55 97.6 F 120 H 20 127/67 98 Intake and Output 07/06/20 07/07/20 07/07/20 22:59 06:59 14:59 Intake Total 1200 2766.929 Output Total 400 1525 Balance 800 1241.929 Intake: IV 1200 1700 0.9 Bolus 1000 Calcium Gluconate 1 gm In 100 Sodium Chloride 0.9% 100 ml @ 100 mls/hr IVPB ONCE ONE Rx#:[id number] Sodium Chloride 0.9% 1, 200 1600 000 ml @ 200 mls/hr IV . Q5H [facility] Rx#:[id number] Intake, IV Titration 1066.929 Amount Insulin Regular 100 unit 66.929 In Sodium Chloride 0.9% 100 ml @ 0.1 UNITS/KG/HR 7.422 mls/hr IV .[id number] [facility] Rx#:[id number] Sodium Chloride 0.9% 2, 1000 000 ml @ 999 mls/hr IV . Q2H1M ONE Rx#:[id number] Output: Urine 400 1525 Other: Weight 74 kg 74 kg GENERAL EXAM: Alert, arousable, frail cachectic 45-year-old -[place] gentleman, on room air, comfortable in no apparent distress. HEAD: Normocephalic. EYES: Normal reaction of pupils, equal size. NOSE: Clear with pink turbinates. THROAT: No erythema or exudates. NECK: No masses, no JVD. CHEST: Recent sternal incision clean dry well approximated LUNGS: Equal air entry with crackles in the left lung base. CVS: S1 and S2 normal with no audible murmur, regular rhythm. ABDOMEN: No hepatosplenomegaly, normal bowel sounds, no guarding or rigidity. SPINE: No scoliosis or deformity SKIN: No rashes, healing wound on the chest CENTRAL NERVOUS SYSTEM: No focal deficits, tone is normal in all 4 extremities. EXTREMITIES: There is no peripheral edema. No clubbing, no cyanosis. Peripheral pulses are intact. Results - Laboratory Findings CBC and BMP: 07/07/20 03:13 07/07/20 11:32 PT/INR, D-dimer PT 12.0 sec (9.0-12.0) 07/07/20 03:13 INR 1.2 (<1.2) H 07/07/20 03:13 Abnormal lab findings: Abnormal Labs 07/07/20 07/07/20 07/07/20 03:13 03:13 03:13 WBC 22.6 H RBC 3.41 L Hgb 9.9 L D Hct 37.2 L MCV 109.0 H D MCHC 26.5 L Plt Count 483 H Neutrophils # 20.1 H Macrocytosis Marked A INR 1.2 H APTT 20.8 L VBG pH VBG pCO2 VBG HCO3 Sodium 125 L Potassium 6.7 H* Chloride 88 L Carbon Dioxide <5 L* BUN 32 H Creatinine 1.89 H Glucose 1104 H* POC Glucose (mg/dL) Plasma Lactic Acid Matthew Phosphorus Ammonia Troponin I Total Protein 5.9 L Urine Glucose (UA) Urine Ketones Urine Blood Hyaline Casts Urine Mucus Urine Opiates Screen 07/07/20 07/07/20 07/07/20 03:13 03:13 03:28 WBC RBC Hgb Hct MCV MCHC Plt Count Neutrophils # Macrocytosis INR APTT VBG pH 7.03 L* VBG pCO2 17 L* VBG HCO3 4 L* Sodium Potassium Chloride Carbon Dioxide BUN Creatinine Glucose POC Glucose (mg/dL) >600 H Plasma Lactic Acid Matthew Phosphorus Ammonia Troponin I 0.145 H* Total Protein Urine Glucose (UA) Urine Ketones Urine Blood Hyaline Casts Urine Mucus Urine Opiates Screen 07/07/20 07/07/20 07/07/20 04:39 04:39 05:35 WBC RBC Hgb Hct MCV MCHC Plt Count Neutrophils # Macrocytosis INR APTT VBG pH VBG pCO2 VBG HCO3 Sodium 125 L Potassium 7.1 H* Chloride 90 L Carbon Dioxide <5 L* BUN 32 H Creatinine 2.06 H Glucose POC Glucose (mg/dL) >600 H Plasma Lactic Acid Matthew 11.4 H* Phosphorus 11.1 H* Ammonia 85 H Troponin I Total Protein Urine Glucose (UA) Urine Ketones Urine Blood Hyaline Casts Urine Mucus Urine Opiates Screen 07/07/20 07/07/20 07/07/20 06:19 06:30 06:30 WBC RBC Hgb Hct MCV MCHC Plt Count Neutrophils # Macrocytosis INR APTT VBG pH VBG pCO2 VBG HCO3 Sodium Potassium Chloride Carbon Dioxide BUN Creatinine Glucose POC Glucose (mg/dL) >600 H Plasma Lactic Acid Matthew Phosphorus Ammonia Troponin I Total Protein Urine Glucose (UA) 4+ H Urine Ketones 2+ H Urine Blood Trace H Hyaline Casts 6 H Urine Mucus Rare H Urine Opiates Screen Detected H 07/07/20 07/07/20 07/07/20 07:36 08:17 08:28 WBC RBC Hgb Hct MCV MCHC Plt Count Neutrophils # Macrocytosis INR APTT VBG pH VBG pCO2 VBG HCO3 Sodium Potassium Chloride Carbon Dioxide BUN Creatinine Glucose POC Glucose (mg/dL) >600 H >600 H Plasma Lactic Acid Matthew Phosphorus Ammonia Troponin I 1.420 H* Total Protein Urine Glucose (UA) Urine Ketones Urine Blood Hyaline Casts Urine Mucus Urine Opiates Screen 07/07/20 07/07/20 07/07/20 08:28 08:28 08:38 WBC RBC Hgb Hct MCV MCHC Plt Count Neutrophils # Macrocytosis INR APTT VBG pH VBG pCO2 VBG HCO3 Sodium 131 L Potassium Chloride Carbon Dioxide 13 L BUN 33 H Creatinine 1.55 H Glucose 722 H* POC Glucose (mg/dL) Plasma Lactic Acid Matthew 4.4 H* Phosphorus Ammonia Troponin I Total Protein Urine Glucose (UA) Urine Ketones Urine Blood Hyaline Casts Urine Mucus Urine Opiates Screen 07/07/20 07/07/20 07/07/20 09:13 10:11 11:06 WBC RBC Hgb Hct MCV MCHC Plt Count Neutrophils # Macrocytosis INR APTT VBG pH VBG pCO2 VBG HCO3 Sodium Potassium Chloride Carbon Dioxide BUN Creatinine Glucose POC Glucose (mg/dL) >600 H 586 H 538 H Plasma Lactic Acid Matthew Phosphorus Ammonia Troponin I Total Protein Urine Glucose (UA) Urine Ketones Urine Blood Hyaline Casts Urine Mucus Urine Opiates Screen 07/07/20 07/07/20 07/07/20 11:25 11:32 11:32 WBC RBC Hgb Hct MCV MCHC Plt Count Neutrophils # Macrocytosis INR APTT VBG pH VBG pCO2 VBG HCO3 Sodium 133 L Potassium Chloride Carbon Dioxide 17 L BUN 31 H Creatinine 1.41 H Glucose 487 H POC Glucose (mg/dL) Plasma Lactic Acid Matthew 2.9 H* Phosphorus Ammonia Troponin I 3.420 H* Total Protein Urine Glucose (UA) Urine Ketones Urine Blood Hyaline Casts Urine Mucus Urine Opiates Screen 07/07/20 07/07/20 12:22 13:10 WBC RBC Hgb Hct MCV MCHC Plt Count Neutrophils # Macrocytosis INR APTT VBG pH VBG pCO2 VBG HCO3 Sodium Potassium Chloride Carbon Dioxide BUN Creatinine Glucose POC Glucose (mg/dL) 476 H 362 H Plasma Lactic Acid Matthew Phosphorus Ammonia Troponin I Total Protein Urine Glucose (UA) Urine Ketones Urine Blood Hyaline Casts Urine Mucus Urine Opiates Screen - Diagnostic Findings Chest x-ray: image reviewed Assessment and Plan Assessment: 1 Diabetic ketoacidosis secondary to medication noncompliance 2 Anion gap metabolic acidosis secondary to above 3 Hyponatremia, initial sodium 125, currently 133 4 Hyperkalemia 5 Recent non-ST segment elevation myocardial infarction status post coronary artery bypass grafting on 06/22/2020 6 Ischemic cardiomyopathy with ejection fraction 25-30% 7 Elevated troponins, peak 3.42 8 Diabetes mellitus, insulin-dependent 9 Recent admission to [facility] for respiratory failure re quiring intubation mechanical ventilatory support, extubated 06/17/2020 10 Chronic and ongoing tobacco dependence 11 History of diabetic gastroparesis 12 Peripheral neuropathy 13 History of hypertension 14 Hyperlipidemia 15 Anxiety/depression 16 Occasional marijuana use Plan: The patient was seen and evaluated by Dr. Ramesh Chest x-ray and labs reviewed Continue DKA protocol Educated regarding the importance of medication compliance Educated regarding importance of complete smoking cessation We will continue to follow and make further recommendations based on his clinical status I, the cosigning physician, performed a history & physical examination of the patient. Lungs sounds with crackles in the left lung base. Maintaining good O2 saturations in the 90s on room air. I discussed the assessment and plan of care with my nurse practitioner, Courtney Manuel. I attest to the above consultation as dictated by her. Time with Patient: Greater than 30
[2020-07-07] MEDS ORDERED: METOCLOPRAMIDE 5 MG/ML 2 ML VIAL IVP STA (14:47)
[2020-07-07 14:56] LABS: Calcium 8.2 mg/dL (8.4-10.2); Potassium 3.7 mmol/L (3.5-5.1)
--- NOTE | 2020-07-07 14:56 | P.GSCN ---
History of Present Illness Consult date: 07/07/20 Reason for Consult: Known to us from recent CABG Requesting physician: Alessandra Alvarez History of present illness: This is a 45-year-old gentleman who follows on an outpatient basis Dr. Fam. He has a previous medical history of multivessel coronary artery disease with recent non-STEMI status post 4 vessel CABG on 06/22/2020, ischemic cardiomyopathy with EF 25-30%, uncontrolled type 2 diabetes mellitus with h yperglycemia and recent hemoglobin A1c 10.5% with recent hospitalization for diabetic ketoacidosis, hypertension, hyperlipidemia, chronic tobacco dependence, moderate COPD, peripheral neuropathy, occasional marijuana use, and family history of premature coronary artery disease. He was hospitalized recently for diabetic ketoacidosis and hypoxemic respiratory failure requiring mechanical ventilation at [facility]. During his stay he was found to have elevated troponins and was ruled in for non-STEMI. He was transferred to [facility] for heart catheterization which detected multivessel coronary artery disease and he underwent a four-vessel CABG. Blood pressures were d ifficult to control as patient is a very brittle diabetic but he was eventually discharged to home with home care with plans to follow-up with his primary care physician. Over the last few days he was not feeling very good but did not check his blood sugar. Upon questioning the patient he states he lives with his girlfriend and he refused to let her check his blood sugar as well. This morning he presented to [facility] emergency room again with complaints of chest pain, shortness of breath, and was very agitated and encephalopathic. His initial blood sugar was 1104. Venous blood gas revealed pH 7.03, pCO2 17, bicarb 4. Sodium was 125, potassium 7.1 with a creatinine 1.89. Urinalysis 4+ glucose and 2+ ketones, lactic acid 11.4. Drug screen was positive for opiates despite the fact the patient was discharged home on extra strength Tylenol only. He was started on IV insulin and given IV fluids. He was admitted to the intensive care unit with consultation for the anchor operator team, as well as cardiothoracic surgery as he is familiar to us from his recent admission. Review of Systems Review of systems was completed and was negative except as noted in the HPI Past Medical History Past Medical History: Coronary Artery Disease (CAD), COPD, Diabetes Mellitus, Hyperlipidemia, Hypertension Additional Past Medical History / Comment(s): Diabetic gastroparesis,mid and lower herniated disc, mid and lower bulging disc, arthritis to mid and lower back., diabetic neuropathy hands and feet. Very brittle diabetic with medical noncompliance History of Any Multi-Drug Resistant Organisms: None Reported Past Surgical History: Coronary Bypass/CABG (Jun 23, 2020) Additional Past Surgical History / Comment(s): 2006 approx.cyst polynoidal removal., Four-vessel CABG 06/22/2020 Past Anesthesia/Blood Transfusion Reactions: No Reported Reaction Additional Past Anesthesia/Blood Transfusion Reaction / Comm: no anesthesia difficulties. Never recieved blood product. Past Psychological History: Anxiety, Depression Smoking Status: Current every day smoker Past Alcohol Use History: Rare Past Drug Use History: Marijuana - Past Family History Father Family Medical History: Diabetes Mellitus, Hypertension Additional Family Medical History / Comment(s): father is still living Mother Family Medical History: Diabetes Mellitus, Renal Disease Additional Family Medical History / Comment(s): mother is still living. Mental health disorders. Mothers immediate family has very strong cardiac hx. Brother(s) Family Medical History: Myocardial Infarction (MS) Additional Family Medical History / Comment(s): His brother had to heart stents placed at age 45. Medications and Allergies Home Medications Medication Instructions Recorded Confirmed Type Amitriptyline HCl [Elavil] 10 mg PO HS 06/18/20 07/07/20 History Cariprazine HCl [Vraylar] 1.5 mg PO DAILY 06/18/20 07/07/20 History Omeprazole 20 mg PO DAILY 06/18/20 07/07/20 History Ondansetron [Zofran] 4 mg PO BID 06/18/20 07/07/20 History Acetaminophen Tab [Tylenol] 1,000 mg PO Q6HR PRN tab 06/26/20 07/07/20 Rx Aspirin 325 mg PO DAILY #30 tab 06/26/20 07/07/20 Rx Atorvastatin [Lipitor] 40 mg PO DAILY #30 tab 06/26/20 07/07/20 Rx Clopidogrel [Plavix] 75 mg PO DAILY #30 tab 06/26/20 07/07/20 Rx Diltiazem Cd [Cardizem CD] 120 mg PO DAILY #30 cap.er.24h 06/26/20 07/07/20 Rx Insulin Glargine,Hum.rec.anlog 10 unit SQ HS #10 pen 06/26/20 07/07/20 Rx [Basaglar Kwikpen U-100] Losartan [Cozaar] 12.5 mg PO DAILY@1200 #30 tab 06/26/20 07/07/20 Rx INSULIN LISPRO (HumaLOG) [humaLOG] 15 units SQ AC-TID 07/07/20 07/07/20 History Metoprolol Tartrate [Lopressor] 25 mg PO BID 07/07/20 07/07/20 History Metoprolol Tartrate [Lopressor] 50 mg PO BID 07/07/20 07/07/20 History Sennosides-Docusate Sodium 2 tab PO HS 07/07/20 07/07/20 History [Senokot-S] Allergies Allergy/AdvReac Type Severity Reaction Status Date / Time No Known Allergies Allergy Verified 07/07/20 09:08 Surgical - Exam Vital Signs Temp Pulse Resp BP Pulse Ox 97.6 F 120 H 20 127/67 98 07/07/20 02:55 07/07/20 02:55 07/07/20 02:55 07/07/20 02:55 07/07/20 02:55 - General well developed, well nourished, no distress, no pain - Eyes normal ocular movement - ENT no hearing loss - Respiratory Lungs sounds diminished bilaterally. Respirations even, nonlabored. Currently on room air with oxygen saturation 97%. No clubbing or cyanosis present. - Cardiovascular S1, S2 present. Regular rate and rhythm, sinus rhythm on telemetry. Sternum stable. Palpable peripheral pulses bilaterally. No edema present. No calf pain or tenderness noted. - Abdomen Abdomen: soft, non tender, bowel sounds - Genitourinary Deferred - Rectum Deferred - Integumentary Skin is warm and dry. Anterior chest incision well approximated without any redness or drainage. no rash, no growths - Neurologic normal coordination, normal sensation - Musculoskeletal normal posture - Psychiatric oriented to time, oriented to person, oriented to place, speech is normal, memory intact Results - Labs 07/07/20 03:13 07/07/20 11:32 Abnormal Lab Results - Last 24 Hours (Table) 07/07/20 07/07/20 07/07/20 Range/Units 03:13 03:13 03:13 WBC 22.6 H (3.8-10.6) k/uL RBC 3.41 L (4.30-5.90) m/uL Hgb 9.9 L D (13.0-17.5) gm/dL Hct 37.2 L (39.0-53.0) % MCV 109.0 H D (80.0-100.0) fL MCHC 26.5 L (31.0-37.0) g/dL Plt Count 483 H (150-450) k/uL Neutrophils # 20.1 H (1.3-7.7) k/uL Macrocytosis Marked A INR 1.2 H (<1.2) APTT 20.8 L (22.0-30.0) sec VBG pH (7.31-7.41) VBG pCO2 (37-51) mmHg VBG HCO3 (24-28) mmol/L Sodium 125 L (137-145) mmol/L Potassium 6.7 H* (3.5-5.1) mmol/L Chloride 88 L (98-107) mmol/L Carbon Dioxide <5 L* (22-30) mmol/L BUN 32 H (9-20) mg/dL Creatinine 1.89 H (0.66-1.25) mg/dL Glucose 1104 H* (74-99) mg/dL POC Glucose (mg/dL) (75-99) mg/dL Plasma Lactic Acid Matthew (0.7-2.0) mmol/L Phosphorus (2.5-4.5) mg/dL Ammonia (<30) umol/L Troponin I (0.000-0.034) ng/mL Total Protein 5.9 L (6.3-8.2) g/dL Urine Glucose (UA) (Negative) Urine Ketones (Negative) Urine Blood (Negative) Hyaline Casts (0-2) /lpf Urine Mucus (None) /hpf Urine Opiates Screen (NotDetected) 07/07/20 07/07/20 07/07/20 Range/Units 03:13 03:13 03:28 WBC (3.8-10.6) k/uL RBC (4.30-5.90) m/uL Hgb (13.0-17.5) gm/dL Hct (39.0-53.0) % MCV (80.0-100.0) fL MCHC (31.0-37.0) g/dL Plt Count (150-450) k/uL Neutrophils # (1.3-7.7) k/uL Macrocytosis INR (<1.2) APTT (22.0-30.0) sec VBG pH 7.03 L* (7.31-7.41) VBG pCO2 17 L* (37-51) mmHg VBG HCO3 4 L* (24-28) mmol/L Sodium (137-145) mmol/L Potassium (3.5-5.1) mmol/L Chloride (98-107) mmol/L Carbon Dioxide (22-30) mmol/L BUN (9-20) mg/dL Creatinine (0.66-1.25) mg/dL Glucose (74-99) mg/dL POC Glucose (mg/dL) >600 H (75-99) mg/dL Plasma Lactic Acid Matthew (0.7-2.0) mmol/L Phosphorus (2.5-4.5) mg/dL Ammonia (<30) umol/L Troponin I 0.145 H* (0.000-0.034) ng/mL Total Protein (6.3-8.2) g/dL Urine Glucose (UA) (Negative) Urine Ketones (Negative) Urine Blood (Negative) Hyaline Casts (0-2) /lpf Urine Mucus (None) /hpf Urine Opiates Screen (NotDetected) 07/07/20 07/07/20 07/07/20 Range/Units 04:39 04:39 05:35 WBC (3.8-10.6) k/uL RBC (4.30-5.90) m/uL Hgb (13.0-17.5) gm/dL Hct (39.0-53.0) % MCV (80.0-100.0) fL MCHC (31.0-37.0) g/dL Plt Count (150-450) k/uL Neutrophils # (1.3-7.7) k/uL Macrocytosis INR (<1.2) APTT (22.0-30.0) sec VBG pH (7.31-7.41) VBG pCO2 (37-51) mmHg VBG HCO3 (24-28) mmol/L Sodium 125 L (137-145) mmol/L Potassium 7.1 H* (3.5-5.1) mmol/L Chloride 90 L (98-107) mmol/L Carbon Dioxide <5 L* (22-30) mmol/L BUN 32 H (9-20) mg/dL Creatinine 2.06 H (0.66-1.25) mg/dL Glucose (74-99) mg/dL POC Glucose (mg/dL) >600 H (75-99) mg/dL Plasma Lactic Acid Matthew 11.4 H* (0.7-2.0) mmol/L Phosphorus 11.1 H* (2.5-4.5) mg/dL Ammonia 85 H (<30) umol/L Troponin I (0.000-0.034) ng/mL Total Protein (6.3-8.2) g/dL Urine Glucose (UA) (Negative) Urine Ketones (Negative) Urine Blood (Negative) Hyaline Casts (0-2) /lpf Urine Mucus (None) /hpf Urine Opiates Screen (NotDetected) 07/07/20 07/07/20 07/07/20 Range/Units 06:19 06:30 06:30 WBC (3.8-10.6) k/uL RBC (4.30-5.90) m/uL Hgb (13.0-17.5) gm/dL Hct (39.0-53.0) % MCV (80.0-100.0) fL MCHC (31.0-37.0) g/dL Plt Count (150-450) k/uL Neutrophils # (1.3-7.7) k/uL Macrocytosis INR (<1.2) APTT (22.0-30.0) sec VBG pH (7.31-7.41) VBG pCO2 (37-51) mmHg VBG HCO3 (24-28) mmol/L Sodium (137-145) mmol/L Potassium (3.5-5.1) mmol/L Chloride (98-107) mmol/L Carbon Dioxide (22-30) mmol/L BUN (9-20) mg/dL Creatinine (0.66-1.25) mg/dL Glucose (74-99) mg/dL POC Glucose (mg/dL) >600 H (75-99) mg/dL Plasma Lactic Acid Matthew (0.7-2.0) mmol/L Phosphorus (2.5-4.5) mg/dL Ammonia (<30) umol/L Troponin I (0.000-0.034) ng/mL Total Protein (6.3-8.2) g/dL Urine Glucose (UA) 4+ H (Negative) Urine Ketones 2+ H (Negative) Urine Blood Trace H (Negative) Hyaline Casts 6 H (0-2) /lpf Urine Mucus Rare H (None) /hpf Urine Opiates Screen Detected H (NotDetected) 07/07/20 07/07/20 07/07/20 Range/Units 07:36 08:17 08:28 WBC (3.8-10.6) k/uL RBC (4.30-5.90) m/uL Hgb (13.0-17.5) gm/dL Hct (39.0-53.0) % MCV (80.0-100.0) fL MCHC (31.0-37.0) g/dL Plt Count (150-450) k/uL Neutrophils # (1.3-7.7) k/uL Macrocytosis INR (<1.2) APTT (22.0-30.0) sec VBG pH (7.31-7.41) VBG pCO2 (37-51) mmHg VBG HCO3 (24-28) mmol/L Sodium (137-145) mmol/L Potassium (3.5-5.1) mmol/L Chloride (98-107) mmol/L Carbon Dioxide (22-30) mmol/L BUN (9-20) mg/dL Creatinine (0.66-1.25) mg/dL Glucose (74-99) mg/dL POC Glucose (mg/dL) >600 H >600 H (75-99) mg/dL Plasma Lactic Acid Matthew (0.7-2.0) mmol/L Phosphorus (2.5-4.5) mg/dL Ammonia (<30) umol/L Troponin I 1.420 H* (0.000-0.034) ng/mL Total Protein (6.3-8.2) g/dL Urine Glucose (UA) (Negative) Urine Ketones (Negative) Urine Blood (Negative) Hyaline Casts (0-2) /lpf Urine Mucus (None) /hpf Urine Opiates Screen (NotDetected) 07/07/20 07/07/20 07/07/20 Range/Units 08:28 08:28 08:38 WBC (3.8-10.6) k/uL RBC (4.30-5.90) m/uL Hgb (13.0-17.5) gm/dL Hct (39.0-53.0) % MCV (80.0-100.0) fL MCHC (31.0-37.0) g/dL Plt Count (150-450) k/uL Neutrophils # (1.3-7.7) k/uL Macrocytosis INR (<1.2) APTT (22.0-30.0) sec VBG pH (7.31-7.41) VBG pCO2 (37-51) mmHg VBG HCO3 (24-28) mmol/L Sodium 131 L (137-145) mmol/L Potassium (3.5-5.1) mmol/L Chloride (98-107) mmol/L Carbon Dioxide 13 L (22-30) mmol/L BUN 33 H (9-20) mg/dL Creatinine 1.55 H (0.66-1.25) mg/dL Glucose 722 H* (74-99) mg/dL POC Glucose (mg/dL) (75-99) mg/dL Plasma Lactic Acid Matthew 4.4 H* (0.7-2.0) mmol/L Phosphorus (2.5-4.5) mg/dL Ammonia (<30) umol/L Troponin I (0.000-0.034) ng/mL Total Protein (6.3-8.2) g/dL Urine Glucose (UA) (Negative) Urine Ketones (Negative) Urine Blood (Negative) Hyaline Casts (0-2) /lpf Urine Mucus (None) /hpf Urine Opiates Screen (NotDetected) 07/07/20 07/07/20 07/07/20 Range/Units 09:13 10:11 11:06 WBC (3.8-10.6) k/uL RBC (4.30-5.90) m/uL Hgb (13.0-17.5) gm/dL Hct (39.0-53.0) % MCV (80.0-100.0) fL MCHC (31.0-37.0) g/dL Plt Count (150-450) k/uL Neutrophils # (1.3-7.7) k/uL Macrocytosis INR (<1.2) APTT (22.0-30.0) sec VBG pH (7.31-7.41) VBG pCO2 (37-51) mmHg VBG HCO3 (24-28) mmol/L Sodium (137-145) mmol/L Potassium (3.5-5.1) mmol/L Chloride (98-107) mmol/L Carbon Dioxide (22-30) mmol/L BUN (9-20) mg/dL Creatinine (0.66-1.25) mg/dL Glucose (74-99) mg/dL POC Glucose (mg/dL) >600 H 586 H 538 H (75-99) mg/dL Plasma Lactic Acid Matthew (0.7-2.0) mmol/L Phosphorus (2.5-4.5) mg/dL Ammonia (<30) umol/L Troponin I (0.000-0.034) ng/mL Total Protein (6.3-8.2) g/dL Urine Glucose (UA) (Negative) Urine Ketones (Negative) Urine Blood (Negative) Hyaline Casts (0-2) /lpf Urine Mucus (None) /hpf Urine Opiates Screen (NotDetected) 07/07/20 07/07/20 07/07/20 Range/Units 11:25 11:32 11:32 WBC (3.8-10.6) k/uL RBC (4.30-5.90) m/uL Hgb (13.0-17.5) gm/dL Hct (39.0-53.0) % MCV (80.0-100.0) fL MCHC (31.0-37.0) g/dL Plt Count (150-450) k/uL Neutrophils # (1.3-7.7) k/uL Macrocytosis INR (<1.2) APTT (22.0-30.0) sec VBG pH (7.31-7.41) VBG pCO2 (37-51) mmHg VBG HCO3 (24-28) mmol/L Sodium 133 L (137-145) mmol/L Potassium (3.5-5.1) mmol/L Chloride (98-107) mmol/L Carbon Dioxide 17 L (22-30) mmol/L BUN 31 H (9-20) mg/dL Creatinine 1.41 H (0.66-1.25) mg/dL Glucose 487 H (74-99) mg/dL POC Glucose (mg/dL) (75-99) mg/dL Plasma Lactic Acid Matthew 2.9 H* (0.7-2.0) mmol/L Phosphorus (2.5-4.5) mg/dL Ammonia (<30) umol/L Troponin I 3.420 H* (0.000-0.034) ng/mL Total Protein (6.3-8.2) g/dL Urine Glucose (UA) (Negative) Urine Ketones (Negative) Urine Blood (Negative) Hyaline Casts (0-2) /lpf Urine Mucus (None) /hpf Urine Opiates Screen (NotDetected) 07/07/20 07/07/20 07/07/20 Range/Units 12:22 13:10 14:04 WBC (3.8-10.6) k/uL RBC (4.30-5.90) m/uL Hgb (13.0-17.5) gm/dL Hct (39.0-53.0) % MCV (80.0-100.0) fL MCHC (31.0-37.0) g/dL Plt Count (150-450) k/uL Neutrophils # (1.3-7.7) k/uL Macrocytosis INR (<1.2) APTT (22.0-30.0) sec VBG pH (7.31-7.41) VBG pCO2 (37-51) mmHg VBG HCO3 (24-28) mmol/L Sodium (137-145) mmol/L Potassium (3.5-5.1) mmol/L Chloride (98-107) mmol/L Carbon Dioxide (22-30) mmol/L BUN (9-20) mg/dL Creatinine (0.66-1.25) mg/dL Glucose (74-99) mg/dL POC Glucose (mg/dL) 476 H 362 H 367 H (75-99) mg/dL Plasma Lactic Acid Matthew (0.7-2.0) mmol/L Phosphorus (2.5-4.5) mg/dL Ammonia (<30) umol/L Troponin I (0.000-0.034) ng/mL Total Protein (6.3-8.2) g/dL Urine Glucose (UA) (Negative) Urine Ketones (Negative) Urine Blood (Negative) Hyaline Casts (0-2) /lpf Urine Mucus (None) /hpf Urine Opiates Screen (NotDetected) Diabetes panel 07/07/20 07/07/20 07/07/20 Range/Units 03:13 04:39 08:28 Sodium 125 L 125 L 131 L (137-145) mmol/L Potassium 6.7 H* 7.1 H* 4.6 (3.5-5.1) mmol/L Chloride 88 L 90 L 98 (98-107) mmol/L Carbon Dioxide <5 L* <5 L* 13 L (22-30) mmol/L BUN 32 H 32 H 33 H (9-20) mg/dL Creatinine 1.89 H 2.06 H 1.55 H (0.66-1.25) mg/dL Glucose 1104 H* (74-99) mg/dL Calcium 8.8 (8.4-10.2) mg/dL AST 28 (17-59) U/L ALT 26 (4-49) U/L Alkaline Phosphatase 87 (38-126) U/L Total Protein 5.9 L (6.3-8.2) g/dL Albumin 3.7 (3.5-5.0) g/dL 07/07/20 07/07/20 Range/Units 08:38 11:32 Sodium 133 L (137-145) mmol/L Potassium 4.0 (3.5-5.1) mmol/L Chloride 103 (98-107) mmol/L Carbon Dioxide 17 L (22-30) mmol/L BUN 31 H (9-20) mg/dL Creatinine 1.41 H (0.66-1.25) mg/dL Glucose 722 H* 487 H (74-99) mg/dL Calcium 8.4 (8.4-10.2) mg/dL AST (17-59) U/L ALT (4-49) U/L Alkaline Phosphatase (38-126) U/L Total Protein (6.3-8.2) g/dL Albumin (3.5-5.0) g/dL Calcium panel 07/07/20 07/07/20 07/07/20 Range/Units 03:13 04:39 08:28 Calcium 8.8 (8.4-10.2) mg/dL Phosphorus 11.1 H* 4.1 (2.5-4.5) mg/dL Albumin 3.7 (3.5-5.0) g/dL 07/07/20 Range/Units 11:32 Calcium 8.4 (8.4-10.2) mg/dL Phosphorus (2.5-4.5) mg/dL Albumin (3.5-5.0) g/dL Pituitary panel 07/07/20 07/07/20 07/07/20 Range/Units 03:13 04:39 08:28 Sodium 125 L 125 L 131 L (137-145) mmol/L Potassium 6.7 H* 7.1 H* 4.6 (3.5-5.1) mmol/L Chloride 88 L 90 L 98 (98-107) mmol/L Carbon Dioxide <5 L* <5 L* 13 L (22-30) mmol/L BUN 32 H 32 H 33 H (9-20) mg/dL Creatinine 1.89 H 2.06 H 1.55 H (0.66-1.25) mg/dL Glucose 1104 H* (74-99) mg/dL Calcium 8.8 (8.4-10.2) mg/dL 07/07/20 07/07/20 Range/Units 08:38 11:32 Sodium 133 L (137-145) mmol/L Potassium 4.0 (3.5-5.1) mmol/L Chloride 103 (98-107) mmol/L Carbon Dioxide 17 L (22-30) mmol/L BUN 31 H (9-20) mg/dL Creatinine 1.41 H (0.66-1.25) mg/dL Glucose 722 H* 487 H (74-99) mg/dL Calcium 8.4 (8.4-10.2) mg/dL Adrenal panel 07/07/20 07/07/20 07/07/20 Range/Units 03:13 04:39 08:28 Sodium 125 L 125 L 131 L (137-145) mmol/L Potassium 6.7 H* 7.1 H* 4.6 (3.5-5.1) mmol/L Chloride 88 L 90 L 98 (98-107) mmol/L Carbon Dioxide <5 L* <5 L* 13 L (22-30) mmol/L BUN 32 H 32 H 33 H (9-20) mg/dL Creatinine 1.89 H 2.06 H 1.55 H (0.66-1.25) mg/dL Glucose 1104 H* (74-99) mg/dL Calcium 8.8 (8.4-10.2) mg/dL Total Bilirubin 0.7 (0.2-1.3) mg/dL AST 28 (17-59) U/L ALT 26 (4-49) U/L Alkaline Phosphatase 87 (38-126) U/L Total Protein 5.9 L (6.3-8.2) g/dL Albumin 3.7 (3.5-5.0) g/dL 07/07/20 07/07/20 Range/Units 08:38 11:32 Sodium 133 L (137-145) mmol/L Potassium 4.0 (3.5-5.1) mmol/L Chloride 103 (98-107) mmol/L Carbon Dioxide 17 L (22-30) mmol/L BUN 31 H (9-20) mg/dL Creatinine 1.41 H (0.66-1.25) mg/dL Glucose 722 H* 487 H (74-99) mg/dL Calcium 8.4 (8.4-10.2) mg/dL Total Bilirubin (0.2-1.3) mg/dL AST (17-59) U/L ALT (4-49) U/L Alkaline Phosphatase (38-126) U/L Total Protein (6.3-8.2) g/dL Albumin (3.5-5.0) g/dL - Imaging Chest x-ray: report reviewed, image reviewed EKG: image reviewed Assessment and Plan Assessment: 1. Diabetic ketoacidosis with admission blood sugar 1104 2. Lactic acidosis, admission lactic acid 11.4, anion gap metabolic acidosis, hyperkalemia, hyponatremia 3. Leukocytosis 4. Acute kidney injury 5. History of multivessel coronary artery disease with recent non-STEMI status post 4 vessel CABG on 06/22/2020 6. Ischemic cardiomyopathy, initially EF 25-30%, repeat EF 40-45% prior to discharge from hospitalization 7. Uncontrolled type 2 diabetes with hyperglycemia, recent hemoglobin A1c 10.5% with previous hospitalization initially for diabetic ketoacidosis 8. Hypertension 9. Hyperlipidemia 10. Chronic tobacco dependence 11. Moderate COPD 12. Peripheral neuropathy 13. Occasional marijuana use 14. Family history premature coronary artery disease 15. Medication noncompliance Plan: The patient was seen and examined at the bedside in the intensive care unit. The case was discussed in detail with Dr. Crabtree. We will continue to maximize cardiac medical therapy with aspirin, statin, Plavix, beta blockers, Cozaar. Continue calcium channel dixon for radial artery spasm. Continue postoperat yong lifting restrictions. Once patient is stable he should be showering daily. Encourage smoking cessation, encourage incentive spirometry use. DKA management per primary, anchor operator team. Patient needs to follow up with engine installer on discharge, encourage to be compliant with Accu-Cheks and diabetic management. We will continue to follow the patient while hospitalized, and he can follow up with Dr. Crabtree in the office upon discharge. Thank you for this consult. Time with Patient: Greater than 30
[2020-07-07 15:04] LABS: Glucose,Whole Blood 362 mg/dL (75-99)
[2020-07-07 16:16] LABS: Glucose,Whole Blood 285 mg/dL (75-99)
[2020-07-07] MEDS ORDERED: INSULIN ASPART (NovoLOG) 100 UNIT/ML VIAL SQ SCH (17:30)
[2020-07-07 17:35] LABS: Glucose,Whole Blood 180 mg/dL (75-99)
--- NOTE | 2020-07-07 17:41 | HP ---
HISTORY AND PHYSICAL CHIEF COMPLAINT: Lethargy, confusion, disorientation, and DKA. HISTORY OF PRESENT ILLNESS: This gentleman recently got out of the hospital after a triple-vessel coronary artery bypass. He went home and was seen in the office and was doing well. He suddenly was brought back to the emergency room, confused in DKA with a blood sugar over 1000. He is unable to give any other history. The possibility of drugs has to be entertained. REVIEW OF SYSTEMS: Unobtainable. Past medical history, family history, personal and social histories, historical details can be found in his recent discharge summary. PHYSICAL EXAMINATION: Blood pressure is 110/82 with a pulse of 115, respirations of 40. He is afebrile. In general, he appeared to be pale and lethargic. Skin was dry. Head, ears, eyes, nose, mouth, and throat were normal except for dry mucous membranes. Neck veins are not distended. Chest is clear. Cardiac exam demonstrates sinus tachycardia and his sternotomy wound was healing nicely. The abdomen is flat and soft and there are no masses or tenderness. Extremities are normal. Neurologically, he is very lethargic, but had no focal neurologic deficits. He is admitted to the hospital with diagnoses: 1. DKA. 2. Recent triple-vessel coronary artery bypass graft for coronary artery disease. 3. Chronic obstructive pulmonary disease. 4. History of drug abuse. PLAN: 1. Moved to ICU. 2. Consult Intensive Medicine. 3. Treat for DKA. 4. Rehydrate. 5. Drug screen. MMODL / IJN: [id number] /
[2020-07-07 18:07] LABS: Glucose,Whole Blood 168 mg/dL (75-99)
[2020-07-07] MEDS: D5-0.45% NACL WITH KCL 20MEQ/L 1,000 ML IV SCH (18:29)
[2020-07-07 19:01] LABS: Glucose,Whole Blood 115 mg/dL (75-99)
[2020-07-07 20:05] LABS: Glucose,Whole Blood 104 mg/dL (75-99)
[2020-07-07] MEDS ORDERED: POTASSIUM BICARBONATE/CIT AC 20 MEQ TABLET.EFF PO ONE (20:15)
[2020-07-07] MEDS ORDERED: INSULIN DETEMIR (LEVEMIR) 100 UNIT/ML SYR SQ SCH (21:00)
[2020-07-07 21:15] LABS: Glucose,Whole Blood 112 mg/dL (75-99)
[2020-07-07] MEDS: SENNOSIDES-DOCUSATE SODIUM 1 EACH TAB PO SCH (22:18)
[2020-07-07] MEDS: METOPROLOL TARTRATE 25 MG TAB PO SCH (22:19)
[2020-07-07 22:24] LABS: Glucose,Whole Blood 94 mg/dL (75-99)
[2020-07-07 23:06] LABS: Glucose,Whole Blood 97 mg/dL (75-99)
[2020-07-08 00:03] LABS: Glucose,Whole Blood 148 mg/dL (75-99)
[2020-07-08] MEDS: SODIUM CHLORIDE 0.9% 1,000 ML IV SCH ×4 (00:15→12:37)
[2020-07-08 01:08] LABS: Glucose,Whole Blood 236 mg/dL (75-99)
[2020-07-08] MEDS: D5-0.45% NACL WITH KCL 20MEQ/L 1,000 ML IV SCH ×4 (01:20→21:04)
[2020-07-08 02:04] LABS: Glucose,Whole Blood 235 mg/dL (75-99)
[2020-07-08 03:12] LABS: Glucose,Whole Blood 227 mg/dL (75-99)
[2020-07-08 04:08] LABS: Glucose,Whole Blood 227 mg/dL (75-99)
[2020-07-08 05:06] LABS: Glucose,Whole Blood 265 mg/dL (75-99)
[2020-07-08 06:00] LABS: Basophils % (A) 0 %; Eosinophils # (A) 0.1 k/uL (0-0.7); Eosinophils % (A) 0 %; HCT 28.8 % (39.0-53.0); Hypochromasia Slight; Lymphocytes # (A) 1.2 k/uL (1.0-4.8); Lymphocytes % (A) 6 %; MCH 28.3 pg (25.0-35.0); MCHC 31.2 g/dL (31.0-37.0); Mean Platelet Volume 6.6; Monocytes # (A) 0.7 k/uL (0-1.0); Monocytes % (A) 4 %; Neutrophils # (A) 17.7 k/uL (1.3-7.7); Neutrophils % (A) 89 %; Platelet Count 377 k/uL (150-450); RBC 3.17 m/uL (4.30-5.90); RDW 14.8 % (11.5-15.5)
[2020-07-08 06:10] LABS: MCV 90.6 fL (80.0-100.0)
[2020-07-08 06:22] LABS: Glucose,Whole Blood 245 mg/dL (75-99)
[2020-07-08 06:35] LABS: ALT 27 U/L (4-49); AST 47 U/L (17-59); African American GFR (CKD) >90 (>60 ml/min/1.73 sqM); Albumin 2.8 g/dL (3.5-5.0); Alkaline Phosphatase 58 U/L (38-126); Anion Gap 7 mmol/L; Blood Urea Nitrogen 22 mg/dL (9-20); Calcium 7.9 mg/dL (8.4-10.2); Carbon Dioxide 19 mmol/L (22-30); Chloride 108 mmol/L (98-107); Glucose 260 mg/dL (74-99); Magnesium 1.6 mg/dL (1.6-2.3); Non-African American GFR(CKD) >90 (>60 ml/min/1.73 sqM); Potassium 4.3 mmol/L (3.5-5.1); Sodium 134 mmol/L (137-145); Total Bilirubin 0.5 mg/dL (0.2-1.3)
[2020-07-08] MEDS: PANTOPRAZOLE 40 MG TABLET PO SCH (07:02)
[2020-07-08] MEDS: MAGNESIUM SULFATE-D5W PMX 1 GM in DEXTROSE/WATER 1 100ML.BAG IVPB SCH ×2 (07:02→08:11)
[2020-07-08 07:07] LABS: Glucose,Whole Blood 257 mg/dL (75-99)
[2020-07-08 07:50] LABS: Glucose,Whole Blood 215 mg/dL (75-99)
--- NOTE | 2020-07-08 07:56 | XR ---
EXAMINATION TYPE: XR chest 1V portable DATE OF EXAM: 07/08/2020 COMPARISON: 07/07/2020 HISTORY: Chest pain TECHNIQUE: Single frontal view of the chest is obtained. FINDINGS: Left lower lobe atelectasis and/or infiltrate persists. The remainder of the lungs are clear. The cardiac silhouette size is within normal limits. The osseous structures are intact. IMPRESSION: 1. Left lower lobe atelectasis and/or infiltrate persists.
[2020-07-08] MEDS: INSULIN REGULAR 100 UNIT in SODIUM CHLORIDE 0.9% 100 ML IV SCH (08:13)
[2020-07-08] MEDS: CLOPIDOGREL 75 MG TAB PO SCH (08:15)
[2020-07-08] MEDS: METOPROLOL TARTRATE 25 MG TAB PO SCH ×2 (08:15→21:05)
[2020-07-08] MEDS: ATORVASTATIN 40 MG TAB PO SCH (08:16)
[2020-07-08] MEDS: LACTULOSE 20 GM/30 ML CUP PO SCH (08:17)
[2020-07-08] MEDS: DILTIAZEM CD 120 MG CAP.ER.24H PO SCH (08:20)
[2020-07-08] MEDS: ASPIRIN 325 MG TAB PO SCH (08:20)
[2020-07-08 09:00] LABS: Glucose,Whole Blood 323 mg/dL (75-99)
[2020-07-08] MEDS ORDERED: NON FORMULARY DRUG (Omeprazole [Omeprazole] 20 MG) PO SCH (09:00)
[2020-07-08] MEDS: INSULIN DETEMIR (LEVEMIR) 100 UNIT/ML SYR SQ SCH (10:12)
--- NOTE | 2020-07-08 10:18 | P.PN ---
Subjective Progress Note Date: 07/08/20 Principal diagnosis: Diabetic ketoacidosis with admission blood sugar 1104, lactic acidosis, admission lactic acid 11.4, anion gap metabolic acidosis, hyperkalemia, hyponatremia, leukocytosis, acute kidney injury. History of multivessel coronary artery disease with recent non-STEMI status post 4 vessel CABG on 06/22/2020, ischemic cardiomyopathy, initially EF 25-30%, repeat EF 40-45% prior to discharge from hospitalization, uncontrolled type 2 diabetes with hyperglycemia, recent hemoglobin A1c 10.5% with previous hospitalization initially for diabetic ketoacidosis, hypertension, hyperlipidemia, chronic tobacco dependence, moderate COPD, peripheral neuropathy, occasional marijuana use, family history premature coronary artery disease, and medication noncompliance The patient is currently sitting up in bed in the intensive care unit in no acute distress. Does state that he is feeling better this morning. Lengthy discussion was had with the patient regarding the need to continuously check his blood sugars as his diabetes is very brittle. Also discussed with the patient the risks of hyperglycemia with high risk for sternal infection and nonhealing of his sternum and the sequelae if that happens. Denies any pain or shortness of breath. Blood sugars continued to decline and were down in the 90s last night, however they have steadily climbed again this morning and was 323 at 9 AM. Ammonia level has returned to normal, lactic acid has returned to normal, c reatinine and potassium have returned to normal. Patient was given several liters of IV fluid yesterday. Objective - Vital Signs Vital signs: Vital Signs Temp 97.6 F 07/08/20 08:00 Pulse 81 07/08/20 09:00 Resp 12 07/08/20 09:00 BP 126/92 07/08/20 09:00 Pulse Ox 100 07/08/20 09:00 Intake & Output 07/07/20 07/08/20 07/08/20 18:59 06:59 18:59 Intake Total 3366.929 1894.479 308.633 Output Total 1745 522 105 Balance 6493.332 8910.479 203.633 Weight 74 kg 75 kg Intake: IV 2300 1850 300 Calcium Gluconate 1 gm In 100 Sodium Chloride 0.9% 100 ml @ 100 mls/hr IVPB ONCE ONE Rx#:[id number] D5-0.45% NaCl with KCl 1650 300 20Meq/l 1,000 ml @ 150 mls/hr IV .Q6H40M MORE Rx# :[id number] Sodium Chloride 0.9% 1, 2200 200 000 ml @ 200 mls/hr IV . Q5H MORE Rx#:[id number] Intake, IV Titration 1066.929 44.479 8.633 Amount Insulin Regular 100 unit 66.929 44.479 8.633 In Sodium Chloride 0.9% 100 ml @ 0.1 UNITS/KG/HR 7.422 mls/hr IV .[id number] MORE Rx#:[id number] Sodium Chloride 0.9% 2, 1000 000 ml @ 999 mls/hr IV . Q2H1M ONE Rx#:[id number] Output: Urine 1745 522 105 Other: Voiding Method Indwelling Catheter Indwelling Catheter - Constitutional General appearance: Present: cooperative, no acute distress - Respiratory Details: Lungs sounds diminished bilaterally. Respirations even, nonlabored. Currently on room air with oxygen saturation 96%. Able to achieve 1250 mL on his incentive spirometry - Cardiovascular Details: S1, S2 present. Regular rate and rhythm, sinus rhythm on telemetry. Sternum stable. Palpable peripheral pulses bilaterally. No edema present. No calf pain or tenderness noted. - Gastrointestinal Gastrointestinal Comment(s): Abdomen soft, nontender, nondistended. Active bowel sounds present 4 quadrants. Tolerating diet. - Genitourinary Genitourinary Comment(s): Mcmillan present draining clear, yellow urine. Output 35-60 mL/h overnight - Integumentary Integumentary Comment(s): Skin is warm and dry. Anterior chest incision well approximated without any redness or drainage. - Neurologic Neurologic: Present: CNII-XII intact - Musculoskeletal Musculoskeletal: Present: strength equal bilaterally - Psychiatric Psychiatric: Present: A&O x's 3, appropriate affect - Allied health notes Allied health notes reviewed: nursing - Labs CBC & Chem 7: 07/08/20 05:24 07/08/20 05:24 Labs: Abnormal Lab Results - Last 24 Hours (Table) 07/07/20 07/07/20 07/07/20 Range/Units 08:28 08:38 10:11 WBC (3.8-10.6) k/uL RBC (4.30-5.90) m/uL Hgb (13.0-17.5) gm/dL Hct (39.0-53.0) % Neutrophils # (1.3-7.7) k/uL Sodium (137-145) mmol/L Chloride (98-107) mmol/L Carbon Dioxide (22-30) mmol/L BUN (9-20) mg/dL Creatinine (0.66-1.25) mg/dL Glucose 722 H* (74-99) mg/dL POC Glucose (mg/dL) 586 H (75-99) mg/dL Plasma Lactic Acid Matthew (0.7-2.0) mmol/L Calcium (8.4-10.2) mg/dL Troponin I 1.420 H* (0.000-0.034) ng/mL Total Protein (6.3-8.2) g/dL Albumin (3.5-5.0) g/dL 07/07/20 07/07/20 07/07/20 Range/Units 11:06 11:25 11:32 WBC (3.8-10.6) k/uL RBC (4.30-5.90) m/uL Hgb (13.0-17.5) gm/dL Hct (39.0-53.0) % Neutrophils # (1.3-7.7) k/uL Sodium 133 L (137-145) mmol/L Chloride (98-107) mmol/L Carbon Dioxide 17 L (22-30) mmol/L BUN 31 H (9-20) mg/dL Creatinine 1.41 H (0.66-1.25) mg/dL Glucose 487 H (74-99) mg/dL POC Glucose (mg/dL) 538 H (75-99) mg/dL Plasma Lactic Acid Matthew 2.9 H* (0.7-2.0) mmol/L Calcium (8.4-10.2) mg/dL Troponin I (0.000-0.034) ng/mL Total Protein (6.3-8.2) g/dL Albumin (3.5-5.0) g/dL 07/07/20 07/07/20 07/07/20 Range/Units 11:32 12:22 13:10 WBC (3.8-10.6) k/uL RBC (4.30-5.90) m/uL Hgb (13.0-17.5) gm/dL Hct (39.0-53.0) % Neutrophils # (1.3-7.7) k/uL Sodium (137-145) mmol/L Chloride (98-107) mmol/L Carbon Dioxide (22-30) mmol/L BUN (9-20) mg/dL Creatinine (0.66-1.25) mg/dL Glucose (74-99) mg/dL POC Glucose (mg/dL) 476 H 362 H (75-99) mg/dL Plasma Lactic Acid Matthew (0.7-2.0) mmol/L Calcium (8.4-10.2) mg/dL Troponin I 3.420 H* (0.000-0.034) ng/mL Total Protein (6.3-8.2) g/dL Albumin (3.5-5.0) g/dL 07/07/20 07/07/20 07/07/20 Range/Units 14:04 14:30 14:30 WBC (3.8-10.6) k/uL RBC (4.30-5.90) m/uL Hgb (13.0-17.5) gm/dL Hct (39.0-53.0) % Neutrophils # (1.3-7.7) k/uL Sodium 134 L (137-145) mmol/L Chloride (98-107) mmol/L Carbon Dioxide 20 L (22-30) mmol/L BUN 29 H (9-20) mg/dL Creatinine (0.66-1.25) mg/dL Glucose 345 H (74-99) mg/dL POC Glucose (mg/dL) 367 H (75-99) mg/dL Plasma Lactic Acid Matthew 2.2 H* (0.7-2.0) mmol/L Calcium 8.2 L (8.4-10.2) mg/dL Troponin I (0.000-0.034) ng/mL Total Protein (6.3-8.2) g/dL Albumin (3.5-5.0) g/dL 07/07/20 07/07/20 07/07/20 Range/Units 15:03 16:15 17:19 WBC (3.8-10.6) k/uL RBC (4.30-5.90) m/uL Hgb (13.0-17.5) gm/dL Hct (39.0-53.0) % Neutrophils # (1.3-7.7) k/uL Sodium (137-145) mmol/L Chloride (98-107) mmol/L Carbon Dioxide (22-30) mmol/L BUN (9-20) mg/dL Creatinine (0.66-1.25) mg/dL Glucose (74-99) mg/dL POC Glucose (mg/dL) 362 H 285 H (75-99) mg/dL Plasma Lactic Acid Matthew 2.2 H* (0.7-2.0) mmol/L Calcium (8.4-10.2) mg/dL Troponin I (0.000-0.034) ng/mL Total Protein (6.3-8.2) g/dL Albumin (3.5-5.0) g/dL 07/07/20 07/07/20 07/07/20 Range/Units 17:34 18:06 19:00 WBC (3.8-10.6) k/uL RBC (4.30-5.90) m/uL Hgb (13.0-17.5) gm/dL Hct (39.0-53.0) % Neutrophils # (1.3-7.7) k/uL Sodium (137-145) mmol/L Chloride (98-107) mmol/L Carbon Dioxide (22-30) mmol/L BUN (9-20) mg/dL Creatinine (0.66-1.25) mg/dL Glucose (74-99) mg/dL POC Glucose (mg/dL) 180 H 168 H 115 H (75-99) mg/dL Plasma Lactic Acid Matthew (0.7-2.0) mmol/L Calcium (8.4-10.2) mg/dL Troponin I (0.000-0.034) ng/mL Total Protein (6.3-8.2) g/dL Albumin (3.5-5.0) g/dL 07/07/20 07/07/20 07/08/20 Range/Units 20:03 21:13 00:01 WBC (3.8-10.6) k/uL RBC (4.30-5.90) m/uL Hgb (13.0-17.5) gm/dL Hct (39.0-53.0) % Neutrophils # (1.3-7.7) k/uL Sodium (137-145) mmol/L Chloride (98-107) mmol/L Carbon Dioxide (22-30) mmol/L BUN (9-20) mg/dL Creatinine (0.66-1.25) mg/dL Glucose (74-99) mg/dL POC Glucose (mg/dL) 104 H 112 H 148 H (75-99) mg/dL Plasma Lactic Acid Matthew (0.7-2.0) mmol/L Calcium (8.4-10.2) mg/dL Troponin I (0.000-0.034) ng/mL Total Protein (6.3-8.2) g/dL Albumin (3.5-5.0) g/dL 07/08/20 07/08/20 07/08/20 Range/Units 01:04 02:03 03:11 WBC (3.8-10.6) k/uL RBC (4.30-5.90) m/uL Hgb (13.0-17.5) gm/dL Hct (39.0-53.0) % Neutrophils # (1.3-7.7) k/uL Sodium (137-145) mmol/L Chloride (98-107) mmol/L Carbon Dioxide (22-30) mmol/L BUN (9-20) mg/dL Creatinine (0.66-1.25) mg/dL Glucose (74-99) mg/dL POC Glucose (mg/dL) 236 H 235 H 227 H (75-99) mg/dL Plasma Lactic Acid Matthew (0.7-2.0) mmol/L Calcium (8.4-10.2) mg/dL Troponin I (0.000-0.034) ng/mL Total Protein (6.3-8.2) g/dL Albumin (3.5-5.0) g/dL 07/08/20 07/08/20 07/08/20 Range/Units 04:06 05:04 05:24 WBC 20.0 H (3.8-10.6) k/uL RBC 3.17 L (4.30-5.90) m/uL Hgb 9.0 L (13.0-17.5) gm/dL Hct 28.8 L (39.0-53.0) % Neutrophils # 17.7 H (1.3-7.7) k/uL Sodium (137-145) mmol/L Chloride (98-107) mmol/L Carbon Dioxide (22-30) mmol/L BUN (9-20) mg/dL Creatinine (0.66-1.25) mg/dL Glucose (74-99) mg/dL POC Glucose (mg/dL) 227 H 265 H (75-99) mg/dL Plasma Lactic Acid Matthew (0.7-2.0) mmol/L Calcium (8.4-10.2) mg/dL Troponin I (0.000-0.034) ng/mL Total Protein (6.3-8.2) g/dL Albumin (3.5-5.0) g/dL 07/08/20 07/08/20 07/08/20 Range/Units 05:24 06:20 07:05 WBC (3.8-10.6) k/uL RBC (4.30-5.90) m/uL Hgb (13.0-17.5) gm/dL Hct (39.0-53.0) % Neutrophils # (1.3-7.7) k/uL Sodium 134 L (137-145) mmol/L Chloride 108 H (98-107) mmol/L Carbon Dioxide 19 L (22-30) mmol/L BUN 22 H (9-20) mg/dL Creatinine (0.66-1.25) mg/dL Glucose 260 H (74-99) mg/dL POC Glucose (mg/dL) 245 H 257 H (75-99) mg/dL Plasma Lactic Acid Matthew (0.7-2.0) mmol/L Calcium 7.9 L (8.4-10.2) mg/dL Troponin I (0.000-0.034) ng/mL Total Protein 5.0 L (6.3-8.2) g/dL Albumin 2.8 L (3.5-5.0) g/dL 07/08/20 07/08/20 Range/Units 07:49 08:59 WBC (3.8-10.6) k/uL RBC (4.30-5.90) m/uL Hgb (13.0-17.5) gm/dL Hct (39.0-53.0) % Neutrophils # (1.3-7.7) k/uL Sodium (137-145) mmol/L Chloride (98-107) mmol/L Carbon Dioxide (22-30) mmol/L BUN (9-20) mg/dL Creatinine (0.66-1.25) mg/dL Glucose (74-99) mg/dL POC Glucose (mg/dL) 215 H 323 H (75-99) mg/dL Plasma Lactic Acid Matthew (0.7-2.0) mmol/L Calcium (8.4-10.2) mg/dL Troponin I (0.000-0.034) ng/mL Total Protein (6.3-8.2) g/dL Albumin (3.5-5.0) g/dL Microbiology - Last 24 Hours (Table) 07/07/20 03:13 Blood Culture - Preliminary Blood No Growth after 24 hours - Imaging and Cardiology Chest x-ray: report reviewed, image reviewed Assessment and Plan Assessment: 1. Diabetic ketoacidosis with admission blood sugar 1104 2. Lactic acidosis, admission lactic acid 11.4, anion gap metabolic acidosis, hyperkalemia, hyponatremia 3. Leukocytosis 4. Acute kidney injury 5. History of multivessel coronary artery disease with recent non-STEMI status post 4 vessel CABG on 06/22/2020 6. Ischemic cardiomyopathy, initially EF 25-30%, repeat EF 40-45% prior to d ischarge from hospitalization 7. Uncontrolled type 2 diabetes with hyperglycemia, recent hemoglobin A1c 10.5% with previous hospitalization initially for diabetic ketoacidosis 8. Hypertension 9. Hyperlipidemia 10. Chronic tobacco dependence 11. Moderate COPD 12. Peripheral neuropathy 13. Occasional marijuana use 14. Family history premature coronary artery disease 15. Medication noncompliance Plan: 1. Continue aspirin, statin, Plavix, beta dixon, Cozaar 2. Continue calcium channel dixon for radial artery spasm 3. Continue postoperative lifting restrictions 4. Increase activity, ambulate as tolerated. Shower daily once stable 5. Encourage incentive spirometry is 10 times every hour while awake 6. DKA management per primary, special education preschool teacher team. Blood sugars need to be much better controlled to promote healing and reduce risk of infection 7. software educator consulted 8. Encourage smoking cessation 9. Encourage medication compliance, especially with Accu-Cheks and diabetic management 10. Patient should be referred to an automobile service writer upon discharge 11. More recommendations to follow Time with Patient: Greater than 30
[2020-07-08 10:21] LABS: Glucose,Whole Blood 169 mg/dL (75-99)
[2020-07-08 11:03] LABS: Glucose,Whole Blood 139 mg/dL (75-99)
[2020-07-08 12:24] LABS: Glucose,Whole Blood 118 mg/dL (75-99)
[2020-07-08] MEDS: INSULIN ASPART (NovoLOG) 100 UNIT/ML VIAL SQ SCH ×3 (12:29→22:20)
--- NOTE | 2020-07-08 12:30 | P.PN ---
Subjective Progress Note Date: 07/08/20 Principal diagnosis: Acute diabetic ketoacidosis, and acute toxic metabolic encephalopathy This is a 45-year-old gentleman who follows with Dr. Fam as his primary care provider. He is a history of diabetes mellitus, gastroparesis, diabetic peripheral neuropathy, hypertension, hyperlipidemia, marijuana use, chronic tobacco dependence. He had recently been treated at [facility] with altered mental status and unresponsiveness. He had developed respiratory failure requiring intubation mechanical fall and patient subsequently extubated on 06/17/2020. At that time he was found to have a non-ST segment elevation myocardial infarction on have triple-vessel disease and ischemic cardiomyopathy with ejection fraction 25-30%. He was eventually transferred here for cardiac revascularization that was performed on 06/22/2020. He had undergone urgent off-pump myocardial revascularization with a REILLY to the LAD and diagonal artery, ZAFAR to the right coronary artery, right radial artery to the obtuse marginal artery with patch angioplasty. He subsequently recovered and was discharged home on 06/26/2020. He presented here earlier this morning with complaints of shortness of breath, chest pain. He was agitated and encephalopathic in the emergency room. He had been discharged home on Tylenol for pain control however his urine drug screen is positive for opiates. He had not been taking his insulin on a regular basis. His initial blood glucose was 1 104. Venous blood gas revealed a pH of 7.03. PCO2 17. Bicarbonate 4. Sodium 125. Potassium 7.1. Creatinine 1.89. Urinalysis with 4+ glucose and 2+ ketones and lactic acid 11.4. He was transferred to the intensive care unit and initiated on the DKA protocol. He did receive a total of 5 L of fluid resuscitation. Current lab results reveal sodium 133. Potassium 4.0. Chloride 103. Bicarb 17. Anion gap 13. Creatinine 1.41. Glucose 487. Lactic acid down to 2.9. Troponin peak 3.42. He is currently on insulin drip at 0.1 units per kilogram per hour. 0.9 normal saline at 200 ML's per hour. Recently, he is awake and alert, feeling slightly better than earlier this morning. He is slow to respond. He is unsure as to why he was not taking insulin at home. Chest x- ray reveals left lower lobe atelectasis. He is currently maintaining O2 saturations in the 90s on room air. He's afebrile. Hemodynamically stable. Patient was reevaluated today on 07/08/20 remains in the ICU, remains on insulin drip, presently at 7 units per hour. His anion gap has completely closed. His ammonia level is below 9. Patient is alert and oriented 3, and he has no further episodes of confusion or mental status change. Obviously he had toxic metabolic encephalopathy related to his DKA and related to his elevated ammonia level. Patient will be placed on Lantus insulin at 20 units daily, we will gradually taper his insulin drip, and as soon as his sugar is at 150 or less, patient could be switched to sliding scale subcu insulin. Based on the protocol. Objective - Vital Signs Vital signs: Vital Signs Temp 97.6 F 07/08/20 08:00 Pulse 76 07/08/20 11:00 Resp 17 07/08/20 11:00 BP 111/85 07/08/20 11:00 Pulse Ox 98 07/08/20 11:00 Intake & Output 07/07/20 07/08/20 07/08/20 18:59 06:59 18:59 Intake Total 3366.929 1894.479 458.633 Output Total 1745 522 173 Balance 0227.214 0934.479 285.633 Weight 74 kg 75 kg Intake: IV 2300 1850 300 Calcium Gluconate 1 gm In 100 Sodium Chloride 0.9% 100 ml @ 100 mls/hr IVPB ONCE ONE Rx#:[id number] D5-0.45% NaCl with KCl 1650 300 20Meq/l 1,000 ml @ 150 mls/hr IV .Q6H40M MORE Rx# :[id number] Sodium Chloride 0.9% 1, 2200 200 000 ml @ 200 mls/hr IV . Q5H MORE Rx#:[id number] Intake, IV Titration 1066.929 44.479 158.633 Amount D5-0.45% NaCl with KCl 150 20Meq/l 1,000 ml @ 150 mls/hr IV .Q6H40M MORE Rx# :[id number] Insulin Regular 100 unit 66.929 44.479 8.633 In Sodium Chloride 0.9% 100 ml @ 0.1 UNITS/KG/HR 7.422 mls/hr IV .[id number] MORE Rx#:[id number] Sodium Chloride 0.9% 2, 1000 000 ml @ 999 mls/hr IV . Q2H1M ONE Rx#:[id number] Output: Urine 1745 522 173 Other: Voiding Method Indwelling Catheter Indwelling Catheter - Exam GENERAL EXAM: Revealed 45-year-old black male in no distress. HEENT: PERRLA, EOMI, no JVD. CHEST: Recent sternal incision clean dry well approximated LUNGS: Equal air entry with crackles in the left lung base. CVS: S1 and S2 normal with no audible murmur, regular rhythm. ABDOMEN: No hepatosplenomegaly, normal bowel sounds, no guarding or rigidity. SPINE: No scoliosis or deformity SKIN: No rashes, healing wound on the chest CENTRAL NERVOUS SYSTEM: No focal deficits, tone is normal in all 4 extremities. EXTREMITIES: There is no peripheral edema. No clubbing, no cyanosis. P eripheral pulses are intact. - Labs CBC & Chem 7: 07/08/20 05:24 07/08/20 05:24 Labs: Abnormal Lab Results - Last 24 Hours (Table) 07/07/20 07/07/20 07/07/20 Range/Units 08:28 11:32 12:22 WBC (3.8-10.6) k/uL RBC (4.30-5.90) m/uL Hgb (13.0-17.5) gm/dL Hct (39.0-53.0) % Neutrophils # (1.3-7.7) k/uL Sodium (137-145) mmol/L Chloride (98-107) mmol/L Carbon Dioxide (22-30) mmol/L BUN (9-20) mg/dL Glucose (74-99) mg/dL POC Glucose (mg/dL) 476 H (75-99) mg/dL Plasma Lactic Acid Matthew (0.7-2.0) mmol/L Calcium (8.4-10.2) mg/dL Troponin I 1.420 H* 3.420 H* (0.000-0.034) ng/mL Total Protein (6.3-8.2) g/dL Albumin (3.5-5.0) g/dL 07/07/20 07/07/20 07/07/20 Range/Units 13:10 14:04 14:30 WBC (3.8-10.6) k/uL RBC (4.30-5.90) m/uL Hgb (13.0-17.5) gm/dL Hct (39.0-53.0) % Neutrophils # (1.3-7.7) k/uL Sodium 134 L (137-145) mmol/L Chloride (98-107) mmol/L Carbon Dioxide 20 L (22-30) mmol/L BUN 29 H (9-20) mg/dL Glucose 345 H (74-99) mg/dL POC Glucose (mg/dL) 362 H 367 H (75-99) mg/dL Plasma Lactic Acid Matthew (0.7-2.0) mmol/L Calcium 8.2 L (8.4-10.2) mg/dL Troponin I (0.000-0.034) ng/mL Total Protein (6.3-8.2) g/dL Albumin (3.5-5.0) g/dL 07/07/20 07/07/20 07/07/20 Range/Units 14:30 15:03 16:15 WBC (3.8-10.6) k/uL RBC (4.30-5.90) m/uL Hgb (13.0-17.5) gm/dL Hct (39.0-53.0) % Neutrophils # (1.3-7.7) k/uL Sodium (137-145) mmol/L Chloride (98-107) mmol/L Carbon Dioxide (22-30) mmol/L BUN (9-20) mg/dL Glucose (74-99) mg/dL POC Glucose (mg/dL) 362 H 285 H (75-99) mg/dL Plasma Lactic Acid Matthew 2.2 H* (0.7-2.0) mmol/L Calcium (8.4-10.2) mg/dL Troponin I (0.000-0.034) ng/mL Total Protein (6.3-8.2) g/dL Albumin (3.5-5.0) g/dL 07/07/20 07/07/20 07/07/20 Range/Units 17:19 17:34 18:06 WBC (3.8-10.6) k/uL RBC (4.30-5.90) m/uL Hgb (13.0-17.5) gm/dL Hct (39.0-53.0) % Neutrophils # (1.3-7.7) k/uL Sodium (137-145) mmol/L Chloride (98-107) mmol/L Carbon Dioxide (22-30) mmol/L BUN (9-20) mg/dL Glucose (74-99) mg/dL POC Glucose (mg/dL) 180 H 168 H (75-99) mg/dL Plasma Lactic Acid Matthew 2.2 H* (0.7-2.0) mmol/L Calcium (8.4-10.2) mg/dL Troponin I (0.000-0.034) ng/mL Total Protein (6.3-8.2) g/dL Albumin (3.5-5.0) g/dL 07/07/20 07/07/20 07/07/20 Range/Units 19:00 20:03 21:13 WBC (3.8-10.6) k/uL RBC (4.30-5.90) m/uL Hgb (13.0-17.5) gm/dL Hct (39.0-53.0) % Neutrophils # (1.3-7.7) k/uL Sodium (137-145) mmol/L Chloride (98-107) mmol/L Carbon Dioxide (22-30) mmol/L BUN (9-20) mg/dL Glucose (74-99) mg/dL POC Glucose (mg/dL) 115 H 104 H 112 H (75-99) mg/dL Plasma Lactic Acid Matthew (0.7-2.0) mmol/L Calcium (8.4-10.2) mg/dL Troponin I (0.000-0.034) ng/mL Total Protein (6.3-8.2) g/dL Albumin (3.5-5.0) g/dL 07/08/20 07/08/20 07/08/20 Range/Units 00:01 01:04 02:03 WBC (3.8-10.6) k/uL RBC (4.30-5.90) m/uL Hgb (13.0-17.5) gm/dL Hct (39.0-53.0) % Neutrophils # (1.3-7.7) k/uL Sodium (137-145) mmol/L Chloride (98-107) mmol/L Carbon Dioxide (22-30) mmol/L BUN (9-20) mg/dL Glucose (74-99) mg/dL POC Glucose (mg/dL) 148 H 236 H 235 H (75-99) mg/dL Plasma Lactic Acid Matthew (0.7-2.0) mmol/L Calcium (8.4-10.2) mg/dL Troponin I (0.000-0.034) ng/mL Total Protein (6.3-8.2) g/dL Albumin (3.5-5.0) g/dL 07/08/20 07/08/20 07/08/20 Range/Units 03:11 04:06 05:04 WBC (3.8-10.6) k/uL RBC (4.30-5.90) m/uL Hgb (13.0-17.5) gm/dL Hct (39.0-53.0) % Neutrophils # (1.3-7.7) k/uL Sodium (137-145) mmol/L Chloride (98-107) mmol/L Carbon Dioxide (22-30) mmol/L BUN (9-20) mg/dL Glucose (74-99) mg/dL POC Glucose (mg/dL) 227 H 227 H 265 H (75-99) mg/dL Plasma Lactic Acid Matthew (0.7-2.0) mmol/L Calcium (8.4-10.2) mg/dL Troponin I (0.000-0.034) ng/mL Total Protein (6.3-8.2) g/dL Albumin (3.5-5.0) g/dL 07/08/20 07/08/20 07/08/20 Range/Units 05:24 05:24 06:20 WBC 20.0 H (3.8-10.6) k/uL RBC 3.17 L (4.30-5.90) m/uL Hgb 9.0 L (13.0-17.5) gm/dL Hct 28.8 L (39.0-53.0) % Neutrophils # 17.7 H (1.3-7.7) k/uL Sodium 134 L (137-145) mmol/L Chloride 108 H (98-107) mmol/L Carbon Dioxide 19 L (22-30) mmol/L BUN 22 H (9-20) mg/dL Glucose 260 H (74-99) mg/dL POC Glucose (mg/dL) 245 H (75-99) mg/dL Plasma Lactic Acid Matthew (0.7-2.0) mmol/L Calcium 7.9 L (8.4-10.2) mg/dL Troponin I (0.000-0.034) ng/mL Total Protein 5.0 L (6.3-8.2) g/dL Albumin 2.8 L (3.5-5.0) g/dL 07/08/20 07/08/20 07/08/20 Range/Units 07:05 07:49 08:59 WBC (3.8-10.6) k/uL RBC (4.30-5.90) m/uL Hgb (13.0-17.5) gm/dL Hct (39.0-53.0) % Neutrophils # (1.3-7.7) k/uL Sodium (137-145) mmol/L Chloride (98-107) mmol/L Carbon Dioxide (22-30) mmol/L BUN (9-20) mg/dL Glucose (74-99) mg/dL POC Glucose (mg/dL) 257 H 215 H 323 H (75-99) mg/dL Plasma Lactic Acid Matthew (0.7-2.0) mmol/L Calcium (8.4-10.2) mg/dL Troponin I (0.000-0.034) ng/mL Total Protein (6.3-8.2) g/dL Albumin (3.5-5.0) g/dL 07/08/20 07/08/20 Range/Units 10:20 11:02 WBC (3.8-10.6) k/uL RBC (4.30-5.90) m/uL Hgb (13.0-17.5) gm/dL Hct (39.0-53.0) % Neutrophils # (1.3-7.7) k/uL Sodium (137-145) mmol/L Chloride (98-107) mmol/L Carbon Dioxide (22-30) mmol/L BUN (9-20) mg/dL Glucose (74-99) mg/dL POC Glucose (mg/dL) 169 H 139 H (75-99) mg/dL Plasma Lactic Acid Matthew (0.7-2.0) mmol/L Calcium (8.4-10.2) mg/dL Troponin I (0.000-0.034) ng/mL Total Protein (6.3-8.2) g/dL Albumin (3.5-5.0) g/dL Microbiology - Last 24 Hours (Table) 07/07/20 03:13 Blood Culture - Preliminary Blood No Growth after 24 hours Assessment and Plan Assessment: Impression: Acute diabetic ketoacidosis. Anion gap metabolic acidosis secondary to above. Pseudohyponatremia secondary to significantly elevated blood sugar. Hyperkalemia secondary to metabolic acidosis, resolved. Hyper ammonia, resolved. Acute toxic metabolic encephalopathy, resolved with resolution of his diabetic ketoacidosis and normal ammonia level now. History of ischemic cardiomyopathy with LV dysfunction ejection fraction of 25-30%. Insulin-dependent diabetes mellitus. History of diabetic gastroparesis. History of hypertension. History of marijuana use. History of non-ST segment elevation myocardial infarction, patient is status post bypass grafting on 06/22/20. Recommendation: Continue to follow the protocol. Started the patient on Lantus insulin at 20 units subcu daily. Taper and possibly discontinue insulin drip today. Switched to sliding scale subcu insulin as per protocol. Resume on his cardiac meds. Transfer patient out of the ICU once he is off insulin drip. We'll continue to follow. Time with Patient: Less than 30
[2020-07-08] MEDS: LOSARTAN 25 MG TAB PO SCH (12:32)
[2020-07-08 13:21] LABS: Glucose,Whole Blood 106 mg/dL (75-99)
[2020-07-08 17:16] LABS: Glucose,Whole Blood 102 mg/dL (75-99)
--- NOTE | 2020-07-08 18:10 | PN ---
PROGRESS NOTE DATE OF SERVICE: 07/08/2020 CHIEF COMPLAINT: DKA. HISTORY OF PRESENT ILLNESS: This gentleman is doing a little bit better, but he cannot remember anything that happened prior to his coming to the hospital and does not understand why his blood sugar could have climbed. He states he was taking his insulin. PHYSICAL EXAMINATION: Blood pressure is normal at 126/92. Chest is clear. Cardiac exam demonstrates sinus rhythm and no murmurs or extra sounds. Abdomen is soft. Bowel sounds are present. IMPRESSION: 1. Diabetic ketoacidosis. 2. Recent coronary artery bypass grafting. 3. History of substance abuse and overdose. PLAN: Continue to follow while he is in the ICU, and he can probably be moved out soon. MMODL / IJN: [id number] /
[2020-07-08 20:56] LABS: Glucose,Whole Blood 58 mg/dL (75-99)
[2020-07-08] MEDS: SENNOSIDES-DOCUSATE SODIUM 1 EACH TAB PO SCH (21:05)
[2020-07-08 21:23] LABS: Glucose,Whole Blood 66 mg/dL (75-99)
[2020-07-08 21:55] LABS: Glucose,Whole Blood 82 mg/dL (75-99)
[2020-07-09 06:49] LABS: Glucose,Whole Blood 103 mg/dL (75-99)
[2020-07-09] MEDS: INSULIN ASPART (NovoLOG) 100 UNIT/ML VIAL SQ SCH ×4 (07:14→20:44)
[2020-07-09] MEDS: METOPROLOL TARTRATE 25 MG TAB PO SCH ×2 (07:19→20:53)
[2020-07-09] MEDS: ATORVASTATIN 40 MG TAB PO SCH (07:20)
[2020-07-09] MEDS: CLOPIDOGREL 75 MG TAB PO SCH (07:20)
[2020-07-09] MEDS: ASPIRIN 325 MG TAB PO SCH (07:20)
[2020-07-09] MEDS: PANTOPRAZOLE 40 MG TABLET PO SCH (07:20)
[2020-07-09] MEDS: DILTIAZEM CD 120 MG CAP.ER.24H PO SCH (07:21)
[2020-07-09] MEDS: INSULIN DETEMIR (LEVEMIR) 100 UNIT/ML SYR SQ SCH (07:21)
[2020-07-09] MEDS: LACTULOSE 20 GM/30 ML CUP PO SCH ×2 (07:24→07:25)
--- NOTE | 2020-07-09 08:45 | XR ---
EXAMINATION TYPE: XR chest 1V portable DATE OF EXAM: 07/09/2020 CLINICAL HISTORY: Post cardiac surgery TECHNIQUE: Portable upright view of the chest obtained COMPARISON: 07/08/2020 chest radiograph FINDINGS: Sternotomy wires and mediastinal surgical clips. There is mildly increased small left pleu ral effusion. No pneumothorax. The cardiomediastinal silhouette is within normal limits for size. Pul monary vasculature is normal. IMPRESSION: Mildly increased left basilar airspace opacities, now with small left pleural effusion.
[2020-07-09 09:59] LABS: HCT 35.1 % (39.0-53.0); HGB 11.2 gm/dL (13.0-17.5); Hypochromasia Moderate; MCHC 31.9 g/dL (31.0-37.0); MCV 90.9 fL (80.0-100.0); Mean Platelet Volume 6.9; Platelet Count 402 k/uL (150-450); RBC 3.86 m/uL (4.30-5.90); RDW 14.7 % (11.5-15.5); WBC 14.8 k/uL (3.8-10.6)
[2020-07-09 10:21] LABS: African American GFR (CKD) >90 (>60 ml/min/1.73 sqM); Anion Gap 6 mmol/L; Blood Urea Nitrogen 12 mg/dL (9-20); Calcium 8.5 mg/dL (8.4-10.2); Carbon Dioxide 25 mmol/L (22-30); Chloride 102 mmol/L (98-107); Glucose 129 mg/dL (74-99); Magnesium 1.7 mg/dL (1.6-2.3); Non-African American GFR(CKD) >90 (>60 ml/min/1.73 sqM); Potassium 3.9 mmol/L (3.5-5.1); Sodium 133 mmol/L (137-145)
[2020-07-09 11:28] LABS: Glucose,Whole Blood 113 mg/dL (75-99)
[2020-07-09] MEDS: LOSARTAN 25 MG TAB PO SCH (11:39)
--- NOTE | 2020-07-09 14:00 | P.PN ---
Subjective Progress Note Date: 07/09/20 Principal diagnosis: Diabetic ketoacidosis with admission blood sugar 1104, lactic acidosis, admission lactic acid 11.4, anion gap metabolic acidosis, hyperkalemia, hyponatremia, leukocytosis, acute kidney injury. History of multivessel coronary artery disease with recent non-STEMI status post 4 vessel CABG on 06/22/2020, ischemic cardiomyopathy, initially EF 25-30%, repeat EF 40-45% prior to discharge from hospitalization, uncontrolled type 2 diabetes with hyperglycemia, recent hemoglobin A1c 10.5% with previous hospitalization initially for diabetic ketoacidosis, hypertension, hyperlipidemia, chronic tobacco dependence, moderate COPD, peripheral neuropathy, occasional marijuana use, family history premature coronary artery disease, and medication noncompliance The patient is currently sitting up in bed on the medical surgical unit in no acute distress. Denies any chest pain or shortness of breath. Reinforced the need to continuously check his blood sugars as his diabetes is very brittle. Also discussed with the patient the risks of hyperglycemia with high risk for sternal infection and nonhealing of his sternum and the sequelae if that happens. Blood sugars were in the 50s to 60s last night, low 100s today. Patient is complaining of the type of food being served him as a reason for his blood sugars being well last night, stating he does not like the food in this hospital Objective - Vital Signs Vital signs: Vital Signs Temp 98.4 F 07/09/20 07:00 Pulse 82 07/09/20 07:00 Resp 17 07/09/20 07:30 BP 143/88 07/09/20 07:00 Pulse Ox 98 07/09/20 07:00 Intake & Output 07/08/20 07/09/20 07/09/20 18:59 06:59 18:59 Intake Total 858.633 50 Output Total 698 590 Balance 160.633 -540 Weight 76.8 kg Intake: IV 300 D5-0.45% NaCl with KCl 300 20Meq/l 1,000 ml @ 150 mls/hr IV .Q6H40M MORE Rx# :[id number] Intake, IV Titration 558.633 50 Amount D5-0.45% NaCl with KCl 550 50 20Meq/l 1,000 ml @ 50 mls /hr IV .Q20H MORE Rx#: [id number] Insulin Regular 100 unit 8.633 In Sodium Chloride 0.9% 100 ml @ 0.1 UNITS/KG/HR 7.422 mls/hr IV .[id number] [facility] Rx#:[id number] Output: Urine 698 590 Other: Voiding Method Indwelling Catheter Toilet Toilet # Voids 2 - Constitutional General appearance: Present: cooperative, no acute distress - Respiratory Details: Lungs sounds diminished bilaterally. Respirations even, nonlabored. Currently on room air with oxygen saturation 100%. Able to achieve 1500 mL on his incentive spirometry - Cardiovascular Details: S1, S2 present. Regular rate and rhythm, sinus rhythm on telemetry. Sternum stable. Palpable peripheral pulses bilaterally. No edema present. No calf pain or tenderness noted. - Gastrointestinal Gastrointestinal Comment(s): Abdomen soft, nontender, nondistended. Active bowel sounds present 4 quadrants. Tolerating diet. - Genitourinary Genitourinary Comment(s): Mcmillan discontinued last night. Patient has voided - Integumentary Integumentary Comment(s): Skin is warm and dry. Anterior chest incision well approximated without any redness or drainage. - Neurologic Neurologic: Present: CNII-XII intact - Musculoskeletal Musculoskeletal: Present: gait normal, strength equal bilaterally - Psychiatric Psychiatric: Present: A&O x's 3, appropriate affect - Allied health notes Allied health notes reviewed: nursing - Labs CBC & Chem 7: 07/09/20 09:02 07/09/20 09:02 Labs: Abnormal Lab Results - Last 24 Hours (Table) 07/08/20 07/08/20 07/08/20 Range/Units 17:14 20:54 21:21 WBC (3.8-10.6) k/uL RBC (4.30-5.90) m/uL Hgb (13.0-17.5) gm/dL Hct (39.0-53.0) % Sodium (137-145) mmol/L Creatinine (0.66-1.25) mg/dL Glucose (74-99) mg/dL POC Glucose (mg/dL) 102 H 58 L 66 L (75-99) mg/dL 07/09/20 07/09/20 07/09/20 Range/Units 06:46 09:02 09:02 WBC 14.8 H (3.8-10.6) k/uL RBC 3.86 L (4.30-5.90) m/uL Hgb 11.2 L (13.0-17.5) gm/dL Hct 35.1 L (39.0-53.0) % Sodium 133 L (137-145) mmol/L Creatinine 0.63 L (0.66-1.25) mg/dL Glucose 129 H (74-99) mg/dL POC Glucose (mg/dL) 103 H (75-99) mg/dL 07/09/20 Range/Units 11:25 WBC (3.8-10.6) k/uL RBC (4.30-5.90) m/uL Hgb (13.0-17.5) gm/dL Hct (39.0-53.0) % Sodium (137-145) mmol/L Creatinine (0.66-1.25) mg/dL Glucose (74-99) mg/dL POC Glucose (mg/dL) 113 H (75-99) mg/dL Microbiology - Last 24 Hours (Table) 07/07/20 03:13 Blood Culture - Preliminary Blood No Growth after 48 hours - Imaging and Cardiology Chest x-ray: report reviewed, image reviewed Assessment and Plan Assessment: 1. Diabetic ketoacidosis with admission blood sugar 1104 2. Lactic acidosis, admission lactic acid 11.4, anion gap metabolic acidosis, hyperkalemia, hyponatremia 3. Leukocytosis 4. Acute kidney injury 5. History of multivessel coronary artery disease with recent non-STEMI status post 4 vessel CABG on 06/22/2020 6. Ischemic cardiomyopathy, initially EF 25-30%, repeat EF 40-45% prior to discharge from hospitalization 7. Uncontrolled type 2 diabetes with hyperglycemia, recent hemoglobin A1c 10.5% with previous hospitalization initially for diabetic ketoacidosis 8. Hypertension 9. Hyperlipidemia 10. Chronic tobacco dependence 11. Moderate COPD 12. Peripheral neuropathy 13. Occasional marijuana use 14. Family history premature coronary artery disease 15. Medication noncompliance Plan: 1. Continue aspirin, statin, Plavix, beta dixon, Cozaar 2. Continue calcium channel dixon for radial artery spasm 3. Continue postoperative lifting restrictions 4. Increase activity, ambulate as tolerated. Shower daily 5. Encourage incentive spirometry is 10 times every hour while awake 6. DKA management per primary, unix architect team. Blood sugars need to be much better controlled to promote healing and reduce risk of infection 7. medical director occupational health consulted 8. Encourage smoking cessation 9. Encourage medication compliance, especially with Accu-Cheks and diabetic management 10. Patient should be referred to an trial examiner upon discharge 11. Patient may be discharged home from cardiothoracic surgery standpoint when okay with other consultants 12. More recommendations to follow Time with Patient: Greater than 30
[2020-07-09 15:34] VITALS: RESP 16
[2020-07-09 16:39] LABS: Glucose,Whole Blood 192 mg/dL (75-99)
[2020-07-09] MEDS: D5-0.45% NACL WITH KCL 20MEQ/L 1,000 ML IV SCH (17:01)
--- NOTE | 2020-07-09 18:43 | PN ---
PROGRESS NOTE DATE OF SERVICE: 07/09/2020 CHIEF COMPLAINT: Diabetic ketoacidosis. HISTORY OF PRESENT ILLNESS: This gentleman seems to be doing well. Sugars are under good control. He is eating and he is not nauseated. He is not lethargic. He has had no chest pain or shortness of breath. PHYSICAL EXAMINATION: Chest is quite clear. Cardiac exam is normal. Abdomen is soft and flat. IMPRESSION: 1. Diabetic ketoacidosis. 2. Coronary artery stent, status post coronary artery bypass grafting. PLAN: Continue to increase activity and monitor blood sugars for another day or two. MMODL / IJN: [id number] /
[2020-07-09 20:37] LABS: Glucose,Whole Blood 111 mg/dL (75-99)
[2020-07-09] MEDS: SENNOSIDES-DOCUSATE SODIUM 1 EACH TAB PO SCH (20:53)
[2020-07-09 22:14] LABS: Hemoglobin A1C 9.9 % (4.0-6.0)
[2020-07-10 06:39] LABS: Glucose,Whole Blood 237 mg/dL (75-99)
[2020-07-10] MEDS: INSULIN DETEMIR (LEVEMIR) 100 UNIT/ML SYR SQ SCH (07:45)
[2020-07-10] MEDS: INSULIN ASPART (NovoLOG) 100 UNIT/ML VIAL SQ SCH ×2 (07:45→12:08)
[2020-07-10] MEDS: ASPIRIN 325 MG TAB PO SCH (07:46)
[2020-07-10] MEDS: CLOPIDOGREL 75 MG TAB PO SCH (07:46)
[2020-07-10] MEDS: METOPROLOL TARTRATE 25 MG TAB PO SCH (07:46)
[2020-07-10] MEDS: PANTOPRAZOLE 40 MG TABLET PO SCH (07:46)
[2020-07-10] MEDS: ATORVASTATIN 40 MG TAB PO SCH (07:46)
[2020-07-10] MEDS: LACTULOSE 20 GM/30 ML CUP PO SCH (07:46)
[2020-07-10] MEDS: DILTIAZEM CD 120 MG CAP.ER.24H PO SCH (07:47)
[2020-07-10 08:31] VITALS: BP 138/82; PULSE 84; TEMP 98.5
--- NOTE | 2020-07-10 10:46 | P.PN ---
Subjective Progress Note Date: 07/10/20 Principal diagnosis: Diabetic ketoacidosis with admission blood sugar 1104, lactic acidosis, admission lactic acid 11.4, anion gap metabolic acidosis, hyperkalemia, hyponatremia, leukocytosis, acute kidney injury. History of multivessel coronary artery disease with recent non-STEMI status post 4 vessel CABG on 06/22/2020, ischemic cardiomyopathy, initially EF 25-30%, repeat EF 40-45% prior to discharge from hospitalization, uncontrolled type 2 diabetes with hyperglycemia, recent hemoglobin A1c 10.5% with previous hospitalization initially for diabetic ketoacidosis, hypertension, hyperlipidemia, chronic tobacco dependence, moderate COPD, peripheral neuropathy, occasional marijuana use, family history premature coronary artery disease, and medication noncompliance The patient is currently sitting up in bed on the medical surgical unit in no acute distress. Denies any chest pain or shortness of breath. Reinforced the need to continuously check his blood sugars as his diabetes is very brittle. Also discussed with the patient the risks of hyperglycemia with high risk for sternal infection and nonhealing of his sternum and the sequelae if that happens. Blood sugars were stable over the last 24 hours. Anxious to go home Objective - Vital Signs Vital signs: Vital Signs Temp 98.5 F 07/10/20 06:59 Pulse 84 07/10/20 06:59 Resp 16 07/10/20 06:59 BP 138/82 07/10/20 06:59 Pulse Ox 97 07/10/20 06:59 Intake & Output 07/09/20 07/10/20 07/10/20 18:59 06:59 18:59 Other: Voiding Method Toilet Toilet Toilet # Voids 2 - Constitutional General appearance: Present: cooperative, no acute distress - Respiratory Details: Lungs sounds diminished bilaterally. Respirations even, nonlabored. Currently on room air with oxygen saturation 100%. Able to achieve 1500 mL on his incentive spirometry - Cardiovascular Details: S1, S2 present. Regular rate and rhythm. Sternum stable. Palpable peripheral pulses bilaterally. No edema present. No calf pain or tenderness noted - Gastrointestinal Gastrointestinal Comment(s): Abdomen soft, nontender, nondistended. Active bowel sounds present 4 quadrants. Tolerating diet. - Genitourinary Genitourinary Comment(s): Continues to void - Integumentary Integumentary Comment(s): Skin is warm and dry. Anterior chest incision well approximated without any redness or drainage. - Neurologic Neurologic: Present: CNII-XII intact - Musculoskeletal Musculoskeletal: Present: gait normal, strength equal bilaterally - Psychiatric Psychiatric: Present: A&O x's 3, appropriate affect, intact judgment & insight - Allied health notes Allied health notes reviewed: nursing - Labs CBC & Chem 7: 07/09/20 09:02 07/09/20 09:02 Labs: Abnormal Lab Results - Last 24 Hours (Table) 07/09/20 07/09/20 07/09/20 Range/Units 09:02 11:25 16:37 POC Glucose (mg/dL) 113 H 192 H (75-99) mg/dL Hemoglobin A1c 9.9 H (4.0-6.0) % 07/09/20 07/10/20 Range/Units 20:36 06:37 POC Glucose (mg/dL) 111 H 237 H (75-99) mg/dL Hemoglobin A1c (4.0-6.0) % Microbiology - Last 24 Hours (Table) 07/07/20 03:13 Blood Culture - Preliminary Blood No Growth after 72 hours Assessment and Plan Assessment: 1. Diabetic ketoacidosis with admission blood sugar 1104 2. Lactic acidosis, admission lactic acid 11.4, anion gap metabolic acidosis, hyperkalemia, hyponatremia 3. Leukocytosis 4. Acute kidney injury 5. History of multivessel coronary artery disease with recent non-STEMI status post 4 vessel CABG on 06/22/2020 6. Ischemic cardiomyopathy, initially EF 25-30%, repeat EF 40-45% prior to discharge from hospitalization 7. Uncontrolled type 2 diabetes with hyperglycemia, recent hemoglobin A1c 10.5% with previous hospitalization initially for diabetic ketoacidosis 8. Hypertension 9. Hyperlipidemia 10. Chronic tobacco dependence 11. Moderate COPD 12. Peripheral neuropathy 13. Occasional marijuana use 14. Family history premature coronary artery disease 15. Medication noncompliance Plan: 1. Continue aspirin, statin, Plavix, beta dixon, Cozaar 2. Continue calcium channel dixon for radial artery spasm 3. Continue postoperative lifting restrictions 4. Increase activity, ambulate as tolerated. Shower daily 5. Encourage incentive spirometry is 10 times every hour while awake 6. DKA management per primary, outside sales account representative team. Blood sugars need to be much better controlled to promote healing and reduce risk of infection 7. clinical trial educator consulted 8. Encourage smoking cessation 9. Encourage medication compliance, especially with Accu-Cheks and diabetic management 10. Patient should be referred to an swabber upon discharge 11. Patient may be discharged home from cardiothoracic surgery standpoint when okay with other consultants 12. We'll continue to see while hospitalized Time with Patient: Greater than 30
[2020-07-10 11:47] LABS: Glucose,Whole Blood 206 mg/dL (75-99)
[2020-07-10] MEDS: LOSARTAN 25 MG TAB PO SCH (12:08)
--- NOTE | 2020-07-10 16:40 | DS ---
DISCHARGE SUMMARY CHIEF COMPLAINT: Diabetic ketoacidosis and coma. HISTORY OF PRESENT ILLNESS AND PHYSICAL EXAMINATION: Details of this man's history and physical can be found in the initial workup. LABORATORY STUDIES: While he was in a hospital he had laboratory studies, details of which can be found in the laboratory section of his chart. COURSE IN THE HOSPITAL: After admission he was placed on bedrest and started on intravenous fluids in the ICU and was treated for DKA. He gradually became more awake and alert, but could never explain why he came in with a blood sugar of over 1000. He stated he had been taking his insulin. He was doing well and it was felt that he could go home on the . He will be followed up in the office in several days. He will stay on his Basaglar and NovoLog. FINAL DIAGNOSES: 1. Diabetic ketoacidosis. 2. Dehydration. 3. Coronary artery disease status post CABG. 4. History of drug abuse. OPERATIONS: None. CONSULTATIONS: Cardiac Surgery and Intensive Medicine. He is improved. MMODL / IJN: [id number] /
== END 2020-07-10 14:55 | disposition home health service (06) | DRG 637 ==
LOC: EC 02:51 → 2SICU 04:30 → 4SSUR 07-08 23:10
PROVIDERS: ADMIT Family Medicine; ATTEND Family Medicine
DX: E11.10 Type 2 diabetes mellitus with ketoacidosis without coma (principal); G92 Toxic encephalopathy; I21.4 Non-ST elevation (NSTEMI) myocardial infarction; N17.9 Acute kidney failure, unspecified; J98.11 Atelectasis; I25.10 Atherosclerotic heart disease of native coronary artery without angina pectoris; I10 Essential (primary) hypertension; F41.9 Anxiety disorder, unspecified; F32.9 Major depressive disorder, single episode, unspecified; F17.200 Nicotine dependence, unspecified, uncomplicated; E87.5 Hyperkalemia; K31.84 Gastroparesis; E11.43 Type 2 diabetes mellitus with diabetic autonomic (poly)neuropathy; E78.5 Hyperlipidemia, unspecified; J44.9 Chronic obstructive pulmonary disease, unspecified; I25.5 Ischemic cardiomyopathy; F12.90 Cannabis use, unspecified, uncomplicated; E11.42 Type 2 diabetes mellitus with diabetic polyneuropathy; E86.0 Dehydration; Z79.899 Other long term (current) drug therapy; Z95.1 Presence of aortocoronary bypass graft; Z79.82 Long term (current) use of aspirin; Z79.4 Long term (current) use of insulin; Z98.890 Other specified postprocedural states; Z83.3 Family history of diabetes mellitus; Z82.49 Family history of ischemic heart disease and other diseases of the circulatory system; Z84.1 Family history of disorders of kidney and ureter; I25.2 Old myocardial infarction; Z91.19 Patient's noncompliance with other medical treatment and regimen; Z91.14 Patient's other noncompliance with medication regimen; Z79.02 Long term (current) use of antithrombotics/antiplatelets; Z95.5 Presence of coronary angioplasty implant and graft
CPT/HCPCS: 36415; 71045; 80048; 80051; 80053; 80306; 81001; 82140; 82565; 82803; 82947; 83036; 83605; 83735; 84100; 84484; 84520; 85025; 85027; 85610; 85730; 87040; 93005; 96361; 96374; 96375; 99291

== ENCOUNTER 2023-11-14 10:58 | Inpatient (IN) | payer OTHER ==
[2023-11-14 10:47] LABS: Glucose,Whole Blood 151 mg/dL (70-110)
[~2023-11-14 10:58] MED LIST: ALPRAZolam 0.25 MG TAB PO PRN; ALPRAZolam 0.5 MG TAB PO PRN; ASPIRIN 325 MG TAB PO STA; ASPIRIN 81 MG ONE; ATORVASTATIN 80 MG TAB PO STA; NICOTINE 14MG/24HR PATCH TRANSDERM STA; NITROGLYCERIN SL TABS 0.4 MG TAB SUBLINGUAL PRN; SODIUM CHLORIDE 0.9% 1,000 ML IV ONE; SODIUM CHLORIDE 0.9% 1,000 ML in EMPTY BAG 1 BAG IV SCH
[2023-11-14] MEDS ORDERED: fentaNYL (PF) 50 MCG/ML 2 ML AMP ONE (11:36)
[2023-11-14] MEDS ORDERED: VERAPAMIL 2.5 MG/ML 2 ML AMP ONE (11:36)
[2023-11-14] MEDS ORDERED: HEPARIN SODIUM 1,000 UN/ML (10ML VL) ONE (11:36)
[2023-11-14] MEDS ORDERED: MIDAZOLAM 2 MG/2 ML VIAL IVP ONE (12:10)
[2023-11-14] MEDS ORDERED: fentaNYL (PF) 50 MCG/ML 2 ML AMP IVP ONE (12:11)
[2023-11-14] MEDS ORDERED: LIDOCAINE 1% INJ 10MG/ML (20 ML MDV) ONE (12:13)
[2023-11-14] MEDS ORDERED: LIDOCAINE 1% INJ 10MG/ML (20 ML MDV) SQ ONE (12:15)
[2023-11-14] MEDS ORDERED: IOPAMIDOL-370 100ML BTL INJ ONE ×2 (12:35→13:09)
[2023-11-14] MEDS: HEPARIN SODIUM 1,000 UN/ML (10ML VL) IVP ONE ×4 (12:41→13:09)
[2023-11-14] MEDS ORDERED: TICAGRELOR 90 MG TAB ONE (12:42)
[2023-11-14] MEDS ORDERED: TICAGRELOR 90 MG TAB PO ONE (12:46)
[2023-11-14] MEDS ORDERED: NITROGLYCERIN 1000MCG/10ML SYRINGE INTRACORON ONE (12:50)
[2023-11-14 13:33] LABS: Glucose,Whole Blood 145 mg/dL (70-110)
[2023-11-14] MEDS ORDERED: ACETAMINOPHEN TAB 500 MG TAB PO PRN (13:36)
[2023-11-14] MEDS ORDERED: RX INFO: IV CONTRAST WAS GIVEN 1 EACH MISC MISCELLANE PRN (13:43)
[2023-11-14] MEDS ORDERED: ZOLPIDEM 5 MG TAB PO PRN (13:43)
[2023-11-14] MEDS ORDERED: MAG HYDROX/AL HYDROX/SIMETH 30 ML CUP PO PRN (13:43)
[2023-11-14] MEDS ORDERED: ATROPINE SULFATE 0.1 MG/ML 10ML SYRINGE IV PRN (13:43)
[2023-11-14] MEDS ORDERED: DEXTROSE 50% SYRINGE 50 ML IVP PRN (13:46)
--- NOTE | 2023-11-14 14:04 | P.PRCINT ---
Percutaneous Coronary Int. - Percutaneous Coronary Intervention Percutaneous Coronary Intervention: PROCEDURES PERFORMED: Left heart catheterization, bilateral coronary angiography, ultrasound guided arterial access, cutting balloon angioplasty circumflex with a 3.0 x 10mm balloon, PCI proximal circumflex with a 3.5 x 15mm Xience SILVESTRE, post dilated with a 3.5 NC balloon, REILLY, ZAFAR, radial artery angiography INDICATION: NSTEMI CONSENT:I have discussed the risks, benefits and alternative therapies for the above-mentioned procedure and for both sedation/analgesia as well as necessary blood product administration, if indicated, as they pertain to this patient. The patient has indicated understanding and acceptance of the risks and procedures discussed. PROCEDURE: After the risks, benefits and alternatives of the above mentioned procedure explained in detail with the patient, informed consent was obtained. Patient was taken to the catheterization lab and prepped and draped in usual fashion. Ultrasound guidance was used to assess for arterial access. 1% lidocaine was used to anesthetize the right femoral artery. A 6-Moldovan sheath was placed in the right femoral artery using modified Seldinger technique and ultrasound guidance. Left coronary angiography was performed with a 6-Moldovan JL 4.0 catheter and right coronary angiography was performed with a 6-Moldovan FR4 catheter in various views. A 6-Moldovan FR4 catheter was inserted into the left ventricle and pressure measurements were obtained. Subselective imaging of the radial artery take off show this was occluded. A 6- Moldovan CORINNE catheter was used to engage the ZAFAR which was noted to be occluded. The CORINNE catheter was also used to engage the REILLY to diagonal/LAD. The RCA, ZAFAR and radial artery occlusions appeared more chronic with culprit felt to be related to the circumflex. Therefore decision made to perform PCI of the circumflex. Heparin was given. A 6-Moldovan CLS 4.0 catheter was disease engage the left main. A 0.014 BMW wire was advanced into the distal circumflex. A 2.5 x 8 mm balloon was used to predilate the lesion however there was watermeloning which also happened with a 3.0 x 8 noncompliant balloon. Therefore decision made to perform cutting balloon angioplasty which was performed with a 3.0 x 10 mm balloon. Next a 3.5 x 15 mm Xience SILVESTRE was placed in the proximal circumflex. The midportion was postdilated with a 3.5 noncompliant balloon. There was more distal circumflex as well as OM1 stenosis however felt to be more chronic and AV groove circumflex noted to be diffusely diseased and small caliber. Final angiograms were performed. Pre-intervention there was 85% stenosis and TAMMY-3 flow and postintervention there was less than 10% stenosis and TAMMY-3 flow. Femoral angiogram showed anatomy adequate for closure. The right femoral sheath was removed and a 6-Moldovan Angio-Seal was placed with hemostasis achieved. The patient tolerated the procedure well. Patient was transported back to the post catheterization holding area in stable condition. Conscious Sedation: Patient was monitored under the direct supervision of myself for conscious sedation using Versed and fentanyl for a total duration of 55 minutes HEMODYNAMICS: Aorta: 128/82 LV: 121/8, LVEDP 15 SELECTIVE CORONARY ARTERIOGRAPHY: LEFT MAIN: The left main is a large caliber vessel which bifurcates into the LAD and circumflex. There is no significant stenosis. LEFT ANTERIOR DESCENDING CORONARY ARTERY: LAD is a large caliber vessel which wraps around to the apex. There is a long heavily calcified proximal mid LAD 80-85% stenosis. There is 100% mid LAD stenosis. There are [id number] collaterals to the PDA. LEFT CIRCUMFLEX CORONARY ARTERY: Left circumflex is a moderate caliber vessel. The proximal circumflex has a more focal 85% stenosis and then a mid circumflex 40% stenosis before giving off OM1 branch. OM1 branch is moderate caliber with a superior branch 95% stenosis and otherwise mild luminal irregularities. The AV groove circumflex has a long disease including proximal and mid 99% stenosis leading to a small caliber OM 2. RIGHT CORONARY ARTERY: The right coronary artery is a moderate to large caliber vessel which gives off a PDA and PLV branch and is the dominant vessel. There diffuse disease including proximal 60-70% stenosis, mid RCA 100% stenosis. REILLY to diagonal/ LAD: Widely patent ZAFAR to PDA: ZAFAR noted to be atretic with 100% stenosis, not leading to PDA Right radial to OM: 100% occluded FINAL IMPRESSION: 1. [place] CAD as described above including proximal LAD 80-85%, 100% mid LAD, 85% proximal circumflex, 99% AV groove circumflex, 100% mid RCA 2. Patent REILLY to LAD/diagonal, occluded ZAFAR to PDA, right radial to OM 3. High normal left sided filling pressures 4. S/p cutting balloon angioplasty circumflex with a 3.0 x 10mm balloon, PCI proximal circumflex with a 3.5 x 15mm Xience SILVESTRE, post dilated with a 3.5 NC balloon PLAN: 1. Aggressive risk factor modification per most recent ACC/AHA guidelines. 2. Continue to dual antiplatelets with aspirin and Plavix for 12 months 3. Would treat RCA, AV groove circumflex medically given appears to have collaterals and extensive disease. 4. Tobacco cessation discussed with patient
[2023-11-14] MEDS ORDERED: LOSARTAN 25 MG TAB PO SCH (14:30)
[2023-11-14] MEDS ORDERED: LOSARTAN 50 MG TAB PO SCH (14:45)
[2023-11-14] MEDS ORDERED: ATORVASTATIN 40 MG TAB PO SCH (15:30)
[2023-11-14] MEDS: DILTIAZEM CD 120 MG CAP.ER.24H PO SCH (16:10)
[2023-11-14 16:39] LABS: Glucose,Whole Blood 172 mg/dL (70-110)
[2023-11-14] MEDS: INSULIN ASPART (NovoLOG) 100 UNIT/ML VIAL SQ SCH ×2 (17:06→20:35)
[2023-11-14] MEDS ORDERED: ONDANSETRON 4 MG TAB PO PRN (17:58)
[2023-11-14 20:06] LABS: Glucose,Whole Blood 203 mg/dL (70-110)
[2023-11-14] MEDS: METOPROLOL TARTRATE 25 MG TAB PO SCH (20:34)
[2023-11-14] MEDS: PREGABALIN 50 MG CAP PO SCH (20:34)
[2023-11-14] MEDS ORDERED: INSULIN DETEMIR (LEVEMIR) 100 UNIT/ML SYR SQ SCH ×2 (21:00)
[2023-11-14] MEDS ORDERED: METOPROLOL TARTRATE 25 MG TAB PO SCH ×2 (21:00)
[2023-11-14] MEDS ORDERED: METOPROLOL TARTRATE 50 MG TAB PO SCH (21:00)
[2023-11-14] MEDS ORDERED: ATORVASTATIN 40 MG TAB PO ONE (21:00)
[2023-11-15 03:46] LABS: Glucose,Whole Blood 43 mg/dL (70-110)
[2023-11-15 03:46] LABS: Glucose,Whole Blood 41 mg/dL (70-110)
[2023-11-15] MEDS: DEXTROSE 50% SYRINGE 50 ML IVP PRN ×2 (03:51→06:31)
[2023-11-15 04:26] LABS: Glucose,Whole Blood 81 mg/dL (70-110)
[2023-11-15 05:59] LABS: Glucose,Whole Blood 42 mg/dL (70-110)
[2023-11-15] MEDS: INSULIN ASPART (NovoLOG) 100 UNIT/ML VIAL SQ SCH ×4 (06:15→11:48)
[2023-11-15 06:17] LABS: Glucose,Whole Blood 119 mg/dL (70-110)
[2023-11-15] MEDS ORDERED: ASPIRIN 325 MG TAB PO ONE (07:00)
[2023-11-15] MEDS ORDERED: HEPARIN SODIUM,PORCINE 10,000 UNIT in SODIUM CHLORIDE 0.9% 1,000 ML IRRIGATION PRN (07:00)
[2023-11-15] MEDS ORDERED: ASPIRIN 81 MG PO ONE (07:00)
[2023-11-15] MEDS ORDERED: ATORVASTATIN 80 MG TAB PO ONE (07:00)
[2023-11-15] MEDS ORDERED: HEPARIN SODIUM,PORCINE (1 ML) 2,500 UNIT in SODIUM CHLORIDE 0.9% 250 ML IRRIGATION PRN (07:00)
[2023-11-15] MEDS ORDERED: FAMOTIDINE 20 MG TAB PO SCH (09:00)
[2023-11-15] MEDS ORDERED: CLOPIDOGREL 75 MG TAB PO SCH (09:00)
[2023-11-15] MEDS ORDERED: LOSARTAN 25 MG TAB PO SCH (09:00)
[2023-11-15] MEDS ORDERED: DILTIAZEM CD 120 MG CAP.ER.24H PO SCH ×2 (09:00)
[2023-11-15] MEDS ORDERED: ASPIRIN 81 MG PO SCH (09:00)
[2023-11-15] MEDS ORDERED: DULoxetine HCL 30 MG CAPSULE.DR PO SCH (09:00)
[2023-11-15] MEDS ORDERED: LOSARTAN 50 MG TAB PO SCH ×2 (09:00→12:00)
[2023-11-15] MEDS ORDERED: PANTOPRAZOLE 40 MG TABLET PO SCH (09:00)
[2023-11-15] MEDS: DILTIAZEM CD 120 MG CAP.ER.24H PO SCH (09:06)
[2023-11-15] MEDS: METOPROLOL TARTRATE 25 MG TAB PO SCH (09:06)
[2023-11-15] MEDS: PREGABALIN 50 MG CAP PO SCH (09:06)
[2023-11-15 09:18] VITALS: TEMP 98.2
[2023-11-15 10:15] LABS: Basophils % (A) 0 %; Eosinophils % (A) 0 %; HGB 11.7 gm/dL (13.0-17.5); Lymphocytes # (A) 1.3 k/uL (1.0-4.8); Lymphocytes % (A) 14 %; MCH 29.6 pg (25.0-35.0); MCHC 33.4 g/dL (31.0-37.0); MCV 88.6 fL (80.0-100.0); Monocytes # (A) 0.8 k/uL (0-1.0); Monocytes % (A) 8 %; Neutrophils # (A) 7.1 k/uL (1.3-7.7); Neutrophils % (A) 74 %; Platelet Count 159 k/uL (150-450); RBC 3.95 m/uL (4.30-5.90); RDW 13.7 % (11.5-15.5); WBC 9.6 k/uL (3.8-10.6)
[2023-11-15 10:22] LABS: African American GFR (CKD) >90 (>60 ml/min/1.73 sqM); Anion Gap 7 mmol/L; Blood Urea Nitrogen 14 mg/dL (9-20); Calcium 8.6 mg/dL (8.4-10.2); Carbon Dioxide 23 mmol/L (22-30); Chloride 107 mmol/L (98-107); Glucose 129 mg/dL (74-99); Non-African American GFR(CKD) >90 (>60 ml/min/1.73 sqM); Sodium 137 mmol/L (137-145)
[2023-11-15 10:39] LABS: Potassium 4.1 mmol/L (3.5-5.1)
[2023-11-15 11:36] LABS: Glucose,Whole Blood 86 mg/dL (70-110)
[2023-11-15 11:40] VITALS: BP 113/76; PULSE 74; RESP 18
[2023-11-15 13:27] VITALS: BMI 21.8
--- NOTE | 2023-11-15 13:52 | P.PN ---
Subjective HISTORY OF PRESENT ILLNESS: Patient is status post cardiac catheterization yesterday with Dr. Joel revealing proximal LAD 80-85%, 100% mid LAD, 85% proximal circumflex, 99% AV groove circumflex, and 100% mid RCA. Patent REILLY to LAD/diagonal, occluded ZAFAR to PDA, right radial to OM. High normal left-sided filling pressures. He underwent cutting balloon angioplasty of circumflex and PCI proximal circumflex. Patient examined this morning at the bedside. Patient denies chest pain or pressure. He denies shortness of breath. Right femoral cath site soft with no hematoma noted. Vital signs are stable. The patient is hoping to be discharged home today. PHYSICAL EXAM: VITAL SIGNS: Reviewed. GENERAL: Well-developed in no acute distress. NECK: Supple. No JVD or thyromegaly LUNGS: Respirations even and unlabored. Lungs essentially clear to auscultation bilaterally. HEART: Regular rate and rhythm. S1 and S2 heard. EXTREMITIES: Normal range of motion. No clubbing or cyanosis. Peripheral pulses intact. No lower extremity edema ASSESSMENT: Non-STEMI, status post cardiac catheterization as noted above with stenting of the proximal circumflex Coronary artery disease with previous CABG Hypertension Hyperlipidemia Diabetes Hyperglycemia, improving PLAN: Continue dual antiplatelet therapy with aspirin and Plavix Continue high-intensity statin Continue additional cardiac medications Plan is to treat RCA, AV groove circumflex medically given appears to have collaterals and extensive disease The patient may be discharged home today from a cardiac standpoint and follow up in the office with Dr. Joel Nurse practitioner note has been reviewed by physician. Signing provider agrees with the documented findings, assessment, and plan of care. Objective - Vital Signs Vital signs: Vital Signs Temp 98.2 F 11/15/23 09:04 Pulse 74 11/15/23 11:24 Resp 18 11/15/23 11:24 BP 113/76 11/15/23 11:24 Pulse Ox 98 11/15/23 11:24 FiO2 Intake & Output 11/14/23 11/15/23 11/15/23 18:59 06:59 18:59 Intake Total 810 180 Output Total 300 Balance 510 180 Weight 77.111 kg 77.111 kg Intake: IV 450 Oral 360 180 Output: Urine 300 Other: # Voids 1 2 - Labs CBC & Chem 7: 11/15/23 09:35 11/15/23 09:35 Labs: Abnormal Lab Results - Last 24 Hours (Table) 11/14/23 11/14/23 11/15/23 Range/Units 16:38 20:05 03:43 RBC (4.30-5.90) m/uL Hgb (13.0-17.5) gm/dL Hct (39.0-53.0) % Glucose (74-99) mg/dL POC Glucose (mg/dL) 172 H 203 H 41 L (70-110) mg/dL Hemoglobin A1c (<=6.0) % 11/15/23 11/15/23 11/15/23 Range/Units 03:44 05:57 06:15 RBC (4.30-5.90) m/uL Hgb (13.0-17.5) gm/dL Hct (39.0-53.0) % Glucose (74-99) mg/dL POC Glucose (mg/dL) 43 L 42 L 119 H (70-110) mg/dL Hemoglobin A1c (<=6.0) % 11/15/23 11/15/23 11/15/23 Range/Units 07:22 09:35 09:35 RBC 3.95 L (4.30-5.90) m/uL Hgb 11.7 L (13.0-17.5) gm/dL Hct 35.0 L (39.0-53.0) % Glucose 129 H (74-99) mg/dL POC Glucose (mg/dL) (70-110) mg/dL Hemoglobin A1c 12.3 H (<=6.0) %
[2023-11-15] MEDS ORDERED: ATORVASTATIN 80 MG TAB PO SCH (21:00)
--- NOTE | 2023-11-17 22:56 | HP ---
HISTORY AND PHYSICAL CHIEF COMPLAINT: NSTEMI. HISTORY OF PRESENT ILLNESS: This gentleman is transferred from [facility]. He was admitted there in ICU and treated for DKA. Troponins were elevated and he was determined to have myocardial infarction. He is transferred here for cardiac cath. REVIEW OF SYSTEMS: Unremarkable. He is currently not short of breath or having any chest pain. Past medical history, family history, and personal and social histories are all found in detail from the records from [facility]. He has a type 1 insulin- dependent diabetic and he does smoke. PHYSICAL EXAMINATION: VITAL SIGNS: Blood pressure is 129/74 with a pulse of 76, and respirations were normal. HEAD, EARS, EYES, NOSE, MOUTH AND THROAT: Normal. Carotids are normal. CHEST: Clear. CARDIAC: Demonstrated sinus rhythm. No murmurs or extra sounds. ABDOMEN: Flat and soft, nontender without any masses or visceromegaly. Bowel sounds are present. EXTREMITIES: Normal. NEUROLOGIC: Intact. ASSESSMENT: He is admitted to the hospital with diagnoses of: 1. Ilv-LD-vnkszdq elevation myocardial infarction. 2. Type 1 insulin-dependent diabetes mellitus. 3. Recent episode of DKA. PLAN: 1. Bedrest. 2. IV fluids. 3. Moved to the prosthetic lab technician. MMODL / IJN: [id number] /
--- NOTE | 2023-11-18 23:52 | DS ---
DISCHARGE SUMMARY CHIEF COMPLAINT: NSTEMI. HISTORY OF PRESENT ILLNESS AND PHYSICAL EXAMINATION: Details of this man's history and physical can be found in the initial workup. LABORATORY STUDIES: While he was in the hospital, he had laboratory studies, details of which can be found in the laboratory section of his chart. COURSE IN THE HOSPITAL: After admission, he was placed on bedrest, started on intravenous fluids and taken to the lab animal technician. He had several areas of narrowing and stenting was performed. Postoperatively, he did very well without any arrhythmias, chest pain, shortness of breath, etc. It was felt that he could go home on the and he will follow up in several days. FINAL DIAGNOSES: 1. Non ST elevation myocardial infarction. 2. Coronary artery disease. 3. Type 1 insulin-dependent diabetes mellitus. OPERATIONS: Cardiac cath with stenting. Consult Cardiology. EZEKIEL / CONRAD: [id number] /
--- NOTE | 2023-11-19 04:38 | PN ---
PROGRESS NOTE DATE OF SERVICE: 11/15/2023 CHIEF COMPLAINT: STEMI. HISTORY OF PRESENT ILLNESS: This gentleman is doing well and he is going to the cath lab radiological technologist today. PHYSICAL EXAMINATION: CHEST: Clear. CARDIAC: Normal. ABDOMEN: Soft, nontender. IMPRESSION: 1. Non ST segment elevation myocardial infarction. 2. Type 1 diabetes mellitus. PLAN: Cardiac cath today. MMODL / IJN: [id number] /
== END 2023-11-15 16:22 | disposition home or self-care (01) | DRG 174 ==
LOC: 3SCARD 10:58
PROVIDERS: ADMIT Family Medicine; ATTEND Family Medicine
PROC: B2110ZZ Fluoroscopy of Multiple Coronary Arteries using High Osmolar Contrast (ICD-10-PCS; principal; 2023-11-14 12:00)
PROC: 027034Z Dilation of Coronary Artery, One Artery with Drug-eluting Intraluminal Device, Percutaneous Approach (ICD-10-PCS; principal; 2023-11-14 12:00)
PROC: B2180ZZ Fluoroscopy of Left Internal Mammary Bypass Graft using High Osmolar Contrast (ICD-10-PCS; principal; 2023-11-14 12:00)
PROC: 4A023N7 Measurement of Cardiac Sampling and Pressure, Left Heart, Percutaneous Approach (ICD-10-PCS; principal; 2023-11-14 12:00)
DX: I21.4 Non-ST elevation (NSTEMI) myocardial infarction (principal); E10.10 Type 1 diabetes mellitus with ketoacidosis without coma; E78.5 Hyperlipidemia, unspecified; I10 Essential (primary) hypertension; I25.10 Atherosclerotic heart disease of native coronary artery without angina pectoris; Z79.4 Long term (current) use of insulin; Z95.1 Presence of aortocoronary bypass graft; Z71.3 Dietary counseling and surveillance
CPT/HCPCS: 76937; 80048; 83036; 85025; 93459

== ENCOUNTER → 2024-05-07 | Day surgery (SDC) | payer OTHER ==
--- NOTE | 2024-05-13 10:03 | USB ---
Pathology Description: Location: 12 o'clock. Needle Type: Mammotome Cores: 7 Gauge: 13 The procedure of ultrasound guided core biopsy was explained to the patient. Benefits, alternatives, and risks were discussed. An informed consent was then obtained. The subareolar density is identified and targeted for biopsy. Suspect gynecomastia. The patient was placed in supine positioning for imaging and for the procedure. The overlying skin was prepped and draped in usual sterile fashion. Lidocaine was used as anesthetic into the skin and subcutaneous tissue up to area of concern in the right breast. Under ultrasound guidance, a 13-gauge vacuum-assisted mammotome biopsy gun was used to obtain 7 core samples. No clip was deposited. The patient tolerated the procedure well without any immediate complication. The patient was kept in the radiology department for short stay after the procedure and then discharged home in stable condition. Postprocedure mammogram: The patient was transferred to mammography for physician ordered post procedure mammogram for clip placement verification. No postprocedure mammogram. IMPRESSION: Successful, uncomplicated ultrasound guided core biopsy of palpable subareolar density on the right, suspected asymmetric gynecomastia. Full pathology results to follow. Pathology Results: Result: Benign, Gynecomastia. Pathology and radiology were reviewed. Findings are concordant. RIGHT BREAST, RETROAREOLAR, ULTRASOUND GUIDED CORE BIOPSY: Features compatible with benign gynecomastia with mild chronic inflammation and focal usual ductal hyperplasia. Overall Assessment: Benign Management: Clinical Management of the right breast. Electronically signed and approved by: Denny Campoverde M.D. Radiologist
== END ==
LOC: RADUSWWP 12:37
PROVIDERS: ATTEND Surgery
DX: N62 Hypertrophy of breast (principal); R92.8 Other abnormal and inconclusive findings on diagnostic imaging of breast; N61.0 Mastitis without abscess
CPT/HCPCS: 88305

== ENCOUNTER → 2024-05-29 | Outpatient (CLI) | payer OTHER ==
[2024-05-29 12:55] VITALS: BP 134/84; PULSE 67; RESP 17; TEMP 98.5
--- NOTE | 2024-05-29 13:35 | P.GSCN ---
History of Present Illness Consult date: 05/29/24 Reason for Consult: gynecomastia History of present illness: Jean is a 49 year old male seen in consultation for DR. Fam with a biopsy proven right breast gynecomastia. He had a bilateral mammogram on 04-09-24 and a right breast ultrasound on the same date. A lesion 4 by 4 cm was noted in the right breast. Biopsy was recommended. The ultrasound was personally reviewed and interpreted. The patient felt a lump in his right breast which is painful. He states it has been there for a month, and it is painful. It has increased in size. He has never had any surgery on his breast in the past. Note Dr. 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 Social History: nicotine: as above alcohol: none drugs: Marijuana occasionally Review of Systems - Constitutional Denies fever, Denies weight loss - EENT Eyes: denies blurred vision Ears: deny: decreased hearing, tinnitus Ears, nose, mouth and throat: Denies dysphagia - Cardiovascular Reports as per HPI - Respiratory Respiratory Comment(s): COPD Denies cough, Denies 7 - Gastrointestinal Gastrointestinal Comment(s): gastroporesis Reports as per HPI - Genitourinary Denies dysuria, Denies hematuria - Musculoskeletal Reports myalgias - Integumentary Reports unusual bruising, Denies rash - Neurological Reports as per HPI - Psychiatric Reports anxiety, Reports depression - Endocrine Reports as per HPI - Hematologic/Lymphatic Reports as per HPI - Allergic/Immunologic Reports seasonal allergies Past Medical History Past Medical History: Coronary Artery Disease (CAD), COPD, Diabetes Mellitus, Hyperlipidemia, Hypertension Additional Past Medical History / Comment(s): Diabetic gastroparesis,mid and lower herniated disc, mid and lower bulging disc, arthritis to mid and lower back., diabetic neuropathy hands and feet. History of Any Multi-Drug Resistant Organisms: None Reported Past Surgical History: Coronary Bypass/CABG, Heart Catheterization With Stent Additional Past Surgical History / Comment(s): 2006 approx.cyst polydonal removal., Four-vessel CABG 06/22/2020. November 2023, heart cath with stent Past Anesthesia/Blood Transfusion Reactions: No Reported Reaction Additional Past Anesthesia/Blood Transfusion Reaction / Comm: no anesthesia difficulties. Never recieved blood product. Date of Last Stent Placement:: November 2023 Past Psychological History: Anxiety, Depression Smoking Status: Current every day smoker Past Alcohol Use History: Rare Additional Past Alcohol Use History / Comment(s): started smoking at age 16 Past Drug Use History: Marijuana Additional Drug Use History / Comment(s): states he occasionally smokes marijuana - Past Family History Father Family Medical History: Diabetes Mellitus, Hypertension Additional Family Medical History / Comment(s): father is still living Mother Family Medical History: Diabetes Mellitus, Renal Disease Additional Family Medical History / Comment(s): mother is still living. Mental health disorders. Mothers immediate family has very strong cardiac hx. Brother(s) Family Medical History: Myocardial Infarction ([place]) Additional Family Medical History / Comment(s): His brother had to heart stents placed at age 45. Medications and Allergies Home Medications Medication Instructions Recorded Confirmed Type Omeprazole 20 mg PO DAILY 06/18/20 05/29/24 History Acetaminophen Tab [Tylenol] 1,000 mg PO Q6HR PRN tab 06/26/20 05/29/24 Rx Diltiazem Cd [Cardizem CD] 120 mg PO DAILY #30 cap.er.24h 06/26/20 05/29/24 Rx INSULIN LISPRO (HumaLOG) [humaLOG] See Protocol SQ AC-TID 07/07/20 05/29/24 History DULoxetine HCL [Cymbalta] 30 mg PO DAILY 11/14/23 05/29/24 History Famotidine [Pepcid] 20 mg PO DAILY 11/14/23 05/29/24 History Glucagon [Gvoke Pfs 1-Pack Syringe] 1 mg SQ ONCE PRN 11/14/23 05/29/24 History Insulin Glargine,Hum.rec.anlog 40 units SQ HS 11/14/23 05/29/24 History [Lantus Solostar Pen] Ondansetron [Zofran] 4 mg PO Q12HR PRN 11/14/23 05/29/24 History Pregabalin [Lyrica] 50 mg PO BID 11/14/23 05/29/24 History Aspirin 81 mg PO DAILY #90 tab 11/15/23 05/29/24 Rx Atorvastatin [Lipitor] 80 mg PO HS #90 tab 11/15/23 05/29/24 Rx Clopidogrel [Plavix] 75 mg PO DAILY #90 tab 11/15/23 05/29/24 Rx Losartan [Cozaar] 100 mg PO DAILY #180 tab 11/15/23 05/29/24 Rx Metoprolol Tartrate [Lopressor] 75 mg PO BID #180 tab 11/15/23 05/29/24 Rx Nitroglycerin Sl Tabs [Nitrostat] 0.4 mg SUBLINGUAL Q5M PRN #100 tab 11/15/23 05/29/24 Rx Allergies Allergy/AdvReac Type Severity Reaction Status Date / Time No Known Allergies Allergy Verified 05/29/24 12:51 Surgical - Exam Vital Signs Temp Pulse Resp BP Pulse Ox 98.5 F 67 17 134/84 98 05/29/24 12:52 05/29/24 12:52 05/29/24 12:52 05/29/24 12:52 05/29/24 12:52 - General no distress - Eyes normal ocular movement - ENT no hearing loss - Neck trachea midline - Respiratory normal respiratory effort - Cardiovascular Heart Sounds: normal: S1, S2 - Abdomen Abdomen: soft, non tender, no guarding, no rigid, no rebound - Genitourinary Bilateral testicles examined with wet process miller present no masses noted - Integumentary normal turgor, multiple tattoos - Musculoskeletal normal gait - Psychiatric oriented to time, oriented to person, oriented to place, speech is normal, memory intact Breast Exam: Inspection: Swelling of the right breast Palpation: Right breast: Multi positional exam fibroglandular changes, approximately 2 x 3 cm nodularity posterior to the nipple areolar complex which is tender to palpation Right axilla: Shotty adenopathy Left breast: No dominant masses or nodules of concern, no palpable gynecomastia Left axilla: shoddy Adenopathy Results Pathology results reviewed Ultrasound of the right breast personally interpreted and reviewed Assessment and Plan Assessment: Impression: Symptomatic right breast gynecomastia I have reviewed the patient's medications and several of them may contribute to gynecomastia. Cymbalta, and marijuana may contribute to the gynecomastia. The Omeprazole may result in breast swelling. I have discussed this with the patient. The patient is high risk secondary to his cardiac disease and we would prefer to avoid an operation if possible. I have talked to him about possibly changing his medications and he will talk to his primary care doctor regarding this. If that is not possible and the gynecomastia is very symptomatic and continues to grow then we will consider surgical resection. Plan: Lifestyle modification with input from Dr. Fam Repeat right breast ultrasound in 4 months to assure that the gynecomastia is not increasing in size Follow-up in 4 months At this time we are going to attempt conservative management. The patient is at increased cardiac risk we would like to avoid an operation if possible. CC: Dr. Fam
== END ==
LOC: WWCWWP 11:53
PROVIDERS: ATTEND Surgery
DX: N62 Hypertrophy of breast (principal); F17.290 Nicotine dependence, other tobacco product, uncomplicated; Z80.3 Family history of malignant neoplasm of breast; F17.200 Nicotine dependence, unspecified, uncomplicated

== ENCOUNTER 2024-10-30 23:54 | Inpatient (IN) | payer OTHER ==
[2024-10-31 00:09] LABS: Glucose,Whole Blood >600 mg/dL (70-110)
[2024-10-31] MEDS: SODIUM CHLORIDE 0.9% 1,000 ML IV ONE ×3 (00:15→06:29)
[2024-10-31 00:23] LABS: Basophils % (A) 0 %; Eosinophils # (A) 0.1 k/uL (0-0.7); Eosinophils % (A) 0 %; HCT 35.9 % (39.0-53.0); HGB 10.5 gm/dL (13.0-17.5); Hypochromasia Marked; Lymphocytes # (A) 1.5 k/uL (1.0-4.8); Lymphocytes % (A) 8 %; MCHC 29.2 g/dL (31.0-37.0); MCV 105.9 fL (80.0-100.0); Macrocytosis Moderate; Mean Platelet Volume 8.5; Monocytes # (A) 0.9 k/uL (0-1.0); Monocytes % (A) 5 %; Neutrophils # (A) 16.7 k/uL (1.3-7.7); Neutrophils % (A) 87 %; Platelet Count 224 k/uL (150-450); RBC 3.39 m/uL (4.30-5.90); RDW 13.9 % (11.5-15.5); WBC 19.3 k/uL (3.8-10.6)
[2024-10-31 00:33] LABS: INR 1.1 (<1.2); Partial Thromboplastin Time 24.3 sec (22.0-30.0); Prothrombin Time 12.2 sec (10.0-12.5)
[2024-10-31] MEDS: INSULIN REGULAR 100 UNIT/ML VIAL (IV) IV STA (00:33)
[2024-10-31 00:39] LABS: AST 29 U/L (17-59); African American GFR (CKD) 40 (>60 ml/min/1.73 sqM); Albumin 4.2 g/dL (3.5-5.0); Alcohol <10 mg/dL; Alkaline Phosphatase 76 U/L (38-126); Blood Urea Nitrogen 34 mg/dL (9-20); Calcium 9.8 mg/dL (8.4-10.2); Chloride 103 mmol/L (98-107); Non-African American GFR(CKD) 35 (>60 ml/min/1.73 sqM); Sodium 134 mmol/L (137-145); Total Protein 6.1 g/dL (6.3-8.2)
[2024-10-31 00:50] LABS: Carbon Dioxide <5 mmol/L (22-30)
[2024-10-31 00:52] LABS: ALT 29 U/L (4-49); Glucose 878 mg/dL (74-99)
--- NOTE | 2024-10-31 01:10 | XR ---
EXAM: XR Chest, 1 View CLINICAL HISTORY: altered mental status TECHNIQUE: Frontal view of the chest. COMPARISON: 07/09/20 FINDINGS: Lungs: Subtle patchy airspace opacities over right middle, lower lung zone possibly left upper lung zone may suggest pneumonia versus atelectasis. Pleural space: Unremarkable. Mediastinum: Sternal wires and mediastinal clips. Bones/joints: No acute findings. IMPRESSION: Subtle patchy airspace opacities over right middle, lower lung zone possibly left upper lung zone may suggest pneumonia versus atelectasis.
[2024-10-31] MEDS: SODIUM CHLORIDE 0.9% 1,000 ML IV SCH (02:36)
[2024-10-31 02:39] LABS: Appearance,Urine Clear (Clear); Bilirubin,Urine Negative (Negative); Blood,Urine Negative (Negative); Color,Urine Colorless; Glucose,Urine (UA) 4+ (Negative); Leukocyte Esterase,Urine Negative (Negative); Nitrite,Urine Negative (Negative); Protein,Urine Negative (Negative); Specific Gravity,Urine 1.017 (1.001-1.035); Urobilinogen,Urine <2.0 mg/dL (<2.0)
[2024-10-31] MEDS: INSULIN REGULAR 100 UNIT in SODIUM CHLORIDE 0.9% 100 ML IV SCH (02:56)
[2024-10-31 03:01] LABS: Glucose,Whole Blood >600 mg/dL (70-110)
[2024-10-31 03:01] LABS: Amphetamine Screen,Urine Not Detected (NotDetected); Barbiturate Screen,Urine Not Detected (NotDetected); Benzodiazepines Screen,Urine Not Detected (NotDetected); Cocaine Screen,Urine Not Detected (NotDetected); Methadone Screen, Urine Not Detected (NotDetected); Opiate Screen,Urine Not Detected (NotDetected); Oxycodone Screen, Urine Not Detected (NotDetected); Phencyclidine Screen,Urine Not Detected (NotDetected); Tricyclic Antidepressant,Urine Not Detected (NotDetected); Urn Cannabinoid Scrn Not Detected (NotDetected)
[2024-10-31 03:08] LABS: Ketones,Urine 2+ (Negative)
[2024-10-31 03:16] LABS: VBG PCO2 <15 mmHg (37-51); VBG PH 7.08 (7.31-7.41)
[2024-10-31] MEDS: AZITHROMYCIN 500 MG in SODIUM CHLORIDE 0.9% 250 ML IVPB STA (03:22)
--- NOTE | 2024-10-31 03:34 | CT ---
EXAM: CT Head Without Intravenous Contrast CLINICAL HISTORY: hyperglycemia and altered mental status. TECHNIQUE: Axial computed tomography images of the head/brain without intravenous contrast. CTDI is 94.2 mGy and DLP is 2664.1 mGy-cm. This CT exam was performed using one or more of the following dose reduction techniques: automated exposure control, adjustment of the mA and/or kV according to patient size, and/or use of iterative reconstruction technique. Coronal and sagittal reconstructions are performed. COMPARISON: No relevant prior studies available. FINDINGS: Brain: Unremarkable. No hemorrhage. No significant white matter disease. No edema. Ventricles: Unremarkable. No ventriculomegaly. Bones/joints: No acute findings. Soft tissues: Unremarkable. Sinuses: Minimal left ethmoid sinus disease. Mastoid air cells: Unremarkable as visualized. No mastoid effusion. IMPRESSION: No acute findings
[2024-10-31 03:42] LABS: Glucose,Whole Blood >600 mg/dL (70-110)
[2024-10-31 04:58] LABS: Glucose,Whole Blood >600 mg/dL (70-110)
[2024-10-31 05:55] LABS: African American GFR (CKD) 42 (>60 ml/min/1.73 sqM); Anion Gap 23 mmol/L; Blood Urea Nitrogen 37 mg/dL (9-20); Chloride 108 mmol/L (98-107); Non-African American GFR(CKD) 36 (>60 ml/min/1.73 sqM); Potassium 4.8 mmol/L (3.5-5.1); Sodium 137 mmol/L (137-145)
[2024-10-31 06:03] LABS: Glucose,Whole Blood >600 mg/dL (70-110)
[2024-10-31 06:16] LABS: Carbon Dioxide 6 mmol/L (22-30)
[2024-10-31 06:18] LABS: Glucose 712 mg/dL (74-99)
[2024-10-31 06:58] LABS: Glucose,Whole Blood >600 mg/dL (70-110)
[2024-10-31] MEDS ORDERED: Magnesium Replacement Protocol 1 EACH MISC MISCELLANE PRN (07:41)
[2024-10-31] MEDS ORDERED: NALOXONE 0.4 MG/ML 1 ML VIAL IV PRN (07:41)
[2024-10-31] MEDS ORDERED: Potassium Replacement Protocol 1 EACH MISC MISCELLANE PRN (07:41)
[2024-10-31 07:57] LABS: Glucose,Whole Blood 531 mg/dL (70-110)
[2024-10-31 08:54] LABS: Glucose,Whole Blood 540 mg/dL (70-110)
[2024-10-31] MEDS: PANTOPRAZOLE 40 MG/10 ML VIAL IV SCH (08:56)
[2024-10-31] MEDS: HEPARIN SODIUM,PORCINE 5,000 UNIT/ML 1 ML VIAL SQ SCH (08:57)
[2024-10-31 09:18] LABS: Basophils % (A) 0 %; Eosinophils % (A) 0 %; HCT 30.3 % (39.0-53.0); HGB 9.6 gm/dL (13.0-17.5); Hypochromasia Slight; Lymphocytes # (A) 1.1 k/uL (1.0-4.8); Lymphocytes % (A) 8 %; MCHC 31.9 g/dL (31.0-37.0); Monocytes # (A) 0.7 k/uL (0-1.0); Monocytes % (A) 5 %; Neutrophils # (A) 11.5 k/uL (1.3-7.7); Neutrophils % (A) 86 %; Platelet Count 193 k/uL (150-450); RBC 3.11 m/uL (4.30-5.90); RDW 14.5 % (11.5-15.5); WBC 13.3 k/uL (3.8-10.6)
[2024-10-31 09:29] LABS: MCV 97.2 fL (80.0-100.0)
--- NOTE | 2024-10-31 09:35 | ED ---
Altered Mental Status HPI - General Chief Complaint: Altered Mental Status Stated Complaint: AMS Time Seen by Provider: 10/30/24 23:59 Source: EMS Mode of arrival: EMS Limitations: altered mental status - History of Present Illness Initial Comments: This patient is 49-year-old man with history of diabetes who is sent by family to have evaluation for altered mental status. He reportedly was sent to [facility] earlier in the evening for altered mental status and then reportedly signed out AGAINST MEDICAL ADVICE and went home. He reportedly arrived home about an hour previously. The patient is not able to give any accurate history and does appear to be delirious. MD Complaint: altered mental status -: hour(s) Severity: severe Consistency of Symptoms: getting worse Context: diabetes - Related Data Home Medications Medication Instructions Recorded Confirmed Omeprazole 20 mg PO DAILY 06/18/20 10/31/24 DULoxetine HCL [Cymbalta] 30 mg PO DAILY 11/14/23 10/31/24 Famotidine [Pepcid] 20 mg PO DAILY 11/14/23 10/31/24 Glucagon [Gvoke Pfs 1-Pack Syringe] 1 mg SQ ONCE PRN 11/14/23 10/31/24 Pregabalin [Lyrica] 50 mg PO BID 11/14/23 10/31/24 Albuterol Sulfate [Ventolin HFA] 1 - 2 puff INHALATION RT-QID PRN 10/31/24 10/31/24 Budesonide/Formoterol Fumarate 2 puff INHALATION RT-BID 10/31/24 10/31/24 [Symbicort 160-4.5 Mcg Inhaler] Buprenorphine HCl/Naloxone HCl 1 film SL TID 10/31/24 10/31/24 [Suboxone 8 mg-2 mg Sl Film] Ergocalciferol [Vitamin D2 (1250 1,250 mcg PO Q30D 10/31/24 10/31/24 Mcg = 87385 Iu)] Insulin Glargine [Lantus Vial] 44 unit SQ DAILY 10/31/24 10/31/24 Insulin Lispro [humaLOG Kwikpen] 15 unit SQ AC-TID 10/31/24 10/31/24 Losartan [Cozaar] 50 mg PO BID 10/31/24 10/31/24 Metoprolol Tartrate [Lopressor] 25 mg PO BID 10/31/24 10/31/24 Metoprolol Tartrate [Lopressor] 50 mg PO BID 10/31/24 10/31/24 Naloxone HCl [Narcan] 4 mg NASAL ONCE PRN 10/31/24 10/31/24 Nitroglycerin Sl Tabs [Nitrostat] 0.4 mg SL Q5M PRN 10/31/24 10/31/24 Ondansetron Odt [Zofran ODT] 4 mg PO Q6HR PRN 10/31/24 10/31/24 Spironolactone [Aldactone] 25 mg PO DAILY 10/31/24 10/31/24 Previous Rx's Medication Instructions Recorded Acetaminophen Tab [Tylenol] 1,000 mg PO Q6HR PRN tab 06/26/20 Diltiazem Cd [Cardizem CD] 120 mg PO DAILY #30 cap.er.24h 06/26/20 Aspirin 81 mg PO DAILY #90 tab 11/15/23 Atorvastatin [Lipitor] 80 mg PO HS #90 tab 11/15/23 Clopidogrel [Plavix] 75 mg PO DAILY #90 tab 11/15/23 ALPRAZolam [Xanax] 0.25 mg PO Q6HR PRN tab 11/04/24 Allergies Allergy/AdvReac Type Severity Reaction Status Date / Time No Known Allergies Allergy Verified 10/31/24 11:51 Review of Systems ROS Statement: Those systems with pertinent positive or pertinent negative responses have been documented in the HPI. ROS Other: All systems not noted in ROS Statement are negative. Limitations: ROS unobtainable due to patients medical condition Past Medical History Past Medical History: Coronary Artery Disease (CAD), COPD, Diabetes Mellitus, Hyperlipidemia, Hypertension Additional Past Medical History / Comment(s): Diabetic gastroparesis,mid and lower herniated disc, mid and lower bulging disc, arthritis to mid and lower back., diabetic neuropathy hands and feet. History of Any Multi-Drug Resistant Organisms: None Reported Past Surgical History: Coronary Bypass/CABG, Heart Catheterization With Stent Additional Past Surgical History / Comment(s): 2006 approx.cyst polydonal removal., Four-vessel CABG 06/22/2020. November 2023, heart cath with stent Past Anesthesia/Blood Transfusion Reactions: No Reported Reaction Additional Past Anesthesia/Blood Transfusion Reaction / Comment(s): no anesthesia difficulties. Never recieved blood product. Date of Last Stent Placement:: November 2023 Past Psychological History: Anxiety, Depression Smoking Status: Current every day smoker Past Alcohol Use History: Rare Past Drug Use History: Marijuana - Past Family History Father Family Medical History: Diabetes Mellitus, Hypertension Additional Family Medical History / Comment(s): father is still living Mother Family Medical History: Diabetes Mellitus, Renal Disease Additional Family Medical History / Comment(s): mother is still living. Mental health disorders. Mothers immediate family has very strong cardiac hx. Brother(s) Family Medical History: Myocardial Infarction ([place]) Additional Family Medical History / Comment(s): His brother had to heart stents placed at age 45. General Exam Limitations: altered mental status (Appears delirious) General appearance: alert, other Head exam: Present: atraumatic, normocephalic Eye exam: Present: normal appearance, PERRL, EOMI. Absent: scleral icterus, conjunctival injection, nystagmus ENT exam: Present: mucous membranes dry Neck exam: Present: normal inspection, full ROM. Absent: tenderness, meningismus Respiratory exam: Present: respiratory distress, rhonchi, other (Kussmaul respiration pattern). Absent: wheezes, rales, stridor, accessory muscle use Cardiovascular Exam: Present: normal rhythm, tachycardia GI/Abdominal exam: Present: soft. Absent: distended, tenderness, guarding, rebound, rigid, mass, pulsatile mass, hernia Extremities exam: Present: normal inspection, normal capillary refill. Absent: pedal edema, calf tenderness Back exam: Present: normal inspection. Absent: CVA tenderness (R), CVA tenderness (L) Neurological exam: Present: altered, CN II-XII intact. Absent: oriented X3, motor sensory deficit Skin exam: Present: warm, dry, intact. Absent: rash Course Vital Signs 10/30/24 10/31/24 10/31/24 23:55 01:53 02:50 Temperature 97.9 F 97.9 F 98.0 F Pulse Rate 114 H 123 H 112 H Respiratory 24 32 H 34 H Rate Blood Pressure 116/68 111/72 104/68 O2 Sat by Pulse 100 99 100 Oximetry 10/31/24 03:24 Temperature 98.0 F Pulse Rate 116 H Respiratory 32 H Rate Blood Pressure 101/69 O2 Sat by Pulse 100 Oximetry Medical Decision Making - Medical Decision Making Patient is 49-year-old man here with altered mental status, clinically appears in DKA and labs do confirm this. Chest x-ray suggestive of pneumonia and patient is started on antibiotics and will be admitted. Patient does have mild elevation of troponin but EKG not appearing ischemic. Patient's daughter subsequently arrived and I updated her with condition. Chest with admitting physician and with president finance company. Was pt. sent in by a medical professional or institution (, [facility], OIL FIRE SPECIALIST, urgent care, hospital, or skilled nursing...) When possible be specific @ -[No] Did you speak to anyone other than the patient for history (EMS, parent, family, police, friend...)? What history was obtained from this source @ -[The patient's daughter did contribute history. EMS gave history Did you review nursing and triage notes (agree or disagree)? Why? @ -[I reviewed and agree with nursing and triage notes] Were old charts reviewed (outside hosp., previous admission, EMS record, old EKG, old radiological studies, urgent care reports/EKG's, skilled nursing records)? Report findings @ -[yes, old charts were reviewed] Differential Diagnosis (chest pain, altered mental status, abdominal pain women, abdominal pain men, vaginal bleeding, weakness, fever, dyspnea, syncope, headache, dizziness, GI bleed, back pain, seizure, CVA, palpatations, mental health, musculoskeletal)? @ -[Differential Altered Mental Status: Hypoglycemia, DKA, hypercapnia, ETOH, overdose, CO poisoning, trauma, myxedema coma, HTN encephalopathy, infection, encephalitis, psychosis, intercranial hemorrhage, hepatic encephalopathy, meningitis, CVA, this is not meant to be an all-inclusive list EKG interpreted by me (3pts min.). @ -[I interpreted as above] X-rays interpreted by me (1pt min.). @ -[I interpreted as above CT interpreted by me (1pt min.). @ -[None done] U/S interpreted by me (1pt. min.). @ -[None done] What testing was considered but not performed or refused? (CT, X-rays, U/S, labs)? Why? @ -[None] What meds were considered but not given or refused? Why? @ -[None] Did you discuss the management of the patient with other professionals (professionals i.e. , PA, OIL FIRE SPECIALIST, lab, RT, psych nurse, director of social work, type soldering machine tender, teacher, marketing and communications officer, case packer and sealer)? Give summary @ -[Case discussed with admitting physician and with the president finance company, treatment recommendations are incorporated Was smoking cessation discussed for >3mins.? @ -[No] Was critical care preformed (if so, how long)? @ -Yes, 40 minutes Were there social determinants of health that impacted care today? How? (Homelessness, low income, unemployed, alcoholism, drug addiction, transportation, low edu. Level, literacy, decrease access to med. care, long-term, rehab)? @ -[No] Was there de-escalation of care discussed even if they declined (Discuss DNR or withdrawal of care, Hospice)? DNR status @ -[No] What co-morbidities impacted this encounter? (DM, HTN, Smoking, COPD, CAD, Cancer, CVA, ARF, Chemo, Hep., AIDS, mental health diagnosis, sleep apnea, morbid obesity)? @ -[Diabetes, history of CABG Was patient admitted / discharged? Hospital course, mention meds given and route, prescriptions, significant lab abnormalities, going to OR and other pertinent info. @ -[As above Undiagnosed new problem with uncertain prognosis? @ -[No] Drug Therapy requiring intensive monitoring for toxicity (Heparin, Nitro, Insulin, Cardizem)? @ -[IV insulin, Were any procedures done? @ -[No] Diagnosis/symptom? @ -[Acute diabetic ketoacidosis NSTEMI Pneumonia Acute altered mental status Acute, or Chronic, or Acute on Chronic? @ -Acute Uncomplicated (without systemic symptoms) or Complicated (systemic symptoms)? @ -Complicated by altered mental status Side effects of treatment? @ -[No] Exacerbation, Progression, or Severe Exacerbation? @ -[No] Poses a threat to life or bodily function? How? (Chest pain, [place], [place], pneumonia, PE, COPD, DKA, ARF, appy, cholecystitis, CVA, Diverticulitis, Homicidal, Suicidal, threat to staff... and all critical care pts) @ -[Yes All treatments are based on ideal body weight as in ED triage - Lab Data Result diagrams: 11/04/24 06:05 11/04/24 06:05 Lab Results 10/31/24 10/31/24 10/31/24 Range/Units 00:07 00:07 00:07 WBC 19.3 H (3.8-10.6) k/uL RBC 3.39 L (4.30-5.90) m/uL Hgb 10.5 L (13.0-17.5) gm/dL Hct 35.9 L (39.0-53.0) % MCV 105.9 H (80.0-100.0) fL MCH 31.0 (25.0-35.0) pg MCHC 29.2 L (31.0-37.0) g/dL RDW 13.9 (11.5-15.5) % Plt Count 224 (150-450) k/uL MPV 8.5 Neutrophils % 87 % Lymphocytes % 8 % Monocytes % 5 % Eosinophils % 0 % Basophils % 0 % Neutrophils # 16.7 H (1.3-7.7) k/uL Lymphocytes # 1.5 (1.0-4.8) k/uL Monocytes # 0.9 (0-1.0) k/uL Eosinophils # 0.1 (0-0.7) k/uL Basophils # 0.0 (0-0.2) k/uL Hypochromasia Marked Macrocytosis Moderate PT 12.2 (10.0-12.5) sec INR 1.1 (<1.2) APTT 24.3 (22.0-30.0) sec Sodium (137-145) mmol/L Potassium (3.5-5.1) mmol/L Chloride (98-107) mmol/L Carbon Dioxide (22-30) mmol/L Anion Gap mmol/L BUN (9-20) mg/dL Creatinine (0.66-1.25) mg/dL Est GFR (CKD-EPI)AfAm (>60 ml/min/1.73 sqM) Est GFR (CKD-EPI)NonAf (>60 ml/min/1.73 sqM) Glucose (74-99) mg/dL POC Glucose (mg/dL) >600 H* (70-110) mg/dL POC Glu Technical Support Director ID Brambila Kevin Calcium (8.4-10.2) mg/dL Total Bilirubin (0.2-1.3) mg/dL AST (17-59) U/L ALT (4-49) U/L Alkaline Phosphatase (38-126) U/L Troponin I (0.000-0.034) ng/mL Total Protein (6.3-8.2) g/dL Albumin (3.5-5.0) g/dL Serum Alcohol mg/dL Acetone, Qual (Negative) 10/31/24 10/31/24 Range/Units 00:07 00:07 WBC (3.8-10.6) k/uL RBC (4.30-5.90) m/uL Hgb (13.0-17.5) gm/dL Hct (39.0-53.0) % MCV (80.0-100.0) fL MCH (25.0-35.0) pg MCHC (31.0-37.0) g/dL RDW (11.5-15.5) % Plt Count (150-450) k/uL MPV Neutrophils % % Lymphocytes % % Monocytes % % Eosinophils % % Basophils % % Neutrophils # (1.3-7.7) k/uL Lymphocytes # (1.0-4.8) k/uL Monocytes # (0-1.0) k/uL Eosinophils # (0-0.7) k/uL Basophils # (0-0.2) k/uL Hypochromasia Macrocytosis PT (10.0-12.5) sec INR (<1.2) APTT (22.0-30.0) sec Sodium 134 L (137-145) mmol/L Potassium 6.0 H (3.5-5.1) mmol/L Chloride 103 (98-107) mmol/L Carbon Dioxide <5 L* (22-30) mmol/L Anion Gap mmol/L BUN 34 H (9-20) mg/dL Creatinine 2.18 H (0.66-1.25) mg/dL Est GFR (CKD-EPI)AfAm 40 (>60 ml/min/1.73 sqM) Est GFR (CKD-EPI)NonAf 35 (>60 ml/min/1.73 sqM) Glucose 878 H* (74-99) mg/dL POC Glucose (mg/dL) (70-110) mg/dL POC Glu Technical Support Director ID Calcium 9.8 (8.4-10.2) mg/dL Total Bilirubin 1.0 (0.2-1.3) mg/dL AST 29 (17-59) U/L ALT 29 (4-49) U/L Alkaline Phosphatase 76 (38-126) U/L Troponin I 0.123 H* (0.000-0.034) ng/mL Total Protein 6.1 L (6.3-8.2) g/dL Albumin 4.2 (3.5-5.0) g/dL Serum Alcohol <10 mg/dL Acetone, Qual Positive (Negative) Disposition Clinical Impression: DKA (diabetic ketoacidoses), NSTEMI (non-ST elevated myocardial infarction), Pneumonia Disposition: ADMITTED IP TO THIS HOSP Condition: Critical Is patient prescribed a controlled substance at d/c from ED?: No
[2024-10-31 09:40] LABS: African American GFR (CKD) 46 (>60 ml/min/1.73 sqM); Anion Gap 13 mmol/L; Blood Urea Nitrogen 38 mg/dL (9-20); Carbon Dioxide 14 mmol/L (22-30); Chloride 112 mmol/L (98-107); Non-African American GFR(CKD) 40 (>60 ml/min/1.73 sqM); Potassium 4.1 mmol/L (3.5-5.1); Sodium 139 mmol/L (137-145)
[2024-10-31 10:01] LABS: Glucose,Whole Blood 433 mg/dL (70-110)
[2024-10-31 10:39] LABS: Glucose 506 mg/dL (74-99)
[2024-10-31 11:00] LABS: Glucose,Whole Blood 458 mg/dL (70-110)
[2024-10-31 11:54] LABS: Glucose,Whole Blood 335 mg/dL (70-110)
--- NOTE | 2024-10-31 12:11 | P.CNPUL ---
History of Present Illness Consult date: 10/31/24 Requesting physician: Zechariah Fam Reason for consult: other (Acute diabetic ketoacidosis) Chief complaint: Altered mental status History of present illness: This is a 49-year-old male known history of type 1 diabetes, history of gastroparesis, peripheral diabetic neuropathy, hypertension, dyslipidemia, chronic tobacco dependence, patient had history of myocardial revascularization with REILLY to LAD, and diagonal artery, ZAFAR to right coronary artery, right radial artery to the obtuse marginal artery, we saw him last on consultation back in 2019. In November 06, 2001 4, patient had coronary evaluation/cardiac catheterization, and he underwentcutting balloon angioplasty circumflex with a 3.0 x 10mm balloon, PCI proximal circumflex with a 3.5 x 15mm Xience SILVESTRE, post dilated with a 3.5 NC balloon. Patient was advised aggressive risk factor modification and medical therapy as well as dual antiplatelet therapy with aspirin Plavix for 12 months. This time/yesterday patient was sent by family because of altered mental status and confusion, initially was sent to [facility] and he left AMA. Back here last night with confusion, and he was found to have elevated blood sugar and acute diabetic ketoacidosis. Patient was admitted to the ICU, and this consult was initiated. His mental status remains altered. CT of the brain is relatively unremarkable. Patient clearly has acute metabolic encephalopathy with acute diabetic ketoacidosis. [place] on the protocol for acute DKA. Review of Systems ROS unobtainable: due to mental status Past Medical History Past Medical History: Coronary Artery Disease (CAD), COPD, Diabetes Mellitus, Hyperlipidemia, Hypertension Additional Past Medical History / Comment(s): Diabetic gastroparesis,mid and lower herniated disc, mid and lower bulging disc, arthritis to mid and lower back., diabetic neuropathy hands and feet. History of Any Multi-Drug Resistant Organisms: None Reported Past Surgical History: Coronary Bypass/CABG, Heart Catheterization With Stent Additional Past Surgical History / Comment(s): 2006 approx.cyst polydonal removal., Four-vessel CABG 06/22/2020. November 2023, heart cath with stent Past Anesthesia/Blood Transfusion Reactions: No Reported Reaction Additional Past Anesthesia/Blood Transfusion Reaction / Comment(s): no anesthesia difficulties. Never recieved blood product. Date of Last Stent Placement:: November 2023 Past Psychological History: Anxiety, Depression Smoking Status: Current every day smoker Past Alcohol Use History: Rare Past Drug Use History: Marijuana - Past Family History Father Family Medical History: Diabetes Mellitus, Hypertension Additional Family Medical History / Comment(s): father is still living Mother Family Medical History: Diabetes Mellitus, Renal Disease Additional Family Medical History / Comment(s): mother is still living. Mental health disorders. Mothers immediate family has very strong cardiac hx. Brother(s) Family Medical History: Myocardial Infarction ([place]) Additional Family Medical History / Comment(s): His brother had to heart stents placed at age 45. Medications and Allergies Home Medications Medication Instructions Recorded Confirmed Type Omeprazole 20 mg PO DAILY 06/18/20 10/31/24 History Acetaminophen Tab [Tylenol] 1,000 mg PO Q6HR PRN tab 06/26/20 10/31/24 Rx Diltiazem Cd [Cardizem CD] 120 mg PO DAILY #30 cap.er.24h 06/26/20 10/31/24 Rx DULoxetine HCL [Cymbalta] 30 mg PO DAILY 11/14/23 10/31/24 History Famotidine [Pepcid] 20 mg PO DAILY 11/14/23 10/31/24 History Glucagon [Gvoke Pfs 1-Pack Syringe] 1 mg SQ ONCE PRN 11/14/23 10/31/24 History Pregabalin [Lyrica] 50 mg PO BID 11/14/23 10/31/24 History Aspirin 81 mg PO DAILY #90 tab 11/15/23 10/31/24 Rx Atorvastatin [Lipitor] 80 mg PO HS #90 tab 11/15/23 10/31/24 Rx Clopidogrel [Plavix] 75 mg PO DAILY #90 tab 11/15/23 10/31/24 Rx Albuterol Sulfate [Ventolin HFA] 1 - 2 puff INHALATION RT-QID PRN 10/31/24 10/31/24 History Budesonide/Formoterol Fumarate 2 puff INHALATION RT-BID 10/31/24 10/31/24 History [Symbicort 160-4.5 Mcg Inhaler] Buprenorphine HCl/Naloxone HCl 1 film SL BID 10/31/24 10/31/24 History [Suboxone 8 mg-2 mg Sl Film] Ergocalciferol [Vitamin D2 (1250 1,250 mcg PO Q30D 10/31/24 10/31/24 History Mcg = 66779 Iu)] Insulin Glargine [Lantus Vial] 44 unit SQ DAILY 10/31/24 10/31/24 History Insulin Lispro [humaLOG Kwikpen] 15 unit SQ AC-TID 10/31/24 10/31/24 History Losartan [Cozaar] 50 mg PO BID 10/31/24 10/31/24 History Metoprolol Tartrate [Lopressor] 25 mg PO BID 10/31/24 10/31/24 History Metoprolol Tartrate [Lopressor] 50 mg PO BID 10/31/24 10/31/24 History Naloxone HCl [Narcan] 4 mg NASAL ONCE PRN 10/31/24 10/31/24 History Nitroglycerin Sl Tabs [Nitrostat] 0.4 mg SL Q5M PRN 10/31/24 10/31/24 History Ondansetron Odt [Zofran Odt] 4 mg PO Q6HR PRN 10/31/24 10/31/24 History Spironolactone [Aldactone] 25 mg PO DAILY 10/31/24 10/31/24 History Allergies Allergy/AdvReac Type Severity Reaction Status Date / Time No Known Allergies Allergy Verified 10/31/24 11:51 Physical Exam Vitals: Vital Signs Temp Pulse Pulse Resp BP Pulse Ox 10/31/24 11:10 89 12 83/57 99 10/31/24 11:00 89 17 87/63 100 10/31/24 10:50 89 13 87/63 99 10/31/24 10:40 89 14 87/66 100 10/31/24 10:30 90 16 94/68 98 10/31/24 10:20 92 16 94/68 97 10/31/24 10:10 92/73 97 10/31/24 10:00 93 21 84/63 97 10/31/24 09:50 92 13 84/63 98 10/31/24 09:40 93 16 87/66 99 10/31/24 09:30 93 18 83/59 100 10/31/24 09:20 93 16 83/59 99 10/31/24 09:10 94 15 84/62 100 10/31/24 09:00 93 12 87/65 100 10/31/24 08:50 92 14 87/65 99 10/31/24 08:40 93 17 95/72 99 10/31/24 08:30 95 15 89/67 97 10/31/24 08:20 96 33 H 99 10/31/24 08:10 92 15 82/63 100 10/31/24 08:00 98.3 F 93 16 80/63 97 10/31/24 07:50 92 18 80/63 98 10/31/24 07:40 93 16 82/61 97 10/31/24 07:30 94 16 83/63 96 10/31/24 07:20 94 19 83/63 97 10/31/24 07:10 94 19 84/62 96 10/31/24 07:00 95 21 86/62 96 10/31/24 06:50 93 17 86/62 96 10/31/24 06:40 96 15 78/58 98 10/31/24 06:30 95 19 75/56 98 10/31/24 06:20 96 19 75/56 99 10/31/24 06:10 97 19 93/72 99 10/31/24 06:00 108 H 18 84/61 100 10/31/24 05:50 99 18 84/61 99 10/31/24 05:40 101 H 23 85/64 99 10/31/24 05:30 100 23 79/63 99 10/31/24 05:20 104 H 17 79/63 99 10/31/24 05:10 104 H 21 90/66 99 10/31/24 05:00 103 H 20 81/64 100 10/31/24 04:50 102 H 20 81/64 100 10/31/24 04:40 103 H 17 81/59 100 10/31/24 04:30 106 H 21 93/55 99 10/31/24 04:20 109 H 23 93/55 100 10/31/24 04:10 126 H 33 H 101/54 99 10/31/24 04:00 98.1 F 111 H 24 89/56 98 10/31/24 03:56 112 H 32 H 10/31/24 03:50 117 H 36 H 96/86 10/31/24 03:40 97.8 F 120 H 35 H 98 10/31/24 03:24 98.0 F 116 H 32 H 101/69 100 10/31/24 02:50 98.0 F 112 H 34 H 104/68 100 10/31/24 01:53 97.9 F 123 H 32 H 111/72 99 10/30/24 23:55 97.9 F 114 H 24 116/68 100 Intake and Output 10/30/24 10/31/24 10/31/24 22:59 06:59 14:59 Intake Total 600 1856.121 Output Total 825 200 Balance -225 1656.121 Intake: IV 600 1800 Sodium Chloride 0.9% 1, 600 800 000 ml @ 200 mls/hr IV . Q5H [facility] Rx#:[id number] Sodium Chloride 0.9% 1, 1000 000 ml @ 999 mls/hr IV . Q1H1M [facility] Rx#:[id number] Intake, IV Titration 56.121 Amount Insulin Regular 100 unit 56.121 In Sodium Chloride 0.9% 100 ml @ 0.1 UNITS/KG/HR 6.872 mls/hr IV .[id number] [facility] Rx#:[id number] Output: Urine 825 200 Other: Weight 68.039 kg GENERAL EXAM: Revealed 49-year-old black male in no distress. Patient is lethargic, obtunded, not in respiratory distress. HEENT: PERRLA, EOMI, no JVD. CHEST: Metrical chest expansion LUNGS: Equal air entry with no crackles rhonchi or wheezes CVS: S1 and S2 normal with no audible murmur, regular rhythm. ABDOMEN: No hepatosplenomegaly, normal bowel sounds, no guarding or rigidity. SPINE: No scoliosis or deformity SKIN: No rashes, healing wound on the chest CENTRAL NERVOUS SYSTEM: Could not assess as the patient seems to be confused and obtunded. EXTREMITIES: There is no peripheral edema. No clubbing, no cyanosis. Peripheral pulses are intact. Results - Laboratory Findings CBC and BMP: 10/31/24 08:29 10/31/24 08:29 PT/INR, D-dimer PT 12.2 sec (10.0-12.5) 10/31/24 00:07 INR 1.1 (<1.2) 10/31/24 00:07 Abnormal lab findings: Abnormal Labs 10/31/24 10/31/24 10/31/24 00:07 00:07 00:07 WBC 19.3 H RBC 3.39 L Hgb 10.5 L Hct 35.9 L MCV 105.9 H MCHC 29.2 L Neutrophils # 16.7 H VBG pH VBG pCO2 Sodium 134 L Potassium 6.0 H Chloride Carbon Dioxide <5 L* BUN 34 H Creatinine 2.18 H Glucose 878 H* POC Glucose (mg/dL) >600 H* Phosphorus Troponin I Total Protein 6.1 L Urine Glucose (UA) Urine Ketones 10/31/24 10/31/24 10/31/24 00:07 02:12 02:15 WBC RBC Hgb Hct MCV MCHC Neutrophils # VBG pH 7.08 L* VBG pCO2 <15 L* Sodium Potassium Chloride Carbon Dioxide BUN Creatinine Glucose POC Glucose (mg/dL) Phosphorus Troponin I 0.123 H* Total Protein Urine Glucose (UA) 4+ H Urine Ketones 2+ H 10/31/24 10/31/24 10/31/24 02:54 03:40 04:56 WBC RBC Hgb Hct MCV MCHC Neutrophils # VBG pH VBG pCO2 Sodium Potassium Chloride Carbon Dioxide BUN Creatinine Glucose POC Glucose (mg/dL) >600 H* >600 H* >600 H* Phosphorus Troponin I Total Protein Urine Glucose (UA) Urine Ketones 10/31/24 10/31/24 10/31/24 05:19 05:19 06:02 WBC RBC Hgb Hct MCV MCHC Neutrophils # VBG pH VBG pCO2 Sodium Potassium Chloride 108 H Carbon Dioxide 6 L* BUN 37 H Creatinine 2.10 H Glucose 712 H* POC Glucose (mg/dL) >600 H* Phosphorus 5.1 H Troponin I Total Protein Urine Glucose (UA) Urine Ketones 10/31/24 10/31/24 10/31/24 06:57 07:55 08:29 WBC RBC Hgb Hct MCV MCHC Neutrophils # VBG pH VBG pCO2 Sodium Potassium Chloride 112 H Carbon Dioxide 14 L BUN 38 H Creatinine 1.94 H Glucose 506 H* POC Glucose (mg/dL) >600 H* 531 H* Phosphorus Troponin I Total Protein Urine Glucose (UA) Urine Ketones 10/31/24 10/31/24 10/31/24 08:29 08:53 09:59 WBC 13.3 H RBC 3.11 L Hgb 9.6 L Hct 30.3 L MCV MCHC Neutrophils # 11.5 H VBG pH VBG pCO2 Sodium Potassium Chloride Carbon Dioxide BUN Creatinine Glucose POC Glucose (mg/dL) 540 H* 433 H Phosphorus Troponin I Total Protein Urine Glucose (UA) Urine Ketones 10/31/24 10/31/24 10:58 11:53 WBC RBC Hgb Hct MCV MCHC Neutrophils # VBG pH VBG pCO2 Sodium Potassium Chloride Carbon Dioxide BUN Creatinine Glucose POC Glucose (mg/dL) 458 H 335 H Phosphorus Troponin I Total Protein Urine Glucose (UA) Urine Ketones - Diagnostic Findings Chest x-ray: image reviewed (Chest x-ray is suggestive of minimal atelectasis, and CT of the brain is unremarkable.) Assessment and Plan Assessment: Impression:mpression: Acute diabetic ketoacidosis. Anion gap metabolic acidosis secondary to above. Acute toxic metabolic encephalopathy, will check ammonia level History of ischemic cardiomyopathy with LV dysfunction ejection fraction of 25- 30%. Insulin-dependent diabetes mellitus. History of diabetic gastroparesis. History of hypertension. History of marijuana use. History of non-ST segment elevation myocardial infarction, patient is status post bypass grafting on 06/22/20. Recommendation: Continue present supportive care measures Continue DKA protocol Check ammonia level Continue to monitor in the ICU Continue insulin drip GI and DVT prophylaxis Will continue to follow Prognosis is guarded Time with Patient: Greater than 30
[2024-10-31 13:00] LABS: Glucose,Whole Blood 315 mg/dL (70-110)
[2024-10-31 13:14] LABS: African American GFR (CKD) 53 (>60 ml/min/1.73 sqM); Anion Gap 8 mmol/L; Blood Urea Nitrogen 38 mg/dL (9-20); Calcium 8.7 mg/dL (8.4-10.2); Carbon Dioxide 20 mmol/L (22-30); Chloride 114 mmol/L (98-107); Glucose 318 mg/dL (74-99); Non-African American GFR(CKD) 46 (>60 ml/min/1.73 sqM); Phosphorus 2.1 mg/dL (2.5-4.5); Potassium 3.7 mmol/L (3.5-5.1); Sodium 142 mmol/L (137-145)
[2024-10-31 14:06] LABS: Glucose,Whole Blood 222 mg/dL (70-110)
[2024-10-31] MEDS: D5-0.45% NACL WITH KCL 20MEQ/L 1,000 ML IV SCH (14:14)
[2024-10-31 15:11] LABS: Glucose,Whole Blood 293 mg/dL (70-110)
[2024-10-31 15:56] LABS: Glucose,Whole Blood 220 mg/dL (70-110)
--- NOTE | 2024-10-31 16:11 | P.CRDCN ---
History of Present Illness Consult date: 10/31/24 History of present illness: ............................ ASSESSMENT: 1. Elevated troponin, likely type II NSTEMI along with poor renal clearance from [facility] 2. CAD status post CABG 2019 (REILLY to LAD, left radial to OM, ZAFAR to PDA. Heart cath in 2023 showed patent REILLY to LAD, occluded SVG to PDA and left radial to OM1. RCA has mid 100% stenosis likely [employer]IL[employer]ING 3. Status post PCI to LCx November 2023 4. [facility] 5 Insulin-dependent type 1 diabetes mellitus, presented with acute diabetic ketoacidosis with anion gap 6 Toxic metabolic encephalopathy due to above 7 Diabetic gastroparesis 8 Tobacco user and marijuana user ............................ Cardiac Testing: Admission ECG shows sinus tachycardia with nonspecific ST depressions and T wave inversions in inferolateral lead ............................ Labs: Troponin 0.123, ............................ PLAN: Continue aspirin, Continue Plavix, Lipitor 40 mg, metoprolol succinate 25 mg daily Trend troponins. Obtain NT-proBNP levels, HbA1c levels Obtain updated echocardiogram Further recommendations to follow ........................... HPI: 47-year-old with PMH of type 1 diabetes, insulin-dependent, gastroparesis, peripheral diabetic neuropathy, hypertension, dyslipidemia, tobacco user, marijuana user. In November 2023 he was hospitalized for DKA and NSTEMI. He had a heart catheterization done which showed loss of ZAFAR to RCA and radial artery to OM graft. For this he got PCI to LCx. His RCA [place] is 100% occluded in mid segment. This time he presented initially to [facility] because of increased swelling in the legs. He left AMA from [facility]. At home he was not iced to be confused for which he was brought to [facility] this time. On admission he had concerns of changes in mental status, acute diabetic ketoacidosis with elevated anion gap, significantly high glucose levels, and elevated troponin levels. Cardiology was consulted for elevated troponins ........................... PHYSICAL EXAMINATION: CVS: Regular pulse, Normal S1 and S2, no murmurs. Normal JVP. No swelling in legs. Vascular: Brisk carotid upstrokes. No bruits. Normal radial pulses bilaterally. Respi: Minimal crackles audible in bilateral bases, poor inspiratory effort. GI: Non distented Neuro: Drowsy but arousable, no focal neurological deficit. Detailed neuro exam was not performed. ........................ Past Medical History Past Medical History: Asthma, Coronary Artery Disease (CAD), COPD, Diabetes Mellitus, Fibromyalgia, Hyperlipidemia, Hypertension, Myocardial Infarction ([place]), Osteoarthritis (OA), Renal Disease Additional Past Medical History / Comment(s): Diabetic gastroparesis,mid and low er herniated disc, mid and lower bulging disc, arthritis to mid and lower back., diabetic neuropathy hands and feet. Last Myocardial Infarction Date:: 11/05/23 History of Any Multi-Drug Resistant Organisms: None Reported Past Surgical History: Coronary Bypass/CABG, Heart Catheterization With Stent Additional Past Surgical History / Comment(s): 2006 approx.cyst polydonal removal., Four-vessel CABG 06/22/2020. November 2023, heart cath with stent Past Anesthesia/Blood Transfusion Reactions: No Reported Reaction Additional Past Anesthesia/Blood Transfusion Reaction / Comment(s): no anesthesia difficulties. Never recieved blood product. Date of Last Stent Placement:: November 2023 Past Psychological History: Anxiety, Bipolar, Depression Smoking Status: Current every day smoker, Vaper Past Alcohol Use History: None Reported, Rare Additional Past Alcohol Use History / Comment(s): started smoking at age 16 Past Drug Use History: Marijuana Additional Drug Use History / Comment(s): states he occasionally smokes marijuana - Past Family History Father Family Medical History: Diabetes Mellitus, Hypertension Additional Family Medical History / Comment(s): father is still living Mother Family Medical History: Diabetes Mellitus, Renal Disease Additional Family Medical History / Comment(s): mother is still living. Mental health disorders. Mothers immediate family has very strong cardiac hx. Brother(s) Family Medical History: Myocardial Infarction ([place]) Additional Family Medical History / Comment(s): His brother had to heart stents placed at age 45. Medications and Allergies Home Medications Medication Instructions Recorded Confirmed Type Omeprazole 20 mg PO DAILY 06/18/20 10/31/24 History Acetaminophen Tab [Tylenol] 1,000 mg PO Q6HR PRN tab 06/26/20 10/31/24 Rx Diltiazem Cd [Cardizem CD] 120 mg PO DAILY #30 cap.er.24h 06/26/20 10/31/24 Rx DULoxetine HCL [Cymbalta] 30 mg PO DAILY 11/14/23 10/31/24 History Famotidine [Pepcid] 20 mg PO DAILY 11/14/23 10/31/24 History Glucagon [Gvoke Pfs 1-Pack Syringe] 1 mg SQ ONCE PRN 11/14/23 10/31/24 History Pregabalin [Lyrica] 50 mg PO BID 11/14/23 10/31/24 History Aspirin 81 mg PO DAILY #90 tab 11/15/23 10/31/24 Rx Atorvastatin [Lipitor] 80 mg PO HS #90 tab 11/15/23 10/31/24 Rx Clopidogrel [Plavix] 75 mg PO DAILY #90 tab 11/15/23 10/31/24 Rx Albuterol Sulfate [Ventolin HFA] 1 - 2 puff INHALATION RT-QID PRN 10/31/24 10/31/24 History Budesonide/Formoterol Fumarate 2 puff INHALATION RT-BID 10/31/24 10/31/24 History [Symbicort 160-4.5 Mcg Inhaler] Buprenorphine HCl/Naloxone HCl 1 film SL TID 10/31/24 10/31/24 History [Suboxone 8 mg-2 mg Sl Film] Ergocalciferol [Vitamin D2 (1250 1,250 mcg PO Q30D 10/31/24 10/31/24 History Mcg = 41507 Iu)] Insulin Glargine [Lantus Vial] 44 unit SQ DAILY 10/31/24 10/31/24 History Insulin Lispro [humaLOG Kwikpen] 15 unit SQ AC-TID 10/31/24 10/31/24 History Losartan [Cozaar] 50 mg PO BID 10/31/24 10/31/24 History Metoprolol Tartrate [Lopressor] 25 mg PO BID 10/31/24 10/31/24 History Metoprolol Tartrate [Lopressor] 50 mg PO BID 10/31/24 10/31/24 History Naloxone HCl [Narcan] 4 mg NASAL ONCE PRN 10/31/24 10/31/24 History Nitroglycerin Sl Tabs [Nitrostat] 0.4 mg SL Q5M PRN 10/31/24 10/31/24 History Ondansetron Odt [Zofran Odt] 4 mg PO Q6HR PRN 10/31/24 10/31/24 History Spironolactone [Aldactone] 25 mg PO DAILY 10/31/24 10/31/24 History Allergies Allergy/AdvReac Type Severity Reaction Status Date / Time No Known Allergies Allergy Verified 10/31/24 11:51 Physical Exam Vitals: Vital Signs Temp Pulse Pulse Resp BP Pulse Ox 10/31/24 12:00 98.3 F 90 18 93/68 100 10/31/24 11:30 86 16 84/61 100 10/31/24 11:10 89 12 83/57 99 10/31/24 11:00 89 17 87/63 100 10/31/24 10:50 89 13 87/63 99 10/31/24 10:40 89 14 87/66 100 10/31/24 10:30 90 16 94/68 98 10/31/24 10:20 92 16 94/68 97 10/31/24 10:10 92/73 97 10/31/24 10:00 93 21 84/63 97 10/31/24 09:50 92 13 84/63 98 10/31/24 09:40 93 16 87/66 99 10/31/24 09:30 93 18 83/59 100 10/31/24 09:20 93 16 83/59 99 10/31/24 09:10 94 15 84/62 100 10/31/24 09:00 93 12 87/65 100 10/31/24 08:50 92 14 87/65 99 10/31/24 08:40 93 17 95/72 99 10/31/24 08:30 95 15 89/67 97 10/31/24 08:20 96 33 H 99 10/31/24 08:10 92 15 82/63 100 10/31/24 08:00 98.3 F 93 16 80/63 97 10/31/24 07:50 92 18 80/63 98 10/31/24 07:40 93 16 82/61 97 10/31/24 07:30 94 16 83/63 96 10/31/24 07:20 94 19 83/63 97 10/31/24 07:10 94 19 84/62 96 10/31/24 07:00 95 21 86/62 96 10/31/24 06:50 93 17 86/62 96 10/31/24 06:40 96 15 78/58 98 10/31/24 06:30 95 19 75/56 98 10/31/24 06:20 96 19 75/56 99 10/31/24 06:10 97 19 93/72 99 10/31/24 06:00 108 H 18 84/61 100 10/31/24 05:50 99 18 84/61 99 10/31/24 05:40 101 H 23 85/64 99 10/31/24 05:30 100 23 79/63 99 10/31/24 05:20 104 H 17 79/63 99 10/31/24 05:10 104 H 21 90/66 99 10/31/24 05:00 103 H 20 81/64 100 10/31/24 04:50 102 H 20 81/64 100 10/31/24 04:40 103 H 17 81/59 100 10/31/24 04:30 106 H 21 93/55 99 10/31/24 04:20 109 H 23 93/55 100 10/31/24 04:10 126 H 33 H 101/54 99 10/31/24 04:00 98.1 F 111 H 24 89/56 98 10/31/24 03:56 112 H 32 H 10/31/24 03:50 117 H 36 H 96/86 10/31/24 03:40 97.8 F 120 H 35 H 98 10/31/24 03:24 98.0 F 116 H 32 H 101/69 100 10/31/24 02:50 98.0 F 112 H 34 H 104/68 100 10/31/24 01:53 97.9 F 123 H 32 H 111/72 99 10/30/24 23:55 97.9 F 114 H 24 116/68 100 Intake and Output 10/31/24 10/31/24 10/31/24 06:59 14:59 22:59 Intake Total 600 2056.121 30.008 Output Total 825 200 Balance -225 1856.121 30.008 Intake: IV 600 2000 Sodium Chloride 0.9% 1, 600 1000 000 ml @ 200 mls/hr IV . Q5H [facility] Rx#:[id number] Sodium Chloride 0.9% 1, 1000 000 ml @ 999 mls/hr IV . Q1H1M [facility] Rx#:[id number] Intake, IV Titration 56.121 30.008 Amount Insulin Regular 100 unit 56.121 30.008 In Sodium Chloride 0.9% 100 ml @ 0.1 UNITS/KG/HR 6.872 mls/hr IV .[id number] [facility] Rx#:[id number] Output: Urine 825 200 Other: Voiding Method Urinal Weight 68.039 kg 68.039 kg Results 10/31/24 08:29 10/31/24 12:45 Cardiac Enzymes 10/31/24 10/31/24 Range/Units 00:07 00:07 AST 29 (17-59) U/L Troponin I 0.123 H* (0.000-0.034) ng/mL Coagulation 10/31/24 Range/Units 00:07 PT 12.2 (10.0-12.5) sec APTT 24.3 (22.0-30.0) sec CBC 10/31/24 10/31/24 Range/Units 00:07 08:29 WBC 19.3 H 13.3 H (3.8-10.6) k/uL RBC 3.39 L 3.11 L (4.30-5.90) m/uL Hgb 10.5 L 9.6 L (13.0-17.5) gm/dL Hct 35.9 L 30.3 L (39.0-53.0) % Plt Count 224 193 (150-450) k/uL Comprehensive Metabolic Panel 10/31/24 10/31/24 10/31/24 Range/Units 00:07 05:19 08:29 Sodium 134 L 137 139 (137-145) mmol/L Potassium 6.0 H 4.8 4.1 (3.5-5.1) mmol/L Chloride 103 108 H 112 H (98-107) mmol/L Carbon Dioxide <5 L* 6 L* 14 L (22-30) mmol/L BUN 34 H 37 H 38 H (9-20) mg/dL Creatinine 2.18 H 2.10 H 1.94 H (0.66-1.25) mg/dL Glucose 878 H* 712 H* 506 H* (74-99) mg/dL Calcium 9.8 (8.4-10.2) mg/dL AST 29 (17-59) U/L ALT 29 (4-49) U/L Alkaline Phosphatase 76 (38-126) U/L Total Protein 6.1 L (6.3-8.2) g/dL Albumin 4.2 (3.5-5.0) g/dL 10/31/24 Range/Units 12:45 Sodium 142 (137-145) mmol/L Potassium 3.7 (3.5-5.1) mmol/L Chloride 114 H (98-107) mmol/L Carbon Dioxide 20 L (22-30) mmol/L BUN 38 H (9-20) mg/dL Creatinine 1.74 H (0.66-1.25) mg/dL Glucose 318 H (74-99) mg/dL Calcium 8.7 (8.4-10.2) mg/dL AST (17-59) U/L ALT (4-49) U/L Alkaline Phosphatase (38-126) U/L Total Protein (6.3-8.2) g/dL Albumin (3.5-5.0) g/dL Current Medications Generic Name Dose Route Start Last Admin Trade Name Freq PRN Reason Stop Dose Admin Acetaminophen 650 mg 10/31/24 07:41 Acetaminophen Tab 325 Mg Tab PO Q4HR PRN Fever and/or Mild Pain Aspirin 81 mg 10/31/24 15:45 Aspirin 81 Mg PO DAILY [facility] Atorvastatin Calcium 40 mg 10/31/24 21:00 Atorvastatin 40 Mg Tab PO HS [facility] Clopidogrel Bisulfate 75 mg 10/31/24 15:45 Clopidogrel 75 Mg Tab PO DAILY [facility] Heparin Sodium (Porcine) 5,000 unit 10/31/24 08:00 10/31/24 08:57 Heparin Sodium,Porcine 5,000 Unit/Ml 1 Ml Vial SQ 5,000 unit Q8HR MORE Administration Insulin Human Regular 100 unit 101 mls @ 6.872 mls/hr 10/31/24 01:15 10/31/24 15:28 / Sodium Chloride IV 0.11 units/kg/hr .[id number] MORE 7.872 mls/hr Titration Protocol 0.1 UNITS/KG/HR Sodium Chloride 1,000 mls @ 200 mls/hr 10/31/24 01:15 10/31/24 11:50 Saline 0.9% IV 200 mls/hr .Q5H MORE Administration Potassium Chloride/Dextrose/Sod Cl 1,000 mls @ 150 mls/hr 10/31/24 14:00 10/31/24 14:14 D5%-1/2ns-Kcl 20 Meq/L Iv Solution IV 150 mls/hr .Q6H40M MORE Administration Metoprolol Succinate 25 mg 10/31/24 15:45 Metoprolol Succinate (Er) 25 Mg Tab.Er.24h PO DAILY MORE Miscellaneous Information 1 each 10/31/24 07:41 Potassium Replacement Protocol 1 Each Misc MISCELLANE DAILY PRN Per Protocol Miscellaneous Information 1 each 10/31/24 07:41 Magnesium Replacement Protocol 1 Each Misc MISCELLANE DAILY PRN Per Protocol Protocol Naloxone HCl 0.2 mg 10/31/24 07:41 Naloxone 0.4 Mg/Ml 1 Ml Vial IV Q2M PRN Opioid Reversal Pantoprazole Sodium 40 mg 10/31/24 09:00 10/31/24 08:56 Pantoprazole 40 Mg/10 Ml Vial IV 40 mg DAILY MORE Administration Intake and Output 10/31/24 10/31/24 10/31/24 06:59 14:59 22:59 Intake Total 600 2056.121 30.008 Output Total 825 200 Balance -225 1856.121 30.008 Intake: IV 600 2000 Sodium Chloride 0.9% 1, 600 1000 000 ml @ 200 mls/hr IV . Q5H [facility] Rx#:[id number] Sodium Chloride 0.9% 1, 1000 000 ml @ 999 mls/hr IV . Q1H1M [facility] Rx#:[id number] Intake, IV Titration 56.121 30.008 Amount Insulin Regular 100 unit 56.121 30.008 In Sodium Chloride 0.9% 100 ml @ 0.1 UNITS/KG/HR 6.872 mls/hr IV .[id number] [facility] Rx#:[id number] Output: Urine 825 200 Other: Voiding Method Urinal Weight 68.039 kg 68.039 kg Patient Weight 11/01/24 06:59 Weight 68.039 kg 10/31/24 08:29 10/31/24 12:45
[2024-10-31 17:04] LABS: Glucose,Whole Blood 137 mg/dL (70-110)
[2024-10-31 17:48] LABS: African American GFR (CKD) 53 (>60 ml/min/1.73 sqM); Anion Gap 7 mmol/L; Blood Urea Nitrogen 37 mg/dL (9-20); Calcium 8.8 mg/dL (8.4-10.2); Carbon Dioxide 20 mmol/L (22-30); Chloride 116 mmol/L (98-107); Glucose 167 mg/dL (74-99); Magnesium 1.5 mg/dL (1.6-2.3); Non-African American GFR(CKD) 46 (>60 ml/min/1.73 sqM); Potassium 3.6 mmol/L (3.5-5.1); Sodium 143 mmol/L (137-145)
[2024-10-31 17:54] LABS: Glucose,Whole Blood 129 mg/dL (70-110)
[2024-10-31] MEDS: ASPIRIN 81 MG PO SCH (17:58)
[2024-10-31] MEDS: CLOPIDOGREL 75 MG TAB PO SCH (17:59)
[2024-10-31] MEDS: METOPROLOL SUCCINATE (ER) 25 MG TAB.ER.24H PO SCH (17:59)
[2024-10-31 18:03] LABS: NT-Pro-B-Type Natriuretic Pept 13300 pg/mL
[2024-10-31] MEDS: HEPARIN SODIUM 1,000 UN/ML (10ML VL) IV ONE (18:33)
[2024-10-31] MEDS: POTASSIUM CHLORIDE 10 MEQ in WATER FOR INJECTION 1 100ML.BAG IVPB SCH (18:33)
[2024-10-31] MEDS: HEPARIN SOD,PORK IN 0.45% NACL 25,000 UNIT in 0.45% NACL 1 250ML.BAG IV SCH (18:34)
[2024-10-31 18:53] LABS: Glucose,Whole Blood 114 mg/dL (70-110)
[2024-10-31] MEDS: MAGNESIUM SULFATE-D5W PMX 1 GM in DEXTROSE/WATER 1 100ML.BAG IVPB SCH (19:52)
[2024-10-31 20:08] LABS: INR 1.1 (<1.2); Prothrombin Time 12.3 sec (10.0-12.5)
[2024-10-31 20:09] LABS: Glucose,Whole Blood 112 mg/dL (70-110)
[2024-10-31 20:12] LABS: Partial Thromboplastin Time >200.0 sec (22.0-30.0)
[2024-10-31] MEDS: ATORVASTATIN 40 MG TAB PO SCH (21:11)
[2024-10-31 22:08] LABS: African American GFR (CKD) 63 (>60 ml/min/1.73 sqM); Anion Gap 6 mmol/L; Blood Urea Nitrogen 36 mg/dL (9-20); Calcium 8.9 mg/dL (8.4-10.2); Carbon Dioxide 19 mmol/L (22-30); Chloride 118 mmol/L (98-107); Glucose 97 mg/dL (74-99); Non-African American GFR(CKD) 55 (>60 ml/min/1.73 sqM); Phosphorus 2.1 mg/dL (2.5-4.5); Sodium 143 mmol/L (137-145)
[2024-10-31 22:14] LABS: Glucose,Whole Blood 140 mg/dL (70-110)
[2024-11-01 01:25] LABS: Glucose,Whole Blood 374 mg/dL (70-110)
[2024-11-01 01:51] LABS: Chol/HDL Ratio 1.73 Ratio; LDL Cholesterol,Calculated 17.3 mg/dL (0.0-131.0); VLDL Calculation 8.78 mg/dL (5.00-40.00)
[2024-11-01 02:37] LABS: Glucose,Whole Blood 350 mg/dL (70-110)
[2024-11-01 03:59] LABS: Glucose,Whole Blood 378 mg/dL (70-110)
[2024-11-01 04:43] LABS: Basophils % (A) 0 %; Eosinophils # (A) 0.1 k/uL (0-0.7); Eosinophils % (A) 1 %; HCT 29.7 % (39.0-53.0); Lymphocytes # (A) 1.1 k/uL (1.0-4.8); Lymphocytes % (A) 6 %; MCH 31.2 pg (25.0-35.0); MCHC 33.5 g/dL (31.0-37.0); MCV 93.2 fL (80.0-100.0); Mean Platelet Volume 7.2; Monocytes # (A) 0.6 k/uL (0-1.0); Monocytes % (A) 3 %; Neutrophils # (A) 17.2 k/uL (1.3-7.7); Neutrophils % (A) 90 %; Platelet Count 187 k/uL (150-450); RBC 3.19 m/uL (4.30-5.90); RDW 14.5 % (11.5-15.5); WBC 19.1 k/uL (3.8-10.6)
[2024-11-01 05:00] LABS: Prothrombin Time 11.4 sec (10.0-12.5)
[2024-11-01 05:19] LABS: African American GFR (CKD) 77 (>60 ml/min/1.73 sqM); Anion Gap 5 mmol/L; Blood Urea Nitrogen 31 mg/dL (9-20); Calcium 8.6 mg/dL (8.4-10.2); Carbon Dioxide 16 mmol/L (22-30); Chloride 116 mmol/L (98-107); Glucose 291 mg/dL (74-99); Magnesium 1.7 mg/dL (1.6-2.3); Non-African American GFR(CKD) 67 (>60 ml/min/1.73 sqM); Potassium 4.2 mmol/L (3.5-5.1); Sodium 137 mmol/L (137-145)
[2024-11-01] MEDS: MAGNESIUM SULFATE-D5W PMX 1 GM in DEXTROSE/WATER 1 100ML.BAG IVPB ONE (05:34)
[2024-11-01 06:19] LABS: Glucose,Whole Blood 272 mg/dL (70-110)
--- NOTE | 2024-11-01 08:09 | CA ---
Transthoracic Echo Report Name: Jean Ridley Age: 49 Gender: M : 1975 Exam Date: 10/31/2024 17:01 Exam Location: [facility] Ht (in): 67 Wt (lb): 150 Ordering Physician: Cain Sue MD ([id number]) Attending/Referring Phys: [employer]en Warren RDCS Procedure CPT: Indications: nstemi Cardiac Hx: Technical Quality: Good Contrast 1: Definity Total Dose (mL): 1 Contrast 2: Total Dose (mL): MEASUREMENTS (Male / Female) Normal Values 2D ECHO LV Diastolic Diameter PLAX 5.5 cm 4.2 - 5.9 / 3.9 - 5.3 cm LV Systolic Diameter PLAX 4.9 cm IVS Diastolic Thickness 0.8 cm 0.6 - 1.0 / 0.6 - 0.9 cm LVPW Diastolic Thickness 0.7 cm 0.6 - 1.0 / 0.6 - 0.9 cm LV Relative Wall Thickness 0.3 LVOT Diameter 2.3 cm LV Diastolic Volume MOD BP 163.3 cm??? 67 - 155 / 56 - 104 cm??? LV Systolic Volume MOD BP 101.2 cm??? 22 - 58 / 19 - 49 cm??? LV Ejection Fraction MOD BP 38.1 % >= 55 % LV Cardiac Index MOD BP 3248.4 cm???/min???m??? LV Diastolic Volume MOD 4C 159.2 cm??? LV Systolic Volume MOD 4C 99.9 cm??? LV Ejection Fraction MOD 4C 37.3 % LV Cardiac Index MOD 4C 3101.9 cm???/min???m??? LV Diastolic Length 4C 8.6 cm LV Systolic Length 4C 7.2 cm LV Diastolic Volume MOD 2C 159.2 cm??? LV Systolic Volume MOD 2C 94.2 cm??? LV Ejection Fraction MOD 2C 40.8 % LV Cardiac Index MOD 2C 3393.7 cm???/min???m??? LV Diastolic Length 2C 8.2 cm LV Systolic Length 2C 7.9 cm LA Volume 55.5 cm??? 18 - 58 / 22 - 52 cm??? LA Volume Index 30.9 cm???/m??? 16 - 28 cm???/m??? M-MODE LV Diastolic Diameter MM 6.3 cm 4.2 - 5.9 / 3.9 - 5.3 cm LV Systolic Diameter MM 5.4 cm LV Cardiac Index MM Teich 3129.1 cm???/min???m??? IVS Diastolic Thickness MM 0.6 cm 0.6 - 1.0 / 0.6 - 0.9 cm LVPW Diastolic Thickness MM 0.8 cm 0.6 - 1.0 / 0.6 - 0.9 cm LV Relative Wall Thickness MM 0.2 0.24 - 0.42 / 0.22 - 0.42 LV Mass Index MM 96.6 g/m??? 49 - 115 / 43 - 95 g/m??? DOPPLER AV Peak Velocity 104.5 cm/s AV Peak Gradient 4.4 mmHg AV Mean Velocity 74.7 cm/s AV Mean Gradient 2.5 mmHg AV Velocity Time Integral 16.7 cm LVOT Peak Velocity 96.0 cm/s LVOT Peak Gradient 3.7 mmHg LVOT Velocity Time Integral 17.1 cm LVOT Stroke Volume 71.9 cm??? LVOT Stroke Volume Index 40.2 ml/m??? LVOT Cardiac Index 3759.3 cm???/min???m??? AV Area Cont Eq vti 4.3 cm??? AV Area Cont Eq pk 3.9 cm??? MV Area PHT 5.3 cm??? Mitral E Point Velocity 60.9 cm/s Mitral A Point Velocity 42.4 cm/s Mitral E to A Ratio 1.4 MV Deceleration Time 143.9 ms TR Peak Velocity 205.8 cm/s TR Peak Gradient 16.9 mmHg Right Atrial Pressure 20.0 mmHg Pulmonary Artery Systolic Pressu 36.9 mmHg Right Ventricular Systolic Press 36.9 mmHg PV Peak Velocity 70.6 cm/s PV Peak Gradient 2.0 mmHg FINDINGS Left Ventricle Left ventricular ejection fraction is estimated at 35 %. Severely decreased fractional shortening. Severely decreased midwall fractional shortening. Mildly increased left ventricular diastolic diameter. Mildly increased left ventricular diastolic volume. Severely increased left ventricular systolic volume. Moderately decreased left ventricular ejection fraction. Right Ventricle Right ventricular dilatation with mildly reduced function. Mild pulmonary hypertension. Right Atrium Mild right atrial dilatation. Left Atrium Mildly increased left atrial volume. Mitral Valve Structurally normal mitral valve. No evidence for mitral valve prolapse. No mitral stenosis. Trace mitral regurgitation. Aortic Valve Trileaflet aortic valve. No aortic valve stenosis or regurgitation. Tricuspid Valve Structurally normal tricuspid valve. No tricuspid stenosis. Trace tricuspid regurgitation. Pulmonic Valve Structurally normal pulmonic valve. No pulmonic stenosis. Trace pulmonic regurgitation. Pericardium No pericardial effusion. Aorta Aortic annulus normal. CONCLUSIONS Moderate LV systolic dysfunction with an ejection fraction of 35% Previewed by: Dr. Dawson Retana MD (Electronically Signed) Final Date: 01 November 2024 08:08
[2024-11-01 08:20] LABS: Glucose,Whole Blood 210 mg/dL (70-110)
[2024-11-01 09:03] LABS: Glucose,Whole Blood 97 mg/dL (70-110)
[2024-11-01 09:52] LABS: Glucose,Whole Blood 92 mg/dL (70-110)
[2024-11-01] MEDS: INSULIN DETEMIR (LEVEMIR) 100 UNIT/ML SYR SQ SCH (10:42)
[2024-11-01] MEDS: SODIUM CHLORIDE 0.9% 1,000 ML IV SCH (10:42)
[2024-11-01 11:44] LABS: Glucose,Whole Blood 121 mg/dL (70-110)
[2024-11-01] MEDS: INSULIN ASPART (NovoLOG) 100 UNIT/ML VIAL SQ SCH (11:58)
--- NOTE | 2024-11-01 14:34 | P.PN ---
Subjective Progress Note Date: 11/01/24 Principal diagnosis: Acute diabetic ketoacidosis This is a 49-year-old male known history of type 1 diabetes, history of gastroparesis, peripheral diabetic neuropathy, hypertension, dyslipidemia, chronic tobacco dependence, patient had history of myocardial revascularization with REILLY to LAD, and diagonal artery, ZAFAR to right coronary artery, right radial artery to the obtuse marginal artery, we saw him last on consultation back in 2019. In November 06, 2001 4, patient had coronary evaluation/cardiac catheterization, and he underwentcutting balloon angioplasty circumflex with a 3.0 x 10mm balloon, PCI proximal circumflex with a 3.5 x 15mm Xience SILVESTRE, post dilated with a 3.5 NC balloon. Patient was advised aggressive risk factor modification and medical therapy as well as dual antiplatelet therapy with aspirin Plavix for 12 months. This time/yesterday patient was sent by family because of altered mental status and confusion, initially was sent to [facility] and he left AMA. Back here last night with confusion, and he was found to have elevated blood sugar and acute diabetic ketoacidosis. Patient was admitted to the ICU, and this consult was initiated. His mental status remains altered. CT of the brain is relatively unremarkable. Patient clearly has acute metabolic encephalopathy with acute diabetic ketoacidosis. [place] on the protocol for acute DKA. Seen today on 11/01/2024, patient remains mute, on room air, not in any distress, his anion gap has closed, hence I will place the patient on Levemir insulin and sliding scale insulin I will also recommend IV fluid in the form of 0.9 normal saline at 100 cc/h. Patient is doing well, however he had some positive blood cultures which could be contamination related and the patient is receiving empirically cefazolin, will check the final identification on the organism, will check repeat blood cultures, and decide on the antibiotics accordingly. In the meantime patient is improving steadily. WBC count is 19.1 hemoglobin is 10 electrolytes are normal bicarb is 16 anion gap is 5, renal functioning is improving creatinine is down to 1.27 today, from 2.18 on admission Objective - Vital Signs Vital signs: Vital Signs Temp 98.9 F 11/01/24 12:00 Pulse 80 11/01/24 14:00 Resp 15 11/01/24 14:00 BP 108/75 11/01/24 14:00 Pulse Ox 97 11/01/24 14:00 FiO2 Intake & Output 10/31/24 11/01/24 11/01/24 18:59 06:59 18:59 Intake Total 3154.300 2035.267 771.619 Output Total 750 380 135 Balance 2404.300 1655.267 636.619 Weight 68.039 kg 80.8 kg Intake: IV 3050 1800 650 D5-0.45% NaCl with KCl 450 1800 600 20Meq/l 1,000 ml @ 150 mls/hr IV .Q6H40M [facility] Rx# :[id number] Sodium Chloride 0.9% 1, 1600 000 ml @ 200 mls/hr IV . Q5H [facility] Rx#:[id number] Sodium Chloride 0.9% 1, 1000 000 ml @ 999 mls/hr IV . Q1H1M [facility] Rx#:[id number] ceFAZolin 2 gm In Sodium 50 Chloride 0.9% 50 ml @ 100 mls/hr IVPB Q8H [facility] Rx#: [id number] Intake, IV Titration 104.300 235.267 21.619 Amount Heparin Sod,Pork in 0.45% 13.608 NaCl 25,000 unit In 0.45 % NaCl 1 250ml.bag @ 12 UNITS/KG/HR 8.165 mls/hr IV .Q24H [facility] Rx#: [id number] Insulin Regular 100 unit 104.300 21.659 21.619 In Sodium Chloride 0.9% 100 ml @ 0.1 UNITS/KG/HR 6.872 mls/hr IV .[id number] [facility] Rx#:[id number] Magnesium Sulfate-D5w Pmx 100 1 gm In Dextrose/Water 1 100ml.bag @ 100 mls/hr IVPB Q1H [facility] Rx#: [id number] Potassium Chloride 10 meq 100 In Water For Injection 1 100ml.bag @ 100 mls/hr IVPB Q1H [facility] Rx#: [id number] Oral 100 Output: Urine 750 380 135 Other: Voiding Method Urinal Indwelling Catheter Indwelling Catheter - Exam GENERAL EXAM: Revealed 49-year-old black male in no distress. HEENT: PERRLA, EOMI, no JVD. CHEST: Symmetrical chest expansion, lungs: No honchi or wheezes, clear throughout CVS: S1 and S2 normal with no audible murmur, regular rhythm. ABDOMEN: No hepatosplenomegaly, normal bowel sounds, no guarding or rigidity. SPINE: No scoliosis or deformity SKIN: No rashes, healing wound on the chest CENTRAL NERVOUS SYSTEM: Sleepy but arousable, grade gross focal neurologic deficit EXTREMITIES: There is no peripheral edema. No clubbing, no cyanosis. Peripheral pulses are intact. - Labs CBC & Chem 7: 11/01/24 04:29 11/01/24 04:29 Labs: Abnormal Lab Results - Last 24 Hours (Table) 10/31/24 10/31/24 10/31/24 Range/Units 15:09 15:55 16:30 WBC (3.8-10.6) k/uL RBC (4.30-5.90) m/uL Hgb (13.0-17.5) gm/dL Hct (39.0-53.0) % Neutrophils # (1.3-7.7) k/uL APTT (22.0-30.0) sec Chloride (98-107) mmol/L Carbon Dioxide (22-30) mmol/L BUN (9-20) mg/dL Creatinine (0.66-1.25) mg/dL Glucose (74-99) mg/dL POC Glucose (mg/dL) 293 H 220 H (70-110) mg/dL Hemoglobin A1c 14.3 H (<=6.0) % Phosphorus (2.5-4.5) mg/dL Magnesium (1.6-2.3) mg/dL Troponin I (0.000-0.034) ng/mL HDL Cholesterol (40.00-60.00) mg/dL 10/31/24 10/31/24 10/31/24 Range/Units 16:43 17:00 17:03 WBC (3.8-10.6) k/uL RBC (4.30-5.90) m/uL Hgb (13.0-17.5) gm/dL Hct (39.0-53.0) % Neutrophils # (1.3-7.7) k/uL APTT (22.0-30.0) sec Chloride 116 H (98-107) mmol/L Carbon Dioxide 20 L (22-30) mmol/L BUN 37 H (9-20) mg/dL Creatinine 1.73 H (0.66-1.25) mg/dL Glucose 167 H (74-99) mg/dL POC Glucose (mg/dL) 137 H (70-110) mg/dL Hemoglobin A1c (<=6.0) % Phosphorus 2.0 L (2.5-4.5) mg/dL Magnesium 1.5 L (1.6-2.3) mg/dL Troponin I 9.810 H* (0.000-0.034) ng/mL HDL Cholesterol 35.90 L (40.00-60.00) mg/dL 10/31/24 10/31/24 10/31/24 Range/Units 17:53 18:51 19:40 WBC (3.8-10.6) k/uL RBC (4.30-5.90) m/uL Hgb (13.0-17.5) gm/dL Hct (39.0-53.0) % Neutrophils # (1.3-7.7) k/uL APTT >200.0 H* (22.0-30.0) sec Chloride (98-107) mmol/L Carbon Dioxide (22-30) mmol/L BUN (9-20) mg/dL Creatinine (0.66-1.25) mg/dL Glucose (74-99) mg/dL POC Glucose (mg/dL) 129 H 114 H (70-110) mg/dL Hemoglobin A1c (<=6.0) % Phosphorus (2.5-4.5) mg/dL Magnesium (1.6-2.3) mg/dL Troponin I (0.000-0.034) ng/mL HDL Cholesterol (40.00-60.00) mg/dL 10/31/24 10/31/24 10/31/24 Range/Units 20:08 21:18 22:12 WBC (3.8-10.6) k/uL RBC (4.30-5.90) m/uL Hgb (13.0-17.5) gm/dL Hct (39.0-53.0) % Neutrophils # (1.3-7.7) k/uL APTT (22.0-30.0) sec Chloride 118 H (98-107) mmol/L Carbon Dioxide 19 L (22-30) mmol/L BUN 36 H (9-20) mg/dL Creatinine 1.50 H (0.66-1.25) mg/dL Glucose (74-99) mg/dL POC Glucose (mg/dL) 112 H 140 H (70-110) mg/dL Hemoglobin A1c (<=6.0) % Phosphorus 2.1 L (2.5-4.5) mg/dL Magnesium (1.6-2.3) mg/dL Troponin I (0.000-0.034) ng/mL HDL Cholesterol (40.00-60.00) mg/dL 11/01/24 11/01/24 11/01/24 Range/Units 01:23 02:36 03:58 WBC (3.8-10.6) k/uL RBC (4.30-5.90) m/uL Hgb (13.0-17.5) gm/dL Hct (39.0-53.0) % Neutrophils # (1.3-7.7) k/uL APTT (22.0-30.0) sec Chloride (98-107) mmol/L Carbon Dioxide (22-30) mmol/L BUN (9-20) mg/dL Creatinine (0.66-1.25) mg/dL Glucose (74-99) mg/dL POC Glucose (mg/dL) 374 H 350 H 378 H (70-110) mg/dL Hemoglobin A1c (<=6.0) % Phosphorus (2.5-4.5) mg/dL Magnesium (1.6-2.3) mg/dL Troponin I (0.000-0.034) ng/mL HDL Cholesterol (40.00-60.00) mg/dL 11/01/24 11/01/24 11/01/24 Range/Units 04:29 04:29 04:29 WBC 19.1 H (3.8-10.6) k/uL RBC 3.19 L (4.30-5.90) m/uL Hgb 10.0 L (13.0-17.5) gm/dL Hct 29.7 L (39.0-53.0) % Neutrophils # 17.2 H (1.3-7.7) k/uL APTT 46.7 H (22.0-30.0) sec Chloride 116 H (98-107) mmol/L Carbon Dioxide 16 L (22-30) mmol/L BUN 31 H (9-20) mg/dL Creatinine 1.27 H (0.66-1.25) mg/dL Glucose 291 H (74-99) mg/dL POC Glucose (mg/dL) (70-110) mg/dL Hemoglobin A1c (<=6.0) % Phosphorus (2.5-4.5) mg/dL Magnesium (1.6-2.3) mg/dL Troponin I (0.000-0.034) ng/mL HDL Cholesterol (40.00-60.00) mg/dL 11/01/24 11/01/24 11/01/24 Range/Units 06:17 08:18 11:43 WBC (3.8-10.6) k/uL RBC (4.30-5.90) m/uL Hgb (13.0-17.5) gm/dL Hct (39.0-53.0) % Neutrophils # (1.3-7.7) k/uL APTT (22.0-30.0) sec Chloride (98-107) mmol/L Carbon Dioxide (22-30) mmol/L BUN (9-20) mg/dL Creatinine (0.66-1.25) mg/dL Glucose (74-99) mg/dL POC Glucose (mg/dL) 272 H 210 H 121 H (70-110) mg/dL Hemoglobin A1c (<=6.0) % Phosphorus (2.5-4.5) mg/dL Magnesium (1.6-2.3) mg/dL Troponin I (0.000-0.034) ng/mL HDL Cholesterol (40.00-60.00) mg/dL Microbiology - Last 24 Hours (Table) 10/31/24 02:27 Blood Culture Gram Stain - Preliminary Blood Blood Culture - Preliminary Molecular ID Assessment and Plan Assessment: Impression:mpression: Acute diabetic ketoacidosis. Anion gap metabolic acidosis secondary to above. Acute toxic metabolic encephalopathy, will check ammonia level History of ischemic cardiomyopathy with LV dysfunction ejection fraction of 25- 30%. Insulin-dependent diabetes mellitus. History of diabetic gastroparesis. History of hypertension. History of marijuana use. History of non-ST segment elevation myocardial infarction, patient is status post bypass grafting on 06/22/20. Recommendation: Continue present supportive care measures Continue DKA protocol Check ammonia level Downgrade to 3 S. GI and DVT prophylaxis Will continue to follow Prognosis is guarded Time with Patient: Less than 30
[2024-11-01 17:52] LABS: Glucose,Whole Blood 102 mg/dL (70-110)
[2024-11-01] MEDS ORDERED: HEPARIN SODIUM,PORCINE 5,000 UNIT/ML 1 ML VIAL SQ SCH (21:00)
[2024-11-01 23:28] LABS: Glucose,Whole Blood 60 mg/dL (70-110)
[2024-11-01 23:49] LABS: Glucose,Whole Blood 57 mg/dL (70-110)
[2024-11-02 00:10] LABS: Glucose,Whole Blood 58 mg/dL (70-110)
[2024-11-02] MEDS ORDERED: DEXTROSE 50% SYRINGE 50 ML IVP PRN (00:17)
[2024-11-02] MEDS: DEXTROSE 50% SYRINGE 50 ML IVP PRN (00:23)
[2024-11-02 00:27] LABS: Glucose,Whole Blood 59 mg/dL (70-110)
[2024-11-02 00:45] LABS: Glucose,Whole Blood 125 mg/dL (70-110)
[2024-11-02 02:14] LABS: Glucose,Whole Blood 165 mg/dL (70-110)
[2024-11-02 05:44] LABS: Glucose,Whole Blood 124 mg/dL (70-110)
[2024-11-02 06:26] LABS: Basophils % (A) 0 %; Eosinophils % (A) 0 %; HCT 31.7 % (39.0-53.0); HGB 10.4 gm/dL (13.0-17.5); Lymphocytes # (A) 1.9 k/uL (1.0-4.8); Lymphocytes % (A) 15 %; MCH 30.2 pg (25.0-35.0); MCHC 32.8 g/dL (31.0-37.0); MCV 92.1 fL (80.0-100.0); Mean Platelet Volume 7.3; Monocytes # (A) 0.6 k/uL (0-1.0); Monocytes % (A) 5 %; Neutrophils # (A) 10.1 k/uL (1.3-7.7); Neutrophils % (A) 80 %; Platelet Count 180 k/uL (150-450); RBC 3.44 m/uL (4.30-5.90); RDW 14.5 % (11.5-15.5); WBC 12.7 k/uL (3.8-10.6)
[2024-11-02 06:46] LABS: African American GFR (CKD) >90 (>60 ml/min/1.73 sqM); Anion Gap 6 mmol/L; Blood Urea Nitrogen 20 mg/dL (9-20); Calcium 8.7 mg/dL (8.4-10.2); Carbon Dioxide 19 mmol/L (22-30); Chloride 112 mmol/L (98-107); Glucose 125 mg/dL (74-99); Magnesium 1.6 mg/dL (1.6-2.3); Non-African American GFR(CKD) >90 (>60 ml/min/1.73 sqM); Potassium 3.8 mmol/L (3.5-5.1); Sodium 137 mmol/L (137-145)
[2024-11-02] MEDS: HEPARIN SODIUM 1,000 UN/ML (10ML VL) IV PRN (07:52)
[2024-11-02] MEDS: POTASSIUM CHLORIDE ER 20 MEQ TAB.ER PO SCH (08:17)
[2024-11-02] MEDS: MAGNESIUM SULFATE-D5W PMX 1 GM in DEXTROSE/WATER 1 100ML.BAG IVPB SCH (08:17)
[2024-11-02] MEDS: POTASSIUM BICARBONATE/CIT AC 20 MEQ TABLET.EFF PO SCH (09:38)
[2024-11-02 11:26] LABS: Glucose,Whole Blood 129 mg/dL (70-110)
[2024-11-02] MEDS: INSULIN ASPART (NovoLOG) 100 UNIT/ML VIAL SQ SCH ×2 (11:35→12:07)
[2024-11-02] MEDS: Buprenorphine Hcl/Naloxone Hcl [Suboxone 8 Mg-2 Mg Sl Film] 1 EACH Fil SUBLINGUAL SCH (12:06)
[2024-11-02] MEDS ORDERED: NITROGLYCERIN SL TABS 0.4 MG TAB SUBLINGUAL PRN (12:52)
[2024-11-02] MEDS ORDERED: ALPRAZolam 0.5 MG TAB PO PRN (12:52)
[2024-11-02] MEDS ORDERED: ALPRAZolam 0.25 MG TAB PO PRN (12:52)
--- NOTE | 2024-11-02 12:54 | P.PN ---
Subjective HISTORY OF PRESENT ILLNESS: HPI: 47-year-old with PMH of type 1 diabetes, insulin-dependent, gastroparesis, peripheral diabetic neuropathy, hypertension, dyslipidemia, tobacco user, marijuana user. In November 2023 he was hospitalized for DKA and NSTEMI. He had a heart catheterization done which showed loss of ZAFAR to RCA and radial artery to OM graft. For this he got PCI to LCx. His RCA [place] is 100% occluded in mid segment. This time he presented initially to [facility] because of increased swelling in the legs. He left AMA from [facility]. At home he was noticed to be confused for which he was brought to [facility] this time. On admission he had concerns of changes in mental status, acute diabetic keto acidosis with elevated anion gap, significantly high glucose levels, and elevated troponin levels. Cardiology was consulted for elevated troponins 11/02/2024 This is a 49-year-old male who follows in the office with Dr. Joel. Patient is admitted to the hospital secondary to non-STEMI and DKA. Patient examined this morning at the bedside. Patient currently denies chest pain or pressure. He denies shortness of breath. Vital signs are stable. He remains on IV heparin. Echocardiogram completed revealing ejection fraction 35%, mild pulmonary hypertension, trace TR, trace MR PHYSICAL EXAM: VITAL SIGNS: Reviewed. GENERAL: Well-developed in no acute distress. NECK: Supple. No JVD or thyromegaly LUNGS: Respirations even and unlabored. Lungs essentially clear to auscultation bilaterally. HEART: Regular rate and rhythm. S1 and S2 heard. EXTREMITIES: Normal range of motion. No clubbing or cyanosis. Peripheral pulses intact. No lower extremity edema ASSESSMENT: DKA Non-STEMI Coronary artery disease with previous CABG and subsequent stenting Ischemic cardiomyopathy Peripheral diabetic neuropathy Hypertension Hyperlipidemia Gastroparesis Nicotine dependence Marijuana use PLAN: Continue IV heparin Discontinue oral Cardizem due to cardiomyopathy Continue additional cardiac medications Eventual addition of Farxiga for cardiomyopathy N.p.o. at midnight Patient to undergo cardiac catheterization tomorrow with Dr. Joel Further recommendations pending patient course Nurse practitioner note has been reviewed by physician. Signing provider agrees with the documented findings, assessment, and plan of care documented by [employer] as a scribe. Objective - Vital Signs Vital signs: Vital Signs Temp 98.7 F 11/02/24 08:00 Pulse 82 11/02/24 11:10 Resp 17 11/02/24 11:10 BP 102/69 11/02/24 11:10 Pulse Ox 100 11/02/24 11:10 FiO2 Intake & Output 11/01/24 11/02/24 11/02/24 18:59 06:59 18:59 Intake Total 5291.861 1026.421 738.01 Output Total 410 700 600 Balance 1401.619 834.421 138.01 Weight 80.6 kg Intake: IV 1450 850 700 D5-0.45% NaCl with KCl 600 20Meq/l 1,000 ml @ 150 mls/hr IV .Q6H40M [facility] Rx# :[id number] Magnesium Sulfate-D5w Pmx 100 1 gm In Dextrose/Water 1 100ml.bag @ 100 mls/hr IVPB Q1H [facility] Rx#: [id number] Sodium Chloride 0.9% 1, 800 800 600 000 ml @ 100 mls/hr IV . Q10H [facility] Rx#:[id number] ceFAZolin 2 gm In Sodium 50 50 Chloride 0.9% 50 ml @ 100 mls/hr IVPB Q8H [facility] Rx#: [id number] Intake, IV Titration 21.619 144.421 38.01 Amount Heparin Sod,Pork in 0.45% 144.421 38.01 NaCl 25,000 unit In 0.45 % NaCl 1 250ml.bag @ 12 UNITS/KG/HR 8.165 mls/hr IV .Q24H [facility] Rx#: [id number] Insulin Regular 100 unit 21.619 In Sodium Chloride 0.9% 100 ml @ 0.1 UNITS/KG/HR 6.872 mls/hr IV .[id number] [facility] Rx#:[id number] Oral 340 540 Output: Urine 410 700 600 Other: Voiding Method Indwelling Catheter Indwelling Catheter Indwelling Catheter - Labs CBC & Chem 7: 11/02/24 05:49 11/02/24 05:49 Labs: Abnormal Lab Results - Last 24 Hours (Table) 11/01/24 11/01/24 11/02/24 Range/Units 23:27 23:47 00:09 WBC (3.8-10.6) k/uL RBC (4.30-5.90) m/uL Hgb (13.0-17.5) gm/dL Hct (39.0-53.0) % Neutrophils # (1.3-7.7) k/uL Chloride (98-107) mmol/L Carbon Dioxide (22-30) mmol/L Glucose (74-99) mg/dL POC Glucose (mg/dL) 60 L 57 L 58 L (70-110) mg/dL 11/02/24 11/02/24 11/02/24 Range/Units 00:25 00:44 02:00 WBC (3.8-10.6) k/uL RBC (4.30-5.90) m/uL Hgb (13.0-17.5) gm/dL Hct (39.0-53.0) % Neutrophils # (1.3-7.7) k/uL Chloride (98-107) mmol/L Carbon Dioxide (22-30) mmol/L Glucose (74-99) mg/dL POC Glucose (mg/dL) 59 L 125 H 165 H (70-110) mg/dL 11/02/24 11/02/24 11/02/24 Range/Units 05:43 05:49 05:49 WBC 12.7 H (3.8-10.6) k/uL RBC 3.44 L (4.30-5.90) m/uL Hgb 10.4 L (13.0-17.5) gm/dL Hct 31.7 L (39.0-53.0) % Neutrophils # 10.1 H (1.3-7.7) k/uL Chloride 112 H (98-107) mmol/L Carbon Dioxide 19 L (22-30) mmol/L Glucose 125 H (74-99) mg/dL POC Glucose (mg/dL) 124 H (70-110) mg/dL 11/02/24 Range/Units 11:24 WBC (3.8-10.6) k/uL RBC (4.30-5.90) m/uL Hgb (13.0-17.5) gm/dL Hct (39.0-53.0) % Neutrophils # (1.3-7.7) k/uL Chloride (98-107) mmol/L Carbon Dioxide (22-30) mmol/L Glucose (74-99) mg/dL POC Glucose (mg/dL) 129 H (70-110) mg/dL
--- NOTE | 2024-11-02 14:00 | P.PN ---
Subjective Progress Note Date: 11/02/24 Principal diagnosis: Acute diabetic ketoacidosis This is a 49-year-old male known history of type 1 diabetes, history of gastroparesis, peripheral diabetic neuropathy, hypertension, dyslipidemia, chronic tobacco dependence, patient had history of myocardial revascularization with REILLY to LAD, and diagonal artery, ZAFAR to right coronary artery, right radial artery to the obtuse marginal artery, we saw him last on consultation back in 2019. In November 06, 2001 4, patient had coronary evaluation/cardiac catheterization, and he underwentcutting balloon angioplasty circumflex with a 3.0 x 10mm balloon, PCI proximal circumflex with a 3.5 x 15mm Xience SILVESTRE, post dilated with a 3.5 NC balloon. Patient was advised aggressive risk factor modification and medical therapy as well as dual antiplatelet therapy with aspirin Plavix for 12 months. This time/yesterday patient was sent by family because of altered mental status and confusion, initially was sent to [facility] and he left AMA. Back here last night with confusion, and he was found to have elevated blood sugar and acute diabetic ketoacidosis. Patient was admitted to the ICU, and this consult was initiated. His mental status remains altered. CT of the brain is relatively unremarkable. Patient clearly has acute metabolic encephalopathy with acute diabetic ketoacidosis. Galile[place] on the protocol for acute DKA. Seen today on 11/01/2024, patient remains mute, on room air, not in any distress, his anion gap has closed, hence I will place the patient on Levemir insulin and sliding scale insulin I will also recommend IV fluid in the form of 0.9 normal saline at 100 cc/h. Patient is doing well, however he had some positive blood cultures which could be contamination related and the patient is receiving empirically cefazolin, will check the final identification on the organism, will check repeat blood cultures, and decide on the antibiotics accordingly. In the meantime patient is improving steadily. WBC count is 19.1 hemoglobin is 10 electrolytes are normal bicarb is 16 anion gap is 5, renal functioning is improving creatinine is down to 1.27 today, from 2.18 on admission Seen today on 11/02/2024, patient was seen in the ICU, doing well, asymptomatic, patient is doing great overall. His DKA has resolved, patient remains on heparin for his acute non-ST elevation myocardial infarction, and he does have history of ischemic cardiomyopathy. This is being addressed by cardiology. Considering the improvement today I recommended transferring the patient to a monitored bed and selective. CBC is relatively normal basic metabolic profile is normal renal profile is normal blood sugar is 125 Objective - Vital Signs Vital signs: Vital Signs Temp 98.7 F 11/02/24 08:00 Pulse 82 11/02/24 11:10 Resp 17 11/02/24 11:10 BP 102/69 11/02/24 11:10 Pulse Ox 100 11/02/24 11:10 FiO2 Intake & Output 11/01/24 11/02/24 11/02/24 18:59 06:59 18:59 Intake Total 1428.964 4626.421 778.424 Output Total 410 700 600 Balance 1401.619 834.421 178.424 Weight 80.6 kg Intake: IV 1450 850 700 D5-0.45% NaCl with KCl 600 20Meq/l 1,000 ml @ 150 mls/hr IV .Q6H40M MORE Rx# :[id number] Magnesium Sulfate-D5w Pmx 100 1 gm In Dextrose/Water 1 100ml.bag @ 100 mls/hr IVPB Q1H MORE Rx#: [id number] Sodium Chloride 0.9% 1, 800 800 600 000 ml @ 100 mls/hr IV . Q10H MORE Rx#:[id number] ceFAZolin 2 gm In Sodium 50 50 Chloride 0.9% 50 ml @ 100 mls/hr IVPB Q8H MORE Rx#: [id number] Intake, IV Titration 21.619 144.421 78.424 Amount Heparin Sod,Pork in 0.45% 144.421 78.424 NaCl 25,000 unit In 0.45 % NaCl 1 250ml.bag @ 12 UNITS/KG/HR 8.165 mls/hr IV .Q24H MORE Rx#: [id number] Insulin Regular 100 unit 21.619 In Sodium Chloride 0.9% 100 ml @ 0.1 UNITS/KG/HR 6.872 mls/hr IV .[id number] MORE Rx#:[id number] Oral 340 540 Output: Urine 410 700 600 Other: Voiding Method Indwelling Catheter Indwelling Catheter Indwelling Catheter - Exam GENERAL EXAM: Revealed 49-year-old black male in no distress. On room air HEENT: PERRLA, EOMI, no JVD. CHEST: Symmetrical chest expansion, lungs: No honchi or wheezes, clear throughout CVS: S1 and S2 normal with no audible murmur, regular rhythm. ABDOMEN: No hepatosplenomegaly, normal bowel sounds, no guarding or rigidity. SPINE: No scoliosis or deformity SKIN: No rashes, healing wound on the chest CENTRAL NERVOUS SYSTEM: Sleepy but arousable, grade gross focal neurologic deficit EXTREMITIES: There is no peripheral edema. No clubbing, no cyanosis. Peripheral pulses are intact. - Labs CBC & Chem 7: 11/02/24 05:49 11/02/24 05:49 Labs: Abnormal Lab Results - Last 24 Hours (Table) 11/01/24 11/01/24 11/02/24 Range/Units 23:27 23:47 00:09 WBC (3.8-10.6) k/uL RBC (4.30-5.90) m/uL Hgb (13.0-17.5) gm/dL Hct (39.0-53.0) % Neutrophils # (1.3-7.7) k/uL Chloride (98-107) mmol/L Carbon Dioxide (22-30) mmol/L Glucose (74-99) mg/dL POC Glucose (mg/dL) 60 L 57 L 58 L (70-110) mg/dL 11/02/24 11/02/24 11/02/24 Range/Units 00:25 00:44 02:00 WBC (3.8-10.6) k/uL RBC (4.30-5.90) m/uL Hgb (13.0-17.5) gm/dL Hct (39.0-53.0) % Neutrophils # (1.3-7.7) k/uL Chloride (98-107) mmol/L Carbon Dioxide (22-30) mmol/L Glucose (74-99) mg/dL POC Glucose (mg/dL) 59 L 125 H 165 H (70-110) mg/dL 11/02/24 11/02/24 11/02/24 Range/Units 05:43 05:49 05:49 WBC 12.7 H (3.8-10.6) k/uL RBC 3.44 L (4.30-5.90) m/uL Hgb 10.4 L (13.0-17.5) gm/dL Hct 31.7 L (39.0-53.0) % Neutrophils # 10.1 H (1.3-7.7) k/uL Chloride 112 H (98-107) mmol/L Carbon Dioxide 19 L (22-30) mmol/L Glucose 125 H (74-99) mg/dL POC Glucose (mg/dL) 124 H (70-110) mg/dL 11/02/24 Range/Units 11:24 WBC (3.8-10.6) k/uL RBC (4.30-5.90) m/uL Hgb (13.0-17.5) gm/dL Hct (39.0-53.0) % Neutrophils # (1.3-7.7) k/uL Chloride (98-107) mmol/L Carbon Dioxide (22-30) mmol/L Glucose (74-99) mg/dL POC Glucose (mg/dL) 129 H (70-110) mg/dL Microbiology - Last 24 Hours (Table) 10/31/24 02:27 Blood Culture Gram Stain - Preliminary Blood Blood Culture - Preliminary Staphylococcus hominis Molecular ID Assessment and Plan Assessment: impression: Acute diabetic ketoacidosis. Resolved Anion gap metabolic acidosis secondary to above. Resolved Acute toxic metabolic encephalopathy, resolved History of ischemic cardiomyopathy with LV dysfunction ejection fraction of 25- 30%. Being addressed by cardiology farxiga was added Insulin-dependent diabetes mellitus. History of diabetic gastroparesis. History of hypertension. History of marijuana use. History of coronary artery disease status post bypass grafting on 06/22/20. Recommendation: Continue present supportive care measures continue heparin Continue insulin/Accu-Cheks and address accordingly patient is also on Levemir insulin GI and DVT prophylaxis Will continue to follow Discharge planning in the next 24 to 48 hours Time with Patient: Less than 30
[2024-11-02 16:51] LABS: Glucose,Whole Blood 54 mg/dL (70-110)
[2024-11-02 17:22] LABS: Glucose,Whole Blood 61 mg/dL (70-110)
[2024-11-02 17:41] LABS: Glucose,Whole Blood 57 mg/dL (70-110)
[2024-11-02 17:57] LABS: Glucose,Whole Blood 110 mg/dL (70-110)
[2024-11-02] MEDS: SODIUM CHLORIDE 0.9% 1,000 ML in EMPTY BAG 1 BAG IV SCH (19:37)
[2024-11-02] MEDS: PREGABALIN 50 MG CAP PO SCH (19:42)
[2024-11-02] MEDS: LOSARTAN 50 MG TAB PO SCH (19:42)
[2024-11-02] MEDS: ATORVASTATIN 80 MG TAB PO SCH (19:42)
[2024-11-02] MEDS: METOPROLOL TARTRATE 50 MG TAB PO SCH (19:42)
[2024-11-02 20:01] LABS: Glucose,Whole Blood 171 mg/dL (70-110)
[2024-11-02] MEDS ORDERED: METOPROLOL TARTRATE 25 MG TAB PO SCH (21:00)
[2024-11-03] MEDS: ACETAMINOPHEN TAB 325 MG TAB PO PRN (03:06)
[2024-11-03] MEDS: ASPIRIN 81 MG PO SCH (05:30)
[2024-11-03] MEDS: INSULIN DETEMIR (LEVEMIR) 100 UNIT/ML SYR SQ SCH (05:30)
[2024-11-03] MEDS: DULoxetine HCL 30 MG CAPSULE.DR PO SCH (05:36)
[2024-11-03] MEDS: CLOPIDOGREL 75 MG TAB PO SCH (05:36)
[2024-11-03] MEDS: ATORVASTATIN 80 MG TAB PO ONE (05:37)
[2024-11-03] MEDS: ASPIRIN 325 MG TAB PO ONE (05:37)
[2024-11-03] MEDS: FAMOTIDINE 20 MG TAB PO SCH (05:37)
[2024-11-03] MEDS: SPIRONOLACTONE 25 MG TAB PO SCH (05:37)
[2024-11-03] MEDS: PANTOPRAZOLE 40 MG TABLET PO SCH (05:39)
[2024-11-03 06:20] LABS: Glucose,Whole Blood 213 mg/dL (70-110)
[2024-11-03] MEDS ORDERED: HEPARIN SODIUM,PORCINE (1 ML) 2,500 UNIT in SODIUM CHLORIDE 0.9% 250 ML IRRIGATION PRN (07:00)
[2024-11-03] MEDS ORDERED: HEPARIN SODIUM,PORCINE 10,000 UNIT in SODIUM CHLORIDE 0.9% 1,000 ML IRRIGATION PRN (07:00)
[2024-11-03] MEDS ORDERED: DILTIAZEM CD 120 MG CAP.ER.24H PO SCH (09:00)
--- NOTE | 2024-11-03 09:09 | PN ---
PROGRESS NOTE SUBJECTIVE: A 49-year-old gentleman, who is admitted to the hospital with diabetic ketoacidosis and had elevated troponin with a peak troponin of 9.8. The patient was thought to have had type [address] Sue, who evaluated the patient. The patient was recently at [facility] with heart failure and diabetic ketoacidosis. At the time of my evaluation this morning, the patient is chest pain free, hemodynamically stable. He is on aspirin, Plavix, Toprol. I will resume the Cozaar that he was on at home along with the Lipitor. PHYSICAL EXAMINATION: VITAL SIGNS: Stable. CHEST: Good air entry bilaterally. HEART: First and second heart sounds. No gallop. EXTREMITIES: Did not reveal any edema. Peripheral pulses were felt. ASSESSMENT: 1. Acute ysh-KL-gimgedg elevation myocardial infarction. 2. Diabetic ketoacidosis. 3. Coronary artery disease, status post coronary artery bypass graft. PLAN: I am going to continue the IV heparin at this time. The patient's second set of troponin is significantly elevated. I am not sure if we can explain this just with the type 2 myocardial infarction. MMODL / IJN: [id number] /
--- NOTE | 2024-11-03 09:10 | HP ---
HISTORY AND PHYSICAL CHIEF COMPLAINT: Diabetic ketoacidosis with coma. HISTORY OF PRESENT ILLNESS: This is another admission for this 49-year-old noncompliant type 1 insulin-dependent diabetic. He has had problems in the past with coronary artery disease as well. He came to the emergency room with diabetic ketoacidosis and was admitted. REVIEW OF SYSTEMS: Not obtainable. Past medical history, family history and personal and social histories are otherwise unremarkable or noncontributory. PHYSICAL EXAMINATION: VITAL SIGNS: Blood pressure was 85/56 with a pulse of 108, respirations of 40 and he is afebrile. GENERAL: He appeared to be slender and lethargic. HEAD, EARS, EYES, NOSE, MOUTH AND THROAT: Normal. CHEST: Clear. CARDIAC: Normal sinus rhythm. ABDOMEN: Soft, nontender. EXTREMITIES: Normal. IMPRESSION: 1. Diabetic ketoacidosis. 2. Chronic obstructive pulmonary disease. 3. Hypotension. 4. History of coronary artery disease. PLAN: 1. Bedrest in the intensive care unit. 2. DKA protocol. 3. Consult with intensive medicine. MMODL / IJN: [id number] /
[2024-11-03 11:47] LABS: Glucose,Whole Blood 403 mg/dL (70-110)
--- NOTE | 2024-11-03 12:17 | PN ---
PROGRESS NOTE DATE OF SERVICE: 11/01/2024 CHIEF COMPLAINT: DKA. HISTORY OF PRESENT ILLNESS: This gentleman is doing well. He is now more awake and alert. His sugars are coming down. PHYSICAL EXAMINATION: CHEST: Clear. CARDIAC: Normal. ABDOMEN: Soft, nontender. IMPRESSION: 1. Diabetic ketoacidosis. 2. Uncontrolled diabetes. 3. History of coronary artery disease. PLAN: Increase activity and probably move out of ICU soon. MMODL / IJN: [id number] /
--- NOTE | 2024-11-03 12:32 | PN ---
PROGRESS NOTE DATE OF SERVICE: 11/02/2024 CHIEF COMPLAINT: Diabetic ketoacidosis. HISTORY OF PRESENT ILLNESS: The patient is doing better. Sugars are down, and he is increasing his activity and diet. PHYSICAL EXAMINATION: CHEST: Clear. CARDIAC: Normal. ABDOMEN: Soft. Nontender. IMPRESSION: 1. Diabetic ketoacidosis. 2. History of coronary artery disease. PLAN: Increase activity and possibly home in the next day or so. MMODL / IJN: [id number] /
[2024-11-03] MEDS: fentaNYL (PF) 50 MCG/ML 2 ML AMP IVP ONE (15:04)
[2024-11-03] MEDS: MIDAZOLAM 2 MG/2 ML VIAL IVP ONE ×2 (15:04)
[2024-11-03] MEDS: HEPARIN SODIUM 1,000 UN/ML (10ML VL) IVP ONE ×2 (15:12→15:16)
[2024-11-03] MEDS: LIDOCAINE 1% INJ 10MG/ML (20 ML MDV) SQ ONE (15:12)
[2024-11-03] MEDS: IV FLUID CONTINUATION 800 ML IV ONE (15:32)
[2024-11-03] MEDS: IOPAMIDOL-370 100ML BTL INJ ONE (15:32)
[2024-11-03] MEDS ORDERED: RX INFO: IV CONTRAST WAS GIVEN 1 EACH MISC MISCELLANE PRN (15:36)
--- NOTE | 2024-11-03 16:00 | P.CARDCATH ---
Description of Procedure: PROCEDURES PERFORMED: Left heart catheterization, bilateral coronary angiography, ultrasound guided arterial access, REILLY to LAD angiography INDICATION: NSTEMI CONSENT:I have discussed the risks, benefits and alternative therapies for the above-mentioned procedure and for both sedation/analgesia as well as necessary blood product administration, if indicated, as they pertain to this patient. The patient has indicated understanding and acceptance of the risks and procedures discussed. PROCEDURE: After the risks, benefits and alternatives of the above mentioned procedure explained in detail with the patient, informed consent was obtained. Patient was taken to the catheterization lab and prepped and draped in usual fashion. Ultrasound guidance was used to assess for arterial access. 1% lidocaine was used to anesthetize the right femoral artery. A 6-Grenadian sheath was placed in the right femoral artery using modified Seldinger technique and ultrasound guidance. Left coronary angiography was performed with a 6-Grenadian JL 4.0 catheter and right coronary angiography was performed with a 6-Grenadian AR2 catheter in various views. A 6-Grenadian AR2 catheter was inserted into the left ventricle and pressure measurements were obtained. The ZAFAR and prior radial artery had been known to be occluded. The CORINNE catheter was also used to engage the REILLY to diagonal/LAD. Femoral angiogram showed anatomy adequate for closure. The right femoral sheath was removed and a 6-Grenadian Angio-Seal was placed with hemostasis achieved. The patient tolerated the procedure well. Patient was transported back to the post catheterization holding area in stable condition. Conscious Sedation: Patient was monitored under the direct supervision of myself for conscious sedation using Versed and fentanyl for a total duration of 22 minutes HEMODYNAMICS: Aorta: 134/81 LV: 132/8, LVEDP 15 SELECTIVE CORONARY ARTERIOGRAPHY: LEFT MAIN: The left main is a large caliber vessel which bifurcates into the LAD and circumflex. There is no significant stenosis. LEFT ANTERIOR DESCENDING CORONARY ARTERY: LAD is a large caliber vessel which wraps around to the apex. There is a long heavily calcified proximal mid LAD 80-85% stenosis. There is 100% mid LAD stenosis. There are [id number] collaterals to the PDA. LEFT CIRCUMFLEX CORONARY ARTERY: Left circumflex is a moderate caliber vessel. The proximal circumflex has a patent proximal stent and otherwise a mid circumflex 30% stenosis before giving off OM1 branch. The AV groove circumflex has a long disease including proximal and mid 95% stenosis leading to a small caliber OM 2. RIGHT CORONARY ARTERY: The right coronary artery is a moderate to large caliber vessel which gives off a PDA and PLV branch and is the dominant vessel. There diffuse disease including proximal 60-70% stenosis, mid RCA 100% stenosis. REILLY to diagonal/ LAD: Widely patent and gives left to right collaterals ZAFAR to PDA: not imaged however known to be atretic, not leading to PDA Right radial to OM: Known to be 100% occluded FINAL IMPRESSION: 1. [place] CAD as described above including proximal to mid LAD 80-85%, 100% mid LAD, 30% circumflex, 99% AV groove circumflex, 100% mid RCA, patent circumflex stent 2. Patent REILLY to LAD/diagonal, known occluded ZAFAR to PDA, right radial to OM 3. High normal left sided filling pressures PLAN: 1. Aggressive risk factor modification per most recent ACC/AHA guidelines. 2. NSTEMI appears type 2 mechanism with stable CAD. Continue with medical t herapy. 3. Tobacco cessation discussed with patient
[2024-11-03 16:33] LABS: Glucose,Whole Blood 209 mg/dL (70-110)
[2024-11-03 20:28] LABS: Glucose,Whole Blood 213 mg/dL (70-110)
[2024-11-04 00:16] VITALS: TEMP 98.3
[2024-11-04 05:42] LABS: Glucose,Whole Blood 267 mg/dL (70-110)
[2024-11-04 06:47] LABS: Basophils % (A) 0 %; Eosinophils % (A) 0 %; HCT 32.8 % (39.0-53.0); HGB 10.8 gm/dL (13.0-17.5); Lymphocytes # (A) 1.1 k/uL (1.0-4.8); Lymphocytes % (A) 18 %; MCH 31.1 pg (25.0-35.0); MCHC 32.9 g/dL (31.0-37.0); MCV 94.6 fL (80.0-100.0); Mean Platelet Volume 7.6; Monocytes # (A) 0.3 k/uL (0-1.0); Monocytes % (A) 5 %; Neutrophils # (A) 4.4 k/uL (1.3-7.7); Neutrophils % (A) 74 %; Platelet Count 155 k/uL (150-450); RBC 3.47 m/uL (4.30-5.90); RDW 14.4 % (11.5-15.5)
[2024-11-04 07:03] LABS: African American GFR (CKD) >90 (>60 ml/min/1.73 sqM); Anion Gap 11 mmol/L; Blood Urea Nitrogen 16 mg/dL (9-20); Calcium 8.3 mg/dL (8.4-10.2); Carbon Dioxide 16 mmol/L (22-30); Chloride 108 mmol/L (98-107); Glucose 282 mg/dL (74-99); Non-African American GFR(CKD) >90 (>60 ml/min/1.73 sqM); Potassium 3.9 mmol/L (3.5-5.1); Sodium 135 mmol/L (137-145)
[2024-11-04 11:38] LABS: Glucose,Whole Blood 140 mg/dL (70-110)
--- NOTE | 2024-11-04 11:41 | P.PN ---
Subjective Progress Note Date: 11/04/24 This is a pleasant 49-year-old gentleman with a past medical history of type 1 diabetes, gastroparesis, peripheral diabetic neuropathy, hypertension, dyslipidemia, tobacco use, marijuana use, prior CABG with a hospitalization in November 06 for DKA and non-STEMI at which time heart catheterization joanie wed loss of ZAFAR to RCA and radial graft to OM at which time he underwent PCI of left circumflex. Initially presented to [facility] with increased swelling in his legs left AMA and was readmitted to [facility] and there were concerns of mental status changes DKA and troponins were elevated. Echocardiogram with Doppler study revealed ejection fraction 35%, mild pulmonary hypertension. He underwent cardiac catheterization by Dr. Joel yesterday that revealed [place] CAD with proximal to mid LAD 80 to 85%, 100% mid LAD, 30% circumflex, 99% AV groove circumflex and 100% mid RCA with a patent circumflex stent. REILLY to the LAD and diagonal was patent with known occluded ZAFAR to PDA and right radial to OM. Currently on aspirin 81 mg daily, atorvastatin 80 mg p.o. nightly, Plavix 75 mg daily, losartan 50 mg p.o. twice daily, metoprolol tartrate 50 mg p.o. twice daily and Aldactone 25 mg p.o. daily. The patient was seen and examined today resting comfortably in bed. He is ov erall feeling well. His breathing is stable. He has had no chest discomfort. PHYSICAL EXAM: VITAL SIGNS: Reviewed. GENERAL: Well-developed in no acute distress. NECK: Supple. No JVD or thyromegaly LUNGS: Respirations even and unlabored. Lungs essentially clear to auscultation bilaterally. HEART: Regular rate and rhythm. S1 and S2 heard. EXTREMITIES: Normal range of motion. No clubbing or cyanosis. Peripheral pulses intact. No lower extremity edema. Right femoral puncture site clean dry and intact without ecchymosis or hematoma ASSESSMENT: DKA Non-STEMI Coronary artery disease with previous CABG and subsequent stenting Ischemic cardiomyopathy Peripheral diabetic neuropathy Hypertension Hyperlipidemia Gastroparesis Nicotine dependence Marijuana use PLAN: Medications were reviewed we will continue the same. From our perspective patient may be discharged home. He will follow-up in the office with Dr. Joel next week. OPERATIONS MANAGER STATION note has been reviewed, I agree with a documented findings and plan of care. Patient was seen and examined. Objective - Vital Signs Vital signs: Vital Signs Temp 98.3 F 11/04/24 00:00 Pulse 76 11/04/24 04:00 Resp 16 11/04/24 04:00 BP 118/73 11/04/24 04:00 Pulse Ox 96 11/04/24 04:00 FiO2 Intake & Output 11/03/24 11/04/24 11/04/24 18:59 06:59 18:59 Intake Total 318 500 180 Output Total 600 Balance -282 500 180 Weight 73.5 kg Intake: IV 200 20 Invasive Line 1 10 Invasive Line 2 10 Oral 118 480 180 Output: Urine 600 Other: Voiding Method Toilet Urinal # Voids 2 - Labs CBC & Chem 7: 11/04/24 06:05 11/04/24 06:05 Labs: Abnormal Lab Results - Last 24 Hours (Table) 11/03/24 11/03/24 11/03/24 Range/Units 11:42 16:31 20:26 RBC (4.30-5.90) m/uL Hgb (13.0-17.5) gm/dL Hct (39.0-53.0) % Sodium (137-145) mmol/L Chloride (98-107) mmol/L Carbon Dioxide (22-30) mmol/L Glucose (74-99) mg/dL POC Glucose (mg/dL) 403 H 209 H 213 H (70-110) mg/dL Calcium (8.4-10.2) mg/dL 11/04/24 11/04/24 11/04/24 Range/Units 05:41 06:05 06:05 RBC 3.47 L (4.30-5.90) m/uL Hgb 10.8 L (13.0-17.5) gm/dL Hct 32.8 L (39.0-53.0) % Sodium 135 L (137-145) mmol/L Chloride 108 H (98-107) mmol/L Carbon Dioxide 16 L (22-30) mmol/L Glucose 282 H (74-99) mg/dL POC Glucose (mg/dL) 267 H (70-110) mg/dL Calcium 8.3 L (8.4-10.2) mg/dL Microbiology - Last 24 Hours (Table) 11/01/24 08:10 Blood Culture - Preliminary Blood 10/31/24 02:27 Blood Culture Gram Stain - Final Blood Blood Culture - Final Staphylococcus hominis Molecular ID
[2024-11-04 13:32] VITALS: BMI 25.3
[2024-11-04 16:11] LABS: Glucose,Whole Blood 86 mg/dL (70-110)
[2024-11-04 16:44] VITALS: BP 126/74; PULSE 70; RESP 16
[2024-11-04] MEDS ORDERED: CEPHALEXIN 500 MG CAP PO SCH (18:00)
--- NOTE | 2024-11-05 02:18 | DS ---
DISCHARGE SUMMARY CHIEF COMPLAINT: Diabetic ketoacidosis. HISTORY OF PRESENT ILLNESS AND PHYSICAL EXAM: Details of this man's history and physical can be found in the initial workup. LABORATORY STUDIES: While he was in the hospital, he had laboratory studies, details of which can be found in the laboratory section of his chart. COURSE IN THE HOSPITAL: After admission, he was placed on bedrest in the intensive care unit. He remained semicomatose for several days and then became more awake and alert. He did have elevated troponins and he was seen and followed by Cardiology. He has a long-standing history of myocardial infarctions and coronary artery disease. He was taken for cardiac cath, but no intervention was indicated. He is doing well and it was felt that he could be discharged on the and he will go home on his usual activity, diet, and medication. FINAL DIAGNOSES: 1. Diabetic ketoacidosis with coma. 2. Coronary artery disease. 3. Acute non ST elevation myocardial infarction. OPERATION: Cardiac cath. CONSULTATIONS: Intensive Medicine and Cardiology. EZEKIEL / CONRAD: [id number] /
--- NOTE | 2024-11-05 02:41 | PN ---
PROGRESS NOTE DATE OF SERVICE: 11/03/2024 CHIEF COMPLAINT: Diabetic ketoacidosis with coma and coronary artery disease. HISTORY OF PRESENT ILLNESS: This gentleman is doing fairly well. He is going for cardiac cath. PHYSICAL EXAMINATION: GENERAL: He is pale. He is chronically ill in appearance. CHEST: Clear. CARDIAC: Normal. ABDOMEN: Soft, nontender. IMPRESSION: 1. Diabetic ketoacidosis. 2. Coma. 3. Non ST elevation myocardial infarction. 4. History of coronary artery disease. PLAN: Cardiac cath today. MMODL / IJN: [id number] /
== END 2024-11-04 18:11 | disposition home or self-care (01) | DRG 420 ==
LOC: EC 23:54 → 2SICU 10-31 01:08 → 3SCARD 11-02 10:03
PROVIDERS: ADMIT Family Medicine; ATTEND Family Medicine
PROC: B2111ZZ Fluoroscopy of Multiple Coronary Arteries using Low Osmolar Contrast (ICD-10-PCS; 2024-11-03)
PROC: 4A023N7 Measurement of Cardiac Sampling and Pressure, Left Heart, Percutaneous Approach (ICD-10-PCS; principal; 2024-11-03 10:00)
DX: E10.10 Type 1 diabetes mellitus with ketoacidosis without coma (principal); I25.10 Atherosclerotic heart disease of native coronary artery without angina pectoris; I21.A1 Myocardial infarction type 2; I50.9 Heart failure, unspecified; I25.2 Old myocardial infarction; I11.0 Hypertensive heart disease with heart failure; F17.200 Nicotine dependence, unspecified, uncomplicated; G92.8 Other toxic encephalopathy; I25.5 Ischemic cardiomyopathy; K31.84 Gastroparesis; E10.43 Type 1 diabetes mellitus with diabetic autonomic (poly)neuropathy; N17.9 Acute kidney failure, unspecified; E78.5 Hyperlipidemia, unspecified; M79.7 Fibromyalgia; M19.90 Unspecified osteoarthritis, unspecified site; F31.9 Bipolar disorder, unspecified; F41.9 Anxiety disorder, unspecified; I95.9 Hypotension, unspecified; I27.20 Pulmonary hypertension, unspecified; E10.42 Type 1 diabetes mellitus with diabetic polyneuropathy; J44.9 Chronic obstructive pulmonary disease, unspecified; Z79.51 Long term (current) use of inhaled steroids; Z79.82 Long term (current) use of aspirin; Z79.899 Other long term (current) drug therapy; Z95.5 Presence of coronary angioplasty implant and graft; Z79.02 Long term (current) use of antithrombotics/antiplatelets; Z79.4 Long term (current) use of insulin; Z91.199 Patient's noncompliance with other medical treatment and regimen due to unspecified reason
CPT/HCPCS: 36415; 70450; 71045; 80048; 80051; 80053; 80061; 80306; 80320; 81003; 82009; 82140; 82565; 82803; 82947; 83036; 83735; 83880; 84100; 84484; 84520; 85025; 85610; 85730; 87040; 87077; 87186; 93005; 93306; 93459; 96361; 96365; 96375; 99291

== ENCOUNTER → 2025-03-18 | Outpatient (CLI) | payer OTHER ==
--- NOTE | 2025-03-18 14:34 | US ---
EXAMINATION TYPE: US arterial LE single level DATE OF EXAM: 03/18/2025 2:08 PM COMPARISONS: None. CLINICAL INDICATION: Male, 50 years old with history of E08.621 DIABETES MELLITUS DUE TO UNDERLYING C ONDIT; chronic ulcer left lateral ankle right great toe amputated. Diabetic. TECHNIQUE: Systolic pressures were taken of the upper and lower extremity arteries with ankle-brachia l indices and toe brachial indices calculated bilaterally. History of: Hypertension: yes Diabetic: yes TIA/CVA: yes Previous Vascular Surgery: yes CAD: no VA: yes Vascular Ulcers: yes Claudication: no Gangrene: no FINDINGS: Doppler Waveforms: Right: Left: Pulse Volume Recording: Pressure Gradients: Brachial Artery systolic pressure: Right: Deferred Left: 115 Posterior Tibial artery systolic pressure: Right: 138 Left: 161 Dorsalis Pedis artery systolic pressure: Right: 133 Left: 142 Toe artery systolic pressure: Right: amputated Left: 80 Ankle-Brachial Indices: Right: 1.20 Left: 1.40 Toe Brachial Indices: Left: 0.70 (Normal > 0.6; Mild 0.35 - 0.59, Moderate 0.12 - 0.34, Severe <0.12) IMPRESSION: YOSVANY: Right: Normal 0.9 - 1.4, Recommendation: None Left: Normal 0.9 - 1.4, Recommendation: None [facility], , 03/18/2025 2:31 PM
== END | disposition home or self-care (01) ==
LOC: RADUSWWP 13:38
PROVIDERS: ATTEND Thoracic Surgery (Cardiothoracic Vascular Surgery)
DX: E11.621 Type 2 diabetes mellitus with foot ulcer (principal); I10 Essential (primary) hypertension; Z86.73 Personal history of transient ischemic attack (TIA), and cerebral infarction without residual deficits
CPT/HCPCS: 93922